=== PATIENT | female | born 1950 | race Caucasian/White ===

== ENCOUNTER → 2017-04-25 | Outpatient (CLI) | payer OTHER ==
--- NOTE | 2017-04-27 08:27 | MM ---
Reason for exam: screening (asymptomatic). Last mammogram was performed 2 years ago. History: Patient is postmenopausal. Family history of breast cancer in 2 grandmothers and breast cancer in aunt at age 55. Physical Findings: A clinical breast exam by your physician is recommended on an annual basis and results should be correlated with mammographic findings. MG 3D Screening Mammo W/Cad Bilateral CC and MLO view(s) were taken. Prior study comparison: April 24, 2015, bilateral MG screening mammo w CAD. The breast tissue is heterogeneously dense. This may lower the sensitivity of mammography. There is chronic nodularity in the right breast. Right sided HOLDER PILE [employer]IVING shunt catheter seen. No significant changes when compared with prior studies. ASSESSMENT: Negative, BI-RAD 1 RECOMMENDATION: Routine screening mammogram of both breasts in 1 year.
== END | disposition home or self-care (01) ==
LOC: RADMAMWWP 13:40
PROVIDERS: ATTEND Family Medicine
DX: Z12.31 Encounter for screening mammogram for malignant neoplasm of breast (principal)
CPT/HCPCS: 77063; G0202

== ENCOUNTER → 2018-06-21 | Outpatient (CLI) | payer OTHER, MEDICARE ==
--- NOTE | 2018-06-22 12:16 | MM ---
Reason for exam: screening (asymptomatic). Last mammogram was performed 1 year and 2 months ago. History: Patient is postmenopausal. Family history of breast cancer in 2 grandmothers and breast cancer in aunt at age 55. Physical Findings: A clinical breast exam by your physician is recommended on an annual basis and results should be correlated with mammographic findings. MG 3D Screening Mammo W/Cad Bilateral CC and MLO view(s) were taken. Prior study comparison: April 25, 2017, bilateral MG 3d screening mammo w/cad. April 24, 2015, bilateral MG screening mammo w CAD. The breast tissue is extremely dense which could obscure a lesion on mammography. Benign calcifications bilaterally. There is chronic nodularity in the right breast. No significant changes when compared with prior studies. ASSESSMENT: Benign, BI-RAD 2 RECOMMENDATION: Routine screening mammogram of both breasts in 1 year.
== END | disposition home or self-care (01) ==
LOC: RADMAMWWP 07:04
PROVIDERS: ATTEND Family Medicine
DX: Z12.31 Encounter for screening mammogram for malignant neoplasm of breast (principal)
CPT/HCPCS: 77063; 77067

== ENCOUNTER 2021-06-06 14:25 | Inpatient (IN) | payer OTHER, MEDICARE ==
[2021-06-06] MEDS ORDERED: NITROGLYCERIN SL TABS 0.4 MG TAB SUBLINGUAL PRN ×2 (14:36→17:39)
--- NOTE | 2021-06-06 14:43 | ED ---
Chest Pain HPI - General Chief Complaint: Chest Pain Stated Complaint: stemi Source: patient, EMS Mode of arrival: EMS - History of Present Illness Initial Comments: She is a 70-year-old female with past history of MT HFR who presents emergency department with acute chest pain. States that she was walking out of the bathroom approximately 45 minutes ago when she had sudden onset of pain that radiates straight through to her back. Denies any numbness, weakness in her extremities. Denies previous history of cardiac disease. Pain is rated as 10 out of 10. EMS did give the patient 4 baby aspirins. They were unable to obtain a line. She admits to mild associated shortness of breath. No lower extremity swelling. No history of DVT or PE. She is not on any blood thinning medications. No recent fevers, chills or cough. No other alleviating, neonatal critical care nurse modifying factors - Related Data Home Medications Medication Instructions Recorded Confirmed No Known Home Medications 06/06/21 06/06/21 Allergies Allergy/AdvReac Type Severity Reaction Status Date / Time No Known Allergies Allergy Verified 06/06/21 14:45 Review of Systems ROS Statement: Those systems with pertinent positive or pertinent negative responses have been documented in the HPI. ROS Other: All systems not noted in ROS Statement are negative. EKG Findings - EKG Comments: EKG Findings:: EKG demonstrates significant baseline artifact. There is a sinus tachycardia with a ventricular rate of 102. QRS 76. QTC of 448. ST elevation V2 through V6 with reciprocal changes in 2, 3 and aVF. EKG demonstrated at 1442 demonstrates sinus tachycardia with a ventricular rate of 101. ND interval 248. QRS 84. QTC of 490. ST elevation V2 through V6 with reciprocal changes in 2, 3 and aVF. 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 SOB with exertion. Hand tremors. History of Any Multi-Drug Resistant Organisms: None Reported Past Surgical History: Section, Hysterectomy, Orthopedic Surgery Additional Past Surgical History / Comment(s): R wrist surgery, Rectocele, Cystocele Past Anesthesia/Blood Transfusion Reactions: No Reported Reaction Smoking Status: Unknown if ever smoked Past Alcohol Use History: None Reported Past Drug Use History: None Reported - Past Family History Brother(s) Family Medical History: Deep Vein Thrombosis (DVT) Course Vital Signs 06/06/21 06/06/21 06/06/21 14:28 14:56 15:30 Temperature 97.3 F L Pulse Rate 101 H 95 97 Respiratory 20 18 18 Rate Blood Pressure 140/80 106/75 129/67 O2 Sat by Pulse 99 97 99 Oximetry - Reevaluation(s) Reevaluation #1: 06/06/21 14:[address] Ferrell already in ER and at bedside Chest Pain MDM - MDM Upon arrival patient is placed into trauma 4. History and physical exam was performed. Patient placed on continuous pulse ox and cardiac monitoring. 12- lead EKG was obtained which demonstrates that she does have ST segment elevation in the anterior lateral leads with reciprocal changes. STEMI was activated. Dr. Ferrell is already in the emergency department for a different patient. He does evaluate the patient and agrees to STEMI activation. IV was established and the patient was given a dose of nitro with improvement in her pain. Laboratory studies were obtained. She is sent over for a CT of her chest due to concern of dissection. CT demonstrates no signs of dissection. Patient is given a heparin bolus. Patient is then transferred to scientific laboratory supervisor in stable condition. She is admitted to Dr. Mathew who does come to the emergency room to evaluate the patient prior to cath Disposition Clinical Impression: Chest pain, ST elevation myocardial infarction (STEMI) Disposition: ADMITTED IP TO THIS HOSP Condition: Serious Is patient prescribed a controlled substance at d/c from ED?: No Decision to Admit Reason: Admit from EC Decision Date: 06/06/21 Decision Time: 15:09
[2021-06-06] MEDS ORDERED: HEPARIN SOD,PORK IN 0.45% NACL 25,000 UNIT in 0.45% NACL 1 250ML.BAG IV SCH (14:45)
[2021-06-06] MEDS ORDERED: HEPARIN SODIUM 1,000 UN/ML (10ML VL) IV PRN (14:45)
[2021-06-06] MEDS ORDERED: HEPARIN SODIUM 1,000 UN/ML (10ML VL) IV ONE (14:45)
[2021-06-06 14:48] LABS: Basophils % (A) 1 %; Eosinophils # (A) 0.3 k/uL (0-0.7); Eosinophils % (A) 4 %; HCT 43.1 % (34.0-46.0); HGB 15.7 gm/dL (11.4-16.0); Lymphocytes # (A) 2.7 k/uL (1.0-4.8); Lymphocytes % (A) 33 %; MCH 30.8 pg (25.0-35.0); MCHC 36.3 g/dL (31.0-37.0); MCV 84.7 fL (80.0-100.0); Mean Platelet Volume 8.2; Monocytes # (A) 0.4 k/uL (0-1.0); Monocytes % (A) 4 %; Neutrophils # (A) 4.6 k/uL (1.3-7.7); Neutrophils % (A) 56 %; Platelet Count 195 k/uL (150-450); RBC 5.09 m/uL (3.80-5.40); RDW 13.3 % (11.5-15.5); WBC 8.1 k/uL (3.8-10.6)
--- NOTE | 2021-06-06 14:59 | XR ---
EXAMINATION TYPE: XR chest 1V portable DATE OF EXAM: 06/06/2021 COMPARISON: NONE HISTORY: Chest pain TECHNIQUE: Single view FINDINGS: Heart and mediastinum are normal. Lungs are clear. Diaphragm is normal. Bony thorax is inta ct. There are chest leads. IMPRESSION: Normal chest.
[2021-06-06 15:01] LABS: ALT 25 U/L (4-34); AST 44 U/L (14-36); African American GFR (CKD) >90 (>60 ml/min/1.73 sqM); Albumin 4.3 g/dL (3.5-5.0); Alkaline Phosphatase 117 U/L (38-126); Anion Gap 13 mmol/L; Blood Urea Nitrogen 12 mg/dL (7-17); Calcium 9.5 mg/dL (8.4-10.2); Carbon Dioxide 18 mmol/L (22-30); Chloride 109 mmol/L (98-107); Glucose 158 mg/dL (74-99); Non-African American GFR(CKD) 85 (>60 ml/min/1.73 sqM); Potassium 3.6 mmol/L (3.5-5.1); Sodium 140 mmol/L (137-145); Total Bilirubin 0.8 mg/dL (0.2-1.3); Total Protein 7.6 g/dL (6.3-8.2)
[2021-06-06 15:07] LABS: Prothrombin Time 10.5 sec (9.0-12.0)
[2021-06-06] MEDS ORDERED: ONDANSETRON 4 MG/2 ML VIAL IVP STA (15:08)
[2021-06-06] MEDS ORDERED: MORPHINE SULFATE 4 MG/ML SYRINGE IVP STA (15:08)
[2021-06-06] MEDS ORDERED: ATORVASTATIN 80 MG TAB PO STA (15:09)
[2021-06-06] MEDS ORDERED: NALOXONE 0.4 MG/ML 1 ML VIAL IV PRN (15:10)
[2021-06-06 15:13] LABS: Partial Thromboplastin Time 21.4 sec (22.0-30.0)
--- NOTE | 2021-06-06 15:17 | CT ---
EXAMINATION TYPE: CT angio chest DATE OF EXAM: 06/06/2021 COMPARISON: None HISTORY: chest pain stemi CT DLP: 842 mGycm Automated exposure control for dose reduction was used. CONTRAST: Performed with IV Contrast, patient injected with 100 mL of Isovue 370. There are 3-D post processed images. There is some interstitial density and subsegmental atelectasis in the posterior lung otto. There i s no pulmonary mass. There is no mediastinal adenopathy. There are no hilar masses. There is normal c ontrast opacification of the pulmonary arteries. There are no filling defects. Pulmonary arteries are intact. Heart is top normal in size. The thoracic vertebra show normal alignment. There is no compression fracture. Sternum is intact. The re is no pleural effusion. IMPRESSION: No evidence of pulmonary embolism. Mild fibrotic changes and subsegmental atelectasis at the lung bas es.
[2021-06-06] MEDS ORDERED: NITROGLYCERIN-D5W PMX 50 MG in DEXTROSE/WATER 1 250ML.BAG IV ONE ×2 (15:26→16:13)
[2021-06-06] MEDS ORDERED: IV FLUID CONTINUATION 600 ML IV ONE (15:35)
[2021-06-06] MEDS ORDERED: LIDOCAINE 1% INJ 10MG/ML (20 ML MDV) SQ ONE (15:45)
[2021-06-06] MEDS ORDERED: HEPARIN SODIUM 1,000 UN/ML (10ML VL) ONE (15:49)
[2021-06-06] MEDS ORDERED: VERAPAMIL SYRINGE (5 MG/10 ML) INTRAARTER ONE (15:49)
[2021-06-06] MEDS ORDERED: MIDAZOLAM 2 MG/2 ML VIAL IV ONE (15:55)
[2021-06-06] MEDS ORDERED: TICAGRELOR 90 MG TAB ONE (15:59)
[2021-06-06] MEDS ORDERED: NITROGLYCERIN 1000MCG/10ML SYRINGE INTRACORON ONE (15:59)
[2021-06-06] MEDS ORDERED: TICAGRELOR 90 MG TAB PO ONE (16:02)
[2021-06-06] MEDS ORDERED: IOPAMIDOL-370 125ML BTL INJ ONE (16:07)
[2021-06-06] MEDS ORDERED: hydrALAZINE HCL 20 MG/ML 1 ML VIAL ONE (16:19)
[2021-06-06] MEDS ORDERED: hydrALAZINE HCL 20 MG/ML 1 ML VIAL IV ONE (16:23)
[2021-06-06] MEDS ORDERED: IOPAMIDOL-370 100ML BTL INJ ONE (16:25)
[2021-06-06] MEDS ORDERED: FUROSEMIDE 10 MG/ML 4 ML VIAL ONE (16:27)
[2021-06-06] MEDS ORDERED: FUROSEMIDE 10 MG/ML 4 ML VIAL IV ONE (16:32)
[2021-06-06] MEDS ORDERED: NALOXONE 0.4 MG/ML 1 ML VIAL ONE (16:36)
[2021-06-06] MEDS ORDERED: NALOXONE 0.4 MG/ML 1 ML VIAL IV ONE ×2 (16:41)
[2021-06-06] MEDS ORDERED: FLUMAZENIL 0.1 MG/ML 5 ML VIAL IVP ONE ×2 (16:43→16:50)
--- NOTE | 2021-06-06 16:53 | P.HPIM ---
<Eligio Pierce - Last Filed: 06/06/21 16:20> History of Present Illness H&P Date: 06/06/21 History of Presenting Illness: Patient is a 70-year-old female with a past medical history of MTHFR Mutation, CVA/TIA, AVM, hyperlipidemia, and concerns of hydrocephalus with recurrent head aches. Patient presented to the emergency department with a chief complaint of chest pain. Patient reports substernal chest pain coming on suddenly to midsternal chest radiating directly into her back beginning approximately 15 minutes prior to arrival to the hospital. Patient states she was walking from the bathroom when this pain came on suddenly. Patient describes this pain as sharp and going right through her. She denies anything making this pain worse and reports nitro did provide mild improvement of pain but did not relieve completely. In addition to her midsternal chest pain, patient also reports feeling Sweaty and slightly lightheaded, she denies having any palpitations, shortness of breath, nausea, episodes of vomiting, Abdominal pain, or experiencing any numbness/tingling/weakness/Swelling in her extremities. Pt is somewhat of a poor historian regarding her past medical history and states that she personally thought she was on way too many medications so she took herself off of all of them years ago. Upon evaluation of pt's chart it appears that pt was on Plavix and Xarelto in 2014. In the emergency department an EKG was completed positive for anteriolateral STEMI, showing sinus tachycardia at [address] elevations in leads V2 through V6 with reciprocal changes in leads II, III, and aVF. Troponins elevated at 0.042. Chest x-ray completed negative for acute cardiopulmonary process. CTA negative for PE or acute process. Patient given aspirin, atorvastatin, nitro, and heparin bolus and was taken to the specialist employee labor relations at 1545. Review of systems: Pertinent positives and negatives as discussed in HPI, a complete review of systems was performed and all other systems are negative. Physical exam: Vital signs reviewed and stable. General: Nontoxic, Patient appears uncomfortable and in moderate distress secondary to pain and inability to get comfortable. Derm: Skin warm And diaphoretic. Head: Atraumatic, normocephalic and symmetric. Eyes: Pupils equal, no lid lag, and anicteric sclera Mouth: no lip lesions, mucus membranes moist Cardiovascular: regular rate and rhythm with normal S1S2, no murmur noted, positive posterior tibial pulses bilaterally, and cap refill < 2 seconds. Lungs: Respirations even, regular, and unlabored on room air. Lungs CTA bilaterally, no rhonchi, no rales, no wheezing, and no accessory muscle usage. Abdominal: Obese abdomen,soft, nontender to palpation, no guarding, no appreciable organomegaly Ext: ROM intact. No gross muscle atrophy, no edema, no contractures Neuro: Speech clear, face symmetrical and CN II-XII grossly intact with no noted focal neuro deficits Psych: Alert and oriented to person, place, time, and situation. Appropriate and pleasant affect. Assessment and Plan of Care: STEMI -EKG was completed positive for anteriolateral STEMI, showing sinus tachycardia at [address] elevations in leads V2 through V6 with reciprocal changes in leads II, III, and aVF. -Troponin elevated at 0.042. -Chest x-ray completed negative for acute cardiopulmonary process. -CTA negative for PE or acute process. -Patient given aspirin, atorvastatin, nitro, and heparin bolus and was taken to the specialist employee labor relations at 1545. -To be admitted to ICU. -Continuous telemetry monitoring. -Cardiology following -Echocardiogram -Dual Antiplatelet therapy with aspirin and Brilinta along with daily atorvastatin and metoprolol. -Lipid profile and hemoglobin A 1C Medical Non-compliance -Patient will require continued education on importance of medication compliance. Morbid obesity with a BMI of 33.7 kg/m -Encourage and educate patient on the importance of maintaining a heart healthy diet. -Follow up outpatient with primary care provider for long-term weight management program. Per record review patient has a medical history of: MTHFR Mutation, CVA, AVM, hyperlipidemia, and concerns of hydrocephalus with recurrent headaches. Patient is a poor historian and states she felt she was on too many medications and took herself off of all medications years ago. The patient is admitted with an anticipated greater than 2 midnight stay for evaluation of STEMI Surrogate decision-maker: CODE STATUS: Full code DVT prophylaxis: Protonix Discussed with: Patient and RN Anticipated discharge date: Clinical course to determine Anticipated discharge place: Home A total of 45 minutes was spent on the care of this complex patient more than 50% of the time was spent in counseling and care coordination. 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 SOB with exertion. Hand tremors. History of Any Multi-Drug Resistant Organisms: None Reported Past Surgical History: Section, Hysterectomy, Orthopedic Surgery Additional Past Surgical History / Comment(s): R wrist surgery, Rectocele, Cys tocele Past Anesthesia/Blood Transfusion Reactions: No Reported Reaction Smoking Status: Unknown if ever smoked Past Alcohol Use History: None Reported Past Drug Use History: None Reported - Past Family History Brother(s) Family Medical History: Deep Vein Thrombosis (DVT) Medications and Allergies Home Medications Medication Instructions Recorded Confirmed Type No Known Home Medications 06/06/21 06/06/21 History Allergies Allergy/AdvReac Type Severity Reaction Status Date / Time No Known Allergies Allergy Verified 06/06/21 14:45 Physical Exam Vitals: Vital Signs Temp Pulse Resp BP Pulse Ox 06/06/21 15:30 97 18 129/67 99 06/06/21 14:56 95 18 106/75 97 06/06/21 14:28 97.3 F L 101 H 20 140/80 99 Intake and Output 06/06/21 06/06/21 06/06/21 06:59 14:59 22:59 Intake Total 0 Balance 0 Intake: IV 0 Other: Weight 86.183 kg Results CBC & Chem 7: 06/06/21 14:40 06/06/21 14:40 Labs: Abnormal Lab Results - Last 24 Hours (Table) 06/06/21 06/06/21 06/06/21 Range/Units 14:40 14:40 14:40 APTT 21.4 L (22.0-30.0) sec Chloride 109 H (98-107) mmol/L Carbon Dioxide 18 L (22-30) mmol/L Glucose 158 H (74-99) mg/dL AST 44 H (14-36) U/L Troponin I 0.042 H* (0.000-0.034) ng/mL <Elsa Mathew - Last Filed: 06/06/21 18:30> History of Present Illness Patient seen and examined independently. Patient was also seen by Eligio Pierce NP and case was discussed. I am in agreement with subjective, physical exam, assessment and plan as written above and amended below. complains of chest pain as retrosternal with radiation straight through to the back, nothing on her arms or up into her jaw, no nausea, diaphoresis, + lightheaded, + dizzy General:Ill appearing, moderate distress, appears older than stated age Derm: cool and clammy Head: atraumatic, normocephalic, symmetric Eyes: EOMI, no lid lag, anicteric sclera Mouth: no lip lesion,mucus membranes moist Cardiovascular: S1S2 reg, no murmur, positive posterior tibial pulse bilateral, Lungs: Decreased bs bilateral, no rhonchi, no rales , no accessory muscle use Abdominal: soft, nontender to palpation, no guarding, no appreciable organomegaly Ext: no gross muscle atrophy, no edema, no contractures Neuro: CN II-XI grossly intact, no focal neuro deficits Psych: Alert, oriented, appropriate affect Physical Exam Osteopathic Statement: *. No significant issues noted on an osteopathic structural exam other than those noted in the History and Physical/Consult. Vitals: Vital Signs Temp Pulse Resp BP Pulse Ox 06/06/21 15:30 97 18 129/67 99 06/06/21 14:56 95 18 106/75 97 06/06/21 14:28 97.3 F L 101 H 20 140/80 99 Intake and Output 06/06/21 06/06/21 06/06/21 06:59 14:59 22:59 Intake Total 266.39 Balance 266.39 Intake: IV 266.39 Other: Weight 86.183 kg Results CBC & Chem 7: 06/06/21 14:40 06/06/21 14:40 Labs: Abnormal Lab Results - Last 24 Hours (Table) 06/06/21 06/06/21 06/06/21 Range/Units 14:40 14:40 14:40 APTT 21.4 L (22.0-30.0) sec Chloride 109 H (98-107) mmol/L Carbon Dioxide 18 L (22-30) mmol/L Glucose 158 H (74-99) mg/dL POC Glucose (mg/dL) (75-99) mg/dL AST 44 H (14-36) U/L Troponin I 0.042 H* (0.000-0.034) ng/mL 06/06/21 Range/Units 17:04 APTT (22.0-30.0) sec Chloride (98-107) mmol/L Carbon Dioxide (22-30) mmol/L Glucose (74-99) mg/dL POC Glucose (mg/dL) 134 H (75-99) mg/dL AST (14-36) U/L Troponin I (0.000-0.034) ng/mL
--- NOTE | 2021-06-06 17:04 | P.CRDCN ---
History of Present Illness History of present illness: HISTORY OF PRESENTING ILLNESS Patient is a pleasant 70-year-old female with history of prior CVA, TIA, MTH FRN mutation, hyperlipidemia, normal pressure hydrocephalus status post JANITOR shunt who presents secondary to acute onset of chest pain radiating to the back. She had associated diaphoresis and somewhat feeling lightheaded. She denies any dyspnea. Apparently she was on Xarelto in the past however unclear why. She was found to have ST elevation anterior septal leads. REVIEW OF SYSTEMS At the time of my exam: CONSTITUTIONAL: Denies fever or chills. CARDIOVASCULAR: +chest pain, no shortness of breath, orthopnea, PND or palpitations. RESPIRATORY: Denies cough. GASTROINTESTINAL: Denies abdominal pain, diarrhea, constipation, nausea or vomiting. MUSCULOSKELETAL: Denies myalgias. NEUROLOGIC: Denies numbness, tingling or weakness. ENDOCRINE: Denies fatigue, weight change, polydipsia or polyurina. GENITOURINARY: Denies burning, hematuria or urgency with micturation. HEMATOLOGIC: Denies history of anemia or bleeding. PHYSICAL EXAMINATION Vital signs reviewed. CONSTITUTIONAL: +distress, obese HEENT: Head is normocephalic. Pupils are equal, round. Sclerae anicteric. Mucous membranes of the mouth are moist. No JVD. No carotid bruit. CHEST EXAMINATION: Lungs are clear to auscultation. No chest wall tenderness is noted on palpation or with deep breathing. HEART EXAMINATION: Regular rate and rhythm. S1, S2 heard. No murmurs, gallops or rub. ABDOMEN: Soft, nontender. Positive bowel sounds. EXTREMITIES: 2+ peripheral pulses, no lower extremity edema and no calf tender ness. NEUROLOGIC EXAMINATION: Patient is awake, alert and oriented x3. ASSESSMENT 1. Acute anterior septal STEMI 2. Hypertension 3. Hyperlipidemia 4. Prior stroke, TIA apparently on Xarelto in the past 5. History of MTHFR PLAN Patient is having chest pain that radiates to the and therefore concern of aortic dissection. Therefore we will get CT aortic dissection protocol and if negative emergent heart catheterization with likely PCI. Check 2-D echo. Further recommendations to follow. 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 SOB with exertion. Hand tremors. History of Any Multi-Drug Resistant Organisms: None Reported Past Surgical History: Section, Hysterectomy, Orthopedic Surgery Additional Past Surgical History / Comment(s): R wrist surgery, Rectocele, Cys tocele Past Anesthesia/Blood Transfusion Reactions: No Reported Reaction Smoking Status: Unknown if ever smoked Past Alcohol Use History: None Reported Past Drug Use History: None Reported - Past Family History Brother(s) Family Medical History: Deep Vein Thrombosis (DVT) Medications and Allergies Home Medications Medication Instructions Recorded Confirmed Type No Known Home Medications 06/06/21 06/06/21 History Allergies Allergy/AdvReac Type Severity Reaction Status Date / Time No Known Allergies Allergy Verified 06/06/21 14:45 Physical Exam Vitals: Vital Signs Temp Pulse Resp BP Pulse Ox 06/06/21 15:30 97 18 129/67 99 06/06/21 14:56 95 18 106/75 97 06/06/21 14:28 97.3 F L 101 H 20 140/80 99 Intake and Output 06/06/21 06/06/21 06/06/21 06:59 14:59 22:59 Intake Total 266.39 Balance 266.39 Intake: IV 266.39 Other: Weight 86.183 kg Results 06/06/21 14:40 06/06/21 14:40 Cardiac Enzymes 06/06/21 06/06/21 Range/Units 14:40 14:40 AST 44 H (14-36) U/L Troponin I 0.042 H* (0.000-0.034) ng/mL Coagulation 06/06/21 Range/Units 14:40 PT 10.5 (9.0-12.0) sec APTT 21.4 L (22.0-30.0) sec CBC 06/06/21 Range/Units 14:40 WBC 8.1 (3.8-10.6) k/uL RBC 5.09 (3.80-5.40) m/uL Hgb 15.7 (11.4-16.0) gm/dL Hct 43.1 (34.0-46.0) % Plt Count 195 (150-450) k/uL Comprehensive Metabolic Panel 06/06/21 Range/Units 14:40 Sodium 140 (137-145) mmol/L Potassium 3.6 (3.5-5.1) mmol/L Chloride 109 H (98-107) mmol/L Carbon Dioxide 18 L (22-30) mmol/L BUN 12 (7-17) mg/dL Creatinine 0.73 (0.52-1.04) mg/dL Glucose 158 H (74-99) mg/dL Calcium 9.5 (8.4-10.2) mg/dL AST 44 H (14-36) U/L ALT 25 (4-34) U/L Alkaline Phosphatase 117 (38-126) U/L Total Protein 7.6 (6.3-8.2) g/dL Albumin 4.3 (3.5-5.0) g/dL Current Medications Generic Name Dose Route Start Last Admin Trade Name Freq PRN Reason Stop Dose Admin Aspirin 81 mg 06/07/21 09:00 Aspirin 81 Mg PO DAILY [facility] Atorvastatin Calcium 80 mg 06/07/21 21:00 Atorvastatin 80 Mg Tab PO HS [facility] Heparin Sodium (Porcine) 0 unit 06/06/21 14:45 Heparin Sodium 1,000 Un/Ml (10ml Vl) IV PER PROTOCOL PRN Low PTT Protocol Heparin Sodium/Sodium Chloride 250 mls @ 10 mls/hr 06/06/21 14:45 25,000 unit/ Sodium Chloride IV .Q24H [facility] Protocol 11.603 UNITS/KG/HR Nitroglycerin/Dextrose 50 mg/ 250 mls @ 1.5 mls/hr 06/06/21 15:26 IV Solution IV 06/07/21 15:25 .Q24H ONE Protocol 5 MCG/MIN Metoprolol Tartrate 12.5 mg 06/06/21 21:00 Metoprolol Tartrate 12.5 Mg Tab PO BID [place] Naloxone HCl 0.2 mg 06/06/21 15:10 Naloxone 0.4 Mg/Ml 1 Ml Vial IV Q2M PRN Opioid Reversal Nitroglycerin 0.4 mg 06/06/21 14:36 06/06/21 14:58 Nitroglycerin Sl Tabs 0.4 Mg Tab SUBLINGUAL 0.4 mg Q5M PRN Administration Chest Pain Pantoprazole Sodium 40 mg 06/07/21 09:00 Pantoprazole 40 Mg/10 Ml Vial IVP DAILY [place] Intake and Output 06/06/21 06/06/21 06/06/21 06:59 14:59 22:59 Intake Total 266.39 Balance 266.39 Intake: IV 266.39 Other: Weight 86.183 kg Patient Weight 06/07/21 06:59 Weight 86.183 kg 06/06/21 14:40 06/06/21 14:40
[2021-06-06 17:05] LABS: Glucose,Whole Blood 134 mg/dL (75-99)
--- NOTE | 2021-06-06 17:14 | P.PRCINT ---
Percutaneous Coronary Int. - Percutaneous Coronary Intervention Percutaneous Coronary Intervention: PROCEDURES PERFORMED: Left heart catheterization, bilateral coronary angiography, PCI proximal LAD with 2.75 x 23 mm Xience ELIANA, postdilated proximally with a 3.0 noncompliant balloon INDICATION: STEMI HISTORY: Patient is pleasant 70-year-old female with history of hydrocephalus status post shunt, prior stroke, poor follow-up, MTHFR who presents secondary acute onset of chest pain radiating to the back. She had a CT in the ER to rule out aortic dissection. She was found to have anterior septal STEMI and therefore heart catheterization was recommended. CONSENT:I have discussed the risks, benefits and alternative therapies for the above-mentioned procedure and for both sedation/analgesia as well as necessary blood product administration, if indicated, as they pertain to this patient. The patient has indicated understanding and acceptance of the risks and procedures discussed. PROCEDURE: After the risks, benefits and alternatives of the above mentioned procedure explained in detail with the patient, informed consent was obtained. Patient was taken to the catheterization lab and prepped and draped in usual fashion. 1% lidocaine was used to anesthetize the right radial artery. A 6- Gib[place]arian sheath was placed in the right radial artery using modified Seldinger technique. Initially a 6-Gibraltarian CLS 3.5 catheter was used to attempt to engage the left main however was somewhat too long and therefore a 6-Gib[place]tarian CLS 3.0 guide was used to engage the left main. Left coronary angiography was performed. Heparin was given for ACT greater than 250. A 0.014 BMW wire was used to advance into the distal LAD. A 2.5 x 12 mm balloon was used to perform predilation. Next a 2.75 x 23 mm Xience ELIANA was placed in the proximal LAD. The proximal portion of the stent was postdilated with a 3.0 noncompliant balloon. Pre intervention there was 100% stenosis and MARLIN 0 flow and post intervention there was 0% stenosis with MARLIN 3 flow. Right coronary angiography was performed with a 5-Gibraltarian JR5 catheter in various views. A 5-Gibraltarian FR5 catheter was inserted into the left ventricle and pressure measurements were obtained. The right radial sheath was removed and a TR band was placed with hemostasis achieved. At the beginning of the procedure patient was mostly moaning in pain and alert and oriented. Patient only received 1 of Versed during the procedure however became more somnolent and at t he end of the case difficult to arouse. Therefore sedation was reversed with flumazenil as well as Narcan without any real improvement. Therefore code stroke was called. Conscious Sedation: Patient was monitored under the direct supervision of vision of myself for conscious sedation using Versed and fentanyl for a total duration of 41 minutes HEMODYNAMICS: Aorta: 133/68 LV: 150/3 LVEDP 33 SELECTIVE CORONARY ARTERIOGRAPHY: LEFT MAIN: The left main is a large caliber vessel which bifurcates into the LAD and circumflex. There is no significant stenosis. LEFT ANTERIOR DESCENDING CORONARY ARTERY: LAD is a large caliber vessel. There is 100% proximal LAD stenosis and otherwise appears normal. The distal LAD appears small in caliber and tapers before reaching the apex. LEFT CIRCUMFLEX CORONARY ARTERY: Left circumflex is a moderate caliber vessel with a mid circumflex 20-30% stenosis. RIGHT CORONARY ARTERY: The right coronary artery is a large caliber vessel which gives off a PDA and PLV branch and is the dominant vessel. There is no significant stenosis. FINAL IMPRESSION: 1. Single-vessel coronary artery disease as described above with 100% proximal LAD stenosis and otherwise only mild 20-30% stenosis of the circumflex 2. S/p PCI proximal LAD with 2.75 x 23 mm Xience ELIANA, postdilated proximally with a 3.0 noncompliant balloon 3. Elevated left sided filling pressures 4. Altered mental status PLAN: 1. Aggressive risk factor modification per most recent ACC/AHA guidelines. 2. Continue dual antiplatelets 3. Further workup for altered mental status, rule out stroke
[2021-06-06] MEDS ORDERED: ATROPINE SULFATE 0.1 MG/ML 10ML SYRINGE IV PRN (17:39)
[2021-06-06] MEDS ORDERED: ZOLPIDEM 5 MG TAB PO PRN (17:39)
[2021-06-06] MEDS ORDERED: RX INFO: IV CONTRAST WAS GIVEN 1 EACH MISC MISCELLANE PRN (17:39)
[2021-06-06] MEDS ORDERED: MAG HYDROX/AL HYDROX/SIMETH 30 ML CUP PO PRN (17:39)
--- NOTE | 2021-06-06 17:39 | CT ---
EXAMINATION TYPE: CT brain wo con for TPA DATE OF EXAM: 06/06/2021 COMPARISON: None HISTORY: Code stroke. CT DLP: 1091.80 mGycm Automated exposure control for dose reduction was used. There is mild enlargement of the ventricles. There is right-sided shunt catheter with the tip in the posterior third ventricle. There is no mass effect nor midline shift. There is no sign of intracrania l hemorrhage. There is contrast in the venous sinuses and the intracranial arteries from the CT angio gram. IMPRESSION: There is hydrocephalus not significantly different than the old MR scan of 06/18/2020. I do not suspec t obstruction. Shunt catheter in good position.
[2021-06-06] MEDS ORDERED: SODIUM CHLORIDE 0.9% 1,000 ML IV ONE (17:40)
[2021-06-06 18:00] LABS: Glucose,Whole Blood 158 mg/dL (75-99)
[2021-06-06] MEDS ORDERED: Potassium Replacement Protocol 1 EACH MISC MISCELLANE PRN (18:45)
--- NOTE | 2021-06-06 18:56 | CT ---
EXAMINATION TYPE: CODE STROKE: CTA head neck DATE OF EXAM: 06/06/2021 COMPARISON: None HISTORY: CVA, right sided weakness CT DLP: 802.4 mGycm Automated exposure control for dose reduction was used. CONTRAST: Performed with IV Contrast, patient injected with 65 mL of Isovue 370. Images obtained from the aortic arch to the vertex of the brain with IV contrast. There are 3-D post processed images. There is normal branching pattern of the great vessels on the aortic arch. There is bilateral arteria l flow in the subclavian arteries. There is arterial flow in the common internal and external carotid arteries bilaterally. There is fairly wide patency of the carotid artery bifurcations. There is emmanuel rial flow in both vertebral arteries. There is arterial flow in the vertebrobasilar artery system. Th ere is no evidence of carotid or vertebral artery aneurysm or dissection. There is a right side ventricular shunt catheter with the tip in the posterior aspect of the third ve ntricle. There is hydrocephalus. There is arterial flow in the anterior middle and posterior cerebral arteries. There is no mass effec t. I see no evidence of intracranial aneurysm or neovascularity. The left posterior cerebral artery a ppears to fill mostly through the left posterior communicating artery. There is normal enhancement of the venous sinuses. There is no evidence of hemodynamic stenosis. IMPRESSION: Negative CT angiogram of the neck. Negative CT angiogram of the brain.
--- NOTE | 2021-06-06 18:56 | P.EN ---
Code stroke: Indication: Right sided facial droop, lethargy Arrived on Scene to find: Patient on hospital bed with the [employer] staff present. At completion of the Patient was noted to be lethargic and not following commands. She was given a dose of Narcan and Romazicon without return to baseline. Code stroke was activated. Blood sugar checked and it was greater than 100 Patient seen and examined at bedside. Patient with eyes closed, opens to sternal rub, is able to track my finger without difficulty. Intermittently following commands. It not verbalizing. Vital signs reviewed Neurologic assessment: Pupils equal round sluggishly reactive to light, extraocular motion intact, unable to participate and accommodation, unable to participate in visual field testing, patient is able to keep left arm elevated, right arm quickly just back towards bed, patient does have withdrawal to painful stimuli in bilateral upper extremities, withdrawal to pain. Bilateral lower extremities, she is unable keep legs elevated off the bed on either side. Painful stimuli is intact in bilateral face, no tongue deviation noted but patient not following commands well. Patient is unable to smile or frown Assessment: Acute encephalopathy with right-sided weakness Plan: Stat CT head, stat CTA head and neck Patient has already received aspirin, Prilosec, and Lipitor Disposition: Return to ICU Notified: Spoke with neuro interventional physician Asst. Lujan: repeat CTA head and neck Family notified by myself Dr. Ferrell was at bedside. A Total of 45 minutes of critical care time was spent on the complex care of this patient.
[2021-06-06] MEDS: SODIUM CHLORIDE 0.9% 1,000 ML IV SCH (20:56)
[2021-06-06] MEDS: POTASSIUM CHLORIDE 10 MEQ in WATER FOR INJECTION 1 100ML.BAG IVPB SCH ×2 (20:57→22:01)
[2021-06-06] MEDS ORDERED: METOPROLOL TARTRATE 25 MG TAB PO SCH (21:00)
[2021-06-06] MEDS ORDERED: METOPROLOL TARTRATE 12.5 MG TAB PO SCH (21:00)
[2021-06-06] MEDS ORDERED: ATORVASTATIN 80 MG TAB PO SCH (21:00)
[2021-06-06 21:41] LABS: Appearance,Urine Clear (Clear); Bilirubin,Urine Negative (Negative); Blood,Urine Negative (Negative); Color,Urine Light Yellow; Glucose,Urine (UA) Negative (Negative); Ketones,Urine Negative (Negative); Leukocyte Esterase,Urine Negative (Negative); Nitrite,Urine Negative (Negative); PH, Urine 5.5 (5.0-8.0); Protein,Urine Negative (Negative); Urobilinogen,Urine <2.0 mg/dL (<2.0)
[2021-06-06 21:42] LABS: Glucose,Whole Blood 167 mg/dL (75-99)
[2021-06-06] MEDS: TICAGRELOR 90 MG TAB PO SCH (22:01)
[2021-06-06 22:06] LABS: Specific Gravity,Urine >1.050 (1.001-1.035)
[2021-06-07] MEDS ORDERED: MORPHINE SULFATE 4 MG/ML SYRINGE IVP PRN (02:18)
[2021-06-07 03:59] LABS: Glucose,Whole Blood 150 mg/dL (75-99)
[2021-06-07 04:48] LABS: Basophils % (A) 0 %; Eosinophils % (A) 0 %; HCT 45.5 % (34.0-46.0); HGB 15.5 gm/dL (11.4-16.0); Lymphocytes # (A) 1.7 k/uL (1.0-4.8); Lymphocytes % (A) 13 %; MCH 29.8 pg (25.0-35.0); MCV 87.6 fL (80.0-100.0); Mean Platelet Volume 8.2; Monocytes # (A) 0.6 k/uL (0-1.0); Monocytes % (A) 5 %; Neutrophils # (A) 10.1 k/uL (1.3-7.7); Neutrophils % (A) 80 %; Platelet Count 189 k/uL (150-450); RBC 5.19 m/uL (3.80-5.40); RDW 13.5 % (11.5-15.5); WBC 12.6 k/uL (3.8-10.6)
[2021-06-07 05:12] LABS: ALT 46 U/L (4-34); AST 361 U/L (14-36); African American GFR (CKD) >90 (>60 ml/min/1.73 sqM); Alkaline Phosphatase 93 U/L (38-126); Anion Gap 12 mmol/L; Blood Urea Nitrogen 9 mg/dL (7-17); Calcium 9.1 mg/dL (8.4-10.2); Carbon Dioxide 18 mmol/L (22-30); Chloride 110 mmol/L (98-107); Glucose 138 mg/dL (74-99); Non-African American GFR(CKD) >90 (>60 ml/min/1.73 sqM); Potassium 3.7 mmol/L (3.5-5.1); Sodium 140 mmol/L (137-145); Total Protein 7.2 g/dL (6.3-8.2)
[2021-06-07] MEDS: SODIUM CHLORIDE 0.9% 1,000 ML IV SCH ×3 (06:23→20:40)
--- NOTE | 2021-06-07 07:05 | XR ---
EXAMINATION TYPE: XR chest 1V DATE OF EXAM: 06/07/2021 HISTORY: Shortness of breath. COMPARISON: 06/05/2021 TECHNIQUE: Single view of the chest is submitted. FINDINGS: Demonstrated are scattered senescent parenchymal change. There is no evidence for focal infiltrate. The heart is stable. Hilar and mediastinal structures are within normal limits. Degenerative changes are seen of the dorsal spine. IMPRESSION: 1. Chronic changes without evidence for acute pulmonary disease.
--- NOTE | 2021-06-07 07:34 | P.PN ---
Subjective Progress Note Date: 06/07/21 Principal diagnosis: Acute coronary syndrome This is a 70-year-old female patient with hypertension and dyslipidemia who was admitted to the hospital with a chest discomfort and she was diagnosed with acute anterior ST patient myocardial infarction. She underwent an emergent he art catheterization and PCI of the proximal LAD. The patient was seen this morning. She is chest pain-free. She is on dual antiplatelet therapy. She is also on high intensity statin. She is not on beta blockers going to start her on Toprol-XL at 25 mg by mouth daily. Hemodynamically she is stable. The echo still pending. Objective - Vital Signs Vital signs: Vital Signs Temp 98.8 F 06/07/21 04:00 Pulse 110 H 06/07/21 07:00 Resp 20 06/07/21 07:00 BP 125/80 06/07/21 07:00 Pulse Ox 95 06/07/21 07:00 Intake & Output 06/06/21 06/07/21 06/07/21 18:59 06:59 18:59 Intake Total 266.39 2100 90 Output Total 665 1275 50 Balance -398.61 825 40 Weight 86.183 kg 86.7 kg Intake: IV 266.39 2100 90 Potassium Chloride 10 meq 200 In Water For Injection 1 100ml.bag @ 100 mls/hr IVPB Q1H CORNELIA Rx#: [id number] Sodium Chloride 0.9% 1, 1900 90 000 ml @ 999 mls/hr IV . Q1H1M ONE Rx#:[id number] Output: Urine 665 1275 50 Other: Voiding Method Indwelling Catheter - Constitutional General appearance: Present: no acute distress - Respiratory Respiratory: bilateral: CTA - Cardiovascular Rhythm: regular Heart sounds: normal: S1, S2 - Labs CBC & Chem 7: 06/07/21 03:53 06/07/21 03:53 Labs: Abnormal Lab Results - Last 24 Hours (Table) 06/06/21 06/06/21 06/06/21 Range/Units 14:40 14:40 14:40 WBC (3.8-10.6) k/uL Neutrophils # (1.3-7.7) k/uL APTT 21.4 L (22.0-30.0) sec Chloride 109 H (98-107) mmol/L Carbon Dioxide 18 L (22-30) mmol/L Glucose 158 H (74-99) mg/dL POC Glucose (mg/dL) (75-99) mg/dL AST 44 H (14-36) U/L ALT (4-34) U/L Troponin I 0.042 H* (0.000-0.034) ng/mL Ur Specific [place] (1.001-1.035) 06/06/21 06/06/21 06/06/21 Range/Units 17:04 17:56 21:00 WBC (3.8-10.6) k/uL Neutrophils # (1.3-7.7) k/uL APTT (22.0-30.0) sec Chloride (98-107) mmol/L Carbon Dioxide (22-30) mmol/L Glucose (74-99) mg/dL POC Glucose (mg/dL) 134 H 158 H (75-99) mg/dL AST (14-36) U/L ALT (4-34) U/L Troponin I (0.000-0.034) ng/mL Ur Specific [place] >1.050 H (1.001-1.035) 06/06/21 06/07/21 06/07/21 Range/Units 21:40 03:53 03:53 WBC 12.6 H (3.8-10.6) k/uL Neutrophils # 10.1 H (1.3-7.7) k/uL APTT (22.0-30.0) sec Chloride 110 H (98-107) mmol/L Carbon Dioxide 18 L (22-30) mmol/L Glucose 138 H (74-99) mg/dL POC Glucose (mg/dL) 167 H (75-99) mg/dL AST 361 H (14-36) U/L ALT 46 H (4-34) U/L Troponin I (0.000-0.034) ng/mL Ur Specific [place] (1.001-1.035) 06/07/21 Range/Units 03:57 WBC (3.8-10.6) k/uL Neutrophils # (1.3-7.7) k/uL APTT (22.0-30.0) sec Chloride (98-107) mmol/L Carbon Dioxide (22-30) mmol/L Glucose (74-99) mg/dL POC Glucose (mg/dL) 150 H (75-99) mg/dL AST (14-36) U/L ALT (4-34) U/L Troponin I (0.000-0.034) ng/mL Ur Specific [place] (1.001-1.035) Assessment and Plan Assessment: Assessment #[address] elevation myocardial infarction #2 hypertension #3 change in mental status Plan #1 continue dual antiplatelet therapy #2 continue high intensity statin #3 add beta lashell with Toprol-XL to the current medical regimen #4 follow-up on the echocardiogram
[2021-06-07] MEDS: TICAGRELOR 90 MG TAB PO SCH ×2 (08:31→20:40)
[2021-06-07] MEDS: PANTOPRAZOLE 40 MG/10 ML VIAL IVP SCH (08:31)
[2021-06-07] MEDS: ASPIRIN 81 MG PO SCH (08:31)
[2021-06-07] MEDS: METOPROLOL SUCCINATE (ER) 25 MG TAB.ER.24H PO SCH (08:31)
[2021-06-07] MEDS ORDERED: ASPIRIN 81 MG PO SCH (09:00)
--- NOTE | 2021-06-07 09:50 | P.CNPUL ---
History of Present Illness Consult date: 06/07/21 Requesting physician: Elsa Mathew Reason for consult: chest pain Chief complaint: Chest pain. History of present illness: Pulmonary consult dated 06/07/2021. 70-year-old female, who presented to the emergency department, on June 06. The patient came in complaining of acute chest pain. The pain was sudden onset. It radiated to her back. She denied any numbness, weakness, or other extremity complaints. She denies a prior history of cardiac disease. She also admitted to mild shortness of breath. She had no lower extremity edema or swelling. The patient was eventually taken to the catheterization laboratory and had a stent placed in her left anterior descending coronary artery. This was done on June 06. Currently, she is on room air, she also is getting saline at 90 mL an hour. The patient apparently developed some acute mental status changes, and was evaluated by neurology. CT angiography and CT of the brain were apparently both negative. Currently, she is a bit confused still. CT angiogram of the chest was negative for pulmonary embolism. The patient was admitted with a diagnosis of acute anterior septal wall ST segment elevation myocardial infarction. She apparently also has a history of hypertension, and hyperlipidemia, and prior stroke. She also apparently has a history of having the MTHFR mutation. White count 12.6, hemoglobin hematocrit and platelet count all normal. Sodium and potassium are normal. Chloride 110, CO2 18, anion gap 12, BUN 9, creatinine 0.63. Troponin was 0.042. Covid testing was negative. Chest x-ray was negative for acute disease. Computed tomography scan of the brain revealed hydrocephalus. There was a shunt in place. Review of Systems REVIEW OF SYSTEMS: CONSTITUTIONAL: [Negative.] NEUROLOGIC: [ Negative.] HEENT: [ Negative.] CARDIAC: Acute chest pain. PULMONARY: Mild shortness of breath. GI: [Negative.] : [Negative.] RHEUMATOLOGIC: [ Negative.] IMMUNOLOGIC: [ Negative.] ENDOCRINE: [Negative. ] DERMATOLOGIC: [Negative.] Past Medical History Past Medical History: Blood Disorder, CVA/TIA, GERD/Reflux Additional Past Medical History / Comment(s): anemia, MTHFR (clotting disorder), Headaches due to Communicating Fluid Hydrocephalus. SOB with exertion. Hand tremors. History of Any Multi-Drug Resistant Organisms: None Reported Past Surgical History: Section, Hysterectomy, Orthopedic Surgery Additional Past Surgical History / Comment(s): R wrist surgery, Rectocele, Cystocele Past Anesthesia/Blood Transfusion Reactions: No Reported Reaction Smoking Status: Never smoker - Past Family History Brother(s) Family Medical History: Deep Vein Thrombosis (DVT) Medications and Allergies Home Medications Medication Instructions Recorded Confirmed Type No Known Home Medications 06/06/21 06/06/21 History Allergies Allergy/AdvReac Type Severity Reaction Status Date / Time No Known Allergies Allergy Verified 06/06/21 14:45 Physical Exam Osteopathic Statement: *. No significant issues noted on an osteopathic structural exam other than those noted in the History and Physical/Consult. Vitals: Vital Signs Temp Pulse Resp BP Pulse Ox 06/07/21 09:00 116 H 11 L 133/75 98 06/07/21 08:25 92 L 06/07/21 08:00 98.0 F 111 H 21 131/86 95 06/07/21 07:00 110 H 20 125/80 95 06/07/21 06:00 109 H 19 121/67 94 L 06/07/21 05:00 106 H 20 128/92 96 06/07/21 04:00 98.8 F 110 H 15 128/75 96 06/07/21 03:00 109 H 20 128/75 96 06/07/21 02:00 110 H 18 106/54 99 06/07/21 01:00 109 H 16 93/80 97 06/07/21 00:00 97.7 F 109 H 25 H 110/62 95 06/06/21 23:39 98 06/06/21 23:02 98 16 112/67 99 06/06/21 23:00 98 28 H 115/66 98 06/06/21 22:50 98 16 99 06/06/21 22:40 99 17 113/67 98 06/06/21 22:30 97 19 116/60 99 06/06/21 22:20 99 16 99 06/06/21 22:10 101 H 15 114/66 99 06/06/21 22:00 100 18 114/66 98 06/06/21 21:50 101 H 17 114/66 99 06/06/21 21:40 101 H 20 115/60 98 06/06/21 21:30 100 17 123/63 99 06/06/21 21:20 102 H 17 123/63 99 06/06/21 21:10 105 H 21 110/64 99 06/06/21 21:00 105 H 27 H 114/63 98 06/06/21 20:50 103 H 17 114/63 99 06/06/21 20:40 105 H 18 114/66 99 06/06/21 20:30 105 H 18 121/68 99 06/06/21 20:20 105 H 30 H 121/68 99 06/06/21 20:10 105 H 18 118/66 99 06/06/21 20:00 105 H 18 113/74 98 06/06/21 19:50 105 H 18 113/74 98 06/06/21 19:40 105 H 17 107/67 98 06/06/21 19:30 105 H 22 108/71 98 06/06/21 19:20 106 H 18 108/71 99 06/06/21 19:10 106 H 18 125/75 99 06/06/21 19:00 97.6 F 111 H 15 130/71 100 06/06/21 18:50 112 H 21 130/71 100 06/06/21 18:40 112 H 33 H 119/91 99 06/06/21 18:35 114 H 23 119/91 06/06/21 18:10 111 H 19 132/71 98 06/06/21 18:00 114 H 20 130/74 100 06/06/21 17:50 97.6 F 113 H 21 130/74 99 06/06/21 17:40 111/100 97 06/06/21 15:30 97 18 129/67 99 06/06/21 14:56 95 18 106/75 97 06/06/21 14:28 97.3 F L 101 H 20 140/80 99 Intake and Output 06/06/21 06/07/21 06/07/21 22:59 06:59 14:59 Intake Total 1646.39 720 390 Output Total 1385 555 110 Balance 261.39 165 280 Intake: IV 1646.39 720 270 Potassium Chloride 10 meq 200 In Water For Injection 1 100ml.bag @ 100 mls/hr IVPB Q1H [facility]NEL[facility] Rx#: [id number] Sodium Chloride 0.9% 1, 1180 720 270 000 ml @ 999 mls/hr IV . Q1H1M ONE Rx#:[id number] Oral 120 Output: Urine 1385 555 110 Other: Voiding Method Indwelling Catheter Indwelling Catheter Indwelling Catheter Weight 86.183 kg 86.7 kg No acute distress, oriented 3. Patient's mental status seems to be a little depressed. She does answer questions appropriately. The patient is not on any supplemental oxygen. HEENT examination is grossly unremarkable. Neck supple. Full range of motion. No adenopathy thyromegaly or neck vein distention. Cardiovascular examination reveals regular rhythm rate. S1-S2 normal. No S3 or S4. No discernible murmur noted. Heart sounds are distant. Heart rate 110 bpm. Lungs reveal clear breath sounds. Breath sounds are equal bilaterally. No adventitious lung sounds including wheezes rhonchi or crackles. Abdomen soft bowel sounds are heard. No masses or tenderness. Extremities are intact. No cyanosis clubbing or edema. Skin is without rash or lesion. Neurologic examination is brief but nonfocal. Affect is a bit flat. Results - Laboratory Findings CBC and BMP: 06/07/21 03:53 06/07/21 03:53 PT/INR, D-dimer PT 10.5 sec (9.0-12.0) 06/06/21 14:40 INR 1.0 (<1.2) 06/06/21 14:40 Abnormal lab findings: Abnormal Labs 06/06/21 06/06/21 06/06/21 14:40 14:40 14:40 WBC Neutrophils # APTT 21.4 L Chloride 109 H Carbon Dioxide 18 L Glucose 158 H POC Glucose (mg/dL) AST 44 H ALT Troponin I 0.042 H* Ur Specific [place] 06/06/21 06/06/21 06/06/21 17:04 17:56 21:00 WBC Neutrophils # APTT Chloride Carbon Dioxide Glucose POC Glucose (mg/dL) 134 H 158 H AST ALT Troponin I Ur Specific [place] >1.050 H 06/06/21 06/07/21 06/07/21 21:40 03:53 03:53 WBC 12.6 H Neutrophils # 10.1 H APTT Chloride 110 H Carbon Dioxide 18 L Glucose 138 H POC Glucose (mg/dL) 167 H AST 361 H ALT 46 H Troponin I Ur Specific [place] 06/07/21 03:57 WBC Neutrophils # APTT Chloride Carbon Dioxide Glucose POC Glucose (mg/dL) 150 H AST ALT Troponin I Ur Specific [place] - Diagnostic Findings Chest x-ray: image reviewed CT scan - chest: image reviewed Assessment and Plan Assessment: Acute ST segment elevation myocardial infarction, status post stent placement, LAD, 06/06/2021. Prior history of TIA. Status post shunt placement for hydrocephalus. History of hypertension. History of hyperlipidemia. History of anemia. History of headaches. History of MTHFR mutation. Plan: Plan dated 06/07/2021. She has yet to be seen by neurology. CT of the brain did show hydrocephalus and a well-placed shunt. The patient's chest x-ray was normal. Labs are reviewed. There is no evidence of pulmonary embolism on CT angiogram. We will continue to follow. Prognosis is guarded. No additional recommendations are made. The patient remains on no supplemental oxygen. She's getting saline at 90 mL an hour. Time with Patient: Greater than 30
[2021-06-07 10:38] VITALS: BMI 33.8
--- NOTE | 2021-06-07 11:27 | P.CNNES ---
History of Present Illness Consult date: 06/07/21 Requesting physician: Elsa Mathew Reason for Consult: right sided weakness History of Present Illness: Patient is a 70-year-old right-handed female came to the hospital by ambulance yesterday at 2:25 PM for chest pain. Patient not able to provide any history. Patient's family members were not available. According to EMS flow sheet, when they arrived, patient was laying in her living room floor. Patient states she was fine and then had a bowel movement and started to have chest pain as soon as she left the restroom. The chest pain feels like someone is standing on her chest with waves that feels like she is being stabbed. The pain radiates to her spine and is making her nauseated. No neurological deficits noted on the examination. She was alert and oriented. EKG shows ST segment elevation noted in leads 34 and 5. Aspirin was given. Oxygen was given. Patient denied any relief from aspirin. Patient's vitals at the scene blood pressure 138/99, pulse rate 100, respiration 26 and saturation 97%. Patient was brought to the hospital. Vital signs on arrival blood pressure 140/80, pulse rate 101, temperature 97.3. CTA of the chest was negative for pulmonary embolism. Mild fibrotic changes and subsegmental atelectasis at the lung bases. Patient was taken to the [facility]. She underwent stenting to the LAD. After cardiac catheterization, patient was noted to be lethargic and not following commands. Patient was given a dose of Narcan and Romazicon without return to baseline. Stroke code was activated. Blood sugar was over 100. Patient was intermittently following commands, opens eyes to sternal rub. Patient was not verbalizing. Patient was able to keep left arm elevated, right arm quickly comes back towards the bed. Patient was noted to have acute encephalopathy with right-sided weakness. Computed tomography scan of head showed hydrocephalus, not significantly different than old MRI scan of 06/18/2020. No obvious obstruction. Shunt catheter is in good position. CTA of head and neck were reported as normal. Patient's blood test shows WBC 20.6 hemoglobin 15.5, mariann telets 189. Electrolytes and renal functions are normal. AST is elevated 361, ALT 46. UA negative. Troponin is borderline 0.042. Pichardo virus PCR negative. She states she lives with her at home. She does not smoke, does not drink alcohol. Patient at present admits to having headache, which is "bad". Denies any problem with the vision. Complains of weakness of the left arm, although actually it is the right which is weak. Patient states she has 7 children. Denies any history of seizures. She could not tell me details about her shunt in her head. Review of Systems Patient not able to provide detailed review of systems. She admits to having chest pain, and bad headaches. Denies any visual problems. Other review of systems cannot be assessed. ROS unobtainable: due to mental status Past Medical History Past Medical History: Blood Disorder, CVA/TIA, GERD/Reflux Additional Past Medical History / Comment(s): anemia, MTHFR (clotting disorder), Headaches due to Communicating Fluid Hydrocephalus. SOB with exertion. Hand tremors. History of Any Multi-Drug Resistant Organisms: None Reported Past Surgical History: Section, Hysterectomy, Orthopedic Surgery Additional Past Surgical History / Comment(s): R wrist surgery, Rectocele, Cystocele Past Anesthesia/Blood Transfusion Reactions: No Reported Reaction Smoking Status: Never smoker - Past Family History Brother(s) Family Medical History: Deep Vein Thrombosis (DVT) Medications and Allergies Home Medications Medication Instructions Recorded Confirmed Type Aspirin 81 mg PO DAILY tab 06/07/21 Rx Atorvastatin [Lipitor] 80 mg PO HS #90 tab 06/07/21 Rx Metoprolol Succinate (ER) [Toprol 25 mg PO DAILY #90 tablet 06/07/21 Rx XL] Nitroglycerin Sl Tabs [Nitrostat] 0.4 mg SUBLINGUAL Q5M PRN #25 tab 06/07/21 Rx Ticagrelor [Brilinta] 90 mg PO BID #60 tab 06/07/21 Rx Allergies Allergy/AdvReac Type Severity Reaction Status Date / Time No Known Allergies Allergy Verified 06/06/21 14:45 Physical Examination - Vital Signs Vital Signs: Vital Signs Temp Pulse Resp BP Pulse Ox 06/07/21 09:00 116 H 11 L 133/75 98 06/07/21 08:25 92 L 06/07/21 08:00 98.0 F 111 H 21 131/86 95 06/07/21 07:00 110 H 20 125/80 95 06/07/21 06:00 109 H 19 121/67 94 L 06/07/21 05:00 106 H 20 128/92 96 06/07/21 04:00 98.8 F 110 H 15 128/75 96 06/07/21 03:00 109 H 20 128/75 96 06/07/21 02:00 110 H 18 106/54 99 06/07/21 01:00 109 H 16 93/80 97 06/07/21 00:00 97.7 F 109 H 25 H 110/62 95 06/06/21 23:39 98 06/06/21 23:02 98 16 112/67 99 06/06/21 23:00 98 28 H 115/66 98 06/06/21 22:50 98 16 99 06/06/21 22:40 99 17 113/67 98 06/06/21 22:30 97 19 116/60 99 06/06/21 22:20 99 16 99 06/06/21 22:10 101 H 15 114/66 99 06/06/21 22:00 100 18 114/66 98 06/06/21 21:50 101 H 17 114/66 99 06/06/21 21:40 101 H 20 115/60 98 06/06/21 21:30 100 17 123/63 99 06/06/21 21:20 102 H 17 123/63 99 06/06/21 21:10 105 H 21 110/64 99 06/06/21 21:00 105 H 27 H 114/63 98 06/06/21 20:50 103 H 17 114/63 99 06/06/21 20:40 105 H 18 114/66 99 06/06/21 20:30 105 H 18 121/68 99 06/06/21 20:20 105 H 30 H 121/68 99 06/06/21 20:10 105 H 18 118/66 99 06/06/21 20:00 105 H 18 113/74 98 06/06/21 19:50 105 H 18 113/74 98 06/06/21 19:40 105 H 17 107/67 98 06/06/21 19:30 105 H 22 108/71 98 06/06/21 19:20 106 H 18 108/71 99 06/06/21 19:10 106 H 18 125/75 99 06/06/21 19:00 97.6 F 111 H 15 130/71 100 06/06/21 18:50 112 H 21 130/71 100 06/06/21 18:40 112 H 33 H 119/91 99 06/06/21 18:35 114 H 23 119/91 06/06/21 18:10 111 H 19 132/71 98 06/06/21 18:00 114 H 20 130/74 100 06/06/21 17:50 97.6 F 113 H 21 130/74 99 06/06/21 17:40 111/100 97 06/06/21 15:30 97 18 129/67 99 06/06/21 14:56 95 18 106/75 97 06/06/21 14:28 97.3 F L 101 H 20 140/80 99 Intake and Output 06/06/21 06/07/21 06/07/21 22:59 06:59 14:59 Intake Total 1646.39 720 390 Output Total 1385 555 110 Balance 261.39 165 280 Intake: IV 1646.39 720 270 Potassium Chloride 10 meq 200 In Water For Injection 1 100ml.bag @ 100 mls/hr IVPB Q1H CORNELIA Rx#: [id number] Sodium Chloride 0.9% 1, 1180 720 270 000 ml @ 999 mls/hr IV . Q1H1M ONE Rx#:[id number] Oral 120 Output: Urine 1385 555 110 Other: Voiding Method Indwelling Catheter Indwelling Catheter Indwelling Catheter Weight 86.183 kg 86.7 kg Patient is an elderly female, who is laying comfortably in the bed. She appears to have significant slow mentation, prolonged latency time to answer questions. She often takes deep breaths. Patient is alert awake, states that it is November and the year is 1971. She knows her name. Patient can name all 3/3 objects presented like darby, eyeglasses and knuckles. She can repeat without problem. Her comprehension is slow, sometimes inconsistent response. Takes multiple attempts to answer questions or to fol low directions. Patient is not much fluent it appears. Some problem with expressive aphasia definitely a concerns. Attention, concentration and fund of knowledge is very limited. On cranial examination, pupils are round and reacting to light, visual otto are full on confrontation although not reliable, extraocular muscles are intact with no nystagmus. Face is symmetric, tongue protrudes to the midline. Palatal elevation and sensation normal, hearing possibly could be slightly decreased a nd shoulder shrug normal, facial sensation normal. Shoulder shrug normal. On muscle strength testing, there is right pronator drift. The strength is (right/left) deltoid 5-/5-, biceps 5/5, triceps 5/5, riding silks custodian 4-/4+. In the lower extremities, patient able to lift legs off the bed about 20-30 for 5 seconds bilaterally equally. Ankle dorsiflexion appears normal. Deep tendon reflexes are symmetric, 2+ at the biceps, 1+ brachioradialis, 2 at the knees 1 ankles and plantars downgoing bilaterally. Sensory to touch is equal with questionable neglect on the right, although was very inconsistent, as patient would just close her eyes. Cerebellar function showed questionable ataxia for [id number] testing on the right. Patient would slowly move her arm, but would stop progressing her finger to the nose or to the examiner's finger, very slow, inconsistent, incomplete response. Gait not checked. On general examination, there is no carotid bruit or murmur, S1-S2 audible. Abdomen is soft nontender. Chest is clear. Peripheral pulses are present. No edema. Results - Laboratory Findings CBC and BMP: 06/08/21 03:12 06/08/21 03:17 Abnormal Lab Findings: Abnormal Labs 06/06/21 06/06/21 06/06/21 14:40 14:40 14:40 WBC Neutrophils # APTT 21.4 L Chloride 109 H Carbon Dioxide 18 L Glucose 158 H POC Glucose (mg/dL) AST 44 H ALT Troponin I 0.042 H* Ur Specific [place] 06/06/21 06/06/21 06/06/21 17:04 17:56 21:00 WBC Neutrophils # APTT Chloride Carbon Dioxide Glucose POC Glucose (mg/dL) 134 H 158 H AST ALT Troponin I Ur Specific [place] >1.050 H 06/06/21 06/07/21 06/07/21 21:40 03:53 03:53 WBC 12.6 H Neutrophils # 10.1 H APTT Chloride 110 H Carbon Dioxide 18 L Glucose 138 H POC Glucose (mg/dL) 167 H AST 361 H ALT 46 H Troponin I Ur Specific [place] 06/07/21 03:57 WBC Neutrophils # APTT Chloride Carbon Dioxide Glucose POC Glucose (mg/dL) 150 H AST ALT Troponin I Ur Specific [place] Assessment and Plan Assessment: * Altered mental status, with some focal findings, suggestive of a possible CVA manifesting with some degree of expressive aphasia, slightly decreased comprehension, mild right arm weakness. * Acute anterior ST elevation [place] * History of normal pressure hydrocephalus, status post ventriculoperitoneal shunting. * Hypertension * Dyslipidemia Plan: * Stat MRI of the brain evaluate for an acute stroke. * CTA of head and neck reported no significant stenosis * Continue aspirin 81 mg and Brilinta 90 mg twice a day. * Fasting lipid panel, hemoglobin A1c. * Continue high-dose Lipitor. * Continue telemetry monitoring rule out other arrhythmia. * Computed tomography scan of the head was reviewed. Patient continues to have some hydrocephalus, but appears stable as compared to last MRI from 2009. * We will obtain collateral history from patient's family. * Neurology will follow Addendum: Spoke to patient's and son in detail. Patient was diagnosed with normal pressure hydrocephalus 5 years ago, after she started having problem with urinary incontinence, unsteady on the feet. When she would bend over, would pass out. After she underwent ventriculoperitoneal shunt placement, her symptoms remarkably improved. She has not followed up with her neurosurgeon for last 2 years, who would check her shunt valve pressure. Patient had undergone neck surgery in November 2019. About a year ago patient's symptoms of off balance and urinary incontinence have reappeared, and patient's son believes that she needs to see the neurosurgeon again to check for the shunt patency. Patient's son also mentioned that he is not sure if patient has been taking her statins, Plavix since her neck surgery in November 2019. Patient's son believes that they were not told to resume her medications after the surgery. Patient's son will check with the her pharmacy, and check if she was receiving the refills regularly. Patient was not taking any aspirin prior to arrival. Time with Patient: Greater than 30
[2021-06-07 11:44] LABS: Glucose,Whole Blood 125 mg/dL (75-99)
[2021-06-07 12:59] LABS: Hemoglobin A1C 5.8 % (4.0-6.0)
--- NOTE | 2021-06-07 13:09 | P.PN ---
Subjective Progress Note Date: 06/07/21 Patient is a 70-year-old female with a history of prior CVA, hydrocephalus status post jugular shunt, NT HFR, and severe cervical arthritis status post cage who presented to the ER with complaints of chest pain. She was subsequently diagnosed with an ST segment elevated myocardial infarction. She underwent a CTA of the chest which demonstrated no PE but fibrotic changes. She was given a dose of nitro, heparin, and aspirin. She was taken to the LAD and subsequently had a stent placed to the LAD. Swelling of she had some altered mentation and a code stroke was called. She underwent a stat head CT which showed her known hydrocephalus age-related atrophy as well as what appeared to be a functioning shunt. Initial CT head and neck was unreadable and she subsequently went down for repeat CTA head and neck which was negative. The neuro interventional team was contacted and they recommended tpa secondary to recent Brillenta load and heparin. She was admitted to the ICU and critical care was consulted. Neurology was consulted. She was continued on aspirin, statin, and brillenta. Patient seen and examined at bedside. She is still markedly confused. She does not answer questions and intermittently follows commands. Per nursing no acute events overnight. General: non toxic, no distress, appears at stated age Derm: warm, dry Head: atraumatic, normocephalic, symmetric Eyes: EOMI, no lid lag, anicteric sclera Mouth: no lip lesion, mucus membranes moist Cardiovascular: S1S2 reg, no murmur, positive posterior tibial pulse bilateral, Lungs: CTA bilateral, no rhonchi, no rales , no accessory muscle use Abdominal: soft, nontender to palpation, no guarding, no appreciable organomegaly Ext: no gross muscle atrophy, no edema, no contractures Neuro: Face appears symmetrical, when she sticks out her tongue appears midline, pupils equal round reactive to light, extraocular motion intact, able to keep both arms lifted off the bed, patient is able to keep left leg in the area for 15-30 seconds, right leg she is unable to lift fully off the bed from hip. Psych: Alert, oriented to self, blunted affect, not verbalizing Acute anterior ST segment elevated myocardial infarction -Status post PCI to the LAD -Cardiology recommendations -Continue with aspirin, brillenta, statin - add BB 24 hours from sympto onset of CVA - await echo Encephalopathy vs CVA - awaiit MRI - ASA, Brillenta, statin - 24 hours premissive HTN - neurology recs - await PT/OT/Speech - await echo - tele Hydrocephalus - should follow-up for shunt study MTHFR - add chemical DVT prophylaxis Transaminitis - likely due to hypoperfusion - repeat in AM Obesity with BMI 33.9 - structure outpatient weight loss Medical non complience - enocurage patient to take mediations - had stopped all medications Chronic: Tremors Old TIA GERD HLD DVT prophylaxis: Lovenox Discussed with: Patient, nursing Anticipated discharge: 3-[address]: [facility] A total of 45 minutes was spent on the care of this complex patient more than 50% of the time was spent in counseling and care coordination. Objective - Vital Signs Vital signs: Vital Signs Temp 98.0 F 06/07/21 08:00 Pulse 107 H 06/07/21 11:00 Resp 18 06/07/21 11:00 BP 137/67 06/07/21 11:00 Pulse Ox 97 06/07/21 11:00 Intake & Output 06/06/21 06/07/21 06/07/21 18:59 06:59 18:59 Intake Total 266.39 2100 570 Output Total 665 1275 195 Balance -398.61 825 375 Weight 86.183 kg 86.7 kg 86.7 kg Intake: IV 266.39 2100 450 Potassium Chloride 10 meq 200 In Water For Injection 1 100ml.bag @ 100 mls/hr IVPB Q1H CORNELIA Rx#: [id number] Sodium Chloride 0.9% 1, 1900 450 000 ml @ 999 mls/hr IV . Q1H1M ONE Rx#:[id number] Oral 120 Output: Urine 665 1275 195 Other: Voiding Method Indwelling Catheter Indwelling Catheter - Labs CBC & Chem 7: 06/07/21 03:53 06/07/21 03:53 Labs: Abnormal Lab Results - Last 24 Hours (Table) 06/06/21 06/06/21 06/06/21 Range/Units 14:40 14:40 14:40 WBC (3.8-10.6) k/uL Neutrophils # (1.3-7.7) k/uL APTT 21.4 L (22.0-30.0) sec Chloride 109 H (98-107) mmol/L Carbon Dioxide 18 L (22-30) mmol/L Glucose 158 H (74-99) mg/dL POC Glucose (mg/dL) (75-99) mg/dL AST 44 H (14-36) U/L ALT (4-34) U/L Troponin I 0.042 H* (0.000-0.034) ng/mL Ur Specific [place] (1.001-1.035) 06/06/21 06/06/21 06/06/21 Range/Units 17:04 17:56 21:00 WBC (3.8-10.6) k/uL Neutrophils # (1.3-7.7) k/uL APTT (22.0-30.0) sec Chloride (98-107) mmol/L Carbon Dioxide (22-30) mmol/L Glucose (74-99) mg/dL POC Glucose (mg/dL) 134 H 158 H (75-99) mg/dL AST (14-36) U/L ALT (4-34) U/L Troponin I (0.000-0.034) ng/mL Ur Specific [place] >1.050 H (1.001-1.035) 06/06/21 06/07/21 06/07/21 Range/Units 21:40 03:53 03:53 WBC 12.6 H (3.8-10.6) k/uL Neutrophils # 10.1 H (1.3-7.7) k/uL APTT (22.0-30.0) sec Chloride 110 H (98-107) mmol/L Carbon Dioxide 18 L (22-30) mmol/L Glucose 138 H (74-99) mg/dL POC Glucose (mg/dL) 167 H (75-99) mg/dL AST 361 H (14-36) U/L ALT 46 H (4-34) U/L Troponin I (0.000-0.034) ng/mL Ur Specific [place] (1.001-1.035) 06/07/21 06/07/21 Range/Units 03:57 11:43 WBC (3.8-10.6) k/uL Neutrophils # (1.3-7.7) k/uL APTT (22.0-30.0) sec Chloride (98-107) mmol/L Carbon Dioxide (22-30) mmol/L Glucose (74-99) mg/dL POC Glucose (mg/dL) 150 H 125 H (75-99) mg/dL AST (14-36) U/L ALT (4-34) U/L Troponin I (0.000-0.034) ng/mL Ur Specific [place] (1.001-1.035)
--- NOTE | 2021-06-07 13:53 | ECHOF ---
Referral Reason: MEASUREMENTS -------- HEIGHT: 160.0 cm WEIGHT: 86.6 kg BP: 125/80 RVIDd: 1.5 cm (< 3.3) IVSd: 1.3 cm (0.6 - 1.1) LVIDd: 3.5 cm (3.9 - 5.3) LVPWd: 1.2 cm (0.6 - 1.1) IVSs: 1.2 cm LVIDs: 2.7 cm LVPWs: 1.2 cm LAESV Index (A-L): 22.22 ml/m Ao Diam: 2.5 cm (2.0 - 3.7) AV Cusp: 1.6 cm (1.5 - 2.6) MV EXCURSION: 16.757 mm (> 18.000) MV EF SLOPE: 137 mm/s (70 - 150) EPSS: 2.1 cm FINDINGS -------- Sinus rhythm. This was a technically difficult study with suboptimal views. The left ventricular size is normal. There is mild concentric left ventricular hypertrophy. Overa ll left ventricular systolic function is severely impaired with, an EF between 20 - 25 %. Mid anter ior LV wall motion is hypokinetic. Mid lateral LV wall motion is hypokinetic. Mid anteroseptal LV wall motion is hypokinetic. Apical anterior LV wall motion is akinetic. Apical lateral LV wa ll motion is akinetic. Apical inferior LV wall motion is akinetic. Apical septum LV wall motion is akinetic. The right ventricle is normal in size. Normal LA size by volume 22+/-6 ml/m2. The right atrium was not well visualized. 5.0mg of Lumason was utilized for enhancement of images Interatrial and interventricular septum intact. The aortic valve was not well visualized. There is no evidence of aortic regurgitation. There is no evidence of aortic stenosis. The mitral valve is normal. There is trace to mild mitral regurgitation. The tricuspid valve appears structurally normal. Mild tricuspid regurgitation present. There is no pulmonic regurgitation present. The aortic root size is normal. IVC Not well visulized. There is a small, generalized pericardial effusion present. CONCLUSIONS -------- 1. There is mild concentric left ventricular hypertrophy. 2. Overall left ventricular systolic function is severely impaired with, an EF between 20 - 25 %. 3. Mid anterior LV wall motion is hypokinetic. 4. Mid lateral LV wall motion is hypokinetic. 5. Mid anteroseptal LV wall motion is hypokinetic. 6. Apical anterior LV wall motion is akinetic. 7. Apical lateral LV wall motion is akinetic. 8. Apical inferior LV wall motion is akinetic. 9. Apical septum LV wall motion is akinetic. 10. Normal LA size by volume 22+/-6 ml/m2. 11. There is trace to mild mitral regurgitation. 12. Mild tricuspid regurgitation present. 13. There is a small, generalized pericardial effusion present. CARTOGRAPHY PROFESSOR: Bonny Cueva RDCS
--- NOTE | 2021-06-07 14:37 | CT ---
NONDIAGNOSTIC EXAM. NO CHARGE EXAM. Please refer to the subsequent exam after repeat injection. There is no arterial enhancement. EXAMINATION TYPE: CODE STROKE: CTA head neck DATE OF EXAM: 06/06/2021 HISTORY: Neuro deficits. Contrast KARO triggered to soon TECHNIQUE: Contiguous axial scanning of the head and neck performed with IV Contrast, patient injecte d with 65 mL of Isovue 370. Coronal/sagittal MIP reconstructions performed. CT DLP: 415.50 mGycm Automated exposure control for dose reduction was used.
[2021-06-07 15:42] LABS: Chol/HDL Ratio 5.88; Cholesterol 188 mg/dL (0-200); LDL Cholesterol,Calculated 88.2 mg/dL (0.0-131.0)
[2021-06-07 16:43] LABS: Glucose,Whole Blood 120 mg/dL (75-99)
[2021-06-07] MEDS: ENOXAPARIN 40 MG/0.4 ML SYRINGE SQ SCH (18:27)
[2021-06-07] MEDS: ATORVASTATIN 80 MG TAB PO SCH (20:40)
[2021-06-08 01:42] LABS: Glucose,Whole Blood 152 mg/dL (75-99)
[2021-06-08 04:10] LABS: African American GFR (CKD) >90 (>60 ml/min/1.73 sqM); Anion Gap 8 mmol/L; Blood Urea Nitrogen 11 mg/dL (7-17); Calcium 8.7 mg/dL (8.4-10.2); Carbon Dioxide 20 mmol/L (22-30); Chloride 110 mmol/L (98-107); Glucose 133 mg/dL (74-99); Non-African American GFR(CKD) >90 (>60 ml/min/1.73 sqM); Potassium 3.8 mmol/L (3.5-5.1); Sodium 138 mmol/L (137-145)
[2021-06-08 04:37] LABS: Basophils # (A) 0.1 k/uL (0-0.2); Basophils % (A) 0 %; Eosinophils # (A) 0.1 k/uL (0-0.7); Eosinophils % (A) 1 %; HGB 14.5 gm/dL (11.4-16.0); Lymphocytes # (A) 2.5 k/uL (1.0-4.8); Lymphocytes % (A) 20 %; MCH 29.3 pg (25.0-35.0); MCHC 32.2 g/dL (31.0-37.0); MCV 91.1 fL (80.0-100.0); Mean Platelet Volume 8.4; Monocytes # (A) 0.8 k/uL (0-1.0); Monocytes % (A) 7 %; Neutrophils # (A) 8.7 k/uL (1.3-7.7); Neutrophils % (A) 70 %; Platelet Count 156 k/uL (150-450); RBC 4.94 m/uL (3.80-5.40); RDW 13.2 % (11.5-15.5); WBC 12.3 k/uL (3.8-10.6)
[2021-06-08] MEDS: POTASSIUM CHLORIDE 10 MEQ in WATER FOR INJECTION 1 100ML.BAG IVPB SCH ×2 (05:18→06:15)
[2021-06-08] MEDS: SODIUM CHLORIDE 0.9% 1,000 ML IV SCH (05:18)
--- NOTE | 2021-06-08 06:14 | P.CONS ---
History of Present Illness - Chief Complaint Gait disturbance, right hemiplegia - History of Present Illness I had the opportunity to see patient for inpatient rehab consultation with regard to gait disturbance. She is admitted to [facility] June 06 with chest pain for which is seen by cardiology and diagnosed with ID. Also found to have neurodeficits with known hydrocephalus, RECORD SEARCHER shunt and MTHFR mutation. Seen by neurology, Dr. Liane schrader. Seen by Dr. Fletcher for ICU care. Chest CT demonstrates atelectasis and mild fibrinous, negative for PE. Head CT with hydrocephalus and working shunt. Chest x-ray with chronic change. Angiogram CT 2 negative including enhancement. His started therapy. PT reports total assistance for bed mobility and unable to sit or stand. OT prescribed. Speech therapy assessed following plan for pured, chopped foods and thin liquids. Marked delay in cognition. Previous functional history unobtainable from patient. Review of Systems Review of systems: ENT: Denies sneezes or discharge. Eyes: Denies discharge or photophobia. Cardiac: Denies chest pain or palpitation. Pulmonary: Denies cough or shortness of breath. Breast: Denies discharge or lumps. Gastrointestinal: Denies nausea, emesis, constipation, diarrhea. Genitourinary: Denies discharge or frequency. Musculoskeletal: Denies muscle or bone aches. Neurologic: Poor cognition in general weakness, more so on right side. Endocrine: Denies shakes or sweats. Oncology: Denies cancers. Dermatologic: Denies rash, itching, pruritus. ALLERGY/immunology: Denies sneezes, rashes. 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 SOB with exertion. Hand tremors. History of Any Multi-Drug Resistant Organisms: None Reported Past Surgical History: Section, Hysterectomy, Orthopedic Surgery Additional Past Surgical History / Comment(s): R wrist surgery, Rectocele, Cystocele Past Anesthesia/Blood Transfusion Reactions: No Reported Reaction Smoking Status: Never smoker - Past Family History Brother(s) Family Medical History: Deep Vein Thrombosis (DVT) Medications and Allergies Home Medications Medication Instructions Recorded Confirmed Type Aspirin 81 mg PO DAILY tab 06/07/21 Rx Atorvastatin [Lipitor] 80 mg PO HS #90 tab 06/07/21 Rx Metoprolol Succinate (ER) [Toprol 25 mg PO DAILY #90 tablet 06/07/21 Rx XL] Nitroglycerin Sl Tabs [Nitrostat] 0.4 mg SUBLINGUAL Q5M PRN #25 tab 06/07/21 Rx Ticagrelor [Brilinta] 90 mg PO BID #60 tab 06/07/21 Rx Allergies Allergy/AdvReac Type Severity Reaction Status Date / Time No Known Allergies Allergy Verified 06/06/21 14:45 Physical Exam Vitals: Vital Signs Temp Pulse Resp BP Pulse Ox 06/08/21 06:00 96 22 104/59 95 06/08/21 05:00 106 H 26 H 116/65 95 06/08/21 04:00 98.4 F 112 H 25 H 101/54 97 06/08/21 03:00 100 21 100/54 94 L 06/08/21 02:00 102 H 24 110/48 97 06/08/21 01:00 100 22 99/45 95 06/08/21 00:02 108 H 26 H 93 L 06/08/21 00:00 98.9 F 109 H 23 113/57 93 L 06/07/21 23:00 116 H 27 H 147/106 95 06/07/21 22:00 125 H 24 132/67 97 06/07/21 21:00 114 H 20 117/69 97 06/07/21 20:43 97 06/07/21 20:00 99.1 F 113 H 21 103/53 96 06/07/21 19:00 112 H 24 103/53 97 06/07/21 18:00 115 H 27 H 117/60 98 06/07/21 17:00 111 H 14 105/60 97 06/07/21 16:00 98.0 F 109 H 23 105/60 97 06/07/21 15:00 112 H 22 110/60 97 06/07/21 14:00 98 27 H 114/71 96 06/07/21 13:00 110 H 27 H 120/69 95 06/07/21 12:00 108 H 27 H 128/69 97 06/07/21 11:00 107 H 18 137/67 97 06/07/21 10:00 109 H 19 144/84 06/07/21 09:00 116 H 11 L 133/75 98 09/20/21 08:25 92 L 06/07/21 08:00 98.0 F 111 H 21 131/86 95 06/07/21 07:00 110 H 20 125/80 95 Intake and Output 06/07/21 06/07/21 06/08/21 14:59 22:59 06:59 Intake Total 840 810 630 Output Total 290 285 300 Balance 550 525 330 Intake: IV 720 360 Sodium Chloride 0.9% 1, 720 360 000 ml @ 999 mls/hr IV . Q1H1M [facility] Rx#:[id number] Intake, IV Titration 360 630 Amount Sodium Chloride 0.9% 1, 360 630 000 ml @ 90 mls/hr IV . Q11H7M [facility] Rx#:[id number] Oral 120 90 Output: Urine 290 285 300 Other: Voiding Method Indwelling Catheter Indwelling Catheter Indwelling Catheter Weight 86.7 kg 90.1 kg Skin: Good color, texture, turgor. General: Medium build and comfortable appearance. Head: Normocephalic, atraumatic. Eyes: Symmetric. Pupils equal round. Ears: Symmetric. Hearing within normal limits. Mouth: Clear. Neck: Supple. Carotid without bruit. Cardiac: Regular rate and rhythm. Lungs: Clear anteriorly and posteriorly. Abdomen: Soft active nontender. Extremities: Normal tone. Neurological: Mental status: Poorly alert. Cranial nerves: Symmetric facial tone. Motor: Poor movement left arm more so than left leg. Flaccid right arm and right leg. Sensation: Intact throughout. DTRs: Absent. Mobility: Requires total assist for bed mobility. Results CBC & Chem 7: 06/08/21 03:12 06/08/21 03:17 Labs: Abnormal Lab Results - Last 24 Hours (Table) 06/07/21 06/07/21 06/07/21 Range/Units 03:53 11:43 16:42 WBC (3.8-10.6) k/uL Neutrophils # (1.3-7.7) k/uL Chloride (98-107) mmol/L Carbon Dioxide (22-30) mmol/L Glucose (74-99) mg/dL POC Glucose (mg/dL) 125 H 120 H (75-99) mg/dL Triglycerides 339.0 H (0.0-149.0) mg/dL VLDL Cholesterol, Calc 67.80 H (5.00-40.00) mg/dL HDL Cholesterol 32.0 L (40.0-60.0) mg/dL 06/08/21 06/08/21 06/08/21 Range/Units 01:40 03:12 03:17 WBC 12.3 H (3.8-10.6) k/uL Neutrophils # 8.7 H (1.3-7.7) k/uL Chloride 110 H (98-107) mmol/L Carbon Dioxide 20 L (22-30) mmol/L Glucose 133 H (74-99) mg/dL POC Glucose (mg/dL) 152 H (75-99) mg/dL Triglycerides (0.0-149.0) mg/dL VLDL Cholesterol, Calc (5.00-40.00) mg/dL HDL Cholesterol (40.0-60.0) mg/dL Assessment and Plan (1) ST elevation myocardial infarction (STEMI) Current Visit: Yes Status: Acute Code(s): I21.3 - ST ELEVATION (STEMI) MYOCARDIAL INFARCTION OF [facility] SITE SNOMED Code(s): 55105108 Plan: Impression: 1. Status post ID. 2. Hydrocephalus with RECORD SEARCHER shunt. 3. MTHFR mutation. 4. Apparent stroke with aphasia and right hemiplegia. Comments and plan: At this time PT and ST ongoing and OT prescribed. Rehab prognosis however guarded in currently would require 24/7 care multiple persons.
--- NOTE | 2021-06-08 07:29 | P.PN ---
Subjective Progress Note Date: 06/08/21 Principal diagnosis: Acute coronary syndrome This is a 70-year-old female patient with hypertension and dyslipidemia who was admitted to the hospital with a chest discomfort and she was diagnosed with acute anterior ST patient myocardial infarction. She underwent an emergent he art catheterization and PCI of the proximal LAD and the procedure was complicated by a stroke. The patient was seen this morning. Unfortunately she is still lethargic. She does have right-sided weakness. Neurology is on the case. Beside that she is hemodynamically stable and she has been maintaining normal sinus mechanism which is on dual antiplatelet therapy along with high intensity statin along with metoprolol. The echo revealed severe cardiomyopathy with an ejection fraction of 20-25%. We'll consider adding MAUREEN inhibitor as well as Aldactone once her pressure improved. Objective - Vital Signs Vital signs: Vital Signs Temp 98.4 F 06/08/21 04:00 Pulse 98 06/08/21 07:00 Resp 21 06/08/21 07:00 BP 140/102 06/08/21 07:00 Pulse Ox 96 06/08/21 07:00 Intake & Output 06/07/21 06/08/21 06/08/21 18:59 06:59 18:59 Intake Total 1290 1170 Output Total 415 525 Balance 875 645 Weight 86.7 kg 90.1 kg Intake: IV 1080 Sodium Chloride 0.9% 1, 1080 000 ml @ 999 mls/hr IV . Q1H1M [facility] Rx#:[id number] Intake, IV Titration 1170 Amount Sodium Chloride 0.9% 1, 1170 000 ml @ 90 mls/hr IV . Q11H7M [facility] Rx#:[id number] Oral 210 Output: Urine 415 525 Other: Voiding Method Indwelling Catheter Indwelling Catheter - Constitutional General appearance: Present: no acute distress - Respiratory Respiratory: bilateral: diminished - Cardiovascular Rhythm: regular - Labs CBC & Chem 7: 06/08/21 03:12 06/08/21 03:17 Labs: Abnormal Lab Results - Last 24 Hours (Table) 06/07/21 06/07/21 06/07/21 Range/Units 03:53 11:43 16:42 WBC (3.8-10.6) k/uL Neutrophils # (1.3-7.7) k/uL Chloride (98-107) mmol/L Carbon Dioxide (22-30) mmol/L Glucose (74-99) mg/dL POC Glucose (mg/dL) 125 H 120 H (75-99) mg/dL Triglycerides 339.0 H (0.0-149.0) mg/dL VLDL Cholesterol, Calc 67.80 H (5.00-40.00) mg/dL HDL Cholesterol 32.0 L (40.0-60.0) mg/dL 06/08/21 06/08/21 06/08/21 Range/Units 01:40 03:12 03:17 WBC 12.3 H (3.8-10.6) k/uL Neutrophils # 8.7 H (1.3-7.7) k/uL Chloride 110 H (98-107) mmol/L Carbon Dioxide 20 L (22-30) mmol/L Glucose 133 H (74-99) mg/dL POC Glucose (mg/dL) 152 H (75-99) mg/dL Triglycerides (0.0-149.0) mg/dL VLDL Cholesterol, Calc (5.00-40.00) mg/dL HDL Cholesterol (40.0-60.0) mg/dL Assessment and Plan Assessment: Assessment #[address] elevation myocardial infarction #2 hypertension #3 change in mental status #4 severe cardiomyopathy #5 stroke Plan #1 continue dual antiplatelet therapy #2 continue high intensity statin #3 continue the current dose of metoprolol #4 consider adding MAUREEN inhibitor as well as Aldactone down the line #5 the echo was reviewed and showed severe cardiomyopathy
[2021-06-08] MEDS: ASPIRIN 81 MG PO SCH (08:00)
[2021-06-08] MEDS: METOPROLOL SUCCINATE (ER) 25 MG TAB.ER.24H PO SCH (08:00)
[2021-06-08] MEDS: PANTOPRAZOLE 40 MG/10 ML VIAL IVP SCH (08:00)
[2021-06-08] MEDS: ENOXAPARIN 40 MG/0.4 ML SYRINGE SQ SCH (08:00)
[2021-06-08] MEDS: TICAGRELOR 90 MG TAB PO SCH ×2 (08:01→20:42)
--- NOTE | 2021-06-08 10:09 | P.PN ---
Subjective Progress Note Date: 06/08/21 Principal diagnosis: Chest pain. Pulmonary consult dated 06/07/2021. 70-year-old female, who presented to the emergency department, on June 06. The patient came in complaining of acute chest pain. The pain was sudden onset. It radiated to her back. She denied any numbness, weakness, or other extremity complaints. She denies a prior history of cardiac disease. She also admitted to mild shortness of breath. She had no lower extremity edema or swelling. The patient was eventually taken to the catheterization laboratory and had a stent placed in her left anterior descending coronary artery. This was done on June 06. Currently, she is on room air, she also is getting saline at 90 mL an hour. The patient apparently developed some acute mental status changes, and was evaluated by neurology. CT angiography and CT of the brain were apparently both negative. Currently, she is a bit confused still. CT angiogram of the chest was negative for pulmonary embolism. The patient was admitted with a diagnosis of acute anterior septal wall ST segment elevation myocardial infarction. She apparently also has a history of hypertension, and hyperlipidemia, and prior stroke. She also apparently has a history of having the MTHFR mutation. White count 12.6, hemoglobin hematocrit and platelet count all normal. Sodium and potassium are normal. Chloride 110, CO2 18, anion gap 12, BUN 9, creatinine 0.63. Troponin was 0.042. Covid testing was negative. Chest x-ray was negative for acute disease. Computed tomography scan of the brain revealed hydrocephalus. There was a shunt in place. Progress note dated 06/08/2021. 70-year-old female, again seen in the ICU, room 252. Currently, the patient's not on any supplemental oxygen. The patient's IV is saline at 90 mL an hour, to be turned down to 50 mL an hour. The patient previously had a stent placed in the LAD. The patient is a candidate to be transferred to 3 S. floor, with telemetry. The patient is a bit more awake and alert today than she was yesterday. She has been seen by neurology and there recommending an MRI. Currently labs show a white count of 12.3, with a normal hemoglobin hematocrit and platelet count. Sodium 138, potassium 3.8, chlorides 110, CO2 20, anion gap 8, BUN 11, creatinine 0.58. Objective - Vital Signs Vital signs: Vital Signs Temp 98.4 F 06/08/21 04:00 Pulse 98 06/08/21 07:00 Resp 21 06/08/21 07:00 BP 140/102 06/08/21 07:00 Pulse Ox 96 06/08/21 07:00 Intake & Output 06/07/21 06/08/21 06/08/21 18:59 06:59 18:59 Intake Total 1290 1170 Output Total 415 525 Balance 875 645 Weight 86.7 kg 90.1 kg Intake: IV 1080 Sodium Chloride 0.9% 1, 1080 000 ml @ 999 mls/hr IV . Q1H1M [facility] Rx#:[id number] Intake, IV Titration 1170 Amount Sodium Chloride 0.9% 1, 1170 000 ml @ 90 mls/hr IV . Q11H7M [facility] Rx#:[id number] Oral 210 Output: Urine 415 525 Other: Voiding Method Indwelling Catheter Indwelling Catheter - Exam No acute distress, oriented 3. Patient's mental status seems to be a bit improved. She's not as lethargic or sleepy and she was yesterday. She is currently on room air. Saturations are excellent. HEENT examination is grossly unremarkable. Neck supple. Full range of motion. No adenopathy thyromegaly or neck vein distention. Cardiovascular examination reveals regular rhythm rate. S1-S2 normal. No S3 or S4. No discernible murmur noted. Heart sounds are distant. Heart rate 98 bpm. Lungs reveal clear breath sounds. Breath sounds are equal bilaterally. No adventitious lung sounds including wheezes rhonchi or crackles. Abdomen soft bowel sounds are heard. No masses or tenderness. Extremities are intact. No cyanosis clubbing or edema. Skin is without rash or lesion. Neurologic examination is brief but nonfocal. Affect is a bit flat. - Labs CBC & Chem 7: 06/08/21 03:12 06/08/21 03:17 Labs: Abnormal Lab Results - Last 24 Hours (Table) 06/07/21 06/07/21 06/07/21 Range/Units 03:53 11:43 16:42 WBC (3.8-10.6) k/uL Neutrophils # (1.3-7.7) k/uL Chloride (98-107) mmol/L Carbon Dioxide (22-30) mmol/L Glucose (74-99) mg/dL POC Glucose (mg/dL) 125 H 120 H (75-99) mg/dL Triglycerides 339.0 H (0.0-149.0) mg/dL VLDL Cholesterol, Calc 67.80 H (5.00-40.00) mg/dL HDL Cholesterol 32.0 L (40.0-60.0) mg/dL 06/08/21 06/08/21 06/08/21 Range/Units 01:40 03:12 03:17 WBC 12.3 H (3.8-10.6) k/uL Neutrophils # 8.7 H (1.3-7.7) k/uL Chloride 110 H (98-107) mmol/L Carbon Dioxide 20 L (22-30) mmol/L Glucose 133 H (74-99) mg/dL POC Glucose (mg/dL) 152 H (75-99) mg/dL Triglycerides (0.0-149.0) mg/dL VLDL Cholesterol, Calc (5.00-40.00) mg/dL HDL Cholesterol (40.0-60.0) mg/dL Assessment and Plan Assessment: Acute ST segment elevation myocardial infarction, status post stent placement, LAD, 06/06/2021. Acute mental status changes, of unclear etiology, being followed by and evaluated by neurology. Prior history of TIA. Status post shunt placement for hydrocephalus. History of hypertension. History of hyperlipidemia. History of anemia. History of headaches. History of MTHFR mutation. Plan: Plan dated 06/07/2021. She has yet to be seen by neurology. CT of the brain did show hydrocephalus and a well-placed shunt. The patient's chest x-ray was normal. Labs are reviewed. There is no evidence of pulmonary embolism on CT angiogram. We will continue to follow. Prognosis is guarded. No additional recommendations are made. The patient remains on no supplemental oxygen. She's getting saline at 90 mL an hour. Plan dated 06/08/2021. The patient is currently not requiring any supplemental oxygen. The patient's IV will be turned down from 90 mL an hour, down to 50 mL an hour. The patient could be transferred to the 3 S. floor with telemetry. Neurology did see the patient is recommending an MRI. Follow make recommendations where appropriate. Prognosis is guarded. Time with Patient: Less than 30
--- NOTE | 2021-06-08 12:15 | P.PN ---
Subjective Progress Note Date: 06/08/21 Patient was seen and evaluated by me this morning. She was on the painful stimuli. She would not answer any questions or follow any commands. Nursing staff informed me that she was a little more alert this morning and was able to eat some pudding. No acute events overnight. Objective - Vital Signs Vital signs: Vital Signs Temp 99.0 F 06/08/21 08:00 Pulse 101 H 06/08/21 11:00 Resp 25 H 06/08/21 11:00 BP 117/64 06/08/21 11:00 Pulse Ox 99 06/08/21 11:00 Intake & Output 06/07/21 06/08/21 06/08/21 18:59 06:59 18:59 Intake Total 1290 1170 240 Output Total 415 525 90 Balance 875 645 150 Weight 86.7 kg 90.1 kg Intake: IV 1080 Sodium Chloride 0.9% 1, 1080 000 ml @ 999 mls/hr IV . Q1H1M [facility] Rx#:[id number] Intake, IV Titration 1170 150 Amount Sodium Chloride 0.9% 1, 1170 150 000 ml @ 90 mls/hr IV . Q11H7M [facility] Rx#:[id number] Oral 210 90 Output: Urine 415 525 90 Other: Voiding Method Indwelling Catheter Indwelling Catheter Indwelling Catheter - Exam General: The patient is obtunded Eye: there is normal conjunctiva bilaterally. Neck: The neck is supple, there is no JVD. Cardiovascular: Normal S1-S2, no S3-S4, no murmurs. Respiratory: Lungs clear to auscultation bilaterally Gastrointestinal: Abdomen is soft, nontender Musculoskeletal: There is no pedal edema. . Skin: Skin is warm and dry - Labs CBC & Chem 7: 06/08/21 03:12 06/08/21 03:17 Labs: Abnormal Lab Results - Last 24 Hours (Table) 06/07/21 06/07/21 06/08/21 Range/Units 03:53 16:42 01:40 WBC (3.8-10.6) k/uL Neutrophils # (1.3-7.7) k/uL Chloride (98-107) mmol/L Carbon Dioxide (22-30) mmol/L Glucose (74-99) mg/dL POC Glucose (mg/dL) 120 H 152 H (75-99) mg/dL Triglycerides 339.0 H (0.0-149.0) mg/dL VLDL Cholesterol, Calc 67.80 H (5.00-40.00) mg/dL HDL Cholesterol 32.0 L (40.0-60.0) mg/dL 06/08/21 06/08/21 Range/Units 03:12 03:17 WBC 12.3 H (3.8-10.6) k/uL Neutrophils # 8.7 H (1.3-7.7) k/uL Chloride 110 H (98-107) mmol/L Carbon Dioxide 20 L (22-30) mmol/L Glucose 133 H (74-99) mg/dL POC Glucose (mg/dL) (75-99) mg/dL Triglycerides (0.0-149.0) mg/dL VLDL Cholesterol, Calc (5.00-40.00) mg/dL HDL Cholesterol (40.0-60.0) mg/dL Assessment and Plan Assessment: Patient is a 70-year-old female with a history of prior CVA, hydrocephalus status post GRADE TAMPER shunt, and severe cervical arthritis status who presented to the ER with complaints of chest pain. She was subsequently diagnosed with an ST segment elevated myocardial infarction. She underwent a CTA of the chest which demonstrated no PE but fibrotic changes. She was taken to the [facility] and subsequently had a stent placed to the LAD. Later during this admission patient appears to have altered mental status and a code stroke was called. She underwent a stat head CT which showed her known hydrocephalus age-related atrophy as well as what appeared to be a functioning shunt. Initial CT head and neck was unreadable and she subsequently went down for repeat CTA head and neck which was negative. The neuro interventional team was contacted and they recommended no tpa secondary to recent Brillenta load and heparin. She was admitted to the ICU and critical care was consulted. Neurology was consulted. She was continued on aspirin, statin, and brillenta. MRI of the brain ordered that so far we were unable to get information regarding her GRADE TAMPER shunt on whether it's compatible with MRI. Below is a list of her medical problems addressed during this hospitalization Acute anterior ST segment elevated myocardial infarction -Status post PCI to the LAD -Cardiology recommendations -Continue with aspirin, brillenta, statin - add BB 24 hours from sympto onset of CVA -Echocardiogram showed diffuse left ventricular wall motion akinesia with estimated EF of 20-25% Encephalopathy vs CVA - GRADE TAMPER shunt information to obtain MRI - ASA, Brillenta, statin - 24 hours premissive HTN done - neurology recs - PT/OT/Speech - CT angiogram of the head and neck with no acute finding History of Hydrocephalus - should follow-up for shunt study as directed MTHFR - add chemical DVT prophylaxis Transaminitis - likely due to hypoperfusion - repeat in AM Obesity with BMI 33.9 - structure outpatient weight loss Medical non complience - enocurage patient to take mediations - had stopped all medications Chronic: Tremors Old TIA GERD HLD DVT prophylaxis: Lovenox Discussed with: Patient, nursing Anticipated discharge: 3-[address]: SNF A total of 45 minutes was spent on the care of this complex patient more than 50% of the time was spent in counseling and care coordination.
--- NOTE | 2021-06-08 13:30 | CT ---
EXAMINATION TYPE: CT brain wo con DATE OF EXAM: 06/08/2021 COMPARISON: 06/06/2021 HISTORY: CVA CT DLP: 1086.4 mGycm Automated exposure control for dose reduction was used. FINDINGS: There is be a PASTRY FINISHER shunt catheter is stable in location. There is mild residual dilation of the ventric ular system is stable from prior exam. Low attenuation is seen surrounding the ventricular white matter which could represent remote white m atter ischemia. Additionally a transependymal edema in the differential diagnosis there is an area of low attenuation adjacent to the left lateral margin of the third ventricle appears more prominent on today's exam in the region of the basal ganglia. Findings suspicious for acute to subacute ischemia. No acute hemorrhage. Mild mass effect in the region of the left third ventricle suspected. Report annette led to the patient's nurse. At 1:23 PM 06/08/2021. Changes of mild maxillary sinusitis. IMPRESSION: 1. SUSPECTED AREA OF ACUTE TO SUBACUTE ISCHEMIA INVOLVING THE LEFT BASAL GANGLIA ADJACENT TO THE LEFT LATERAL MARGIN OF THE THIRD VENTRICLE WITH MILD MASS EFFECT. NO ACUTE INTRACRANIAL HEMORRHAGE. MRI C ORRELATION RECOMMENDED. 2. DEGENERATIVE AND NONSPECIFIC WHITE MATTER CHANGES. DEGREE OF HYDROCEPHALUS IS IN THE DIFFERENTIAL DIAGNOSIS BUT STABLE FROM PRIOR EXAM.
--- NOTE | 2021-06-08 15:55 | P.PN ---
Subjective Progress Note Date: 06/08/21 Patient was seen for a follow-up. Patient appears more lethargic today. She is more aphasic. Offers no complaints. Objective - Vital Signs Vital signs: Vital Signs Temp 99.0 F 06/08/21 08:00 Pulse 101 H 06/08/21 11:00 Resp 25 H 06/08/21 11:00 BP 117/64 06/08/21 11:00 Pulse Ox 99 06/08/21 11:00 Intake & Output 06/07/21 06/08/21 06/08/21 18:59 06:59 18:59 Intake Total 1290 1170 240 Output Total 415 525 90 Balance 875 645 150 Weight 86.7 kg 90.1 kg Intake: IV 1080 Sodium Chloride 0.9% 1, 1080 000 ml @ 999 mls/hr IV . Q1H1M [facility] Rx#:[id number] Intake, IV Titration 1170 150 Amount Sodium Chloride 0.9% 1, 1170 150 000 ml @ 90 mls/hr IV . Q11H7M [facility] Rx#:[id number] Oral 210 90 Output: Urine 415 525 90 Other: Voiding Method Indwelling Catheter Indwelling Catheter Indwelling Catheter - Exam Patient has significant expressive aphasia. Patient cannot name objects. She repeats with some difficulty and noticed to have slurred speech. Her pupils are round and reacting, extraocular muscles are intact. Face appears symmetric. Muscle strength testing patient has right pronator drift. The arm does not hit the bed. Patient's strength (right/left) deltoid 3+/4, biceps 5-/5, triceps 5- /5, adult nurse practitioner 3/4. In the lower limbs hip flexion is about 2 on the right, 3+ left. Ankles are also weaker on the right. Reflexes are 1+ in the upper and lower limbs and plantars are probably upgoing bilaterally. - Labs CBC & Chem 7: 06/08/21 03:12 06/08/21 03:17 Labs: Abnormal Lab Results - Last 24 Hours (Table) 06/07/21 06/07/21 06/07/21 Range/Units 03:53 11:43 16:42 WBC (3.8-10.6) k/uL Neutrophils # (1.3-7.7) k/uL Chloride (98-107) mmol/L Carbon Dioxide (22-30) mmol/L Glucose (74-99) mg/dL POC Glucose (mg/dL) 125 H 120 H (75-99) mg/dL Triglycerides 339.0 H (0.0-149.0) mg/dL VLDL Cholesterol, Calc 67.80 H (5.00-40.00) mg/dL HDL Cholesterol 32.0 L (40.0-60.0) mg/dL 06/08/21 06/08/21 06/08/21 Range/Units 01:40 03:12 03:17 WBC 12.3 H (3.8-10.6) k/uL Neutrophils # 8.7 H (1.3-7.7) k/uL Chloride 110 H (98-107) mmol/L Carbon Dioxide 20 L (22-30) mmol/L Glucose 133 H (74-99) mg/dL POC Glucose (mg/dL) 152 H (75-99) mg/dL Triglycerides (0.0-149.0) mg/dL VLDL Cholesterol, Calc (5.00-40.00) mg/dL HDL Cholesterol (40.0-60.0) mg/dL Assessment and Plan Assessment: * Probable acute ischemic stroke manifesting with expressive aphasia and right hemiparesis. * Acute anterior ST elevation CA, status post cardiac stenting. * History of normal pressure hydrocephalus, status post ventriculoperitoneal shunting 5 years ago. 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 * Stat computed tomography scan of the head was performed, which revealed [place] area of acute to subacute ischemia involving the left basal ganglia adjacent to the left lateral margin of the third ventricle with mild mass effect. No acute intracranial hemorrhage. * CTA of head and neck reported no significant stenosis * 2-D echo revealed mild concentric LVH. Left ventricular systolic function is severely impaired with EF between 20-25%. Mid anterior, mid lateral, mid ant erior septal left-ventricular wall motion is hypokinetic. Apical anterior, apical lateral, apical inferior, apical septum left ventricular wall motion is akinetic. Normal left atrial size. * Continue aspirin 81 mg and Brilinta 90 mg twice a day. * Fasting lipid panel cholesterol 188, LDL 88.2, HDL 32 and triglycerides 339. Continue statins. * Hemoglobin A1c 5.8. * Continue telemetry monitoring rule out other arrhythmia. * Patient has history of normal pressure hydrocephalus. Patient would need to follow-up with her neurosurgeon as an outpatient for patency of VPS. * Continue neuro checks. Patient appears clinically worse today. Addendum: Spoke to patient's and son in detail. Patient was diagnosed with normal pressure hydrocephalus 5 years ago, after she started having problem with urinary incontinence, unsteady on the feet. When she would bend over, would pass out. After she underwent ventriculoperitoneal shunt placement, her symptoms remarkably improved. She has not followed up with her neurosurgeon for last 2 years, who would check her shunt valve pressure. Patient had undergone neck surgery in November 2019. About a year ago patient's symptoms of off balance and urinary incontinence have reappeared, and patient's son believes that she needs to see the neurosurgeon again to check for the shunt patency. Patient's son also mentioned that he is not sure if patient has been taking her statins, Plavix since her neck surgery in November 2019. Patient's son believes that they were not told to resume her medications after the surgery. Patient's son will check with the her pharmacy, and check if she was receiving the refills regularly. Patient was not taking any aspirin prior to arrival.
[2021-06-08] MEDS ORDERED: ACETAMINOPHEN TAB 325 MG TAB PO PRN ×2 (18:17→19:05)
[2021-06-08 19:46] LABS: Glucose,Whole Blood 142 mg/dL (75-99)
[2021-06-08] MEDS: ATORVASTATIN 80 MG TAB PO SCH (20:42)
[2021-06-08] MEDS ORDERED: IPRATROPIUM-ALBUTEROL 3 ML NEB INHALATION PRN (23:04)
[2021-06-08] MEDS: ALPRAZolam 0.25 MG TAB PO PRN (23:10)
[2021-06-08 23:59] LABS: Glucose,Whole Blood 149 mg/dL (75-99)
[2021-06-09 06:06] LABS: Glucose,Whole Blood 126 mg/dL (75-99)
[2021-06-09 07:51] LABS: Basophils % (A) 0 %; Eosinophils # (A) 0.1 k/uL (0-0.7); Eosinophils % (A) 1 %; HCT 39.9 % (34.0-46.0); HGB 13.1 gm/dL (11.4-16.0); Lymphocytes # (A) 1.5 k/uL (1.0-4.8); Lymphocytes % (A) 12 %; MCH 29.3 pg (25.0-35.0); MCHC 32.8 g/dL (31.0-37.0); MCV 89.4 fL (80.0-100.0); Mean Platelet Volume 8.6; Monocytes # (A) 0.5 k/uL (0-1.0); Monocytes % (A) 4 %; Neutrophils # (A) 9.6 k/uL (1.3-7.7); Neutrophils % (A) 81 %; Platelet Count 164 k/uL (150-450); RBC 4.46 m/uL (3.80-5.40); RDW 13.2 % (11.5-15.5); WBC 11.9 k/uL (3.8-10.6)
[2021-06-09 08:03] LABS: African American GFR (CKD) >90 (>60 ml/min/1.73 sqM); Anion Gap 10 mmol/L; Blood Urea Nitrogen 12 mg/dL (7-17); Carbon Dioxide 20 mmol/L (22-30); Chloride 110 mmol/L (98-107); Glucose 138 mg/dL (74-99); Non-African American GFR(CKD) 81 (>60 ml/min/1.73 sqM); Potassium 3.6 mmol/L (3.5-5.1); Sodium 140 mmol/L (137-145)
[2021-06-09] MEDS: ASPIRIN 81 MG PO SCH (08:23)
[2021-06-09] MEDS: ALPRAZolam 0.25 MG TAB PO PRN ×2 (08:23→20:17)
[2021-06-09] MEDS: METOPROLOL SUCCINATE (ER) 25 MG TAB.ER.24H PO SCH (08:23)
[2021-06-09] MEDS: ENOXAPARIN 40 MG/0.4 ML SYRINGE SQ SCH (08:23)
[2021-06-09] MEDS: TICAGRELOR 90 MG TAB PO SCH ×2 (08:24→20:17)
[2021-06-09] MEDS: PANTOPRAZOLE 40 MG/10 ML VIAL IVP SCH (08:25)
[2021-06-09] MEDS: lisinopriL 5 MG TAB PO SCH (09:00)
--- NOTE | 2021-06-09 11:58 | P.PN ---
Subjective This is a pleasant 70-year-old female s/p STEMI with PCI to the LAD and CVA. She is seen and examined sitting up in bed minimally responsive. According to the nurse she is trying to get out of bed frequently and was recently given a xanax. Blood pressure 131/92 heart rate 107 afebrile maintaining oxygen saturation on nasal cannula. Telemetry tracings reviewed, she is in sinus rhythm with frequent PACs. Laboratory data reviewed, WBC 11.9, hemoglobin 13.1, platelets 164, sodium 140, potassium 3.6 and creatinine 0.76. Currently maintained on aspirin 81 mg daily, Dilantin 90 mg twice a day, Toprol 25 mg daily and atorvastatin 80 mg daily. GENERAL: Well-appearing, well-nourished and in no acute distress. NECK: Supple without JVD or thyromegaly. LUNGS: Breath sounds clear to auscultation bilaterally. Respiration equal and unlabored. No wheezes, rales or rhonchi. HEART: Regular rate and rhythm without murmurs, rubs or gallops. S1 and S2 heard. EXTREMITIES: Normal range of motion, no edema. No clubbing or cyanosis. Peripheral pulses intact. ASSESSMENT Acute anterior wall ST elevated myocardial infarction status post PCI to the LAD maintained on dual antiplatelet therapy Ischemic cardiomyopathy Hypertension CVA Dyslipidemia History of ADVERTISING ACCOUNT EXECUTIVE shunt placement for normal pressure hydrocephalus PLAN Continue dual antiplatelet therapy as previously ordered. Add lisinopril to her daily regimen. MRI on hold due to ADVERTISING ACCOUNT EXECUTIVE shunt in place. Nurse Practitioner note has been reviewed, I agree with a documented findings and plan of care. Patient was seen and examined. Objective - Vital Signs Vital signs: Vital Signs Temp 98.4 F 06/09/21 08:00 Pulse 107 H 06/09/21 08:00 Resp 20 06/09/21 08:00 BP 131/92 06/09/21 08:00 Pulse Ox 95 06/09/21 08:00 Intake & Output 06/08/21 06/09/21 06/09/21 18:59 06:59 18:59 Intake Total 440 240 Output Total 220 300 Balance 220 -300 240 Weight 96 kg Intake: Intake, IV Titration 350 Amount Sodium Chloride 0.9% 1, 350 000 ml @ 90 mls/hr IV . Q11H7M [facility] Rx#:[id number] Oral 90 240 Output: Urine 220 300 Other: Voiding Method Indwelling Catheter Indwelling Catheter # Bowel Movements 1 - Labs CBC & Chem 7: 06/09/21 07:35 06/09/21 07:35 Labs: Abnormal Lab Results - Last 24 Hours (Table) 06/08/21 06/08/21 06/09/21 Range/Units 19:45 23:56 06:04 WBC (3.8-10.6) k/uL Neutrophils # (1.3-7.7) k/uL Chloride (98-107) mmol/L Carbon Dioxide (22-30) mmol/L Glucose (74-99) mg/dL POC Glucose (mg/dL) 142 H 149 H 126 H (75-99) mg/dL 06/09/21 06/09/21 Range/Units 07:35 07:35 WBC 11.9 H (3.8-10.6) k/uL Neutrophils # 9.6 H (1.3-7.7) k/uL Chloride 110 H (98-107) mmol/L Carbon Dioxide 20 L (22-30) mmol/L Glucose 138 H (74-99) mg/dL POC Glucose (mg/dL) (75-99) mg/dL
[2021-06-09 12:43] LABS: Glucose,Whole Blood 119 mg/dL (75-99)
--- NOTE | 2021-06-09 13:10 | P.PN ---
Subjective Progress Note Date: 06/09/21 Patient was pretty lethargic when I saw her. Nursing staff informed me that she was agitated earlier requiring Xanax. She was able to talk to her nurse this morning and follow simple commands. Objective - Vital Signs Vital signs: Vital Signs Temp 98.4 F 06/09/21 08:00 Pulse 107 H 06/09/21 08:00 Resp 20 06/09/21 08:00 BP 131/92 06/09/21 08:00 Pulse Ox 95 06/09/21 08:00 Intake & Output 06/08/21 06/09/21 06/09/21 18:59 06:59 18:59 Intake Total 440 240 Output Total 220 300 Balance 220 -300 240 Weight 96 kg Intake: Intake, IV Titration 350 Amount Sodium Chloride 0.9% 1, 350 000 ml @ 90 mls/hr IV . Q11H7M [facility] Rx#:[id number] Oral 90 240 Output: Urine 220 300 Other: Voiding Method Indwelling Catheter Indwelling Catheter # Bowel Movements 1 - Labs CBC & Chem 7: 06/09/21 07:35 06/09/21 07:35 Labs: Abnormal Lab Results - Last 24 Hours (Table) 06/08/21 06/08/21 06/09/21 Range/Units 19:45 23:56 06:04 WBC (3.8-10.6) k/uL Neutrophils # (1.3-7.7) k/uL Chloride (98-107) mmol/L Carbon Dioxide (22-30) mmol/L Glucose (74-99) mg/dL POC Glucose (mg/dL) 142 H 149 H 126 H (75-99) mg/dL 06/09/21 06/09/21 06/09/21 Range/Units 07:35 07:35 12:41 WBC 11.9 H (3.8-10.6) k/uL Neutrophils # 9.6 H (1.3-7.7) k/uL Chloride 110 H (98-107) mmol/L Carbon Dioxide 20 L (22-30) mmol/L Glucose 138 H (74-99) mg/dL POC Glucose (mg/dL) 119 H (75-99) mg/dL Assessment and Plan Assessment: Patient is a 70-year-old female with a history of prior CVA, hydrocephalus status post CLIENT SUPPORT MANAGER shunt, and severe cervical arthritis status who presented to the ER with complaints of chest pain. She was subsequently diagnosed with an ST se gment elevated myocardial infarction. She underwent a CTA of the chest which demonstrated no PE but fibrotic changes. She was taken to the [facility] and subsequently had a stent placed to the LAD. Later during this admission patient appears to have altered mental status and a code stroke was called. She underwent a stat head CT which showed her known hydrocephalus age-related atrophy as well as what appeared to be a functioning shunt. Initial CT head and neck was unreadable and she subsequently went down for repeat CTA head and neck which was negative. The neuro interventional team was contacted and they recommended no tpa secondary to recent Brillenta load and heparin. She was admitted to the ICU and critical care was consulted. Neurology was consulted. She was continued on aspirin, statin, and brillenta. MRI of the brain ordered that so far we were unable to get information regarding her CLIENT SUPPORT MANAGER shunt on whether it's compatible with MRI. Below is a list of her medical problems addressed during this hospitalization Acute anterior ST segment elevated myocardial infarction -Status post PCI to the LAD -Cardiology recommendations -Continue with aspirin, brillenta, statin - add BB 24 hours from sympto onset of CVA -Echocardiogram showed diffuse left ventricular wall motion akinesia with estimated EF of 20-25% Encephalopathy Acute/subacute stroke involving the left basal ganglia - Unable to obtain an MRI secondary to CLIENT SUPPORT MANAGER shunt - ASA, Brillenta, statin - 24 hours premissive HTN done - neurology recs appreciated - PT/OT/Speech - CT angiogram of the head and neck with no acute finding History of Hydrocephalus - should follow-up for shunt study as directed MTHFR - add chemical DVT prophylaxis Transaminitis - likely due to hypoperfusion - repeat in AM Obesity with BMI 33.9 - structure outpatient weight loss Medical non complience - enocurage patient to take mediations - had stopped all medications Chronic: Tremors Old TIA GERD HLD DVT prophylaxis: Lovenox Discussed with: Patient, nursing Anticipated discharge: 3-[address]: [facility] A total of 45 minutes was spent on the care of this complex patient more than 50% of the time was spent in counseling and care coordination.
--- NOTE | 2021-06-09 14:26 | XR ---
EXAMINATION TYPE: XR chest 1V DATE OF EXAM: 06/09/2021 COMPARISON: 06/07/2021 HISTORY: 70 year-old female shortness of breath TECHNIQUE: Single frontal view of the chest is obtained. FINDINGS: Partially visualized posterior cervical fusion hardware. Right-sided CHORUS MASTER shunt catheter. He art mildly enlarged. Hazy retrocardiac and left basilar opacity. Heart upper limits of normal in size , probably due to AP portable technique. IMPRESSION: Hazy left basilar opacity. There may be an underlying small left pleural effusion with adjacent atele ctasis and/or consolidation.
--- NOTE | 2021-06-09 14:55 | CDI ---
Documentation Clarification Form Date: 06/09/2021 02:21:09 PM From: Stephani Ortega RN, CCDS Admit Date: 06/06/2021 03:10:00 PM Patient Name: Sheila Tamayo Visit Number: [id number] Discharge Date: ATTENTION: The Clinical Documentation Specialists (CDI) and [facility] Coding Staff appreciate your assistance in clarifying documentation. Please respond to the clarification below the line at the bottom and electronically sign. The CDI & [facility] Coding staff will review the response and follow-up if needed. Please note: Queries are made part of the Legal Health Record. If you have any questions, please contact the author of this message via ITS. Dr. Constantine Ferrell Acute/subacute CVA is documented in the neurology consult on 06/08 and patient had left heart catheterization, bilateral coronary angiography, PCI proximal LAD with Xience ELIANA ON 06/06/21. Additional clarification is requested regarding the relationship, if any, that exists between the diagnosis and the procedure. Patients Admitting Diagnosis: STEMI Post-Operative Diagnosis: STEMI Procedure performed: Left heart catheterization, bilateral coronary angiography, PCI proximal LAD with Xience ELIANA History/Risk Factors: STEMI, Hypercephalus, MTHFR, prior CVA, Clinical Indicators: 70-year-old female present to ED with complaints of chest pain ruled in for acute STEMI was taken to research laboratory specialist. At the completion of procedure she was noted to have right side weakness, lethargic and not following commands. Code stroke was activated. CTA of head and neck no significant stenosis 2-D echo mild concentric LVH. Left ventricular systolic function is severely impaired with EF between 20-25 % 06/07 Neurology: Altered mental status with some focal findings, suggestive of a possible CVA 06/08 Neurology: Possible acute to subacute ischemic stroke manifesting with expressive aphasia and right hemiparesis. 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 Treatment: Telemetry monitoring Neuro check per protocol ASA 81 MG PO Daily Brilinta 90 MG PO BID Toprol XL 25 MG PO Daily PT/OT/Speech consult What relationship, if any, exists between the diagnosis of acute to subacute stroke/CVA and the procedure? [ ] CVA is a complication of surgical procedure [ ] CVA is an expected outcome of the surgical procedure [ ] CVA is related to patients co-morbid condition(s) of [insert co-morbid dxs] & not a complication of the procedure [ ] Other please specify ____ [ X ] Unable to determine (Template Last Revised: November 2020) MTDD
--- NOTE | 2021-06-09 15:18 | CDI ---
Documentation Clarification Form Date: 06/09/2021 02:56:42 PM From: Stephani Ortega RN, CCDS Admit Date: 06/06/2021 03:10:00 PM Patient Name: Sheila Tamayo Visit Number: [id number] Discharge Date: ATTENTION: The Clinical Documentation Specialists (CDI) and [facility] Coding Staff appreciate your assistance in clarifying documentation. Please respond to the clarification below the line at the bottom and electronically sign. The CDI & [facility] Coding staff will review the response and follow-up if needed. Please note: Queries are made part of the Legal Health Record. If you have any questions, please contact the author of this message via ITS. Dr. Ruben Rodriguez Acute Encephalopathy is documented on 06/06/21 and subsequent progress notes. Additional clarification regarding the type of encephalopathy is requested. 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 At the end of the procedure she had some altered mentation and code stroke was called. 06/07/21 CT brain: suspected area of acute to subacute ischemia involving the left basal ganglia adjacent to the left lateral margin of the third ventricle with mild mass effect. Degree of hydrocephalus, stable from prior exam. 06/06: Labs: WBC 8.1, Troponin I 0.042 Covid not detected CTA Head/Neck: negative Treatment: Telemetry Monitoring Neuro checks per protocol Brilinta 90MG PO BID PT/OT/Speech consult and treat Please clarify the type of encephalopathy, if known: [ x ] Metabolic Encephalopathy due to CVA [ ] Other, please specify [ ] Unable to determine (Template Last Revised: November 2020) MTDD
--- NOTE | 2021-06-09 16:28 | MR ---
EXAMINATION TYPE: MR brain wo con DATE OF EXAM: 06/09/2021 COMPARISON: CT brain from yesterday and older CTs. MRI brain June 18, 2020 HISTORY: stroke/ right sided weakness/ aphasia TECHNIQUE: Multiplanar, multisequence imaging of the brain and brainstem is performed without IV cont rast. FINDINGS: Diffusion weighted images demonstrate 2.0 x 1.1 cm area of increased signal on diffusion weighted rory ges with diminished signal on ADC mapping corresponding to area of CT concern posterior deep left fro ntal lobe anterior aspect of thalamus just posterior to the central left internal capsule and posteri or limb having T1 hypointensity and T2 hyperintensity consistent evolving acute/subacute infarct. There is persistent mild to moderate hydrocephalus slightly more prominent than 2010 MRI. Significant artifact from right-sided SALESPERSON [employer] GLASSWARE shunt catheter on MRI currently. Shunt catheter break is noted seen bet ter on CT. Exam also suboptimal due to patient motion artifact. Midline structures demonstrate normal morphology. The craniocervical junction appears within normal limits. Some scattered areas of T2 hyperintensity throughout the white matter are redemonstrated. Juanjose e areas of involvement in the nadia now seen. Sfju-or-kfjifneg mucosal thickening involving ethmoid si nuses. Globes are grossly intact. Some fluid signal right mastoid air cells remains present. IMPRESSION: Suboptimal study but confirmation of acute evolving 2.0 cm infarct anterior left thalamus adjacent to the third ventricle. Abandoned right-sided shunt catheter with mild to moderate hydrocep halus is redemonstrated and is seen better on CT versus MRI A Yellow level critical message alert has been initiated for Elas Mathew DO via the [employer] Critical Results System on 06/09/2021 4:25 PM. This message alert has been sent to Elsa gonzales DO via the preferences provided by the clinician for the receipt of Radiology Critical Findings. Message ID [id number].
[2021-06-09 17:15] LABS: ABG Base Excess -2.1 mmol/L; ABG HCO3 22 mmol/L (21-25); ABG Oxygen Saturation 97.8 % (94-97); ABG PCO2 29 mmHg (35-45); ABG PH 7.48 (7.35-7.45); ABG PO2 85 mmHg (83-108); ABG TCO2 22 mmol/L (19-24); Allen Test Performed? Yes
[2021-06-09] MEDS: IPRATROPIUM-ALBUTEROL 3 ML NEB INHALATION SCH ×2 (17:20→20:13)
[2021-06-09] MEDS: ATORVASTATIN 80 MG TAB PO SCH (20:17)
[2021-06-09 23:18] LABS: Glucose,Whole Blood 142 mg/dL (75-99)
[2021-06-10 06:02] LABS: Glucose,Whole Blood 130 mg/dL (75-99)
[2021-06-10] MEDS ORDERED: PANTOPRAZOLE 40 MG TABLET PO SCH (07:30)
[2021-06-10] MEDS: IPRATROPIUM-ALBUTEROL 3 ML NEB INHALATION SCH ×4 (08:25→19:49)
[2021-06-10 08:27] VITALS: RESP 16
[2021-06-10] MEDS: lisinopriL 5 MG TAB PO SCH (09:57)
[2021-06-10] MEDS: TICAGRELOR 90 MG TAB PO SCH ×2 (09:57→20:52)
[2021-06-10] MEDS: METOPROLOL SUCCINATE (ER) 25 MG TAB.ER.24H PO SCH (09:57)
[2021-06-10] MEDS: ASPIRIN 81 MG PO SCH (09:57)
[2021-06-10] MEDS: ENOXAPARIN 40 MG/0.4 ML SYRINGE SQ SCH (09:58)
--- NOTE | 2021-06-10 10:24 | P.PN ---
Subjective Progress Note Date: 06/09/21 Patient was seen for a follow-up. Patient appears more lethargic today. She is more aphasic. Offers no complaints. Objective - Vital Signs Vital signs: Vital Signs Temp 98.0 F 06/09/21 20:00 Pulse 106 H 06/09/21 20:31 Resp 22 06/09/21 20:00 BP 132/74 06/09/21 20:00 Pulse Ox 98 06/09/21 20:00 Intake & Output 06/09/21 06/09/21 06/10/21 06:59 18:59 06:59 Intake Total 420 Output Total 300 100 Balance -300 420 -100 Weight 96 kg Intake: Oral 420 Output: Urine 300 100 Other: Voiding Method Indwelling Catheter Indwelling Catheter - Exam Patient has significant expressive aphasia. Patient cannot name objects. She repeats with some difficulty and noticed to have slurred speech. Her pupils are round and reacting, extraocular muscles are intact. Face appears symmetric. Muscle strength testing patient has right pronator drift. The arm does not hit the bed. Patient's strength (right/left) deltoid 3+/4, biceps 5-/5, triceps 5- /5, cmm operator 3/4. In the lower limbs hip flexion is about 2 on the right, 3+ left. Ankles are also weaker on the right. Reflexes are 1+ in the upper and lower limbs and plantars are probably upgoing bilaterally. - Labs CBC & Chem 7: 06/09/21 07:35 06/09/21 07:35 Labs: Abnormal Lab Results - Last 24 Hours (Table) 06/08/21 06/09/21 06/09/21 Range/Units 23:56 06:04 07:35 WBC 11.9 H (3.8-10.6) k/uL Neutrophils # 9.6 H (1.3-7.7) k/uL ABG pH (7.35-7.45) ABG pCO2 (35-45) mmHg ABG O2 Saturation (94-97) % Chloride (98-107) mmol/L Carbon Dioxide (22-30) mmol/L Glucose (74-99) mg/dL POC Glucose (mg/dL) 149 H 126 H (75-99) mg/dL 06/09/21 06/09/21 06/09/21 Range/Units 07:35 12:41 17:11 WBC (3.8-10.6) k/uL Neutrophils # (1.3-7.7) k/uL ABG pH 7.48 H (7.35-7.45) ABG pCO2 29 L (35-45) mmHg ABG O2 Saturation 97.8 H (94-97) % Chloride 110 H (98-107) mmol/L Carbon Dioxide 20 L (22-30) mmol/L Glucose 138 H (74-99) mg/dL POC Glucose (mg/dL) 119 H (75-99) mg/dL Assessment and Plan Assessment: * Acute ischemic stroke involving the anterior left thalamus adjacent to the third ventricle. Her stroke manifesting with expressive aphasia and right hemiparesis. * Acute anterior ST elevation LA, status post cardiac stenting. * History of normal pressure hydrocephalus, status post ventriculoperitoneal shunting 5 years ago. * Hypertension * Dyslipidemia Plan: * MRI of the brain revealed an acute evolving 2.0 cm infarct anterior left thalamus adjacent to the third ventricle. Abandoned right-sided shunt catheter with [id number] hydrocephalus is redemonstrated and is seen better on CT versus MRI. * CTA of head and neck reported no significant stenosis * 2-D echo revealed mild concentric LVH. Left ventricular systolic function is severely impaired with EF between 20-25%. Mid anterior, mid lateral, mid anterior septal left-ventricular wall motion is hypokinetic. Apical anterior, apical lateral, apical inferior, apical septum left ventricular wall motion is akinetic. Normal left atrial size. * Continue aspirin 81 mg and Brilinta 90 mg twice a day. * Fasting lipid panel cholesterol 188, LDL 88.2, HDL 32 and triglycerides 339. Continue statins. * Hemoglobin A1c 5.8. * Continue telemetry monitoring rule out other arrhythmia. * Patient has history of normal pressure hydrocephalus. Patient would need to follow-up with her neurosurgeon as an outpatient for patency of VPS. * Continue neuro checks. Patient appears clinically worse today. Addendum: Spoke to patient's and son in detail. Patient was diagnosed with normal pressure hydrocephalus 5 years ago, after she started having problem with urinary incontinence, unsteady on the feet. When she would bend over, would pas s out. After she underwent ventriculoperitoneal shunt placement, her symptoms remarkably improved. She has not followed up with her neurosurgeon for last 2 years, who would check her shunt valve pressure. Patient had undergone neck surgery in November 2019. About a year ago patient's symptoms of off balance and urinary incontinence have reappeared, and patient's son believes that she needs to see the neurosurgeon again to check for the shunt patency. Patient's son also mentioned that he is not sure if patient has been taking her statins, Plavix since her neck surgery in November 2019. Patient's son believes that they were not told to resume her medications after the surgery. Patient's son will check with the her pharmacy, and check if she was receiving the refills regularly. Patient was not taking any aspirin prior to arrival.
--- NOTE | 2021-06-10 11:10 | P.PN ---
Subjective This is a pleasant 70-year-old female s/p STEMI with PCI to the LAD and CVA. She is seen and examined sitting up in bed minimally responsive. According to the nurse she is trying to get out of bed frequently and was recently given a xanax. Blood pressure 131/92 heart rate 107 afebrile maintaining oxygen saturation on nasal cannula. Telemetry tracings reviewed, she is in sinus rhythm with frequent PACs. Laboratory data reviewed, WBC 11.9, hemoglobin 13.1, platelets 164, sodium 140, potassium 3.6 and creatinine 0.76. Currently maintained on aspirin 81 mg daily, Dilantin 90 mg twice a day, Toprol 25 mg daily and atorvastatin 80 mg daily. 06/10/2021 Patient seen and examined sitting up in bed. She is not responding to verbal s timuli. Blood pressure 122/74 heart rate 98 afebrile maintaining oxygen saturation on nasal cannula. MRI of the brain revealed an acute evolving infarct anterior left thalamus adjacent to the third ventricle. GENERAL: Well-appearing, well-nourished and in no acute distress. NECK: Supple without JVD or thyromegaly. LUNGS: Breath sounds clear to auscultation bilaterally. Respiration equal and unlabored. No wheezes, rales or rhonchi. HEART: Regular rate and rhythm without murmurs, rubs or gallops. S1 and S2 heard. EXTREMITIES: Normal range of motion, no edema. No clubbing or cyanosis. Periph eral pulses intact. ASSESSMENT Acute anterior wall ST elevated myocardial infarction status post PCI to the LAD maintained on dual antiplatelet therapy Ischemic cardiomyopathy Hypertension CVA Dyslipidemia History of SCRATCH POLISHER shunt placement for normal pressure hydrocephalus PLAN Continue dual antiplatelet therapy as previously ordered. Add Aldactone to his daily regimen. Continue to optimize her medical therapy. Nurse Practitioner note has been reviewed, I agree with a documented findings and plan of care. Patient was seen and examined. Objective - Vital Signs Vital signs: Vital Signs Temp 97.8 F 06/10/21 05:00 Pulse 98 06/10/21 08:35 Resp 16 06/10/21 08:35 BP 122/74 06/10/21 04:00 Pulse Ox 98 06/10/21 08:25 Intake & Output 06/09/21 06/10/21 06/10/21 18:59 06:59 18:59 Intake Total 420 Output Total 320 Balance 420 -320 Weight 92 kg Intake: Oral 420 Output: Urine 320 Other: Voiding Method Indwelling Catheter # Voids 1 # Bowel Movements 1 - Labs CBC & Chem 7: 06/09/21 07:35 06/09/21 07:35 Labs: Abnormal Lab Results - Last 24 Hours (Table) 06/09/21 06/09/21 06/09/21 Range/Units 12:41 17:11 23:17 ABG pH 7.48 H (7.35-7.45) ABG pCO2 29 L (35-45) mmHg ABG O2 Saturation 97.8 H (94-97) % POC Glucose (mg/dL) 119 H 142 H (75-99) mg/dL 06/10/21 Range/Units 06:01 ABG pH (7.35-7.45) ABG pCO2 (35-45) mmHg ABG O2 Saturation (94-97) % POC Glucose (mg/dL) 130 H (75-99) mg/dL
[2021-06-10] MEDS ORDERED: SPIRONOLACTONE 25 MG TAB PO SCH (11:15)
[2021-06-10 11:59] LABS: Glucose,Whole Blood 127 mg/dL (75-99)
--- NOTE | 2021-06-10 14:03 | P.PN ---
Subjective Progress Note Date: 06/10/21 Patient was pretty obtunded when I saw her today. According to nursing staff her mentation is waxing and waning. She is more alert and responsive throughout the day Objective - Vital Signs Vital signs: Vital Signs Temp 97.8 F 06/10/21 05:00 Pulse 98 06/10/21 11:39 Resp 16 06/10/21 11:39 BP 122/74 06/10/21 04:00 Pulse Ox 98 06/10/21 08:25 Intake & Output 06/09/21 06/10/21 06/10/21 18:59 06:59 18:59 Intake Total 420 Output Total 320 Balance 420 -320 Weight 92 kg Intake: Oral 420 Output: Urine 320 Other: Voiding Method Indwelling Catheter # Voids 1 # Bowel Movements 1 - Labs CBC & Chem 7: 06/09/21 07:35 06/09/21 07:35 Labs: Abnormal Lab Results - Last 24 Hours (Table) 06/09/21 06/09/21 06/10/21 Range/Units 17:11 23:17 06:01 ABG pH 7.48 H (7.35-7.45) ABG pCO2 29 L (35-45) mmHg ABG O2 Saturation 97.8 H (94-97) % POC Glucose (mg/dL) 142 H 130 H (75-99) mg/dL 06/10/21 Range/Units 11:54 ABG pH (7.35-7.45) ABG pCO2 (35-45) mmHg ABG O2 Saturation (94-97) % POC Glucose (mg/dL) 127 H (75-99) mg/dL Assessment and Plan Assessment: Patient is a 70-year-old female with a history of prior CVA, hydrocephalus status post MOLD MOVER shunt, and severe cervical arthritis status who presented to the ER with complaints of chest pain. She was subsequently diagnosed with an ST segment elevated myocardial infarction. She underwent a CTA of the chest which demonstrated no PE but fibrotic changes. She was taken to the [facility] and subsequently had a stent placed to the LAD. Later during this admission patient appears to have altered mental status and a code stroke was called. She underwent a stat head CT which showed her known hydrocephalus age-related atrophy as well as what appeared to be a functioning shunt. Initial CT head and neck was unreadable and she subsequently went down for repeat CTA head and neck which was negative. The neuro interventional team was contacted and they recommended no tpa secondary to recent Brillenta load and heparin. She was admitted to the ICU and critical care was consulted. Neurology was consulted. She was continued on aspirin, statin, and brillenta. MRI of the brain ordered that so far we were unable to get information regarding her MOLD MOVER shunt on whether it's compatible with MRI. Below is a list of her medical problems addressed during this hospitalization Acute anterior ST segment elevated myocardial infarction -Status post PCI to the LAD -Cardiology recommendations -Continue with aspirin, brillenta, statin -Optimal medical management -Echocardiogram showed diffuse left ventricular wall motion akinesia with estimated EF of 20-25% Encephalopathy Acute/subacute stroke involving the left thalamus measuring 2 cm - Noted on MRI of the brain - ASA, Brillenta, statin - 24 hours premissive HTN done - neurology recs appreciated - PT/OT/Speech: Scheduled for barium swallow study today - CT angiogram of the head and neck with no acute finding History of Hydrocephalus - should follow-up for shunt study as directed MTHFR - add chemical DVT prophylaxis Transaminitis - likely due to hypoperfusion - repeat in AM Obesity with BMI 33.9 - structure outpatient weight loss Medical non complience - enocurage patient to take mediations - had stopped all medications Chronic: Tremors Old TIA GERD HLD DVT prophylaxis: Lovenox Discussed with: Patient, nursing Anticipated discharge: 3-[address]: SNF A total of 45 minutes was spent on the care of this complex patient more than 50% of the time was spent in counseling and care coordination.
[2021-06-10 14:49] LABS: African American GFR (CKD) >90 (>60 ml/min/1.73 sqM); Anion Gap 10 mmol/L; Blood Urea Nitrogen 13 mg/dL (7-17); Calcium 9.2 mg/dL (8.4-10.2); Carbon Dioxide 18 mmol/L (22-30); Chloride 113 mmol/L (98-107); Glucose 143 mg/dL (74-99); Magnesium 1.9 mg/dL (1.6-2.3); Non-African American GFR(CKD) >90 (>60 ml/min/1.73 sqM); Sodium 141 mmol/L (137-145)
[2021-06-10 15:11] LABS: Potassium 3.6 mmol/L (3.5-5.1)
--- NOTE | 2021-06-10 16:01 | FL ---
EXAMINATION TYPE: FL barium swallow w video DATE OF EXAM: 06/10/2021 COMPARISON: NONE HISTORY: Cerebrovascular accident, difficulty swallowing. The patient was evaluated in the lateral projection during real-time fluoroscopy, during ingestion of barium mixed with solids and liquids. No aspiration or laryngeal penetration. Some delay in initia tion of swallowing is noted. See report from speech pathology. 1 minute 32 seconds fluoroscopy time, no images obtained
[2021-06-10 16:53] LABS: Glucose,Whole Blood 103 mg/dL (75-99)
--- NOTE | 2021-06-10 17:34 | P.PN ---
Subjective Progress Note Date: 06/10/21 Patient was seen for a follow-up. Patient appears more lethargic today. She is more aphasic. Patient not able to speak any words. Patient appears encephalopathic. Somewhat groggy. Appears flushed. Patient's and son were present today. They state that patient has been sleeping a lot. Patient's confirmed that patient has not taken any medication since she had undergone neck surgery. She has not taken her Plavix, statins or any medications that she was taking before her surgery. Telemetry monitoring showing sinus rhythm, sinus tachycardia, with heart rate around 110 at times. Some PVCs and PACs. Objective - Vital Signs Vital signs: Vital Signs Temp 97.0 F L 06/10/21 13:00 Pulse 89 06/10/21 14:00 Resp 16 06/10/21 16:36 BP 124/72 06/10/21 13:00 Pulse Ox 98 06/10/21 13:00 Intake & Output 06/09/21 06/10/21 06/10/21 18:59 06:59 18:59 Intake Total 420 Output Total 320 100 Balance 420 -320 -100 Weight 92 kg Intake: Oral 420 Output: Urine 320 100 Other: Voiding Method Indwelling Catheter Indwelling Catheter # Voids 1 # Bowel Movements 1 - Exam Patient has significant expressive aphasia. Patient cannot name objects. Patient did not repeat any sentences. He does not follow commands. Her pupils are round and reacting, extraocular muscles are intact. Face appears symmetric. Other cranial nerves could not be assessed. Muscle strength testing patient has right pronator drift. The arm does hit the bed. Patient did not cooperate with muscle strength testing. Reflexes are 1+ in the upper and lower limbs and plantars are probably upgoing bilaterally. Sensory, cerebellar functions and gait cannot be tested. - Labs CBC & Chem 7: 06/09/21 07:35 06/10/21 14:09 Labs: Abnormal Lab Results - Last 24 Hours (Table) 06/09/21 06/10/21 06/10/21 Range/Units 23:17 06:01 11:54 Chloride (98-107) mmol/L Carbon Dioxide (22-30) mmol/L Glucose (74-99) mg/dL POC Glucose (mg/dL) 142 H 130 H 127 H (75-99) mg/dL 06/10/21 06/10/21 Range/Units 14:09 16:51 Chloride 113 H (98-107) mmol/L Carbon Dioxide 18 L (22-30) mmol/L Glucose 143 H (74-99) mg/dL POC Glucose (mg/dL) 103 H (75-99) mg/dL Assessment and Plan Assessment: * Acute ischemic stroke involving the anterior left thalamus adjacent to the third ventricle. Her stroke manifesting with expressive aphasia and right hemiparesis. * Acute anterior ST elevation ID, status post cardiac stenting. * History of normal pressure hydrocephalus, status post ventriculoperitoneal shunting in 2015. MRI of the brain revealed abandoned shunt in the brain. Rule out shunt fracture/malfunction. * Encephalopathy, possibly due to CVA, cannot rule out shunt malfunction with worsening hydrocephalus. * Hypertension * Dyslipidemia Plan: * Patient continues to be very encephalopathic. She is moderately hemiparetic on the right, with expressive aphasia, but she has significant encephalopathy of unclear etiology. MRI of the brain revealed abandoned right sided shunt catheter with mild to moderate hydrocephalus. I spoke to the radiologist, who felt the missing part of the shunt could be due to use of ?radiolucent shunt in that region, or may be breakage in the shunt as well. Cannot rule out shun t malfunction. Previous MRI/computed tomography scans are not available for comparison. * We will check EEG to evaluate for encephalopathy, rule out epileptiform activity. * Due to persistent encephalopathy, possibility of shunt malfunction, hydrocephalus, would suggest transfer to [facility] with her neurosurgeon Dr. Thacker, who could compare her current MRI and CT scans with the previous one and also check for shunt patency, rule out malfunction. * MRI of the brain revealed an acute evolving 2.0 cm infarct anterior left thalamus adjacent to the third ventricle. Abandoned right-sided shunt catheter with [id number] hydrocephalus is redemonstrated and is seen better on CT versus MRI. * CTA of head and neck reported no significant stenosis * 2-D echo revealed mild concentric LVH. Left ventricular systolic function is severely impaired with EF between 20-25%. Mid anterior, mid lateral, mid anterior septal left-ventricular wall motion is hypokinetic. Apical anterior, apical lateral, apical inferior, apical septum left ventricular wall motion is akinetic. Normal left atrial size. * Continue aspirin 81 mg and Brilinta 90 mg twice a day. * Fasting lipid panel cholesterol 188, LDL 88.2, HDL 32 and triglycerides 339. Continue statins. * Hemoglobin A1c 5.8. * Telemetry monitoring showing sinus rhythm, sinus tachycardia in 110, some PVCs and PACs. * Continue neuro checks. Patient appears clinically worse today. * Discussed with primary physician Dr. Cho to consider transfer to [facility]. Addendum: Spoke to patient's and son in detail. Patient was diagnosed with normal pressure hydrocephalus 5 years ago, after she started having problem with urinary incontinence, unsteady on the feet. When she would bend over, would pass out. After she underwent ventriculoperitoneal shunt placement in 2014, her symptoms remarkably improved. She has not followed up with her neurosurgeon for last 2 years, who would check her shunt valve pressure. Patient had undergone neck surgery in November 2019. About a year ago patient's symptoms of off balance and urinary incontinence have reappeared, and patient's son believes that her NPH probably has reappeared. Due to pandemic, they have not been able to see her neurosurgeon again to check for the shunt patency. Patient's son and have confirmed, the patient has not been taking her statins, Plavix since her neck surgery in November 2019. Patient's son believes that they were not told to resume her medications after the surgery. Patient was not taking any aspirin prior to arrival. Time with Patient: Greater than 30
[2021-06-10 18:21] LABS: Glucose,Whole Blood 131 mg/dL (75-99)
[2021-06-10 18:24] LABS: Basophils % (A) 0 %; Eosinophils # (A) 0.3 k/uL (0-0.7); Eosinophils % (A) 2 %; HCT 40.8 % (34.0-46.0); HGB 13.3 gm/dL (11.4-16.0); Lymphocytes # (A) 1.4 k/uL (1.0-4.8); Lymphocytes % (A) 12 %; MCH 29.4 pg (25.0-35.0); MCHC 32.6 g/dL (31.0-37.0); Monocytes # (A) 0.6 k/uL (0-1.0); Monocytes % (A) 5 %; Neutrophils # (A) 9.9 k/uL (1.3-7.7); Neutrophils % (A) 80 %; Platelet Count 192 k/uL (150-450); RBC 4.53 m/uL (3.80-5.40); RDW 13.3 % (11.5-15.5); WBC 12.4 k/uL (3.8-10.6)
[2021-06-10 20:51] VITALS: BP 128/63; TEMP 97.8
[2021-06-10] MEDS: ATORVASTATIN 80 MG TAB PO SCH (20:51)
[2021-06-10 23:56] VITALS: PULSE 95
[2021-06-11] MEDS ORDERED: IPRATROPIUM-ALBUTEROL 3 ML NEB ONE (07:17)
--- NOTE | 2021-06-11 13:31 | P.DS ---
Providers Date of admission: 06/06/21 15:10 Expected date of discharge: 06/11/21 Attending physician: Elsa Mathew DO Consults: 06/06/21 14:36 Consult Physician Stat Consulting Provider: [facility] Consult Reason/Comments: STEMI ACTIVATION COMPLETE Do you want consulting provider notified?: Yes 06/06/21 17:39 Consult Physician Routine Consulting Provider: [facility] Consult Reason/Comments: Post Interventional patient Do you want consulting provider notified?: Already Contacted 06/06/21 17:59 Consult Physician Routine Consulting Provider: Dimitri Talbot Consult Reason/Comments: right sided weakness Do you want consulting provider notified?: Yes 06/06/21 19:04 Consult Physician Routine Consulting Provider: Michaelle Richmond Consult Reason/Comments: ICU management Do you want consulting provider notified?: Already Contacted 06/07/21 12:57 Consult Physician Routine Consulting Provider: Rbuin Russell Consult Reason/Comments: possible IPR Do you want consulting provider notified?: Yes Primary care physician: [facility] Course: Patient was transferred to [facility] for escalation of care per neurology request. MRI of the brain showed suspected break in her BALANCE STAFF INSPECTOR shunt. She was accepted by neurology at [facility] was back to neurosurgery consultation. Patient is a 70-year-old female with a history of prior CVA, hydrocephalus status post BALANCE STAFF INSPECTOR shunt, and severe cervical arthritis status who presented to the ER with complaints of chest pain. She was subsequently diagnosed with an ST segment elevated myocardial infarction. She underwent a CTA of the chest which demonstrated no PE but fibrotic changes. She was taken to the [facility] and subsequently had a stent placed to the LAD. Later during this admission patient appears to have altered mental status and a code stroke was called. She underwent a stat head CT which showed her known hydrocephalus age-related atrophy as well as what appeared to be a functioning shunt. Initial CT head and neck was unreadable and she subsequently went down for repeat CTA head and neck which was negative. The neuro interventional team was contacted and they recommended no tpa secondary to recent Brillenta load and heparin. She was admitted to the ICU and critical care was consulted. Neurology was consulted. She was continued on aspirin, statin, and brillenta. MRI of the brain ordered that so far we were unable to get information regarding her BALANCE STAFF INSPECTOR shunt on whether it's compatible with MRI. Below is a list of her medical problems addressed during this hospitalization Acute anterior ST segment elevated myocardial infarction -Status post PCI to the LAD -Cardiology recommendations -Continue with aspirin, brillenta, statin -Optimal medical management -Echocardiogram showed diffuse left ventricular wall motion akinesia with estimated EF of 20-25% Encephalopathy Acute/subacute stroke involving the left thalamus measuring 2 cm - Noted on MRI of the brain - ASA, Brillenta, statin - 24 hours premissive HTN done - neurology recs appreciated - PT/OT/Speech: Scheduled for barium swallow study today - CT angiogram of the head and neck with no acute finding History of Hydrocephalus - should follow-up for shunt study as directed MTHFR - add chemical DVT prophylaxis Transaminitis - likely due to hypoperfusion - repeat in AM Obesity with BMI 33.9 - structure outpatient weight loss Medical non complience - enocurage patient to take mediations - had stopped all medications Patient Condition at Discharge: Serious Plan - Discharge Summary Discharge Rx Participant: No New Discharge Prescriptions: New Ticagrelor [Brilinta] 90 mg PO BID #60 tab Aspirin 81 mg PO DAILY tab Atorvastatin [Lipitor] 80 mg PO HS #90 tab Nitroglycerin Sl Tabs [Nitrostat] 0.4 mg SUBLINGUAL Q5M PRN #25 tab PRN Reason: Chest Pain Metoprolol Succinate (ER) [Toprol XL] 25 mg PO DAILY #90 tablet Discharge Medication List Aspirin 81 mg PO DAILY tab 06/07/21 [Rx] Atorvastatin [Lipitor] 80 mg PO HS #90 tab 06/07/21 [Rx] Metoprolol Succinate (ER) [Toprol XL] 25 mg PO DAILY #90 tablet 06/07/21 [Rx] Nitroglycerin Sl Tabs [Nitrostat] 0.4 mg SUBLINGUAL Q5M PRN #25 tab 06/07/21 [Rx] Ticagrelor [Brilinta] 90 mg PO BID #60 tab 06/07/21 [Rx] Follow up Appointment(s)/Referral(s): Constantine Ferrell DO [STAFF PHYSICIAN] - 1 Week Rei Cannon MD [Primary Care Provider] - 1-2 days Discharge Disposition: [facility]
--- NOTE | 2021-06-16 08:06 | CDI ---
Documentation Clarification Form Date: 06/15/2021 06:20:00 PM From: Stephani Ortega RN, CCDS Admit Date: 06/06/2021 03:10:00 PM Patient Name: Sheila Tamayo Visit Number: [id number] Discharge Date: 06/11/2021 04:20:00 AM ATTENTION: The Clinical Documentation Specialists (CDI) and [facility] Coding Staff appreciate your assistance in clarifying documentation. Please respond to the clarification below the line at the bottom and electronically sign. The CDI & [facility] Coding staff will review the response and follow-up if needed. Please note: Queries are made part of the Legal Health Record. If you have any questions, please contact the author of this message via ITS. Dr. Clau Laird Acute/subacute CVA is documented in your progress notes starting on 06/08/21, patient admitted with acute anterior ST elevation NE on 06/06/21. Please clarify if there is a relationship if any and cause of CVA. 06/06/21 Admit with Acute anterior ST elevation NE 06/06/21 Left heart catheterization with PIC proximal LAD with ELIANA 06/06/21 16:54 Pt slow to respond right sided facial droop noted. Pt not following commands. Vs 122/80 06/06/21 17:34 CT Brain: There is hydrocephalus not significant different than old MR scan of 06/18/2020. Shunt catheter in good position. CTA of head and neck report no significant stenosis 06/08 Neurology: Possible acute to subacute ischemic stroke manifesting with expressive aphasia and right hemiparesis. The patient could not have clearance for MRI related to the OFFICE ASSOCIATE shunt. 06/08 CT Brain: Suspected area of acute to subacute ischemia involving the left basal ganglia adjacent to the left lateral margin of the third ventricle with mild mass effect. 06/09 MRI Brain: Suboptimal study but confirmation of acute evolving 2.0cm infarct anterior left thalamus adjacent to the third ventricle Abandoned right- sided shunt catheter with mild to moderate hydrocephalis redemonstrated. 06/10 Neurology note: due to persistent encephalopathy, possibility of shunt malfunction, hydrocephalus, would suggest transfer to [facility] with her neurosurgeon. History/Risk Factors: STEMI, MTHFR, prior CVA, Normal pressure hydrocephalus, status post ventriculoperitoneal shunting. Clinical Indicators: 70-year-old female present to ED with complaints of chest pain ruled in for acute STEMI was taken to [facility] labor relations. At the completion of procedure she was noted to have right side weakness, lethargic and not following commands. Code stroke was activated. 2-D echo mild concentric LVH. Left ventricular systolic function is severely impaired with EF between 20-25 % Treatment: Telemetry monitoring Aggressive risk factor modification per most recent ACC/AHA guidelines Neuro check per protocol ASA 81 MG PO Daily Brilinta 90 MG PO BID Toprol XL 25 MG PO daily PT/OT/Speech consult What relationship, if any, exists between the diagnosis of acute to subacute stroke/CVA and the procedure? [ ] CVA is due to normal pressure hydrocephalus [ ] CVA is due to normal pressure hydrocephalus from malfunctioning shunt [ ] CVA is a complication of heart Cath/intervention [ ] Other please specify ____ [ ] Unable to determine (Template Last Revised: November 2020) MTDD
== END 2021-06-11 04:20 | disposition critical access hospital (66) | DRG 246 ==
LOC: EC 14:25 → 2SICU 15:10 → 3SCARD 06-08 16:54
PROVIDERS: ADMIT Internal Medicine; ATTEND Internal Medicine
PROC: B2111ZZ Fluoroscopy of Multiple Coronary Arteries using Low Osmolar Contrast (ICD-10-PCS; 2021-06-06)
PROC: B2151ZZ Fluoroscopy of Left Heart using Low Osmolar Contrast (ICD-10-PCS; 2021-06-06)
PROC: 027034Z Dilation of Coronary Artery, One Artery with Drug-eluting Intraluminal Device, Percutaneous Approach (ICD-10-PCS; principal; 2021-06-06 15:34)
PROC: 4A023N7 Measurement of Cardiac Sampling and Pressure, Left Heart, Percutaneous Approach (ICD-10-PCS; 2021-06-06 15:34)
DX: I21.09 ST elevation (STEMI) myocardial infarction involving other coronary artery of anterior wall (principal); I63.9 Cerebral infarction, unspecified; G93.41 Metabolic encephalopathy; E72.12 Methylenetetrahydrofolate reductase deficiency; G81.91 Hemiplegia, unspecified affecting right dominant side; J98.11 Atelectasis; R47.01 Aphasia; G91.2 (Idiopathic) normal pressure hydrocephalus; G96.08 Other cranial cerebrospinal fluid leak; E66.9 Obesity, unspecified; E78.5 Hyperlipidemia, unspecified; I10 Essential (primary) hypertension; I25.5 Ischemic cardiomyopathy; I49.3 Ventricular premature depolarization; R29.715 NIHSS score 15; K21.9 Gastro-esophageal reflux disease without esophagitis; R29.810 Facial weakness; Z68.33 Body mass index [BMI] 33.0-33.9, adult; Z20.822 Contact with and (suspected) exposure to COVID-19; Z79.02 Long term (current) use of antithrombotics/antiplatelets; Z79.82 Long term (current) use of aspirin; Z79.899 Other long term (current) drug therapy; Z86.73 Personal history of transient ischemic attack (TIA), and cerebral infarction without residual deficits; Z90.710 Acquired absence of both cervix and uterus; Z98.2 Presence of cerebrospinal fluid drainage device; R32 Unspecified urinary incontinence; R25.1 Tremor, unspecified; Y83.8 Other surgical procedures as the cause of abnormal reaction of the patient, or of later complication, without mention of misadventure at the time of the procedure; R74.01 Elevation of levels of liver transaminase levels
CPT/HCPCS: 36415; 36600; 70450; 70496; 70498; 70551; 71045; 71275; 74230; 80048; 80053; 80061; 81003; 82805; 83036; 83735; 84484; 85025; 85610; 85730; 87635; 93005; 93306; 93458; 94640; 94760; 96374; 96375; 99285

== ENCOUNTER 2021-10-01 23:08 | Emergency (ER) | payer MEDICARE ==
[2021-10-01 23:13] LABS: Glucose,Whole Blood 104 mg/dL (75-99)
[2021-10-01 23:25] VITALS: TEMP 97.8
--- NOTE | 2021-10-01 23:36 | ED ---
Fall HPI - General Chief Complaint: Fall Stated Complaint: Fall Time Seen by Provider: 10/01/21 23:15 Source: patient, EMS Mode of arrival: EMS Limitations: altered mental status (Underlying dementia) - History of Present Illness Initial Comments: This patient is 70-year-old woman sent here from her long-term care facility to have evaluation after suspected fall. The patient reportedly had been in bed and then staff found her on the floor next to her bed. They suspect that she had fallen from the bed. Patient does reportedly take blood thinning m edications so they sent her to have evaluation here. When I interview the patient, she does appear to have some underlying dementia but denies any complaints. She denies pain. No dyspnea. MD Complaint: fall -: unknown Fall From: out of bed When Fall Occurred: unsure Fall Witnessed: no Place Fall Occurred: retirement/SNF Loss of Consciousness: unsure Prolonged Down Time?: unclear Associated Symptoms: denies - Related Data Home Medications Medication Instructions Recorded Confirmed Apixaban [Eliquis] 5 mg PO BID 09/15/21 09/15/21 Clopidogrel [Plavix] 75 mg PO DAILY 09/15/21 09/15/21 Losartan [Cozaar] 25 mg PO DAILY 09/15/21 09/15/21 Spironolactone [Aldactone] 25 mg PO DAILY 09/15/21 09/15/21 lisinopriL [Zestril] 2.5 mg PO DAILY 09/15/21 09/15/21 Previous Rx's Medication Instructions Recorded Atorvastatin [Lipitor] 80 mg PO HS #90 tab 06/07/21 Metoprolol Succinate (ER) [Toprol 25 mg PO DAILY #90 tablet 06/07/21 XL] Nitroglycerin Sl Tabs [Nitrostat] 0.4 mg SUBLINGUAL Q5M PRN #25 tab 06/07/21 Ascorbic Acid [Vitamin C] 1,000 mg PO DAILY tab 09/17/21 Cholecalciferol [Vitamin D3 (125 125 mcg PO DAILY tablet 09/17/21 Mcg = 5000 Iu)] Pantoprazole [Protonix] 40 mg PO AC-BRKFST tab 09/17/21 Zinc Sulfate [Orazinc] 220 mg PO DAILY cap 09/17/21 Allergies Allergy/AdvReac Type Severity Reaction Status Date / Time No Known Allergies Allergy Verified 10/01/21 23:15 Review of Systems ROS Statement: Those systems with pertinent positive or pertinent negative responses have been documented in the HPI. ROS Other: All systems not noted in ROS Statement are negative. 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 SOB with exertion. Hand tremors. History of Any Multi-Drug Resistant Organisms: None Reported Past Surgical History: Section, Hysterectomy, Orthopedic Surgery Additional Past Surgical History / Comment(s): R wrist surgery, Rectocele, Cystocele Past Anesthesia/Blood Transfusion Reactions: No Reported Reaction Past Psychological History: Unable to Obtain Smoking Status: Unknown if ever smoked Past Alcohol Use History: None Reported Past Drug Use History: None Reported - Past Family History Brother(s) Family Medical History: Deep Vein Thrombosis (DVT) General Exam General appearance: alert, in no apparent distress Head exam: Present: atraumatic, normocephalic, other (There are palpable postsurgical changes to the right parietal area. No tenderness or swelling.) Eye exam: Present: normal appearance. Absent: scleral icterus, conjunctival injection Neck exam: Present: normal inspection, full ROM. Absent: tenderness Respiratory exam: Present: normal lung sounds bilaterally. Absent: respiratory distress, wheezes, rales, rhonchi, stridor, chest wall tenderness Cardiovascular Exam: Present: regular rate, normal rhythm, normal heart sounds. Absent: systolic murmur, diastolic murmur, rubs, gallop GI/Abdominal exam: Present: soft. Absent: distended, tenderness, guarding, rebound, rigid Extremities exam: Present: normal inspection. Absent: tenderness Back exam: Present: normal inspection. Absent: vertebral tenderness Neurological exam: Present: alert. Absent: oriented X3 Skin exam: Present: warm, dry, intact, normal color. Absent: rash Course Vital Signs 10/01/21 10/02/21 23:15 00:18 Temperature 97.8 F Pulse Rate 73 79 Respiratory 20 19 Rate Blood Pressure 128/57 116/58 O2 Sat by Pulse 100 98 Oximetry Medical Decision Making - Lab Data Lab Results 10/01/21 Range/Units 23:12 POC Glucose (mg/dL) 104 H (75-99) mg/dL POC Glu Tourist Guide ID Maurice Figueroa - EKG Data -: EKG Interpreted by Me EKG shows normal: sinus rhythm, axis (After axis deviation), QRS complexes (Suspect old septal infarct. Low voltage QRS complex) Rate: normal (Rate 81 bpm) Disposition Clinical Impression: Falls Disposition: HOME SELF-CARE Condition: Good Instructions (If sedation given, give patient instructions): Fall Prevention for Older Adults (ED) Is patient prescribed a controlled substance at d/c from ED?: No Referrals: Rei Cannon MD [Primary Care Provider] - 1-2 days
--- NOTE | 2021-10-02 00:01 | CT ---
EXAMINATION TYPE: CT brain cspine wo con DATE OF EXAM: 10/01/2021 COMPARISON: CT brain 06/08/2021 HISTORY: Fall CT DLP: 1324.50 mGycm Automated exposure control for dose reduction was used. There is right-sided ventricular shunt catheter with the tip in the third ventricle. There is mild hy drocephalus. There is no mass effect or midline shift. There is no sign of intracranial hemorrhage. C alvarium is intact. There is incomplete aeration of the right mastoid sinuses. Skull base is intact Cervical vertebra show normal alignment. There is multilevel posterior fusion surgery with metal monalisa fact. There is disc space mild narrowing and anterior spurring from C4 to T1. There is no compression fracture. IMPRESSION: Cervical spine surgery. No fracture seen. There is hydrocephalus not changed compared to old exam. No acute intracranial abnormality. Brain not changed compared to old exam.
[2021-10-02 00:19] VITALS: BP 116/58; PULSE 79; RESP 19
== END 2021-10-02 01:33 | disposition home or self-care (01) ==
LOC: EC 23:08
DX: F03.90 Unspecified dementia, unspecified severity, without behavioral disturbance, psychotic disturbance, mood disturbance, and anxiety (principal); W19.XXXA Unspecified fall, initial encounter
CPT/HCPCS: 36415; 70450; 72125; 93005; 99285

== ENCOUNTER 2021-10-23 23:00 | Inpatient (IN) | payer MEDICARE ==
[2021-10-23] MEDS ORDERED: SODIUM CHLORIDE 0.9% 1,000 ML IV ONE (23:21)
[2021-10-23] MEDS ORDERED: SODIUM CHLORIDE 0.9% 1,000 ML IV STA (23:21)
--- NOTE | 2021-10-23 23:23 | ED ---
Altered Mental Status HPI - General Chief Complaint: Altered Mental Status Stated Complaint: Altered Mental Status Time Seen by Provider: 10/23/21 23:08 Source: EMS Mode of arrival: EMS Limitations: altered mental status (Patient is nonverbal) - History of Present Illness Initial Comments: This patient is a 70-year-old woman sent from care home. The patient over the past 2 days has reportedly not been speaking. She is not eating or drinking well. The patient at baseline usually sits up in the chair for eating and drinking and she does respond when spoken to. It is reported that at baseline she is oriented only to person. The patient has history of previous thalamic stroke. She has history of hydrocephalus and did have intraventricular shunt however this was discontinued at [facility] on October 11. Was reported that the shunt had been disconnected somehow and then when she went down there for revision they apparently decided to remove it and not replace it. MD Complaint: altered mental status Onset/Timin -: days(s) Severity: severe Consistency of Symptoms: getting worse Context: history of similar presentation, other Associated Symptoms: weakness - Related Data Home Medications Medication Instructions Recorded Confirmed Clopidogrel [Plavix] 75 mg PO DAILY 09/15/21 10/23/21 Acetaminophen [Tylenol] 650 mg PO Q4H PRN 10/23/21 10/23/21 Ascorbic Acid [Vitamin C] 500 mg PO DAILY 10/23/21 10/23/21 Lactose-Reduced Food [Ensure Plus] 237 ml PO BID@0900,1700 10/23/21 10/23/21 Metoprolol Succinate (ER) [Toprol 25 mg PO DAILY@0600 10/23/21 10/23/21 XL] Multivitamins, Thera [Multivitamin 1 tab PO DAILY 10/23/21 10/23/21 (formulary)] Nitroglycerin Sl Tabs [Nitrostat] 0.4 mg SL Q5M PRN 10/23/21 10/23/21 Sertraline [Zoloft] 25 mg PO DAILY 10/23/21 10/23/21 Zinc 50 mg PO DAILY 10/23/21 10/23/21 Previous Rx's Medication Instructions Recorded Atorvastatin [Lipitor] 80 mg PO HS #90 tab 06/07/21 Cholecalciferol [Vitamin D3 (125 125 mcg PO DAILY tablet 09/17/21 Mcg = 5000 Iu)] Cefdinir [Omnicef] 300 mg PO Q12HR 3 Days #6 capsule 10/28/21 Famotidine [Pepcid] 20 mg PO HS tab 10/28/21 Folic Acid 1 mg PO DAILY tab 10/28/21 Lacosamide [Vimpat] 50 mg PO BID #6 tablet 10/28/21 Allergies Allergy/AdvReac Type Severity Reaction Status Date / Time No Known Allergies Allergy Verified 10/23/21 23:18 Review of Systems ROS Statement: Those systems with pertinent positive or pertinent negative responses have been documented in the HPI. ROS Other: All systems not noted in ROS Statement are negative. 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 SOB with exertion. Hand tremors. History of Any Multi-Drug Resistant Organisms: None Reported Past Surgical History: Section, Hysterectomy, Orthopedic Surgery Additional Past Surgical History / Comment(s): R wrist surgery, Rectocele, Cystocele Past Anesthesia/Blood Transfusion Reactions: No Reported Reaction Past Psychological History: Unable to Obtain Smoking Status: Unknown if ever smoked Past Alcohol Use History: None Reported Past Drug Use History: None Reported - Past Family History Brother(s) Family Medical History: Deep Vein Thrombosis (DVT) General Exam Limitations: altered mental status General appearance: alert, other (Patient is alert but nonverbal. She does appear to be very dry.) Head exam: Present: normocephalic, other (There is palpable shunt reservoir. They're sutures were the patient apparently had shunt revision. No evidence of infection there.) Eye exam: Present: normal appearance, PERRL, EOMI. Absent: scleral icterus, conjunctival injection ENT exam: Present: mucous membranes dry Neck exam: Present: normal inspection. Absent: tenderness, meningismus Respiratory exam: Present: rhonchi. Absent: respiratory distress, wheezes, rales, stridor, chest wall tenderness Cardiovascular Exam: Present: regular rate, normal rhythm, normal heart sounds. Absent: systolic murmur, diastolic murmur, rubs, gallop GI/Abdominal exam: Present: soft. Absent: distended, tenderness, guarding, rebound, rigid, mass Extremities exam: Present: normal inspection, normal capillary refill. Absent: pedal edema, calf tenderness Back exam: Present: normal inspection Neurological exam: Present: alert, other (Patient not able to cooperate with neurologic exam. She does follow very simple single step commands. She is able to squeeze hand to command.) Skin exam: Present: warm, dry, intact, normal color. Absent: rash Course Vital Signs 10/23/21 10/23/21 10/24/21 23:11 23:18 00:02 Temperature 98.0 F Pulse Rate 79 81 Respiratory 16 17 Rate Blood Pressure 132/115 116/43 132/69 O2 Sat by Pulse 95 98 Oximetry 10/24/21 02:26 Temperature Pulse Rate 84 Respiratory 18 Rate Blood Pressure 107/50 O2 Sat by Pulse 97 Oximetry Procedures - Sepsis Sepsis Focused Exam #1 Sepsis Focused Exam Date: 10/24/21 Sepsis Focused Exam Time: 04:45 Sepsis Focused Exam Complete: Yes Vital Signs & RN Notes Reviewed: Yes Capillary Refill: < 2 Seconds: Fingers Peripheral Pulses: Normal: Radial (R) Skin Color: Mottled Respiratory Exam: rhonchi Cardiovascular Exam: regular rate, normal rhythm, normal heart sounds Medical Decision Making - Medical Decision Making Patient is 70-year-old woman sent from care home for altered mental status progressively worse over past couple days. On exam, patient is responsive to simple commands but very altered. She does appear to be very dehydrated on the exam. Workup does reveal acute renal failure. Computed tomography scan does not reveal evidence of increased hydrocephalus over the baseline. There is a trace of blood at the base of both ventricles which I suspect is sequela of the pat ient's shunt removal. There does not appear to be any active bleeding. Case is discussed with neurology on-call who will see the patient for altered mental status. At this point no definite indication for neurosurgery. Patient be admitted for further fluids. Antibiotic coverage as precaution. Patient will also be seen by nephrology related to the acute renal failure. - Lab Data Result diagrams: 10/27/21 05:22 10/27/21 05:22 Lab Results 10/23/21 10/24/21 10/24/21 Range/Units 23:18 00:00 00:00 WBC 17.1 H (3.8-10.6) k/uL RBC 4.38 (3.80-5.40) m/uL Hgb 11.4 (11.4-16.0) gm/dL Hct 37.3 (34.0-46.0) % MCV 85.2 (80.0-100.0) fL MCH 26.0 (25.0-35.0) pg MCHC 30.6 L (31.0-37.0) g/dL RDW 14.6 (11.5-15.5) % Plt Count 259 (150-450) k/uL MPV 9.0 Neutrophils % 87 % Lymphocytes % 8 % Monocytes % 4 % Eosinophils % 0 % Basophils % 0 % Neutrophils # 14.9 H (1.3-7.7) k/uL Lymphocytes # 1.3 (1.0-4.8) k/uL Monocytes # 0.6 (0-1.0) k/uL Eosinophils # 0.0 (0-0.7) k/uL Basophils # 0.0 (0-0.2) k/uL Hypochromasia Marked PT 13.1 H (9.0-12.0) sec INR 1.2 H (<1.2) APTT 25.3 (22.0-30.0) sec Sodium (137-145) mmol/L Potassium (3.5-5.1) mmol/L Chloride (98-107) mmol/L Carbon Dioxide (22-30) mmol/L Anion Gap mmol/L BUN (7-17) mg/dL Creatinine (0.52-1.04) mg/dL Est GFR (CKD-EPI)AfAm (>60 ml/min/1.73 sqM) Est GFR (CKD-EPI)NonAf (>60 ml/min/1.73 sqM) Glucose (74-99) mg/dL POC Glucose (mg/dL) 123 H (75-99) mg/dL POC Glu Instructor Physical Education ID Anitra, Wilbraham Calcium (8.4-10.2) mg/dL Total Bilirubin (0.2-1.3) mg/dL AST (14-36) U/L ALT (4-34) U/L Alkaline Phosphatase (38-126) U/L Troponin I (0.000-0.034) ng/mL Total Protein (6.3-8.2) g/dL Albumin (3.5-5.0) g/dL Urine Color Urine Appearance (Clear) Urine pH (5.0-8.0) Ur Specific Junior (1.001-1.035) Urine Protein (Negative) Urine Glucose (UA) (Negative) Urine Ketones (Negative) Urine Blood (Negative) Urine Nitrite (Negative) Urine Bilirubin (Negative) Urine Urobilinogen (<2.0) mg/dL Ur Leukocyte Esterase (Negative) Urine WBC (0-5) /hpf Urine WBC Clumps (None) /hpf Ur Squamous Epith Cells (0-4) /hpf Amorphous Sediment (None) /hpf Urine Bacteria (None) /hpf Hyaline Casts (0-2) /lpf Urine Mucus (None) /hpf Coronavirus (PCR) (Not Detectd) 10/24/21 10/24/21 10/24/21 Range/Units 00:00 00:00 00:17 WBC (3.8-10.6) k/uL RBC (3.80-5.40) m/uL Hgb (11.4-16.0) gm/dL Hct (34.0-46.0) % MCV (80.0-100.0) fL MCH (25.0-35.0) pg MCHC (31.0-37.0) g/dL RDW (11.5-15.5) % Plt Count (150-450) k/uL MPV Neutrophils % % Lymphocytes % % Monocytes % % Eosinophils % % Basophils % % Neutrophils # (1.3-7.7) k/uL Lymphocytes # (1.0-4.8) k/uL Monocytes # (0-1.0) k/uL Eosinophils # (0-0.7) k/uL Basophils # (0-0.2) k/uL Hypochromasia PT (9.0-12.0) sec INR (<1.2) APTT (22.0-30.0) sec Sodium 146 H (137-145) mmol/L Potassium 4.7 (3.5-5.1) mmol/L Chloride 114 H (98-107) mmol/L Carbon Dioxide 19 L (22-30) mmol/L Anion Gap 13 mmol/L BUN 89 H (7-17) mg/dL Creatinine 3.41 H (0.52-1.04) mg/dL Est GFR (CKD-EPI)AfAm 15 (>60 ml/min/1.73 sqM) Est GFR (CKD-EPI)NonAf 13 (>60 ml/min/1.73 sqM) Glucose 137 H (74-99) mg/dL POC Glucose (mg/dL) (75-99) mg/dL POC Glu Instructor Physical Education ID Calcium 10.5 H (8.4-10.2) mg/dL Total Bilirubin 0.7 (0.2-1.3) mg/dL AST 46 H (14-36) U/L ALT 23 (4-34) U/L Alkaline Phosphatase 96 (38-126) U/L Troponin I 0.012 (0.000-0.034) ng/mL Total Protein 6.9 (6.3-8.2) g/dL Albumin 3.7 (3.5-5.0) g/dL Urine Color Urine Appearance (Clear) Urine pH (5.0-8.0) Ur Specific Junior (1.001-1.035) Urine Protein (Negative) Urine Glucose (UA) (Negative) Urine Ketones (Negative) Urine Blood (Negative) Urine Nitrite (Negative) Urine Bilirubin (Negative) Urine Urobilinogen (<2.0) mg/dL Ur Leukocyte Esterase (Negative) Urine WBC (0-5) /hpf Urine WBC Clumps (None) /hpf Ur Squamous Epith Cells (0-4) /hpf Amorphous Sediment (None) /hpf Urine Bacteria (None) /hpf Hyaline Casts (0-2) /lpf Urine Mucus (None) /hpf Coronavirus (PCR) Not Detected (Not Detectd) 10/24/21 Range/Units 02:40 WBC (3.8-10.6) k/uL RBC (3.80-5.40) m/uL Hgb (11.4-16.0) gm/dL Hct (34.0-46.0) % MCV (80.0-100.0) fL MCH (25.0-35.0) pg MCHC (31.0-37.0) g/dL RDW (11.5-15.5) % Plt Count (150-450) k/uL MPV Neutrophils % % Lymphocytes % % Monocytes % % Eosinophils % % Basophils % % Neutrophils # (1.3-7.7) k/uL Lymphocytes # (1.0-4.8) k/uL Monocytes # (0-1.0) k/uL Eosinophils # (0-0.7) k/uL Basophils # (0-0.2) k/uL Hypochromasia PT (9.0-12.0) sec INR (<1.2) APTT (22.0-30.0) sec Sodium (137-145) mmol/L Potassium (3.5-5.1) mmol/L Chloride (98-107) mmol/L Carbon Dioxide (22-30) mmol/L Anion Gap mmol/L BUN (7-17) mg/dL Creatinine (0.52-1.04) mg/dL Est GFR (CKD-EPI)AfAm (>60 ml/min/1.73 sqM) Est GFR (CKD-EPI)NonAf (>60 ml/min/1.73 sqM) Glucose (74-99) mg/dL POC Glucose (mg/dL) (75-99) mg/dL POC Glu Instructor Physical Education ID Calcium (8.4-10.2) mg/dL Total Bilirubin (0.2-1.3) mg/dL AST (14-36) U/L ALT (4-34) U/L Alkaline Phosphatase (38-126) U/L Troponin I (0.000-0.034) ng/mL Total Protein (6.3-8.2) g/dL Albumin (3.5-5.0) g/dL Urine Color Light Red Urine Appearance Turbid H (Clear) Urine pH 7.0 (5.0-8.0) Ur Specific Junior 1.021 (1.001-1.035) Urine Protein 1+ H (Negative) Urine Glucose (UA) Negative (Negative) Urine Ketones Negative (Negative) Urine Blood Negative (Negative) Urine Nitrite Negative (Negative) Urine Bilirubin Negative (Negative) Urine Urobilinogen 4.0 (<2.0) mg/dL Ur Leukocyte Esterase Large H (Negative) Urine WBC 116 H (0-5) /hpf Urine WBC Clumps Moderate H (None) /hpf Ur Squamous Epith Cells 12 H (0-4) /hpf Amorphous Sediment Moderate H (None) /hpf Urine Bacteria Many H (None) /hpf Hyaline Casts 148 H (0-2) /lpf Urine Mucus Few H (None) /hpf Coronavirus (PCR) (Not Detectd) - EKG Data -: EKG Interpreted by Me EKG shows normal: sinus rhythm, axis (Left axis deviation), intervals (Normal), QRS complexes (Low-voltage) Rate: normal (Rate 77 bpm) Interpretation: other (Possible old anteroseptal infarct) Disposition Clinical Impression: Altered mental status, Dehydration, Acute renal failure, Leukocytosis, S ubarachnoid hemorrhage Disposition: ADMITTED IP TO THIS HOSP Condition: Fair Is patient prescribed a controlled substance at d/c from ED?: No
[2021-10-23 23:31] LABS: Glucose,Whole Blood 123 mg/dL (75-99)
--- NOTE | 2021-10-23 23:50 | CT ---
EXAMINATION TYPE: CT brain wo con DATE OF EXAM: 10/23/2021 COMPARISON: 10/01/2021 HISTORY: ams CT DLP: 1139.4 mGycm Automated exposure control for dose reduction was used. Images of the brain obtained without contrast. There is some enlargement of the ventricles. There is small subarachnoid hemorrhage in the occipital horns of the lateral ventricles. There is no midline shift. There is no mass effect. There is old rig ht posterior frontal craniotomy defect with some encephalomalacia in the right posterior frontal lobe . There is 1.5 cm area of hypodensity in the anterior left thalamus consistent with old lacunar infar ct. Unchanged. IMPRESSION: Small acute 3 mm subarachnoid hemorrhage in the occipital horns of the lateral ventricles. This appea rs new compared to old exam. There is hydrocephalus. There is removal of the ventricular catheter com pared to recent exam. Tiny hemorrhage could relate to the recent surgery. Hydrocephalus not significa ntly different than old exam.
--- NOTE | 2021-10-23 23:51 | XR ---
EXAMINATION TYPE: XR chest 1V portable DATE OF EXAM: 10/23/2021 COMPARISON: 09/15/2021 HISTORY: Altered mental status TECHNIQUE: FINDINGS: There is no heart failure nor confluent pneumonic infiltrate. Costophrenic angles are clear . There are chest leads. There is posterior fusion surgery in the lower cervical spine. IMPRESSION: No active cardiopulmonary disease. No change.
[2021-10-24 00:42] LABS: Basophils % (A) 0 %; Eosinophils % (A) 0 %; HCT 37.3 % (34.0-46.0); HGB 11.4 gm/dL (11.4-16.0); Hypochromasia Marked; Lymphocytes # (A) 1.3 k/uL (1.0-4.8); Lymphocytes % (A) 8 %; MCHC 30.6 g/dL (31.0-37.0); MCV 85.2 fL (80.0-100.0); Monocytes # (A) 0.6 k/uL (0-1.0); Monocytes % (A) 4 %; Neutrophils # (A) 14.9 k/uL (1.3-7.7); Neutrophils % (A) 87 %; Platelet Count 259 k/uL (150-450); RBC 4.38 m/uL (3.80-5.40); RDW 14.6 % (11.5-15.5); WBC 17.1 k/uL (3.8-10.6)
[2021-10-24 00:55] LABS: Albumin 3.7 g/dL (3.5-5.0); Calcium 10.5 mg/dL (8.4-10.2); Potassium 4.7 mmol/L (3.5-5.1); Total Bilirubin 0.7 mg/dL (0.2-1.3); Total Protein 6.9 g/dL (6.3-8.2)
[2021-10-24 01:33] LABS: INR 1.2 (<1.2); Partial Thromboplastin Time 25.3 sec (22.0-30.0); Prothrombin Time 13.1 sec (9.0-12.0)
[2021-10-24] MEDS ORDERED: NALOXONE 0.4 MG/ML 1 ML VIAL IV PRN (03:47)
[2021-10-24] MEDS ORDERED: ACETAMINOPHEN TAB 325 MG TAB PO PRN (03:47)
[2021-10-24 03:49] LABS: Amorphous Sediment,Urine Moderate /hpf; Appearance,Urine Turbid (Clear); Bacteria,Urine Many /hpf; Bilirubin,Urine Negative (Negative); Blood,Urine Negative (Negative); Color,Urine Light Red; Glucose,Urine (UA) Negative (Negative); Hyaline Casts,Urine 148 /lpf (0-2); Ketones,Urine Negative (Negative); Leukocyte Esterase,Urine Large (Negative); Mucus,Urine Few /hpf; Nitrite,Urine Negative (Negative); Protein,Urine 1+ (Negative); Specific Gravity,Urine 1.021 (1.001-1.035); Squamous Epithelial Cell,Urine 12 /hpf (0-4); WBC,Urine 116 /hpf (0-5)
[2021-10-24] MEDS ORDERED: SODIUM CHLORIDE 0.9% 1,000 ML IV SCH (04:00)
[2021-10-24] MEDS ORDERED: NON FORMULARY DRUG (Lactose-Reduced Food [Ensure Plus] 237 ML Ml) PO SCH (09:00)
[2021-10-24] MEDS ORDERED: FAMOTIDINE 20 MG TAB PO SCH (09:00)
[2021-10-24 09:04] LABS: African American GFR (CKD) 25 (>60 ml/min/1.73 sqM); Anion Gap 10 mmol/L; Blood Urea Nitrogen 79 mg/dL (7-17); Calcium 9.1 mg/dL (8.4-10.2); Carbon Dioxide 15 mmol/L (22-30); Chloride 122 mmol/L (98-107); Glucose 131 mg/dL (74-99); Magnesium 2.5 mg/dL (1.6-2.3); Non-African American GFR(CKD) 22 (>60 ml/min/1.73 sqM); Potassium 4.7 mmol/L (3.5-5.1); Sodium 147 mmol/L (137-145)
[2021-10-24] MEDS ORDERED: SODIUM BICARB 8.4% 50 ML SYR (1 MEQ/ML) IV STA (09:21)
--- NOTE | 2021-10-24 09:24 | P.NPCON ---
History of Present Illness - Reason for Consult acute renal failure - History of Present Illness Reason for consultation: Acute kidney injury History of present illness: Patient is a 70-year-old female seen in renal consultation for acute kidney injury. Creatinine was 3.41 on admission and is 2.25 today. Sodium level is 147. Patient presents from extended care facility due to altered mental status. Patient is not a reliable historian. At baseline she is oriented only to person. She has history of thalamic stroke. Per charting her oral intake has been poor the last few days. Blood pressures fairly stable. Chest x-ray was clear. She is receiving IV fluids. She was taking losartan as well as spironolactone at home which are both currently held. UA suggestive of UTI and she is on antibiotics. She is noted to be acidotic with a bicarb level of 15. Vital signs are stable. General: Resting in bed. Nonverbal. HEENT: Head exam is unremarkable. LUNGS: Breath sounds decreased. HEART: Rate and Rhythm are regular. ABDOMEN: Soft, no distention. EXTREMITITES: No edema. 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 SOB with exertion. Hand tremors. COVID August 2021 Last Myocardial Infarction Date:: unknown History of Any Multi-Drug Resistant Organisms: None Reported Past Surgical History: Section, Hysterectomy, Orthopedic Surgery Additional Past Surgical History / Comment(s): R wrist surgery, Rectocele, Cystocele, Shunt Removed from [facility] September 2021 Past Anesthesia/Blood Transfusion Reactions: No Reported Reaction Past Psychological History: Anxiety, Depression Smoking Status: Former smoker Past Alcohol Use History: None Reported Additional Past Alcohol Use History / Comment(s): Quit smoking in 1992, intermittent smoking for 15 years. Past Drug Use History: None Reported - Past Family History Brother(s) Family Medical History: Deep Vein Thrombosis (DVT) Medications and Allergies Home Medications Medication Instructions Recorded Confirmed Type Atorvastatin [Lipitor] 80 mg PO HS #90 tab 06/07/21 10/23/21 Rx Apixaban [Eliquis] 5 mg PO BID 09/15/21 10/23/21 History Clopidogrel [Plavix] 75 mg PO DAILY 09/15/21 10/23/21 History Losartan [Cozaar] 25 mg PO DAILY 09/15/21 10/23/21 History Spironolactone [Aldactone] 25 mg PO DAILY 09/15/21 10/23/21 History Cholecalciferol [Vitamin D3 (125 125 mcg PO DAILY tablet 09/17/21 10/23/21 Rx Mcg = 5000 Iu)] Acetaminophen [Tylenol] 650 mg PO Q4H PRN 10/23/21 10/23/21 History Ascorbic Acid [Vitamin C] 500 mg PO DAILY 10/23/21 10/23/21 History Lactose-Reduced Food [Ensure Plus] 237 ml PO BID@0900,1700 10/23/21 10/23/21 History Metoprolol Succinate (ER) [Toprol 25 mg PO DAILY@0600 10/23/21 10/23/21 History XL] Multivitamins, Thera [Multivitamin 1 tab PO DAILY 10/23/21 10/23/21 History (formulary)] Nitroglycerin Sl Tabs [Nitrostat] 0.4 mg SL Q5M PRN 10/23/21 10/23/21 History Pantoprazole [Protonix] 40 mg PO DAILY@0600 10/23/21 10/23/21 History Sertraline [Zoloft] 25 mg PO DAILY 10/23/21 10/23/21 History Zinc 50 mg PO DAILY 10/23/21 10/23/21 History clonazePAM [KlonoPIN] 0.5 mg PO BID PRN 10/23/21 10/23/21 History traMADol HCl [Ultram] 50 mg PO Q6H PRN 10/23/21 10/23/21 History Allergies Allergy/AdvReac Type Severity Reaction Status Date / Time No Known Allergies Allergy Verified 10/23/21 23:18 Physical Exam Vitals: Vital Signs Temp Pulse Pulse Resp BP BP Pulse Ox 10/24/21 07:41 97.5 F L 73 17 102/67 96 10/24/21 05:11 97.7 F 81 18 102/64 99 10/24/21 02:26 84 18 107/50 97 10/24/21 00:02 81 17 132/69 98 10/23/21 23:18 116/43 10/23/21 23:11 98.0 F 79 16 132/115 95 Intake and Output 10/23/21 10/24/21 10/24/21 22:59 06:59 14:59 Intake Total 130 Balance 130 Intake: IV 130 Sodium Chloride 0.9% 1, 130 000 ml @ 130 mls/hr IV . Q7H42M [facility] Rx#:[id number] Other: Weight 90.718 kg Results - Lab Results Most recent lab results Calcium 9.1 mg/dL (8.4-10.2) 10/24/21 08:28 Magnesium 2.5 mg/dL (1.6-2.3) H 10/24/21 08:28 10/24/21 00:00 10/24/21 08:28 Assessment and Plan Plan: Assessment: 1. Acute kidney injury mostly prerenal from poor intake. Improving with IV hydration. Creatinine was 3.41 on admission and is 2.25 today. Baseline creatinine near 1 from September 2021. 2. Hypernatremia from oral water intake. 3. Metabolic acidosis secondary to acute kidney injury. 4. History of CVA. 5. Benign hypertension. Stable. 6. UTI on antibiotics. Plan: Stop normal saline. Start D5 with 75 mEq of bicarb to be run at 100 mL an hour. 2 A sodium bicarbonate IV push today. Continue to monitor renal function and urine output. Follow-up cultures. Thank you for the consultation. I will continue to follow the patient with you during her hospital stay.
[2021-10-24] MEDS ORDERED: NITROGLYCERIN SL TABS 0.4 MG TAB SUBLINGUAL PRN (09:46)
[2021-10-24] MEDS: ASCORBIC ACID 500 MG TAB PO SCH (09:59)
[2021-10-24] MEDS: CHOLECALCIFEROL 125 MCG (5000 IU) TABLET PO SCH (09:59)
[2021-10-24] MEDS: MULTIVITAMINS, THERA 1 EACH TAB PO SCH (10:00)
[2021-10-24] MEDS: SERTRALINE 25 MG TAB PO SCH (10:00)
--- NOTE | 2021-10-24 10:19 | P.HPIM ---
History of Present Illness Patient is a 70-year-old female was [facility] in from [facility] due to progressive confusion going on for 3 days. Her baseline mental status and the functional it is not clear at this time I did review her previous chart which was not much informative. He is found to have elevated creatinine of 3.5 baseline is within normal limits. Patient the was treated for COVID-19 pneumonia about a month ago subsequently discharged to [facility] patient was on Aldactone and MAUREEN inhibitor because of her poor ejection fraction ischemic cardiomyopathy her previous ejection fraction appeared to be around 20-25% patient was evaluated by cardiology during her last hospitalization. Patient's skin appears pretty cleared which is suggestive that patient probably is not bedbound. Urine analysis is also done which is in a left normal but it's a contaminated urine sample. Patient patient's urine cultures were positive for enterococcus during her hospitalization about a month ago. Patient is presently on Rocephin which will be switched to Unasyn because of her enterococcus in the previous culture. Chest x-ray did not show any CHF or pneumonia at this time. Patient is nonverbal although follows commands. She had a CT of the head which showed small subdural hematoma which is believed to be secondary to the recent removal of [employer] shunt. Considering this finding and confusion neurology was consulted. REVIEW OF SYSTEMS: Able to obtain due to her clinical condition PHYSICAL EXAMINATION: GENERAL: Nonverbal not in any acute distress. Well developed, well nourished. HEENT: Pupils are round and equally reacting to light. EOMI. No scleral icterus. No conjunctival pallor. Normocephalic, atraumatic. No pharyngeal erythema. No thyromegaly. CARDIOVASCULAR: S1 and S2 present. No murmurs, rubs, or gallops. PULMONARY: Chest is clear to auscultation, no wheezing or crackles. ABDOMEN: Soft, nontender, nondistended, normoactive bowel sounds. No palpable organomegaly. MUSCULOSKELETAL: No joint swelling or deformity. EXTREMITIES: No cyanosis, clubbing, or pedal edema. NEUROLOGICAL: Patient appears to have fairly good strength in all 4 extremities does have some generalized weakness SKIN: No rashes. Assessment and plan -Metabolic encephalopathy and altered mental status: Mostly secondary to acute renal failure rather and urinary tract infection my suspicion is low for UTI. Patient has been involved acidosis because of which patient is receiving IV fluids in the form of sodium bicarbonate which will be continued nephrology evaluated the patient. -Acute renal failure most probably prerenal azotemia along with lisinopril and Aldactone contributing to that. These were discontinued and patient is on IV fluids as mentioned above -Hypovolemic hyponatraemia -Metabolic acidosis both anion gap and non-and gaps secondary to acute renal failure and hypochloremia -Finding of a small subdural hematoma as a result of recent removal of [employer] shunt -Abnormal urine: Most probably some chronic bacterial my suspicion for UTI is low although I cannot completely rule it out because of which I'm continuing the antibiotics and was switched to Unasyn. -Hypertension -Congestive heart failure ischemic cardiomyopathy EF of around 20-25% patient is hypovolemic patient is not in CHF exacerbation patient the heart failure may hav e improved on repeat echocardiogram. -History of clotting disorder for which she believe patient is on Eliquis: Because of her small subdural hematoma I'm not restarting her back on Eliquis and patient also has renal dysfunction. 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 SOB with exertion. Hand tremors. COVID August 2021 Last Myocardial Infarction Date:: unknown History of Any Multi-Drug Resistant Organisms: None Reported Past Surgical History: Section, Hysterectomy, Orthopedic Surgery Additional Past Surgical History / Comment(s): R wrist surgery, Rectocele, Cystocele, Shunt Removed from [facility] September 2021 Past Anesthesia/Blood Transfusion Reactions: No Reported Reaction Past Psychological History: Anxiety, Depression Smoking Status: Former smoker Past Alcohol Use History: None Reported Additional Past Alcohol Use History / Comment(s): Quit smoking in 1992, intermittent smoking for 15 years. Past Drug Use History: None Reported - Past Family History Brother(s) Family Medical History: Deep Vein Thrombosis (DVT) Medications and Allergies Home Medications Medication Instructions Recorded Confirmed Type Atorvastatin [Lipitor] 80 mg PO HS #90 tab 06/07/21 10/23/21 Rx Apixaban [Eliquis] 5 mg PO BID 09/15/21 10/23/21 History Clopidogrel [Plavix] 75 mg PO DAILY 09/15/21 10/23/21 History Losartan [Cozaar] 25 mg PO DAILY 09/15/21 10/23/21 History Spironolactone [Aldactone] 25 mg PO DAILY 09/15/21 10/23/21 History Cholecalciferol [Vitamin D3 (125 125 mcg PO DAILY tablet 09/17/21 10/23/21 Rx Mcg = 5000 Iu)] Acetaminophen [Tylenol] 650 mg PO Q4H PRN 10/23/21 10/23/21 History Ascorbic Acid [Vitamin C] 500 mg PO DAILY 10/23/21 10/23/21 History Lactose-Reduced Food [Ensure Plus] 237 ml PO BID@0900,1700 10/23/21 10/23/21 History Metoprolol Succinate (ER) [Toprol 25 mg PO DAILY@0600 10/23/21 10/23/21 History XL] Multivitamins, Thera [Multivitamin 1 tab PO DAILY 10/23/21 10/23/21 History (formulary)] Nitroglycerin Sl Tabs [Nitrostat] 0.4 mg SL Q5M PRN 10/23/21 10/23/21 History Pantoprazole [Protonix] 40 mg PO DAILY@0600 10/23/21 10/23/21 History Sertraline [Zoloft] 25 mg PO DAILY 10/23/21 10/23/21 History Zinc 50 mg PO DAILY 10/23/21 10/23/21 History clonazePAM [KlonoPIN] 0.5 mg PO BID PRN 10/23/21 10/23/21 History traMADol HCl [Ultram] 50 mg PO Q6H PRN 10/23/21 10/23/21 History Allergies Allergy/AdvReac Type Severity Reaction Status Date / Time No Known Allergies Allergy Verified 10/23/21 23:18 Physical Exam Vitals: Vital Signs Temp Pulse Pulse Resp BP BP Pulse Ox 10/24/21 07:41 97.5 F L 73 17 102/67 96 10/24/21 05:11 97.7 F 81 18 102/64 99 10/24/21 02:26 84 18 107/50 97 10/24/21 00:02 81 17 132/69 98 10/23/21 23:18 116/43 10/23/21 23:11 98.0 F 79 16 132/115 95 Intake and Output 10/23/21 10/24/21 10/24/21 22:59 06:59 14:59 Intake Total 130 Balance 130 Intake: IV 130 Sodium Chloride 0.9% 1, 130 000 ml @ 130 mls/hr IV . Q7H42M [facility] Rx#:[id number] Other: Weight 90.718 kg Results CBC & Chem 7: 10/24/21 00:00 10/24/21 08:28 Labs: Abnormal Lab Results - Last 24 Hours (Table) 10/23/21 10/24/21 10/24/21 Range/Units 23:18 00:00 00:00 WBC 17.1 H (3.8-10.6) k/uL MCHC 30.6 L (31.0-37.0) g/dL Neutrophils # 14.9 H (1.3-7.7) k/uL PT 13.1 H (9.0-12.0) sec INR 1.2 H (<1.2) Sodium (137-145) mmol/L Chloride (98-107) mmol/L Carbon Dioxide (22-30) mmol/L BUN (7-17) mg/dL Creatinine (0.52-1.04) mg/dL Glucose (74-99) mg/dL POC Glucose (mg/dL) 123 H (75-99) mg/dL Calcium (8.4-10.2) mg/dL Magnesium (1.6-2.3) mg/dL AST (14-36) U/L Urine Appearance (Clear) Urine Protein (Negative) Ur Leukocyte Esterase (Negative) Urine WBC (0-5) /hpf Urine WBC Clumps (None) /hpf Ur Squamous Epith Cells (0-4) /hpf Amorphous Sediment (None) /hpf Urine Bacteria (None) /hpf Hyaline Casts (0-2) /lpf Urine Mucus (None) /hpf 10/24/21 10/24/21 10/24/21 Range/Units 00:00 02:40 08:28 WBC (3.8-10.6) k/uL MCHC (31.0-37.0) g/dL Neutrophils # (1.3-7.7) k/uL PT (9.0-12.0) sec INR (<1.2) Sodium 146 H 147 H (137-145) mmol/L Chloride 114 H 122 H (98-107) mmol/L Carbon Dioxide 19 L 15 L (22-30) mmol/L BUN 89 H 79 H (7-17) mg/dL Creatinine 3.41 H 2.25 H (0.52-1.04) mg/dL Glucose 137 H 131 H (74-99) mg/dL POC Glucose (mg/dL) (75-99) mg/dL Calcium 10.5 H (8.4-10.2) mg/dL Magnesium 2.5 H (1.6-2.3) mg/dL AST 46 H (14-36) U/L Urine Appearance Turbid H (Clear) Urine Protein 1+ H (Negative) Ur Leukocyte Esterase Large H (Negative) Urine WBC 116 H (0-5) /hpf Urine WBC Clumps Moderate H (None) /hpf Ur Squamous Epith Cells 12 H (0-4) /hpf Amorphous Sediment Moderate H (None) /hpf Urine Bacteria Many H (None) /hpf Hyaline Casts 148 H (0-2) /lpf Urine Mucus Few H (None) /hpf Thrombosis Risk Factor Assmnt - Choose All That Apply Any of the Below Risk Factors Present?: Yes Each Factor Represents 1 point: Medical pt on bed rest, Obesity (BMI >25) Other Risk Factors: Yes Each Risk Factor Represents 2 Points: Age 61-74 years Thrombosis Risk Factor Assessment Total Risk Factor Score: 4 Thrombosis Risk Factor Assessment Level: Moderate Risk
[2021-10-24] MEDS: AMPICILLIN-SULBACTAM 1.5 GM in SODIUM CHLORIDE 0.9% 50 ML IVPB SCH ×2 (11:29→20:22)
[2021-10-24] MEDS: DEXTROSE 5% IN WATER 1,000 ML with SODIUM BICARB (1 MEQ/ML) 75 ML IV SCH ×2 (12:21→23:05)
--- NOTE | 2021-10-24 14:18 | P.CNNES ---
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 History was obtained from medical record and patient's nurse.. Per the ED note she was sent from senior care and the patient has not been speaking for 2 days prior to this in the hospital, not eating or drinking. At baseline the patient is able to sit in the chair and to eat drink and respond when spoken to and that is oriented to person at baseline. But per the patient's nurse, she spoke with the son and it seem she is more vocal at baseline and was using the bicycle exercise two days ago at senior care. Per the nurse, the patient is have increase tone over the left side and not responding. The patient had brain shunt removed at [facility] team removed on 10/11/2021. Patient is known to Dr. Laird (neuro-hospitalist) in which he seen patient last on 06/10/2021 in our facility. It seems that the patient during the hospital stay at was found to have acute ischemic stroke over the anterior left thalamus adjacent to the third ventricle with manifesting of expressive aphasia and right hemiparesis. The patient had acute ST elevation SD status post stenting. The MRI of the brain revealed the abandoned shunt in the brain and per Dr. Laird's note the to rule out shunt fracture/ malfunction. The patient had encephalopathy and the was possibly due to stroke versus shunt malfunction as a result the patient was transferred to [facility]. Please refer to his notes for further details. Patient is on home medication off Eliquis 5 mg 1 tablet twice a day, Plavix 75 mg daily, Lipitor 80 mg daily at bedtime, Zoloft 25 mg daily, spironolactone, nitroglycerin, metoprolol, losartan, Klonopin 0.5 mg tablet that twice a day as needed, tramadol 50 mg 1 tablet every 6 hours as needed. Some of the workup in the hospital consisted of: Initial vital signs is blood pressure 132/115, heart rate is 79, respiratory of 16, temperature of 98.0 Fahrenheit axillary and pulse ox of 95% room air. Patient has been afebrile so far. Initial white blood cell is 17.1 and it's slightly neutrophilic. Otherwise rest of CBC with differential is unremarkable. Chemistry panel is sodium was 146, creatinine is 3.41 and a repeat is 2.25, BUN is 89, initial serum glucose is 137, calcium 10.5 and repeat it is 9.1. AST is 46, ALT of 23. Magnesium is 2.5 the. Urinalysis is the it appears turbid, nitrates negative, leukocyte esterase large, urine white blood cells 116, urine white blood cell clumps as moderate, urine bacteria is many. Possibly suggestive of UTI. Pichardo virus PCR was not detected CT of the head is reported as small acute 3 mm subarachnoid hemorrhage in the occipital horn of the lateral ventricle. This appears new compared to old exam. There is hydrocephalus. There is removal of ventricular catheter compared to recent exam. Tiny hemorrhage could relate to recent surgery. Hydrocephalus is not significantly different than old exam. I personally reviewed the CT of the head and I do not appreciate any the subarachnoid hemorrhage at that is reported that. There is a minimal hemorrhage within the posterior horn of the lateral ventricle but very minimal as stated earlier. There is at has surgical changes over the right hemisphere predominantly the frontal and is seems the shunt was removed. Review of Systems Review of system is limited because of patient condition but the per positive and negative as per HPI. Past Medical History Past Medical History: Blood Disorder, CVA/TIA, GERD/Reflux, Myocardial Infarction (SD) Additional Past Medical History / Comment(s): anemia, MTHFR (clotting disorder), Headaches due to Communicating Fluid Hydrocephalus. SOB with exertion. Hand tremors. COVID August 2021 Last Myocardial Infarction Date:: unknown History of Any Multi-Drug Resistant Organisms: None Reported Past Surgical History: Section, Hysterectomy, Orthopedic Surgery Additional Past Surgical History / Comment(s): R wrist surgery, Rectocele, Cystocele, Shunt Removed from [facility] September 2021 Past Anesthesia/Blood Transfusion Reactions: No Reported Reaction Past Psychological History: Anxiety, Depression Smoking Status: Former smoker Past Alcohol Use History: None Reported Additional Past Alcohol Use History / Comment(s): Quit smoking in 1992, intermittent smoking for 15 years. Past Drug Use History: None Reported - Past Family History Brother(s) Family Medical History: Deep Vein Thrombosis (DVT) Medications and Allergies Home Medications Medication Instructions Recorded Confirmed Type Atorvastatin [Lipitor] 80 mg PO HS #90 tab 06/07/21 10/23/21 Rx Apixaban [Eliquis] 5 mg PO BID 09/15/21 10/23/21 History Clopidogrel [Plavix] 75 mg PO DAILY 09/15/21 10/23/21 History Losartan [Cozaar] 25 mg PO DAILY 09/15/21 10/23/21 History Spironolactone [Aldactone] 25 mg PO DAILY 09/15/21 10/23/21 History Cholecalciferol [Vitamin D3 (125 125 mcg PO DAILY tablet 09/17/21 10/23/21 Rx Mcg = 5000 Iu)] Acetaminophen [Tylenol] 650 mg PO Q4H PRN 10/23/21 10/23/21 History Ascorbic Acid [Vitamin C] 500 mg PO DAILY 10/23/21 10/23/21 History Lactose-Reduced Food [Ensure Plus] 237 ml PO BID@0900,1700 10/23/21 10/23/21 History Metoprolol Succinate (ER) [Toprol 25 mg PO DAILY@0600 10/23/21 10/23/21 History XL] Multivitamins, Thera [Multivitamin 1 tab PO DAILY 10/23/21 10/23/21 History (formulary)] Nitroglycerin Sl Tabs [Nitrostat] 0.4 mg SL Q5M PRN 10/23/21 10/23/21 History Pantoprazole [Protonix] 40 mg PO DAILY@0600 10/23/21 10/23/21 History Sertraline [Zoloft] 25 mg PO DAILY 10/23/21 10/23/21 History Zinc 50 mg PO DAILY 10/23/21 10/23/21 History clonazePAM [KlonoPIN] 0.5 mg PO BID PRN 10/23/21 10/23/21 History traMADol HCl [Ultram] 50 mg PO Q6H PRN 10/23/21 10/23/21 History Allergies Allergy/AdvReac Type Severity Reaction Status Date / Time No Known Allergies Allergy Verified 10/23/21 23:18 Physical Examination - Vital Signs Vital Signs: Vital Signs Temp Pulse Pulse Resp BP BP Pulse Ox 10/24/21 07:41 97.5 F L 73 17 102/67 96 10/24/21 05:11 97.7 F 81 18 102/64 99 10/24/21 02:26 84 18 107/50 97 10/24/21 00:02 81 17 132/69 98 10/23/21 23:18 116/43 10/23/21 23:11 98.0 F 79 16 132/115 95 Intake and Output 10/23/21 10/24/21 10/24/21 22:59 06:59 14:59 Intake Total 130 Balance 130 Intake: IV 130 Sodium Chloride 0.9% 1, 130 000 ml @ 130 mls/hr IV . Q7H42M [facility] Rx#:[id number] Other: Voiding Method Diaper External Catheter # Voids 1 Weight 90.718 kg GENERAL: The patient is lying in bed and does not seem in acute distress. HENT: Has stitches over the right anterior hemisphere (frontal). CHEST: The heart rate is regular rate rhythm. No murmurs to auscultation. No carotid bruit bilaterally. LUNG: Clear to auscultation bilaterally no wheezing noted throughout. Not labored breathing. ABDOMEN/GI: Bowel sounds present in all 4 quadrants. No tenderness to palpation throughout. NEUROLOGICAL: Higher mental function: The patient is drowsy but is awakeable to voice. Oriented to self. Would not respond to time or place. There is delay in responding. She is not naming objects but upon asking her the name she kept on saying "what". She is following few simple commands (thumbs up, sticking her tongue out). , alert, oriented to self, place and time. Hard ot assess language at this time. Cranial nerves: The pupils are round, equal and reactive to light. EOM is tracking throughout the room. No facial weakness. No dysarthria. Motor: Gait is deferred because of her condition. The strength is lifting bilateral upper extremities above gravity and bending her knees. She has increase tone over the left side compared to right side. Normal bulk. No spontaneous movement noted. Cerebellum: Could not assess. Sensation: Could not assess light touch but to painful stimuli on lower would withdrawl. Reflexes (right/left): 3+ throughout upper while lowers are 2+. Plantars are mute bilaterally. Results - Laboratory Findings CBC and BMP: 10/24/21 00:00 10/24/21 08:28 Abnormal Lab Findings: Abnormal Labs 10/23/21 10/24/21 10/24/21 23:18 00:00 00:00 WBC 17.1 H MCHC 30.6 L Neutrophils # 14.9 H PT 13.1 H INR 1.2 H Sodium Chloride Carbon Dioxide BUN Creatinine Glucose POC Glucose (mg/dL) 123 H Calcium Magnesium AST Urine Appearance Urine Protein Ur Leukocyte Esterase Urine WBC Urine WBC Clumps Ur Squamous Epith Cells Amorphous Sediment Urine Bacteria Hyaline Casts Urine Mucus 10/24/21 10/24/21 10/24/21 00:00 02:40 08:28 WBC MCHC Neutrophils # PT INR Sodium 146 H 147 H Chloride 114 H 122 H Carbon Dioxide 19 L 15 L BUN 89 H 79 H Creatinine 3.41 H 2.25 H Glucose 137 H 131 H POC Glucose (mg/dL) Calcium 10.5 H Magnesium 2.5 H AST 46 H Urine Appearance Turbid H Urine Protein 1+ H Ur Leukocyte Esterase Large H Urine WBC 116 H Urine WBC Clumps Moderate H Ur Squamous Epith Cells 12 H Amorphous Sediment Moderate H Urine Bacteria Many H Hyaline Casts 148 H Urine Mucus Few H Assessment and Plan Assessment: Encephalopathy due to metabolic encephalopathy as well as possible underlying acute urinary tract infection Acute kidney insufficiency--trending down. Possible acute urinary tract infection History of normal pressure hydrocephalus and had shunt removed on 10/11/2021 History of stroke on May 2021 with the expressive aphasia and right hemipa resis (patient had stroke on left thalamus adjacent to third ventricle) History of methylenetetrahydrofolate reductase deficiency on Eliquis History of coronary artery disease status post stenting History of recent myocardial infarction (05/2021) History of COVID 19 infect (end of August 2021) History of hypertension and on presentation the blood pressure is controlled Dyslipidemia Plan: * Questionable reported right occipital subarachnoid hemorrhage and it's reporte d from removal of the shunt but I don't feel there is subarachnoid hemorrhage upon reviewing the images. Instead I feel there is minimal hemorrhage over the occipital posterior horns of lateral ventricles. I'll repeat CT of the head to assess if there is any worsening of the bleeding. * I also ordered repeat MRI Brain to see if she had new stroke. * Ordered urgent EEG (has altered mental status, hx of stroke which increase risk of seizures). I'll not start the patient on antiepileptic drugs unless there is epileptiform discharges or seizure on the EEG. * Ordered TSH, vitamin B-12, folate level * Every 4 hours neuro checks * Currently the patient is rescheduled on her home Plavix 75 mg daily starting tomorrow by primary team. Patient is also on Eliquis at home for history of methyl tetrahydrofolate reductase deficiency and for now placed on hold. Will defer the use of Plavix to Cardiology team. From neurological perspective Eliquis and Plavix increases risk of bleed. * Nephrology team is on board * We'll defer the rest of the medical measure the primary team * Upon discharged recommend the patient follow up with a neurologist and her neurosurgeon as an outpatient. UPDATE I spoke with patient's son and the patient's via phone: The patient had her shunt removed her shunt on 10/11/[address] Thacker (Neurosurgeon) since her neurosurgeon felt there disconnect and no improvement with shunt in hydrocephalus according to the son. So she had maddison hole over the right side and felt that should possibly help with her NPH. Since she had shunt removed, the son felt her she continued to have expressive aphasia but her language was improving somewhat and continued to have some right hemiparesis. When the son saw her this Past Monday she saw her confused and yesterday and she continued to be confused yesterday and not responding so he asked her nursing facility to transfer her to the hospital. Her neurologist is thru [facility]. The plan is discussed with the patient's son, and her nurse. Thank you for the consultation. Dr. Laird will start neurological service tomorrow AM. Dimitri Talbot M.D. Neuro-Hospitalist Time with Patient: Greater than 30
--- NOTE | 2021-10-24 14:30 | CT ---
EXAMINATION TYPE: CT brain wo con DATE OF EXAM: 10/24/2021 COMPARISON: CT head 10/23/2021 HISTORY: Altered mental status CT DLP: 1051.4 mGycm Automated exposure control for dose reduction was used. FINDINGS: There is redemonstration of a tiny amount (3mm) of intraventricular hemorrhage in the occipital horns there is no new intracranial hemorrhage. There is redemonstration of right frontal craniotomy with underlying encephalomalacia extends to the anterior horn of the right lateral ventricle. There is dilatation of the ventricular system similar to the prior examination. Hypodensity of the pe riventricular and subcortical white matter is nonspecific but likely on the basis of chronic ischemic microangiopathy. There is redemonstration of a left frontal right frontal craniotomy scalp and reservoir scalp/neck. Cells are well-developed and pneumatized. The globes are aphakic. The soft tissues of the orbits are within normal limits. IMPRESSION: 1. No significant change in the tiny amount of intraventricular hemorrhage in the occipital horns. T here is no new intracranial hemorrhage. 2. There is dilatation of the ventricular system similar to the prior examination.
[2021-10-24] MEDS: ACETAMINOPHEN TAB 325 MG TAB PO PRN (16:45)
[2021-10-24] MEDS: ATORVASTATIN 80 MG TAB PO SCH (20:22)
[2021-10-24] MEDS ORDERED: FAMOTIDINE 20 MG/2 ML VIAL IV SCH (21:00)
[2021-10-25] MEDS: PANTOPRAZOLE 40 MG TABLET PO SCH (05:29)
[2021-10-25] MEDS: METOPROLOL SUCCINATE (ER) 25 MG TAB.ER.24H PO SCH (05:29)
[2021-10-25] MEDS: CHOLECALCIFEROL 125 MCG (5000 IU) TABLET PO SCH (07:50)
[2021-10-25] MEDS: AMPICILLIN-SULBACTAM 1.5 GM in SODIUM CHLORIDE 0.9% 50 ML IVPB SCH (07:50)
[2021-10-25] MEDS: ASCORBIC ACID 500 MG TAB PO SCH (07:50)
[2021-10-25] MEDS: CLOPIDOGREL 75 MG TAB PO SCH (07:50)
[2021-10-25] MEDS: MULTIVITAMINS, THERA 1 EACH TAB PO SCH (07:50)
[2021-10-25] MEDS: SERTRALINE 25 MG TAB PO SCH (07:50)
[2021-10-25] MEDS: ACETAMINOPHEN TAB 325 MG TAB PO PRN (07:50)
[2021-10-25 09:06] LABS: Anion Gap 13.3 mmol/L (10.00-18.00); BUN/Creat Ratio 41.2 Ratio (12.00-20.00); Blood Urea Nitrogen 41.2 mg/dL (9.0-27.0); Calcium 8.8 mg/dL (8.7-10.3); Carbon Dioxide 24.7 mmol/L (20.0-27.5); Magnesium 2.1 mg/dL (1.5-2.4); Non-African American GFR(CKD) 57.8 (60.0-200.0); Potassium 4.1 mmol/L (3.5-5.5)
[2021-10-25] MEDS ORDERED: SODIUM CHLORIDE 0.45% 1,000 ML IV SCH (10:30)
[2021-10-25] MEDS: DEXTROSE 5% IN WATER 1,000 ML with SODIUM BICARB (1 MEQ/ML) 75 ML IV SCH (11:24)
[2021-10-25 12:11] LABS: HCT 34.1 % (37.2-46.3); HGB 9.7 g/dL (12.0-15.0); MCH 25.3 pg (27.0-32.0); MCHC 28.4 g/dL (32.0-37.0); MCV 88.8 fL (80.0-97.0); Mean Platelet Volume 12.2 fL (9.5-12.2); NRBC Per 100 WBC 0 /100 WBCS (0.0-0.0); Platelet Count 197 X 10*3/uL (140-440); RBC 3.84 X 10*6/uL (4.10-5.20); RDW 14.6 % (11.5-14.5); WBC 7.23 X 10*3/uL (4.50-10.00)
--- NOTE | 2021-10-25 13:00 | MR ---
EXAMINATION TYPE: MR brain wo con DATE OF EXAM: 10/25/2021 COMPARISON: 06/09/2021, CT scan 10/24/2021 HISTORY: Prior on synapse, per history shunt placed and removed but artifcat still present, per son n caleb new implanted 10/09. pt poor historian, AMS r/o new stroke TECHNIQUE: T1-weighted sagittal, T2, FLAIR, and diffusion axial, and T2 coronal coronal views of the brain are submitted. FINDINGS: There is a persistent fluid fluid level in the dependent portion of the occipital horn lateral ventri chrissy as reported by recent CT suggestive of probable hemorrhage. Significant artifact from postsurgical change involving the right cerebral hemisphere results in sign ificant distortion of the right cerebral hemisphere and nondiagnostic assessment. There also is addit ional severe motion artifact markedly limiting the exam. There appears to be abnormal signal involvin g the nadia and within the white matter bilaterally. Findings most typical remote ischemia. There is generalized degenerative change of the greater central component. Component of normal press ure hydrocephalus in the differential diagnosis. Report called to the patient's nurse 10/25/2021 at 12: 45 PM Grossly the craniocervical junction maintained. Sella turcica has a normal appearance. On diffusion imaging is a small focal area of increased signal within the left basal ganglia. IMPRESSION: 1. Degenerative and nonspecific white matter changes typical remote ischemia. However, on diffusion i maging and there is a linear 8 mm area of increased signal on image 128 sequence 403. Although this c ould represent artifact this may also represent small area of acute ischemia correlate clinically. 2. There is persistent fluid fluid level in the posterior dependent margins of the lateral ventricle and occipital horns compatible with a small amount of acute hemorrhage. 3. Extensive postsurgical change as well as motion results in severe artifact results in a markedly l imited exam.
--- NOTE | 2021-10-25 15:49 | P.PN ---
Subjective Progress Note Date: 10/25/21 Patient is a 70-year-old female was sent in from long-term due to progressive confusion going on for 3 days. Her baseline mental status and the functional it is not clear at this time I did review her previous chart which was not much informative. He is found to have elevated creatinine of 3.5 baseline is within normal limits. Patient the was treated for COVID-19 pneumonia about a month ago subsequently discharged to long-term patient was on Aldactone and MAUREEN inhibitor because of her poor ejection fraction ischemic cardiomyopathy her previous ejection fraction appeared to be around 20-25% patient was evaluated by cardiology during her last hospitalization. Patient's skin appears pretty cl eared which is suggestive that patient probably is not bedbound. Urine analysis is also done which is in a left normal but it's a contaminated urine sample. Patient patient's urine cultures were positive for enterococcus during her hospitalization about a month ago. Patient is presently on Rocephin which will be switched to Unasyn because of her enterococcus in the previous culture. Chest x-ray did not show any CHF or pneumonia at this time. Patient is nonverbal although follows commands. 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 Considering this finding and confusion neurology was consulted. 10/25/2021 Patient resting in bed evaluated status post MRI and EEG. She continues to be alert 1, confused. Sutures are clean and dry. MRI completed today shows tenderness and nonspecific white matter changes typical of remote ischemia. Artifact vs. small area of acute ischemia. There is persistent fluid level in the posterior dependent margins of the lateral ventricle and occipital horns compatible with a small amount of acute hemorrhage. Labs today show white count 7.23, hemoglobin 9.7, sodium 151, potassium 4.1, chloride 113, CO2 24.7, BUN 41.2, creatinine 1.0, glucose 131, magnesium 2.1. Vitamin B-12 for 31, folate 4.9, TSH 3.940. Urine culture shows gram-negative bacilli, blood culture pulmonary shows Streptococcus epidermidis this may be contaminant as the cultures taken at the same time are negative. Continues on IV rocephin pending finalized cultures. EEG is also pending, neurology consult on board. On plavix, Eliquis is on hold currently. Afebrile, heart rate 84, blood pressure 138/78/ 98% on room air. REVIEW OF SYSTEMS: Able to obtain due to her clinical condition PHYSICAL EXAMINATION: GENERAL: Nonverbal not in any acute distress. Well developed, well nourished. HEENT: Pupils are round and equally reacting to light. EOMI. No scleral icterus. No conjunctival pallor. Normocephalic, atraumatic. No pharyngeal erythema. No thyromegaly. CARDIOVASCULAR: S1 and S2 present. No murmurs, rubs, or gallops. PULMONARY: Chest is clear to auscultation, no wheezing or crackles. ABDOMEN: Soft, nontender, nondistended, normoactive bowel sounds. No palpable organomegaly. MUSCULOSKELETAL: No joint swelling or deformity. EXTREMITIES: No cyanosis, clubbing, or pedal edema. NEUROLOGICAL: Patient appears to have fairly good strength in all 4 extremities does have some generalized weakness SKIN: No rashes. Assessment and plan -Metabolic encephalopathy and altered mental status: Mostly secondary to acute renal failure rather and urinary tract infection, urine culture showing gram negative bacilli, neurology following along, EEG pending. -Acute renal failure most probably prerenal azotemia along with lisinopril and Aldactone contributing to that. Lisinopril, aldactone on hold, creatinine normalized now 1.0. -Hypovolemic hypernatremia, sodium increased with IV fluids, now 151. -Metabolic acidosis both anion gap and non-anion gap secondary to acute renal failure and hypochloremia, improving -Finding of a small subdural hematoma as a result of recent removal of [employer]INICAL PROGRAM DIRECTOR shunt -Abnormal urine: Most probably some chronic bacterial my suspicion for UTI is low, urine culture pending finalized, antibiotics changed to IV rocephin. -Hypertension -Congestive heart failure ischemic cardiomyopathy EF of around 20-25% patient is hypovolemic patient is not in CHF exacerbation patient the heart failure may have improved on repeat echocardiogram. -History of clotting disorder for which she believe patient is on Eliquis: Because of her small subdural hematoma, eliquis is currently on hold -Coronary artery disease DVT prophylaxis: Subcutaneous heparin for now FULL CODE Plan Continue neuro checks EEG pending Neurology Consult Nephrology Consult Repeat labs in the AM Prognosis guarded Objective - Vital Signs Vital signs: Vital Signs Temp 97.4 F L 10/25/21 08:00 Pulse 84 10/25/21 08:00 Resp 20 10/25/21 08:00 BP 138/78 10/25/21 08:00 Pulse Ox 98 10/25/21 08:00 Intake & Output 10/24/21 10/25/21 10/25/21 18:59 06:59 18:59 Intake Total 1200 Output Total 600 500 Balance -600 700 Intake: Intake, IV Titration 1200 Amount Dextrose 5% in Water 1, 1200 000 ml @ 100 mls/hr IV . [id number] CORNELIA with Sodium Bicarb (1 Meq/ml) 75 ml Rx#:[id number] Output: Urine 600 500 Other: Voiding Method Diaper Diaper Diaper External Catheter External Catheter External Catheter # Voids 1 - Labs CBC & Chem 7: 10/25/21 05:29 10/25/21 05:29 Labs: Abnormal Lab Results - Last 24 Hours (Table) 10/25/21 10/25/21 Range/Units 05:29 05:29 RBC 3.84 L (4.10-5.20) X 10*6/uL Hgb 9.7 L (12.0-15.0) g/dL Hct 34.1 L (37.2-46.3) % MCH 25.3 L (27.0-32.0) pg MCHC 28.4 L (32.0-37.0) g/dL RDW 14.6 H (11.5-14.5) % Sodium 151 H (135-145) mmol/L Chloride 113 H (96-109) mmol/L BUN 41.2 H (9.0-27.0) mg/dL Est GFR (CKD-EPI)NonAf 57.8 L (60.0-200.0) BUN/Creatinine Ratio 41.20 H (12.00-20.00) Ratio Glucose 131 H (70-110) mg/dL Microbiology - Last 24 Hours (Table) 10/24/21 02:40 Urine Culture - Preliminary Urine,Catheterized Gram Neg Bacilli 10/24/21 00:01 Blood Culture Gram Stain - Preliminary Blood Blood Culture - Preliminary Staphylococcus epidermidis 10/24/21 00:01 Blood Culture - Final Blood 10/24/21 00:17 Blood Culture - Preliminary Blood No Growth after 24 hours
--- NOTE | 2021-10-25 18:03 | EEG ---
ELECTROENCEPHALOGRAM REPORT DATE OF SERVICE: 10/25/2021 PREAMBLE: This is a 70-year-old female with history of normal-pressure hydrocephalus, status post removal of the shunt. She presented with altered mental status. This study is performed to evaluate for any epileptiform activity. EEG FINDINGS: This is a 21-channel digital EEG recorded with video competent, utilizing 10/20 international system with referential and bipolar montages. Background consists of moderately well developed, somewhat disorganized mixed frequencies of 6 hertz, moderate amplitude theta, with some alpha and some fast frequency activity seen in bihemispheric region. Significant eye blink artifact and myogenic artifact were seen in the frontal region. Frequent left mid temporal sharp waves were seen during the study. Hyperventilation and photic stimulation were not performed. Different stages of sleep were not seen. IMPRESSION: This is an abnormal EEG due to: 1. Background disorganization, suggestive of generalized cerebral dysfunction as can be seen with the encephalopathy of various causes. 2. Presence of intermittent left temporal sharp waves, which suggest underlying cortical irritability and tendency for seizures. No electrographic seizure was recorded. MMODL / IJN: [id number] /
[2021-10-25] MEDS: FAMOTIDINE 20 MG TAB PO SCH (20:26)
[2021-10-25] MEDS: ATORVASTATIN 80 MG TAB PO SCH (20:26)
--- NOTE | 2021-10-26 00:29 | P.PN ---
Subjective Progress Note Date: 10/25/21 Patient was seen for a follow-up. Patient initially seen by Dr. Butch Talbot. Please refer to his note for details. Patient has presented with altered mental status. Patient's son was also present, who states that on 10/22/2021, she was "out of it". He thought that it was the effect of the medications. On Monday her symptoms got worse. Her right hand bowled up and couldn't move it. He got concerned if patient would have a CVA, therefore brought to the hospital on 10/23/2021 by ambulance. Patient has history of normal pressure hydrocephalus, for which she underwent placement of ventriculoperitoneal shunt in 2014. Patient was seen by myself on 06/07/2021, for right-sided weakness and was diagnosed with left thalamic stroke. Patient also was found to have abandoned shunt in the brain on MRI of the brain in May 2021. Patient was transferred to [facility] under care of Dr. Thacker, patient's neurosurgeon. The shunt was removed 3 weeks ago and patient underwent a third ventriculostomy for NPH in September 2021. Objective - Vital Signs Vital signs: Vital Signs Temp 99.2 F 10/25/21 19:25 Pulse 80 10/25/21 19:25 Resp 16 10/25/21 19:25 BP 110/71 10/25/21 19:25 Pulse Ox 100 10/25/21 19:25 Intake & Output 10/25/21 10/25/21 10/26/21 06:59 18:59 06:59 Intake Total 1200 Output Total 500 Balance 700 Intake: Intake, IV Titration 1200 Amount Dextrose 5% in Water 1, 1200 000 ml @ 100 mls/hr IV . [id number] CORNELIA with Sodium Bicarb (1 Meq/ml) 75 ml Rx#:[id number] Output: Urine 500 Other: Voiding Method Diaper Diaper Incontinent External Catheter External Catheter - Exam Patient is an elderly female, appears older than her stated age. She is laying in the bed. Appears encephalopathic. She is oriented 1, knows her name Sheila. When I asked where she was, states "at your home". She states the year is 19. Could not tell name of the current president. Patient mumbles. Patient has very slow mentation, prolonged latency time to answer questions. Her hearing is decreased. Speech and language functions cannot be tested otherwise. On cranial examination pupils are round and reacting. Visual otto could not be tested. Patient has mild left facial asymmetry. On muscle strength testing patient has right pronator drift. The strength is symmetric, deltoid 4, biceps 4-, triceps 4, digital engineer 4+5-bilaterally. In the lower limbs hip flexion is 4-bilaterally. She wiggles toes better on the right side. Reflexes are 2+ in the upper limbs, 3 at the knees and plantars are upgoing bilaterally. Sensations appears equal although not reliable. Cerebellar functions cannot be tested. Gait cannot be tested. Patient has stitches over the right frontal region. Her heart rate is regular. No murmur to auscultation. No carotid bruit. Chest is clear to auscultation. No wheezing. No labored breathing. - Labs CBC & Chem 7: 10/25/21 05:29 10/25/21 05:29 Labs: Abnormal Lab Results - Last 24 Hours (Table) 10/25/21 10/25/21 Range/Units 05:29 05:29 RBC 3.84 L (4.10-5.20) X 10*6/uL Hgb 9.7 L (12.0-15.0) g/dL Hct 34.1 L (37.2-46.3) % MCH 25.3 L (27.0-32.0) pg MCHC 28.4 L (32.0-37.0) g/dL RDW 14.6 H (11.5-14.5) % Sodium 151 H (135-145) mmol/L Chloride 113 H (96-109) mmol/L BUN 41.2 H (9.0-27.0) mg/dL Est GFR (CKD-EPI)NonAf 57.8 L (60.0-200.0) BUN/Creatinine Ratio 41.20 H (12.00-20.00) Ratio Glucose 131 H (70-110) mg/dL Microbiology - Last 24 Hours (Table) 10/24/21 02:40 Urine Culture - Preliminary Urine,Catheterized Gram Neg Bacilli 10/24/21 00:01 Blood Culture Gram Stain - Preliminary Blood Blood Culture - Preliminary Staphylococcus epidermidis 10/24/21 00:01 Blood Culture - Final Blood 10/24/21 00:17 Blood Culture - Preliminary Blood No Growth after 24 hours Assessment and Plan Assessment: Encephalopathy due to metabolic encephalopathy as well as possible underlying acute urinary tract infection Acute kidney insufficiency--trending down. Most recent BUN is 41.2 and creatinine 1.0, much improved. Acute urinary tract infection with gram-negative bacilli. 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 However on diffusion imaging, there is a linear 8 mm area of restricted signal within the left basal ganglia (in the left thalamus), concerning for small area of acute ischemia. There is persistent fluid fluid level in the posterior-dependent margins of the lateral ventricle and occipital horns compatible with small amount of acute hemorrhage. Extensive postsurgical change as well as motion results in severe artifact resulting in markedly limited exam. I personally reviewed MRI on the computer and agree with the findings. * Agree with holding off on Eliquis. Patient needs to be on Plavix for acute stroke and cardiac reasons. Continue Lipitor 80 mg. * Patient on Rocephin for UTI. * EEG was performed, which revealed background disorganization, suggestive of generalized cerebral dysfunction as can be seen with encephalopathy of various causes. Presence of intermittent left temporal sharp waves which suggest underlying cortical irritability and tendency for seizures. No electrographic seizure was recorded. Patient restarted empirically on Vimpat 50 mg twice a day. * Patient on SCDs for DVT prophylaxis. * TSH normal 3.94, vitamin B-12 431, folate level 4.9 which is low. We will start folate replacement. * Every 4 hours neuro checks * Nephrology team is on board * We'll defer the rest of the medical measure the primary team * Upon discharged recommend the patient follow up with a neurologist and her neurosurgeon as an outpatient within 1 week. .
[2021-10-26] MEDS: SERTRALINE 25 MG TAB PO SCH (08:29)
[2021-10-26] MEDS: PANTOPRAZOLE 40 MG TABLET PO SCH (08:29)
[2021-10-26] MEDS: ASCORBIC ACID 500 MG TAB PO SCH (08:29)
[2021-10-26] MEDS: CHOLECALCIFEROL 125 MCG (5000 IU) TABLET PO SCH (08:30)
[2021-10-26] MEDS: MULTIVITAMINS, THERA 1 EACH TAB PO SCH (08:30)
[2021-10-26] MEDS: CLOPIDOGREL 75 MG TAB PO SCH (08:30)
[2021-10-26] MEDS: METOPROLOL SUCCINATE (ER) 25 MG TAB.ER.24H PO SCH (08:30)
[2021-10-26] MEDS: FOLIC ACID 1 MG TAB PO SCH (08:30)
[2021-10-26] MEDS: LACOSAMIDE 50 MG TABLET PO SCH ×2 (08:30→21:57)
[2021-10-26] MEDS: DEXTROSE 5% IN WATER 1,000 ML IV SCH (10:24)
[2021-10-26 10:50] LABS: African American GFR (CKD) 76 (>60 ml/min/1.73 sqM); Anion Gap 3 mmol/L; Blood Urea Nitrogen 22 mg/dL (7-17); Calcium 8.8 mg/dL (8.4-10.2); Carbon Dioxide 29 mmol/L (22-30); Chloride 107 mmol/L (98-107); Glucose 140 mg/dL (74-99); Non-African American GFR(CKD) 66 (>60 ml/min/1.73 sqM); Sodium 139 mmol/L (137-145)
--- NOTE | 2021-10-26 15:21 | P.PN ---
Subjective Principal diagnosis: Patient is seen for follow-up for acute kidney injury. Patient is status post IV fluids with improvement in creatinine from 3.4 to 0.9 today. [place] patient does not communicate much. Her mentation is actually better than on initial admission. Status post MRI yesterday. Changes are noted in the MRI, unclear if new. Objective - Vital Signs Vital signs: Vital Signs Temp 97.3 F L 10/26/21 14:00 Pulse 82 10/26/21 14:00 Resp 14 10/26/21 01:32 BP 137/64 10/26/21 14:00 Pulse Ox 96 10/26/21 14:00 Intake & Output 10/25/21 10/26/21 10/26/21 18:59 06:59 18:59 Intake Total 180 Balance 180 Intake: Oral 180 Other: Voiding Method Diaper Incontinent Incontinent External Catheter # Voids 1 - Exam Patient is laying in bed. She is comfortable. She is not in any acute distress. She does not communicate much. She does open her eyes but does not talk. Examination of the heart S1 and S2 Examination of the lungs bilateral breath sounds are heard Abdomen is soft nontender Examination lower extremity shows no significant edema - Labs CBC & Chem 7: 10/25/21 05:29 10/26/21 10:09 Labs: Abnormal Lab Results - Last 24 Hours (Table) 10/26/21 Range/Units 10:09 BUN 22 H (7-17) mg/dL Glucose 140 H (74-99) mg/dL Microbiology - Last 24 Hours (Table) 10/24/21 02:40 Urine Culture - Final Urine,Catheterized Escherichia coli 10/24/21 00:17 Blood Culture - Preliminary Blood No Growth after 48 hours 10/24/21 00:01 Blood Culture Gram Stain - Preliminary Blood Blood Culture - Preliminary Staphylococcus epidermidis Assessment and Plan Assessment: 1. Acute kidney injury mostly prerenal from poor oral intake currently improved with IV hydration. 2. Hypernatremia from free water deficit currently improved [place] 3. Metabolic acidosis secondary to acute kidney injury 4. History of CVA 5. Encephalopathy multifactorial including volume depletion, underlying infect ion and electrolyte abnormalities. Abnormal findings noted on MRI. Patient is being followed by neurology. 6. UTI with urine culture growing E. coli Plan: Switch IV fluids to D5W for 24 hours. Repeat labs in a.m. Continue to encourage increase oral intake
[2021-10-26] MEDS: ATORVASTATIN 80 MG TAB PO SCH (21:57)
[2021-10-26] MEDS: FAMOTIDINE 20 MG TAB PO SCH (21:57)
--- NOTE | 2021-10-26 22:57 | P.PN ---
Subjective Progress Note Date: 10/26/21 Patient is a 70-year-old female was sent in from skilled nursing due to progressive confusion going on for 3 days. Her baseline mental status and the functional it is not clear at this time I did review her previous chart which was not much informative. He is found to have elevated creatinine of 3.5 baseline is within normal limits. Patient the was treated for COVID-19 pneumonia about a month ago subsequently discharged to skilled nursing patient was on Aldactone and MAUREEN inhibitor because of her poor ejection fraction ischemic cardiomyopathy her previous ejection fraction appeared to be around 20-25% patient was evaluated by cardiology during her last hospitalization. Patient's skin appears pretty cl eared which is suggestive that patient probably is not bedbound. Urine analysis is also done which is in a left normal but it's a contaminated urine sample. Patient patient's urine cultures were positive for enterococcus during her hospitalization about a month ago. Patient is presently on Rocephin which will be switched to Unasyn because of her enterococcus in the previous culture. Chest x-ray did not show any CHF or pneumonia at this time. Patient is nonverbal although follows commands. She had a CT of the head which showed small subdural hematoma which is believed to be secondary to the recent removal of DIRECTOR OF SLEEP shunt. Considering this finding and confusion neurology was consulted. 10/25/2021 Patient resting in bed evaluated status post MRI and EEG. She continues to be alert 1, confused. Sutures are clean and dry. MRI completed today shows tenderness and nonspecific white matter changes typical of remote ischemia. Artifact vs. small area of acute ischemia. There is persistent fluid level in the posterior dependent margins of the lateral ventricle and occipital horns compatible with a small amount of acute hemorrhage. Labs today show white count 7.23, hemoglobin 9.7, sodium 151, potassium 4.1, chloride 113, CO2 24.7, BUN 41.2, creatinine 1.0, glucose 131, magnesium 2.1. Vitamin B-12 for 31, folate 4.9, TSH 3.940. Urine culture shows gram-negative bacilli, blood culture pulmonary shows Staphylococcus epidermidis this may be contaminant as the cultures taken at the same time are negative. Continues on IV rocephin pending finalized cultures. EEG is also pending, neurology consult on board. On plavix, Eliquis is on hold currently. Afebrile, heart rate 84, blood pressure 138/78/ 98% on room air. 10/26/2021 Patient evaluated today resting in bed. She is alert 1 confused she is unable to answer questions appropriately. EEG shows background disorganization, sug gestive of generalized cerebral dysfunction as can be seen with the encephalopathy of various causes. Presence of intermittent left temporal sharp waves which suggest underlying cortical irritability and tendency for seizures. There is no electrocardiographic seizure was reported. Awaiting neurology input. Patient incontinent of stool today. Sodium 139, potassium 4.0, chloride 107, CO2 29, anion gap 3, BUN 22, creatinine 0.90, glucose 140's, calcium 8.8. Afebrile, heart rate 77, blood pressure 125/66, 99% on room air. No facial asymmetry noted. Urine culture positive for gram-negative bacilli with no resistance continue IV Rocephin this hospital stay. Continues on D5 gtt. Repeat blood cultures pending. REVIEW OF SYSTEMS: unable to obtain due to her clinical condition PHYSICAL EXAMINATION: GENERAL: Alert x1, no in acute distress. Well developed, well nourished. HEENT: Pupils are round and equally reacting to light. EOMI. No scleral icterus. No conjunctival pallor. Normocephalic, atraumatic. No pharyngeal erythema. No thyromegaly. CARDIOVASCULAR: S1 and S2 present. No murmurs, rubs, or gallops. PULMONARY: Chest is clear to auscultation, no wheezing or crackles. ABDOMEN: Soft, nontender, nondistended, normoactive bowel sounds. No palpable organomegaly. MUSCULOSKELETAL: No joint swelling or deformity. EXTREMITIES: No cyanosis, clubbing, or pedal edema. NEUROLOGICAL: Patient appears to have fairly good strength in all 4 extremities does have some generalized weakness SKIN: No rashes. Assessment and plan -Metabolic encephalopathy and altered mental status: Mostly secondary to acute renal failure rather and urinary tract infection, urine culture showing e.coli on IV abx, EEG completed, possible seizure activity noted, pending neurology input. -Acute renal failure most probably prerenal azotemia along with lisinopril and Aldactone contributing to that. Lisinopril, aldactone on hold, creatinine normalized now 1.0. -Hypovolemic hypernatremia, sodium normalized at 139, continues on D5 gtt. -Metabolic acidosis both anion gap and non-anion gap secondary to acute renal failure and hypochloremia, resolved. -Finding of a small subdural hematoma as a result of recent removal of DIRECTOR OF SLEEP shunt -Abnormal urine: Most probably some chronic bacteria, urine culture showing e.coli, on IV rocephin. -Hypertension, blood pressure currently stable. -Congestive heart failure ischemic cardiomyopathy EF of around 20-25% patient is hypovolemic patient is not in CHF exacerbation patient the heart failure may have improved on repeat echocardiogram. -History of clotting disorder for which she believe patient is on Eliquis: Because of her small subdural hematoma, eliquis is currently on hold -Coronary artery disease DVT prophylaxis: Subcutaneous heparin for now, eliquis o/h - neurology agreeing with recommendations FULL CODE Plan Continue neuro checks Neurology Consult Nephrology Consult Repeat labs in the AM Prognosis guarded Objective - Vital Signs Vital signs: Vital Signs Temp 98.5 F 10/26/21 08:00 Pulse 77 10/26/21 08:00 Resp 14 10/26/21 01:32 BP 125/66 10/26/21 08:00 Pulse Ox 99 10/26/21 08:00 Intake & Output 10/25/21 10/26/21 10/26/21 18:59 06:59 18:59 Intake Total 180 Balance 180 Intake: Oral 180 Other: Voiding Method Diaper Incontinent Incontinent External Catheter # Voids 1 - Labs CBC & Chem 7: 10/25/21 05:29 10/26/21 10:09 Labs: Abnormal Lab Results - Last 24 Hours (Table) 10/26/21 Range/Units 10:09 BUN 22 H (7-17) mg/dL Glucose 140 H (74-99) mg/dL Microbiology - Last 24 Hours (Table) 10/24/21 02:40 Urine Culture - Final Urine,Catheterized Escherichia coli 10/24/21 00:17 Blood Culture - Preliminary Blood No Growth after 48 hours 10/24/21 00:01 Blood Culture Gram Stain - Preliminary Blood Blood Culture - Preliminary Staphylococcus epidermidis
--- NOTE | 2021-10-27 00:19 | P.PN ---
Subjective Progress Note Date: 10/26/21 10/26/2021: patient laying comfortably in the bed. Appears somewhat somnolent. Patient continues to be encephalopathic. Does not cooperate with examination. 10/25/2021: Patient was seen for a follow-up. Patient initially seen by Dr. Butch Talbot. Please refer to his note for details. Patient has presented with altered mental status. Patient's son was also present, who states that on 10/22/2021, she was "out of it". He thought that it was the effect of the medications. On Monday her symptoms got worse. Her right hand bowled up and couldn't move it. He got concerned if patient wou ld have a CVA, therefore brought to the hospital on 10/23/2021 by ambulance. Patient has history of normal pressure hydrocephalus, for which she underwent placement of ventriculoperitoneal shunt in 2014. Patient was seen by myself on 06/07/2021, for right-sided weakness and was diagnosed with left thalamic stroke. Patient also was found to have abandoned shunt in the brain on MRI of the brain in May 2021. Patient was transferred to [facility] under care of Dr. Thacker, patient's neurosurgeon. The shunt was removed 3 weeks ago and patient underwent a third ventriculostomy for NPH in September 2021. Objective - Vital Signs Vital signs: Vital Signs Temp 98.5 F 10/26/21 08:00 Pulse 77 10/26/21 08:00 Resp 14 10/26/21 01:32 BP 125/66 10/26/21 08:00 Pulse Ox 99 10/26/21 08:00 Intake & Output 10/25/21 10/26/21 10/26/21 18:59 06:59 18:59 Intake Total 180 Balance 180 Intake: Oral 180 Other: Voiding Method Diaper Incontinent Incontinent External Catheter # Voids 1 - Exam Patient is an elderly female, appears older than her stated age. She is laying in the bed. Appears encephalopathic. She is oriented 1, knows her name Sheila. patient did not cooperate for the rest of the examination. Patient states "I don't know" for everything. - Labs CBC & Chem 7: 10/25/21 05:29 10/26/21 10:09 Labs: Abnormal Lab Results - Last 24 Hours (Table) 10/26/21 Range/Units 10:09 BUN 22 H (7-17) mg/dL Glucose 140 H (74-99) mg/dL Microbiology - Last 24 Hours (Table) 10/24/21 02:40 Urine Culture - Final Urine,Catheterized Escherichia coli 10/24/21 00:17 Blood Culture - Preliminary Blood No Growth after 48 hours 10/24/21 00:01 Blood Culture Gram Stain - Preliminary Blood Blood Culture - Preliminary Staphylococcus epidermidis Assessment and Plan Assessment: Encephalopathy due to metabolic encephalopathy from possible underlying acute urinary tract infection and other reasons mentioned below. Probable subacute stroke left thalamic region. History of normal pressure hydrocephalus and had shunt removed on 10/11/2021 Small intraventricular hemorrhage, perhaps postoperative. Acute kidney insufficiency--trending down. Most recent BUN is 41.2 and creatinine 1.0, much improved. Acute urinary tract infection with gram-negative bacilli. 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 Plan: * Patient underwent MRI of the brain today, which revealed degenerative and n onspecific white matter changes typical remote ischemia. However on diffusion imaging, there is a linear 8 mm area of restricted signal within the left basal ganglia (in the left thalamus), concerning for small area of acute ischemia. There is persistent fluid fluid level in the posterior-dependent margins of the lateral ventricle and occipital horns compatible with small amount of acute hemorrhage. Extensive postsurgical change as well as motion results in severe artifact resulting in markedly limited exam. I personally reviewed MRI on the computer and agree with the findings. * Agree with holding off on Eliquis. Patient needs to be on Plavix for acute stroke and cardiac reasons. Continue Lipitor 80 mg. * Patient on Rocephin for UTI. * EEG was performed, which revealed background disorganization, suggestive of generalized cerebral dysfunction as can be seen with encephalopathy of various causes. Presence of intermittent left temporal sharp waves which suggest underlying cortical irritability and tendency for seizures. No electrographic seizure was recorded. Patient started empirically on Vimpat 50 mg twice a day. * Patient on SCDs for DVT prophylaxis. * TSH normal 3.94, vitamin B-12 431, folate level 4.9 which is low. We will start folate replacement. * Every 4 hours neuro checks * Nephrology team is on board * We'll defer the rest of the medical measure the primary team * Upon discharged recommend the patient follow up with a neurologist and her neurosurgeon as an outpatient within 1 week. .
[2021-10-27] MEDS: DEXTROSE 5% IN WATER 1,000 ML IV SCH ×2 (02:13→11:42)
[2021-10-27] MEDS: PANTOPRAZOLE 40 MG TABLET PO SCH (07:30)
[2021-10-27] MEDS: METOPROLOL SUCCINATE (ER) 25 MG TAB.ER.24H PO SCH (07:31)
[2021-10-27] MEDS: LACOSAMIDE 50 MG TABLET PO SCH ×2 (08:53→21:35)
[2021-10-27] MEDS: FOLIC ACID 1 MG TAB PO SCH (08:53)
[2021-10-27] MEDS: ASCORBIC ACID 500 MG TAB PO SCH (08:56)
[2021-10-27] MEDS: CLOPIDOGREL 75 MG TAB PO SCH (08:56)
[2021-10-27] MEDS: CHOLECALCIFEROL 125 MCG (5000 IU) TABLET PO SCH (08:56)
[2021-10-27] MEDS: SERTRALINE 25 MG TAB PO SCH (08:56)
[2021-10-27] MEDS: MULTIVITAMINS, THERA 1 EACH TAB PO SCH (09:20)
[2021-10-27 10:22] LABS: African American GFR (CKD) 87.8 (60.0-200.0); Anion Gap 12.5 mmol/L (10.00-18.00); BUN/Creat Ratio 15.88 Ratio (12.00-20.00); Blood Urea Nitrogen 12.7 mg/dL (9.0-27.0); Calcium 9.3 mg/dL (8.7-10.3); Carbon Dioxide 24.5 mmol/L (20.0-27.5); Non-African American GFR(CKD) 75.8 (60.0-200.0); Potassium 4.1 mmol/L (3.5-5.5)
[2021-10-27 10:43] LABS: Basophils # (A) 0.02 X 10*3/uL (0.00-0.10); Basophils % (A) 0.3 %; Eosinophils # (A) 0.15 X 10*3/uL (0.04-0.35); Eosinophils % (A) 2.1 %; HGB 10.5 g/dL (12.0-15.0); Immature Grans, Automated 0.6 %; Lymphocytes # (A) 1.99 X 10*3/uL (0.90-5.00); MCH 25.1 pg (27.0-32.0); MCV 83.5 fL (80.0-97.0); Mean Platelet Volume 11.4 fL (9.5-12.2); Monocytes % (A) 5.6 %; NRBC Per 100 WBC 0 /100 WBCS (0.0-0.0); Neutrophils # (A) 4.51 X 10*3/uL (1.80-7.70); Neutrophils % (A) 63.4 %; Platelet Count 206 X 10*3/uL (140-440); RBC 4.19 X 10*6/uL (4.10-5.20); WBC 7.11 X 10*3/uL (4.50-10.00)
--- NOTE | 2021-10-27 12:10 | P.PN ---
Subjective Principal diagnosis: Patient is seen for follow-up for acute kidney injury. Patient is status post IV fluids with improvement in creatinine from 3.4 to 0.9 today. [place] patient does not communicate much. But she didn't respond to verbal stimuli and has been smiling. Her mentation is actually better than on initial admission. Status post MRI , being followed by neurology. Objective - Vital Signs Vital signs: Vital Signs Temp 97.5 F L 10/27/21 12:05 Pulse 98 10/27/21 12:05 Resp 16 10/27/21 12:05 BP 134/84 10/27/21 12:05 Pulse Ox 98 10/27/21 12:05 Intake & Output 10/26/21 10/27/21 10/27/21 18:59 06:59 18:59 Intake Total 180 Output Total 400 250 Balance -220 -250 Intake: Oral 180 Output: Urine 400 250 Other: Voiding Method Incontinent Diaper Diaper # Voids 5 # Bowel Movements 0 3 - Exam Patient is laying in bed. She is comfortable. She is not in any acute distress. She does not communicate much. She does open her eyes but does not talk. Patient was smiling today Examination of the heart S1 and S2 Examination of the lungs bilateral breath sounds are heard Abdomen is soft nontender Examination lower extremity shows no significant edema - Labs CBC & Chem 7: 10/27/21 05:22 10/27/21 05:22 Labs: Abnormal Lab Results - Last 24 Hours (Table) 10/27/21 10/27/21 Range/Units 05:22 05:22 Hgb 10.5 L (12.0-15.0) g/dL Hct 35.0 L (37.2-46.3) % MCH 25.1 L (27.0-32.0) pg MCHC 30.0 L (32.0-37.0) g/dL Glucose 112 H (70-110) mg/dL Microbiology - Last 24 Hours (Table) 10/24/21 00:01 Blood Culture Gram Stain - Final Blood Blood Culture - Final Staphylococcus epidermidis 10/24/21 00:17 Blood Culture - Preliminary Blood No Growth after 72 hours 10/24/21 02:40 Urine Culture - Final Urine,Catheterized Escherichia coli Assessment and Plan Assessment: 1. Acute kidney injury mostly prerenal from poor oral intake currently improved with IV hydration. 2. Hypernatremia from free water deficit currently improved 3. Metabolic acidosis secondary to acute kidney injury 4. History of CVA 5. Encephalopathy multifactorial including volume depletion, underlying infection and electrolyte abnormalities. Abnormal findings noted on MRI. Saw velez is being followed by neurology. 6. UTI with urine culture growing E. coli Plan: DC D5W. Can monitor off of IV fluids. Patient has had good oral intake [place] at Repeat labs in a.m. Continue to encourage increase oral intake
--- NOTE | 2021-10-27 14:51 | P.PN ---
Subjective Progress Note Date: 10/27/21 Patient is a 70-year-old female was [facility] in [facility] due to progressive confusion going on for 3 days. Her baseline mental status and the functional it is not clear at this time I did review her previous chart which was not much informative. He is found to have elevated creatinine of 3.5 baseline is within normal limits. Patient the was treated for COVID-19 pneumonia about a month ago subsequently discharged to [facility] patient was on Aldactone and MAUREEN inhibitor because of her poor ejection fraction ischemic cardiomyopathy her previous ejection fraction appeared to be around 20-25% patient was evaluated by cardiology during her last hospitalization. Patient's skin appears pretty cl eared which is suggestive that patient probably is not bedbound. Urine analysis is also done which is in a left normal but it's a contaminated urine sample. Patient patient's urine cultures were positive for enterococcus during her hospitalization about a month ago. Patient is presently on Rocephin which will be switched to Unasyn because of her enterococcus in the previous culture. Chest x-ray did not show any CHF or pneumonia at this time. Patient is nonverbal although follows commands. She had a CT of the head which showed small subdural hematoma which is believed to be secondary to the recent removal of MATERIAL INSPECTOR shunt. Considering this finding and confusion neurology was consulted. 10/25/2021 Patient resting in bed evaluated status post MRI and EEG. She continues to be alert 1, confused. Sutures are clean and dry. MRI completed today shows tenderness and nonspecific white matter changes typical of remote ischemia. Artifact vs. small area of acute ischemia. There is persistent fluid level in the posterior dependent margins of the lateral ventricle and occipital horns compatible with a small amount of acute hemorrhage. Labs today show white count 7.23, hemoglobin 9.7, sodium 151, potassium 4.1, chloride 113, CO2 24.7, BUN 41.2, creatinine 1.0, glucose 131, magnesium 2.1. Vitamin B-12 for 31, folate 4.9, TSH 3.940. Urine culture shows gram-negative bacilli, blood culture pulmonary shows Staphylococcus epidermidis this may be contaminant as the cultures taken at the same time are negative. Continues on IV rocephin pending finalized cultures. EEG is also pending, neurology consult on board. On plavix, Eliquis is on hold currently. Afebrile, heart rate 84, blood pressure 138/78/ 98% on room air. 10/26/2021 Patient evaluated today resting in bed. She is alert 1 confused she is unable to answer questions appropriately. EEG shows background disorganization, sug gestive of generalized cerebral dysfunction as can be seen with the encephalopathy of various causes. Presence of intermittent left temporal sharp waves which suggest underlying cortical irritability and tendency for seizures. There is no electrocardiographic seizure was reported. Awaiting neurology input. Patient incontinent of stool today. Sodium 139, potassium 4.0, chloride 107, CO2 29, anion gap 3, BUN 22, creatinine 0.90, glucose 140's, calcium 8.8. Afebrile, heart rate 77, blood pressure 125/66, 99% on room air. No facial asymmetry noted. Urine culture positive for gram-negative bacilli with no resistance continue IV Rocephin this hospital stay. Continues on D5 gtt. Repeat blood cultures pending. 10/27/2021 Mentation continues to improve, patient alert x 1 which is baseline. She did have a subacute infarct left thalamus, in addition to question of seizure on EEG. Discussed with neurology didn't start patient on Vimpat 50 mg twice a day. Requesting reports from [facility] under Dr. Thacker neurosurgery regarding most recent imaging and records. Question whether this small amount of acute hemorrhage is new this admission or stable from the previous admission to [facility]. Pending reports. Patient will discharge back to rehab tomorrow. If hemorrhage is new will repeat brain CT tomorrow. Labs today, white count 7.11, hemoglobin 10.5. sodium 141, potassium 4.1, chloride 104, CO2 24.5, BUN 12.7, creatinine 0.8, blood glucose 112. Eliquis continues on hold on Plavix for now. REVIEW OF SYSTEMS: unable to obtain due to her clinical condition. Patient did state that she is not having any pain. PHYSICAL EXAMINATION: GENERAL: Alert x1, no in acute distress. Well developed, well nourished. HEENT: Pupils are round and equally reacting to light. EOMI. No scleral icterus. No conjunctival pallor. Normocephalic, atraumatic. No pharyngeal erythema. No thyromegaly. CARDIOVASCULAR: S1 and S2 present. No murmurs, rubs, or gallops. PULMONARY: Chest is clear to auscultation, no wheezing or crackles. ABDOMEN: Soft, nontender, nondistended, normoactive bowel sounds. No palpable organomegaly. MUSCULOSKELETAL: No joint swelling or deformity. EXTREMITIES: No cyanosis, clubbing, or pedal edema. NEUROLOGICAL: Patient appears to have fairly good strength in all 4 extremities does have some generalized weakness SKIN: No rashes. Assessment and plan -Metabolic encephalopathy and altered mental status: Mostly secondary to acute renal failure rather and urinary tract infection, urine culture showing e.coli on IV abx, EEG completed, possible seizure activity noted, started on oral vimpat. -Acute renal failure most probably prerenal azotemia along with lisinopril and Aldactone contributing to that. Lisinopril, aldactone on hold, creatinine adela lized now 0.8. -Hypovolemic hypernatremia, sodium normalized at 141, continues on D5 gtt. -Metabolic acidosis both anion gap and non-anion gap secondary to acute renal failure and hypochloremia, resolved. -Finding of a small subdural hematoma as a result of recent removal of MATERIAL INSPECTOR shunt, pending results from [facility], possible repeat brain CT tomorrow. -Abnormal urine: Most probably some chronic bacteria, urine culture showing e.coli, on IV rocephin. -Hypertension, blood pressure currently stable. -Congestive heart failure ischemic cardiomyopathy EF of around 20-25% patient is hypovolemic patient is not in CHF exacerbation patient the heart failure may have improved on repeat echocardiogram. -History of clotting disorder for which she believe patient is on Eliquis: Because of her small subdural hematoma, eliquis is currently on hold -Coronary artery disease DVT prophylaxis: eliquis on hold for now GI prophylaxis: Protonix FULL CODE Plan Continue neuro checks Neurology Consult Nephrology Consult Repeat labs in the AM DC IV fluids DC tomorrow to rehab, pending reports from [facility] Prognosis guarded Objective - Vital Signs Vital signs: Vital Signs Temp 97.5 F L 10/27/21 12:05 Pulse 98 10/27/21 12:05 Resp 16 10/27/21 12:05 BP 134/84 10/27/21 12:05 Pulse Ox 98 10/27/21 12:05 Intake & Output 10/26/21 10/27/21 10/27/21 18:59 06:59 18:59 Intake Total 180 Output Total 400 250 Balance -220 -250 Intake: Oral 180 Output: Urine 400 250 Other: Voiding Method Incontinent Diaper Diaper # Voids 5 # Bowel Movements 0 3 - Labs CBC & Chem 7: 10/27/21 05:22 10/27/21 05:22 Labs: Abnormal Lab Results - Last 24 Hours (Table) 10/27/21 10/27/21 Range/Units 05:22 05:22 Hgb 10.5 L (12.0-15.0) g/dL Hct 35.0 L (37.2-46.3) % MCH 25.1 L (27.0-32.0) pg MCHC 30.0 L (32.0-37.0) g/dL Glucose 112 H (70-110) mg/dL Microbiology - Last 24 Hours (Table) 10/24/21 00:01 Blood Culture Gram Stain - Final Blood Blood Culture - Final Staphylococcus epidermidis 10/24/21 00:17 Blood Culture - Preliminary Blood No Growth after 72 hours 10/24/21 02:40 Urine Culture - Final Urine,Catheterized Escherichia coli
--- NOTE | 2021-10-27 16:42 | CT ---
EXAMINATION TYPE: CT brain wo con DATE OF EXAM: 10/27/2021 COMPARISON: 10/24/2021 HISTORY: 70 year-old female follow-up cranial bleed, confusion, Altered mental status TECHNIQUE: Examination was done in axial plane without intravenous contrast. Coronal and sagittal r econstructions performed. CT DLP: 1096.4 mGycm Automated exposure control for dose reduction was used. FINDINGS: Redemonstrated right frontal maddison hole. Encephalomalacia related to prior shunt catheter tract extend ing to the anterior body of the right lateral ventricle. Old infarct left basal ganglia redemonstrated. Trace layering acute intraventricular hemorrhage at the occipital horns of the lateral ventricles unc hanged. No new interval cranial hemorrhage is identified. Moderate hydrocephalus with Aguila's ratio of 0.35 is unchanged. No mass effect, midline shift, or extra axial fluid collection. Saha-white matter differentiation is maintained. Trace mucosal thickening left maxillary sinus. Fluid within the inferior right mastoid air cells. Orb its and globes are intact. IMPRESSION: 1. Trace acute, intraventricular blood layering within the occipital horns of the lateral ventricles is unchanged. No new intracranial bleed or new acute process seen. 2. Right frontal maddison hole and tract relating to previous CONVEYOR SYSTEM DISPATCHER shunt catheter is redemonstrated. 3. Mild to moderate hydrocephalus is unchanged for recent prior. Correlate for possible NPH. 4. Some fluid trapped in the inferior right mastoid air cells. Correlate for any mastoid pain to excl ude mastoiditis.
[2021-10-27] MEDS: FAMOTIDINE 20 MG TAB PO SCH (21:35)
[2021-10-27] MEDS: ATORVASTATIN 80 MG TAB PO SCH (21:35)
[2021-10-28] MEDS: METOPROLOL SUCCINATE (ER) 25 MG TAB.ER.24H PO SCH (07:15)
[2021-10-28] MEDS: PANTOPRAZOLE 40 MG TABLET PO SCH (07:15)
[2021-10-28] MEDS: CLOPIDOGREL 75 MG TAB PO SCH (09:17)
[2021-10-28] MEDS: ASCORBIC ACID 500 MG TAB PO SCH (09:17)
[2021-10-28] MEDS: SERTRALINE 25 MG TAB PO SCH (09:17)
[2021-10-28] MEDS: FOLIC ACID 1 MG TAB PO SCH (09:17)
[2021-10-28] MEDS: LACOSAMIDE 50 MG TABLET PO SCH ×2 (09:17→19:52)
[2021-10-28] MEDS: CHOLECALCIFEROL 125 MCG (5000 IU) TABLET PO SCH (09:17)
[2021-10-28] MEDS: MULTIVITAMINS, THERA 1 EACH TAB PO SCH (09:17)
--- NOTE | 2021-10-28 11:55 | P.PN ---
Subjective Principal diagnosis: Patient is seen for follow-up for acute kidney injury. Patient is status post IV fluids with improvement in creatinine from 3.4 to 0.8 today. . Patient is awake comfortable. She also is questions appropriately today. Serum creatinine down to 0.8 mg/dL. Patient is currently off of IV fluids. She has had good oral intake. Objective - Vital Signs Vital signs: Vital Signs Temp 98.8 F 10/28/21 08:00 Pulse 70 10/28/21 08:00 Resp 14 10/28/21 08:00 BP 117/54 10/28/21 08:00 Pulse Ox 100 10/28/21 09:36 Intake & Output 10/27/21 10/28/21 10/28/21 18:59 06:59 18:59 Intake Total 240 200 Balance 240 200 Intake: Oral 240 200 Other: Voiding Method Diaper Diaper Diaper # Voids 2 4 # Bowel Movements 2 0 - Exam Patient is laying in bed. She is comfortable. She is not in any acute distress. She answers questions appropriately today. Examination of the heart S1 and S2 Examination of the lungs bilateral breath sounds are heard Abdomen is soft nontender Examination lower extremity shows no significant edema - Labs CBC & Chem 7: 10/27/21 05:22 10/27/21 05:22 Labs: Microbiology - Last 24 Hours (Table) 10/24/21 00:01 Blood Culture Gram Stain - Final Blood Blood Culture - Final Staphylococcus epidermidis 10/24/21 00:17 Blood Culture - Preliminary Blood No Growth after 96 hours Assessment and Plan Assessment: 1. Acute kidney injury mostly prerenal from poor oral intake currently improved with IV hydration. 2. Hypernatremia from free water deficit currently improved 3. Metabolic acidosis secondary to acute kidney injury 4. History of CVA 5. Encephalopathy multifactorial including volume depletion, underlying infection and electrolyte abnormalities. Abnormal findings noted on MRI. Patient is being followed by neurology. 6. UTI with urine culture growing E. coli Plan: Can monitor off of IV fluids. Patient has had good oral intake Continue to encourage increase oral intake
--- NOTE | 2021-10-28 14:21 | P.DS ---
Providers Date of admission: 10/24/21 03:48 Attending physician: Fanny Graff Consults: 10/24/21 03:48 Consult Physician Urgent Consulting Provider: Dimitri Talbot Consult Reason/Comments: Altered mental status. Do you want consulting provider notified?: Already Contacted 10/24/21 03:49 Consult Physician Routine Consulting Provider: Amando Redding Consult Reason/Comments: Acute renal failure Do you want consulting provider notified?: Yes Primary care physician: Eleazar Elaine Hospital Course: Final Diagnosis -Metabolic encephalopathy and altered mental status: Mostly secondary to acute renal failure rather and urinary tract infection, urine culture showing e.coli on IV abx, EEG completed, possible seizure activity noted, started on oral vimpat. -Acute renal failure most probably prerenal azotemia along with lisinopril and Aldactone contributing to that. losartan, aldactone on hold, creatinine normalized now 0.8. -Hypovolemic hypernatremia, sodium normalized at 141 -Metabolic acidosis both anion gap and non-anion gap secondary to acute renal failure and hypochloremia, resolved. -Finding of a small subdural hematoma as a result of recent removal of LIPCOAT SPRAYER shunt, reviewed reports from [facility] -Abnormal urine: Most probably some chronic bacteria, urine culture showing e.coli, on IV rocephin. -Hypertension, blood pressure currently stable. -Congestive heart failure ischemic cardiomyopathy EF of around 20-25% patient is hypovolemic patient is not in CHF exacerbation patient the heart failure may have improved on repeat echocardiogram. -History of clotting disorder for which patient is on Eliquis: Because of her small subdural hematoma, eliquis is currently on hold, can continue on plavix -Coronary artery disease -History of Stroke -History of hydrocephalus with LIPCOAT SPRAYER shunt, removal in Sep Discharge Disposition Patient stable for discharge back to rehab. Follow up appointment has been made with Dr Thacker who is her neurosurgeon out of [facility]. Patients mentation has improved significantly today. 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 Patient also has history of anxiety depression, former smoker quit in 1992. Patient presented to the from jail with complaints over patient not speaking or eating or drinking PAST 2 days. Baseline she sits up in the chair for eating and drinking and she does respond when spoken to. Baseline is that she is only oriented times person. In September of this year patient was evaluated at [facility] and on October 11 she underwent LIPCOAT SPRAYER shunt removal as it was somehow disconnected and they removed and did not replace it. Brain CT this admission shows small acute 3 mm subarachnoid hemorrhage in the occipital horns of the lateral ventricles. This appears new compared to old exam. There is hydrocephalus. There is removal of the ventricular catheter compared to recent exam. Tiny hemorrhage, related to the recent surgery. Hydrocephalus is not significantly different than normal exam. There is also 1.5 cm area of hypodensity in the anterior left thalamus consistent with old lacunar infarct which is unchanged. There is also encephalomalacia in the right posterior frontal lobe. Chest x-ray shows no acute cardiopulmonary disease. Patient underwent repeat brain CT which shows no significant change in the interventricular hemorrhage in the occipital horns, there is no new intracranial hemorrhage. There is dilation of the ventricular system similar to the prior exam Brain MRI: Degenerative and nonspecific white matter changes typical of remote ischemia. There is increased signal on image 128 sequence 403 artifact versus small area of acute ischemia. There is persistent fluid level in the posterior dependent margins of the lateral ventricle and occipital horns compatible with a small amount of acute hemorrhage. Extensive postsurgical changes as well as motion resultant severe artifact and a markedly limited exam. EEG shows background disorganization, suggestive of generalized cerebral dysfunction as can be seen with encephalopathy of various causes. Presence of intermittent left temporal sharp waves which suggests underlying cortical irritability and tendency for seizures. No electrographic seizure was recorded. Patient underwent evaluation by neurology this admission. Eliquis is on hold a nd has been on hold since her discharge from [facility] in September 2021. EEG reviewed and felt possible seizure activity, patient was started on Vimpat 50 mg by mouth twice a day for prophylaxis. Repeat brain CT was completed yesterday on October 27 which shows trace acute interventricular blood layering within the occipital horns of the lateral ventricles with no new intracranial bleed or new acute process seen. Because of this patient can be continued on Plavix for stroke prophylaxis as it was felt that she does have a subacute left thalamic infarct on top of an acute left thalamic infarct previous admission. Neurology did discuss patient's case with Dr. Thacker who is known to the patient. Blood culture on admission shows Staphylococcus epidermidis which is most likely contaminant as blood cultures taken the same time are also negative. Patient with E. coli on urine culture, she did complete 4 days of IV Rocephin and will continue 3 more days of oral cefdinir on discharge. Patient incontinent of urine and stool. Mentation is improved drastically she is alert 1 which is her baseline as well as able to state that she is in the hospital unable to say which one and does not know the year. She is able to communicate her needs and is responding when spoken to appropriately. Labs on admission show white count 17.1, sodium 147, potassium 4.7, BUN 79, creatinine 2.25, chloride 122, CO2 15, glucose 120, magnesium 2.5 and troponin negative, Covid PCR not detected. 10/28/2021 Patient evaluated today resting in bed. She is alert 1-2 appropriate. Evaluated by neurology who cleared patient for discharge on Plavix continue to hold eliquis. She'll continue 3 more days of oral antibiotics for UTI. Labs today show white count 7.11, hemoglobin 10.5, stable, sodium 141, potassium 4.1, chloride 104, CO2 24.5, BUN 7, creatinine 0.8, blood glucose 112. Vital signs are stable. Lungs are clear, S1-S2 auscultated. Abdomen is soft and nontender. Patient at baseline. Follow up appointment with Dr Thacker made. Please see medication reconciliation for a list of current medications. Thank you for allowing us to participate in the care of this patient. Patient Condition at Discharge: Fair Plan - Discharge Summary New Discharge Prescriptions: New Famotidine [Pepcid] 20 mg PO HS tab Folic Acid 1 mg PO DAILY tab Lacosamide [Vimpat] 50 mg PO BID #6 tablet Continue Clopidogrel [Plavix] 75 mg PO DAILY Cholecalciferol [Vitamin D3 (125 Mcg = 5000 Iu)] 125 mcg PO DAILY tablet Nitroglycerin Sl Tabs [Nitrostat] 0.4 mg SL Q5M PRN PRN Reason: Chest Pain Lactose-Reduced Food [Ensure Plus] 237 ml PO BID@0900,1700 Metoprolol Succinate (ER) [Toprol XL] 25 mg PO DAILY@0600 Multivitamins, Thera [Multivitamin (formulary)] 1 tab PO DAILY Ascorbic Acid [Vitamin C] 500 mg PO DAILY Atorvastatin [Lipitor] 80 mg PO HS #90 tab Acetaminophen [Tylenol] 650 mg PO Q4H PRN PRN Reason: general discomfort Zinc 50 mg PO DAILY Sertraline [Zoloft] 25 mg PO DAILY Discontinued Spironolactone [Aldactone] 25 mg PO DAILY Losartan [Cozaar] 25 mg PO DAILY traMADol HCl [Ultram] 50 mg PO Q6H PRN PRN Reason: Pain clonazePAM [KlonoPIN] 0.5 mg PO BID PRN PRN Reason: Anxiety Pantoprazole [Protonix] 40 mg PO DAILY@0600 Apixaban [Eliquis] 5 mg PO BID Discharge Medication List Atorvastatin [Lipitor] 80 mg PO HS #90 tab 06/07/21 [Rx] Clopidogrel [Plavix] 75 mg PO DAILY 09/15/21 [History] Cholecalciferol [Vitamin D3 (125 Mcg = 5000 Iu)] 125 mcg PO DAILY tablet 09/17/21 [Rx] Acetaminophen [Tylenol] 650 mg PO Q4H PRN 10/23/21 [History] Ascorbic Acid [Vitamin C] 500 mg PO DAILY 10/23/21 [History] Lactose-Reduced Food [Ensure Plus] 237 ml PO BID@0900,1700 10/23/21 [History] Metoprolol Succinate (ER) [Toprol XL] 25 mg PO DAILY@0600 10/23/21 [History] Multivitamins, Thera [Multivitamin (formulary)] 1 tab PO DAILY 10/23/21 [History] Nitroglycerin Sl Tabs [Nitrostat] 0.4 mg SL Q5M PRN 10/23/21 [History] Sertraline [Zoloft] 25 mg PO DAILY 10/23/21 [History] Zinc 50 mg PO DAILY 10/23/21 [History] Famotidine [Pepcid] 20 mg PO HS tab 10/28/21 [Rx] Folic Acid 1 mg PO DAILY tab 10/28/21 [Rx] Lacosamide [Vimpat] 50 mg PO BID #6 tablet 10/28/21 [Rx] Follow up Appointment(s)/Referral(s): Eleazar Elaine MD [Primary Care Provider] - 1-2 days Darnell Thacker MD [REFERRING] - 11/18/21 2:40 pm Ambulatory/Diagnostic Orders: Basic Metabolic Panel [LAB.AMB] Time Frame: 2 Days, Location: None Selected Patient Instructions/Handouts: Altered Mental Status (ED) Activity/Diet/Wound Care/Special Instructions: Needs to see neurology and neurosurgeon on discharge Discharge Disposition: TRANSFER TO SNF/ECF
[2021-10-28] MEDS: FAMOTIDINE 20 MG TAB PO SCH (19:52)
[2021-10-28] MEDS: ATORVASTATIN 80 MG TAB PO SCH (19:52)
[2021-10-29] MEDS: METOPROLOL SUCCINATE (ER) 25 MG TAB.ER.24H PO SCH (05:55)
[2021-10-29] MEDS: PANTOPRAZOLE 40 MG TABLET PO SCH (05:55)
[2021-10-29 08:46] VITALS: BP 111/65; PULSE 71; RESP 16; TEMP 98
[2021-10-29] MEDS: LACOSAMIDE 50 MG TABLET PO SCH (09:49)
[2021-10-29] MEDS: MULTIVITAMINS, THERA 1 EACH TAB PO SCH (09:49)
[2021-10-29] MEDS: CHOLECALCIFEROL 125 MCG (5000 IU) TABLET PO SCH (09:49)
[2021-10-29] MEDS: FOLIC ACID 1 MG TAB PO SCH (09:49)
[2021-10-29] MEDS: CLOPIDOGREL 75 MG TAB PO SCH (09:49)
[2021-10-29] MEDS: SERTRALINE 25 MG TAB PO SCH (09:49)
[2021-10-29] MEDS: ASCORBIC ACID 500 MG TAB PO SCH (09:49)
--- NOTE | 2021-10-29 10:39 | P.PN ---
Subjective Progress Note Date: 10/28/21 10/28/2021: Patient was seen for a follow-up. Patient has remarkably improved. She is more interactive. Please refer to examination. Denies headache. Received outside records from [facility]. Patient was admitted to Dr. LISBETH sherwood neurosurgery for operative intervention for NPH, possible REVIVAL CLERK shunt revision, ETV. Patient underwent an endoscopic third ventriculostomy on the right on 10/08/2021. Patient has history of NPH with known VPS disconnection. It was recommended to hold Plavix and Eliquis for 14 days post surgery and then resume as directed. Postop computed tomography scan reported showed hemorrhage along the tract of the previous catheter, small amount of pneumocephalus along the right frontal convexity, and layering intraventricular hemorrhage and air within the lateral ventricles. Patient has history of NPH, status post REVIVAL CLERK shunt placement in 2014, cervical stenosis, status post C6 fusion, STEMI, status post stenting in May 2021, complicated by left thalamocapsular stroke with residual dysarthria and right-sided weakness was on Plavix and Eliquis for MTHFR mutation, systolic heart failure with EF 45%, recent Covid-19 infection on , hypertension, hyperlipidemia, GERD. CT head from [facility] from 10/09/2021 showed interval postsurgical changes related to removal of the right frontal approach ventriculostomy catheter and endoscopic third ventriculostomy with focus of hemorrhage along the tract of the previous catheter, small amount of pneumocephalus along the right frontal convexity and layering intraventricular hemorrhage and air within the lateral ventricles. The ventricles are similar in size compared to prior exam. 10/26/2021: patient laying comfortably in the bed. Appears somewhat somnolent. Patient continues to be encephalopathic. Does not cooperate with examination. CT head 10/09/2021 showed interval postsurgical changes related to removal of the right frontal approach ventriculostomy catheter and endoscopic third ventriculostomy with focus of hemorrhage along the tract of the previous catheter, small amount of pneumocephalus along the right frontal convexity and layering intraventricular hemorrhage and air within the lateral ventricles. The ventricles are similar in size compared to prior exam. 10/25/2021: Patient was seen for a follow-up. Patient initially seen by Dr. Butch Talbot. Please refer to his note for details. Patient has presented with altered mental status. Patient's son was also present, who states that on 10/22/2021, she was "out of it". He thought that it was the effect of the medications. On Monday her symptoms got worse. Her right hand bowled up and couldn't move it. He got concerned if patient would have a CVA, therefore brought to the hospital on 10/23/2021 by ambulance. Patient has history of normal pressure hydrocephalus, for which she underwent placement of ventriculoperitoneal shunt in 2014. Patient was seen by myself on 06/07/2021, for right-sided weakness and was diagnosed with left thalamic stroke. Patient also was found to have abandoned shunt in the brain on MRI of the brain in May 2021. Patient was transferred to [facility] under care of Dr. Thacker, patient's neurosurgeon. The shunt was removed 3 weeks ago and patient underwent a third ventriculostomy for NPH in September 2021. * MRI of the brain from 10/25/2021 revealed degenerative and nonspecific white matter changes typical remote ischemia. However on diffusion imaging, there is a linear 8 mm area of restricted signal within the left basal ganglia (in the left thalamus), concerning for small area of acute ischemia. There is persistent fluid fluid level in the posterior-dependent margins of the lateral ventricle and occipital horns compatible with small amount of acute hemorrhage. Extensive postsurgical change as well as motion results in severe artifact resulting in markedly limited exam. I personally reviewed MRI on the computer and agree with the findings. * EEG was performed, which revealed background disorganization, suggestive of generalized cerebral dysfunction as can be seen with encephalopathy of various causes. Presence of intermittent left temporal sharp waves which suggest underlying cortical irritability and tendency for seizures. No electrographic seizure was recorded. Patient started empirically on Vimpat 50 mg twice a day. * Patient on SCDs for DVT prophylaxis. * TSH normal 3.94, vitamin B-12 431, folate level 4.9 which is low. We will start folate replacement. . Objective - Vital Signs Vital signs: Vital Signs Temp 98.8 F 10/28/21 08:00 Pulse 70 10/28/21 08:00 Resp 14 10/28/21 08:00 BP 117/54 10/28/21 08:00 Pulse Ox 100 10/28/21 09:36 Intake & Output 02/06/0910/28/21 10/28/21 18:59 06:59 18:59 Intake Total 240 200 Balance 240 200 Intake: Oral 240 200 Other: Voiding Method Diaper Diaper Diaper # Voids 2 4 # Bowel Movements 2 0 - Exam Patient is an elderly female, much more alert and awake. Patient knows her name. She states she was born in 1951 although it was 1950. She knows she is in [facility]. Patient could not tell what month or year is it. Patient able to name objects like a pen, eyeglasses. Patient can repeat sentences well. No obvious aphasia. On cranial nerve examination pupils are round and reacting, visual otto are full. Extraocular muscles are intact. Face is symmetric. Tongue protrudes the midline. Hearing is slightly decreased. 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 Patient did not cooperate for testing of the lower extremities. - Labs CBC & Chem 7: 10/27/21 05:22 10/27/21 05:22 Labs: Microbiology - Last 24 Hours (Table) 10/24/21 00:01 Blood Culture Gram Stain - Final Blood Blood Culture - Final Staphylococcus epidermidis 10/24/21 00:17 Blood Culture - Preliminary Blood No Growth after 96 hours Assessment and Plan Assessment: * Encephalopathy due to metabolic encephalopathy from possible underlying acute urinary tract infection and other reasons mentioned below. * Abnormal EEG with evidence of epileptiform activity on the left side. Rule out partial seizure. Patient improved since being on Vimpat. * Intraventricular hemorrhage (small, bilateral), due to post operative from endoscopic third ventriculostomy performed at [facility]. * Probable subacute stroke left thalamic region. * History of normal pressure hydrocephalus and had shunt removed on 10/11/2021, followed by endoscopic third ventriculostomy. * Acute kidney insufficiency--trending down. Most recent BUN is 41.2 and creatinine 1.0, much improved. * Acute urinary tract infection with gram-negative bacilli. 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 Plan: * Patient underwent repeat computed tomography scan of head yesterday on 10/27/2021. It revealed trace acute, intraventricular blood layering within the occipital horns of the lateral ventricles is unchanged. No new intracranial bleed or new acute process. Right frontal maddison hole and tract relating to previous REVIVAL CLERK shunt catheter is redemonstrated. Mild to moderate hydrocephalus is unchanged from recent prior. Correlate for possible NPH. Some fluid trapped in the anterior right mastoid air cells. Correlate for any mastoid pain to exclude mastoiditis. * We received records from [facility], and it appears that intraventricular hemorrhage was noted postoperatively after endoscopic third ventriculostomy, therefore is not a new finding. * I spoke to patient's son yesterday, who was able to get hold of patient's neurosurgeon Dr. Darnell Thacker. I was able to talk to Dr. Thacker, who mentioned that the intraventricular hemorrhages not new. He recommended to hold off on Eliquis, but cleared patient to be maintained on Plavix 75 mg daily. I informed him that patient has improved, and is stable for discharge. Dr. Thacker states that he will contact patient's son to set an appointment in his office soon. * Neurologically clear for discharge. Continue Vimpat 50 mg twice a day. The dose of Vimpat may be increased as an outpatient. * Also recommend patient to follow up with a neurologist in 2-4 weeks. * I spoke to patient's son on the phone, and explained all above recommendations and discussions. Also discussed with patient's primary care team. Time with Patient: Greater than 30
--- NOTE | 2021-10-29 18:37 | P.PN ---
Subjective Diagnoses: -Metabolic encephalopathy and altered mental status: Mostly secondary to acute renal failure rather and urinary tract infection, urine culture showing e.coli on IV abx, EEG completed, possible seizure activity noted, started on oral vimp at. -Acute renal failure most probably prerenal azotemia along with lisinopril and Aldactone contributing to that. losartan, aldactone on hold, creatinine normalized now 0.8. -Hypovolemic hypernatremia, sodium normalized at 141 -Metabolic acidosis both anion gap and non-anion gap secondary to acute renal failure and hypochloremia, resolved. -Finding of a small subdural hematoma as a result of recent removal of ENDOCRINOLOGIST shunt, reviewed reports from [facility] -Abnormal urine: Most probably some chronic bacteria, urine culture showing e.coli, on IV rocephin. -Hypertension, blood pressure currently stable. -Congestive heart failure ischemic cardiomyopathy EF of around 20-25% patient is hypovolemic patient is not in CHF exacerbation patient the heart failure may have improved on repeat echocardiogram. -History of clotting disorder for which patient is on Eliquis: Because of her small subdural hematoma, eliquis is currently on hold, can continue on plavix -Coronary artery disease -History of Stroke -History of hydrocephalus with ENDOCRINOLOGIST shunt, removal in Sep Hospital course: This is a pleasant 70 years old female presents with metabolic encephalopathy secondary to infection with UTI secondary to sensitive E. coli, also she has an evidence of positive blood culture with staph epidermidis, repeat blood culture was negative. Most likely contamination. And patient was discharged on 3 days of antibiotic. Patient was already discharged yesterday to [facility] however she did not go because n addy prior authorization, which was obtained today, no discharge or is placed because the one from yesterday has . 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 She was already cleared for discharge by consultants Problems and management plan were discussed with the patient and he verbalized understanding and acceptance Patient was found stable and can be discharged home however he needs follow-up as an outpatient. Patient was instructed to follow up with PCP within one week a nd patient agrees. Patient also was instructed to follow up with the neurosurgeon Dr. Thacker on 11/18 and she agrees (Please refer to discharge summary from Dr. Babin /Nathaly from yesterday for more details) Physical exam -Gen: patient is a AAOx2-3, confused, no distress CVS: S1-S2, RRR, no murmur Lungs: B/L CTA, no wheezing Abdomen: soft, no distention, no tenderness, positive bowel sounds Extremity: no leg edema or induration Time spent more than 35 minutes Objective - Vital Signs Vital signs: Vital Signs Temp 98.0 F 10/29/21 08:00 Pulse 71 10/29/21 08:00 Resp 16 10/29/21 08:00 BP 111/65 10/29/21 08:00 Pulse Ox 100 10/29/21 08:00 Intake & Output 10/28/21 10/29/21 10/29/21 18:59 06:59 18:59 Intake Total 780 250 Balance 780 250 Intake: Oral 780 250 Other: Voiding Method Diaper Incontinent Incontinent # Voids 2 3 # Bowel Movements 1 - Labs CBC & Chem 7: 10/27/21 05:22 10/27/21 05:22 Labs: Microbiology - Last 24 Hours (Table) 10/24/21 00:17 Blood Culture - Preliminary Blood No Growth after 120 hours 10/24/21 00:01 Blood Culture Gram Stain - Final Blood Blood Culture - Final Staphylococcus epidermidis
== END 2021-10-29 10:34 | DRG 682 ==
LOC: EC 23:00 → 4SSUR 10-24 03:48
PROVIDERS: ADMIT Hospitalist; ATTEND Hospitalist
DX: N17.9 Acute kidney failure, unspecified (principal); G93.41 Metabolic encephalopathy; E87.0 Hyperosmolality and hypernatremia; E87.1 Hypo-osmolality and hyponatremia; E87.2 Acidosis; I50.22 Chronic systolic (congestive) heart failure; N39.0 Urinary tract infection, site not specified; E72.12 Methylenetetrahydrofolate reductase deficiency; G91.2 (Idiopathic) normal pressure hydrocephalus; B96.20 Unspecified Escherichia coli [E. coli] as the cause of diseases classified elsewhere; E78.5 Hyperlipidemia, unspecified; E86.0 Dehydration; E86.1 Hypovolemia; E87.8 Other disorders of electrolyte and fluid balance, not elsewhere classified; F03.90 Unspecified dementia, unspecified severity, without behavioral disturbance, psychotic disturbance, mood disturbance, and anxiety; F32.A Depression, unspecified; F41.9 Anxiety disorder, unspecified; G93.89 Other specified disorders of brain; I11.0 Hypertensive heart disease with heart failure; I25.10 Atherosclerotic heart disease of native coronary artery without angina pectoris; I25.2 Old myocardial infarction; I25.5 Ischemic cardiomyopathy; Z87.440 Personal history of urinary (tract) infections; Z87.01 Personal history of pneumonia (recurrent); Z86.16 Personal history of COVID-19; Z79.899 Other long term (current) drug therapy; Z79.02 Long term (current) use of antithrombotics/antiplatelets; Z79.01 Long term (current) use of anticoagulants; Z20.822 Contact with and (suspected) exposure to COVID-19; Z98.2 Presence of cerebrospinal fluid drainage device; Z95.5 Presence of coronary angioplasty implant and graft; Z90.710 Acquired absence of both cervix and uterus; Z87.891 Personal history of nicotine dependence; F41.8 Other specified anxiety disorders; K21.9 Gastro-esophageal reflux disease without esophagitis; M48.02 Spinal stenosis, cervical region
CPT/HCPCS: 36415; 70450; 70551; 71045; 80048; 80053; 81001; 82607; 82746; 83605; 83735; 84443; 84484; 85025; 85027; 85610; 85730; 87040; 87077; 87086; 87186; 87635; 93005; 94760; 95816; 96361; 96365; 99285

== ENCOUNTER 2021-11-26 16:00 | Emergency (ER) | payer MEDICARE ==
[2021-11-26 16:21] VITALS: RESP 18; TEMP 97.1
[2021-11-26] MEDS ORDERED: SODIUM CHLORIDE 0.9% 500 ML 500 ML IV ONE (17:10)
[2021-11-26 17:25] LABS: Basophils % (A) 0 %; Eosinophils # (A) 0.2 k/uL (0-0.7); Eosinophils % (A) 2 %; HCT 32.8 % (34.0-46.0); HGB 10.3 gm/dL (11.4-16.0); Hypochromasia Marked; Lymphocytes # (A) 1.9 k/uL (1.0-4.8); Lymphocytes % (A) 29 %; MCH 25.9 pg (25.0-35.0); MCHC 31.3 g/dL (31.0-37.0); MCV 82.7 fL (80.0-100.0); Mean Platelet Volume 8.4; Monocytes # (A) 0.4 k/uL (0-1.0); Monocytes % (A) 6 %; Neutrophils # (A) 3.9 k/uL (1.3-7.7); Neutrophils % (A) 60 %; Platelet Count 224 k/uL (150-450); Poikilocytosis Slight; RBC 3.96 m/uL (3.80-5.40); RDW 15.3 % (11.5-15.5); WBC 6.4 k/uL (3.8-10.6)
--- NOTE | 2021-11-26 17:43 | XR ---
EXAMINATION TYPE: XR chest 1V portable DATE OF EXAM: 11/26/2021 5:35 PM COMPARISON:Chest radiographs from 10/23/2021 TECHNIQUE: XR chest 1V portable Frontal view of the chest. CLINICAL INDICATION:Female, 70 years old with history of altered mental status; FINDINGS: Lungs/Pleura: There is no evidence of pleural effusion, focal consolidation, or pneumothorax. Pulmonary vascularity: Unremarkable. Heart/mediastinum: Cardiomediastinal silhouette is unremarkable. Musculoskeletal: No acute osseous pathology. Other findings: None Lines/Tubes:Ventriculoperitoneal shunt tubing noted along the right aspect of the radiograph. IMPRESSION: 1. No acute cardiopulmonary disease/process. 2. Ventriculoperitoneal shunt tubing appears intact. 3.
[2021-11-26 17:45] LABS: ALT 22 U/L (4-34); AST 33 U/L (14-36); African American GFR (CKD) >90 (>60 ml/min/1.73 sqM); Albumin 3.8 g/dL (3.5-5.0); Alkaline Phosphatase 103 U/L (38-126); Blood Urea Nitrogen 22 mg/dL (7-17); Calcium 9.1 mg/dL (8.4-10.2); Carbon Dioxide 26 mmol/L (22-30); Glucose 99 mg/dL (74-99); Non-African American GFR(CKD) 81 (>60 ml/min/1.73 sqM); Partial Thromboplastin Time 22.4 sec (22.0-30.0); Potassium 3.9 mmol/L (3.5-5.1); Prothrombin Time 11.2 sec (9.0-12.0); Sodium 141 mmol/L (137-145); Total Bilirubin 0.6 mg/dL (0.2-1.3); Total Protein 6.9 g/dL (6.3-8.2)
--- NOTE | 2021-11-26 18:12 | CT ---
EXAMINATION TYPE: CT brain wo con CT DLP: 1099 mGycm, Automated exposure control for dose reduction was used. DATE OF EXAM: 11/26/2021 5:52 PM COMPARISON:Prior CT Brain from 10/27/2021. CLINICAL INDICATION:Female, 70 years old with history of Altered mental status, TECHNIQUE: Brain: Multiple axial CT images of the brain were obtained without IV contrast. FINDINGS: Brain: Extra-axial spaces: No abnormal extra-axial fluid collections. Ventricular system: Post ventriculostomy tubing changes. Resolution of prior high density blood produ cts seen layering dependently in the posterior horns of the lateral ventricles. The transverse dimens ion through the lateral ventricles are slightly smaller on today's exam compared to prior on 10/27/2021 previously 58 mm now measuring 51 mm in transverse dimension. Fourth ventricle also demonstrates dec rease in transverse dimension compared to prior previously 17 mm currently 15 mm. Cerebral parenchyma: No acute intraparenchymal hemorrhage or mass effect. The garcias-white junction is well differentiated. Cerebellum: Unremarkable. Mass effect: No evidence of midline shift. Intracranial vasculature: Atherosclerotic calcifications of the intracranial vessels. Soft tissues: Normal. Calvarium/osseous structures: No depressed skull fracture. Persistent right frontal maddison hole from pr ior ventriculoperitoneal shunt tubing. Paranasal sinuses and mastoid air cells: Clear, similar trace fluid within the right mastoid air cell s. Visualized orbits: Orbital contents are intact. IMPRESSION: 1. Interval resolution of prior intraventricular hemorrhage seen in the posterior horns on prior. 2. Minimally decreased size of the lateral and fourth ventricles when compared to prior. 3. Redemonstration of right frontal maddison hole and track related to previous ventriculoperitoneal william nt catheter.
[2021-11-26 18:22] VITALS: BP 121/78; PULSE 88
[2021-11-26 18:25] LABS: Appearance,Urine Clear (Clear); Bacteria,Urine Few /hpf; Bilirubin,Urine Negative (Negative); Blood,Urine Negative (Negative); Color,Urine Yellow; Glucose,Urine (UA) Negative (Negative); Ketones,Urine Negative (Negative); Leukocyte Esterase,Urine Large (Negative); Mucus,Urine Rare /hpf; Nitrite,Urine Negative (Negative); PH, Urine 6.5 (5.0-8.0); Protein,Urine Negative (Negative); RBC,Urine 2 /hpf (0-5); Specific Gravity,Urine 1.023 (1.001-1.035); Squamous Epithelial Cell,Urine 1 /hpf (0-4); WBC,Urine 36 /hpf (0-5)
[2021-11-26 18:31] LABS: Anion Gap 7 mmol/L; Chloride 108 mmol/L (98-107)
--- NOTE | 2021-11-26 19:13 | ED ---
General Adult HPI - General Chief complaint: Altered Mental Status Stated complaint: AMS Time Seen by Provider: 11/26/21 17:05 Source: patient, EMS, RN notes reviewed, old records reviewed Mode of arrival: EMS Limitations: altered mental status - History of Present Illness Initial comments: 70-year-old female from [facility] for evaluation. History is obtained from the paramedics and nursing staff. Patient has baseline history of be alert and oriented to person only. She was recently admitted for confusion within the past one month. According to the [facility] staff the patient is at baseline without any acute changes. There's been no fever. No vomiting. She does have a RN RENAL shunt for history of normal pressure hydrocephalus. pt is unable to verbalize any complaints. - Related Data Home Medications Medication Instructions Recorded Confirmed Clopidogrel [Plavix] 75 mg PO DAILY 09/15/21 11/26/21 Acetaminophen [Tylenol] 650 mg PO Q4H PRN 10/23/21 11/26/21 Ascorbic Acid [Vitamin C] 500 mg PO DAILY 10/23/21 11/26/21 Lactose-Reduced Food [Ensure Plus] 237 ml PO BID 10/23/21 11/26/21 Metoprolol Succinate (ER) [Toprol 25 mg PO DAILY 10/23/21 11/26/21 XL] Multivitamins, Thera [Multivitamin 1 tab PO DAILY 10/23/21 11/26/21 (formulary)] Nitroglycerin Sl Tabs [Nitrostat] 0.4 mg SL Q5M PRN 10/23/21 11/26/21 Sertraline [Zoloft] 25 mg PO BID 10/23/21 11/26/21 Zinc 50 mg PO DAILY 10/23/21 11/26/21 clonazePAM [KlonoPIN] 0.5 mg PO BID 11/26/21 11/26/21 Previous Rx's Medication Instructions Recorded Atorvastatin [Lipitor] 80 mg PO HS #90 tab 06/07/21 Cholecalciferol [Vitamin D3 (125 125 mcg PO DAILY tablet 09/17/21 Mcg = 5000 Iu)] Famotidine [Pepcid] 20 mg PO HS tab 10/28/21 Folic Acid 1 mg PO DAILY tab 10/28/21 Lacosamide [Vimpat] 50 mg PO BID #6 tablet 10/28/21 Allergies Allergy/AdvReac Type Severity Reaction Status Date / Time No Known Allergies Allergy Verified 11/26/21 17:55 Review of Systems ROS Statement: Those systems with pertinent positive or pertinent negative responses have been documented in the HPI. ROS Other: All systems not noted in ROS Statement are negative. 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 SOB with exertion. Hand tremors. Last Myocardial Infarction Date:: unknown History of Any Multi-Drug Resistant Organisms: None Reported Past Surgical History: Section, Hysterectomy, Orthopedic Surgery Additional Past Surgical History / Comment(s): R wrist surgery, Rectocele, Cystocele Past Anesthesia/Blood Transfusion Reactions: No Reported Reaction Past Psychological History: Unable to Obtain Smoking Status: Unknown if ever smoked Past Alcohol Use History: None Reported Past Drug Use History: None Reported - Past Family History Brother(s) Family Medical History: Deep Vein Thrombosis (DVT) General Exam Limitations: altered mental status General appearance: alert, in no apparent distress Head exam: Present: atraumatic, normocephalic Course Vital Signs 11/26/21 11/26/21 16:17 18:21 Temperature 97.1 F L Pulse Rate 84 88 Respiratory 18 18 Rate Blood Pressure 136/62 121/78 O2 Sat by Pulse 99 97 Oximetry EKG Findings - EKG Comments: EKG Findings:: EKG: Sinus rhythm with first-degree AV block no ST segment elevation, rate of 79, [place] interval 214, QRS duration 86, QTC 417 T-wave inversion in precordial leads. Medical Decision Making - Medical Decision Making 70-year-old female with concern for increased confusion. Patient does appear to be at her baseline according to review the medical record and previous urology notes as well as discharge summary. She is afebrile with stable vitals. Head CT is performed which shows improvement in previous skill hemorrhage, no acute findings. She has mild anemia which is baseline. She has normal CMP. She has 36 white cells in the urine. This is treated with ceftriaxone in the emergency department. At this point I feel that this patient is stable for discharge back to the [facility]. - Lab Data Result diagrams: 11/26/21 17:17 11/26/21 17:17 Lab Results 11/26/21 11/26/21 11/26/21 Range/Units 17:17 17:17 17:17 WBC 6.4 (3.8-10.6) k/uL RBC 3.96 (3.80-5.40) m/uL Hgb 10.3 L (11.4-16.0) gm/dL Hct 32.8 L (34.0-46.0) % MCV 82.7 (80.0-100.0) fL MCH 25.9 (25.0-35.0) pg MCHC 31.3 (31.0-37.0) g/dL RDW 15.3 (11.5-15.5) % Plt Count 224 (150-450) k/uL MPV 8.4 Neutrophils % 60 % Lymphocytes % 29 % Monocytes % 6 % Eosinophils % 2 % Basophils % 0 % Neutrophils # 3.9 (1.3-7.7) k/uL Lymphocytes # 1.9 (1.0-4.8) k/uL Monocytes # 0.4 (0-1.0) k/uL Eosinophils # 0.2 (0-0.7) k/uL Basophils # 0.0 (0-0.2) k/uL Hypochromasia Marked Poikilocytosis Slight PT 11.2 (9.0-12.0) sec INR 1.0 (<1.2) APTT 22.4 (22.0-30.0) sec Sodium 141 (137-145) mmol/L Potassium 3.9 (3.5-5.1) mmol/L Chloride 108 H (98-107) mmol/L Carbon Dioxide 26 (22-30) mmol/L Anion Gap 7 mmol/L BUN 22 H (7-17) mg/dL Creatinine 0.76 (0.52-1.04) mg/dL Est GFR (CKD-EPI)AfAm >90 (>60 ml/min/1.73 sqM) Est GFR (CKD-EPI)NonAf 81 (>60 ml/min/1.73 sqM) Glucose 99 (74-99) mg/dL Calcium 9.1 (8.4-10.2) mg/dL Total Bilirubin 0.6 (0.2-1.3) mg/dL AST 33 (14-36) U/L ALT 22 (4-34) U/L Alkaline Phosphatase 103 (38-126) U/L Total Protein 6.9 (6.3-8.2) g/dL Albumin 3.8 (3.5-5.0) g/dL Urine Color Urine Appearance (Clear) Urine pH (5.0-8.0) Ur Specific [place] (1.001-1.035) Urine Protein (Negative) Urine Glucose (UA) (Negative) Urine Ketones (Negative) Urine Blood (Negative) Urine Nitrite (Negative) Urine Bilirubin (Negative) Urine Urobilinogen (<2.0) mg/dL Ur Leukocyte Esterase (Negative) Urine RBC (0-5) /hpf Urine WBC (0-5) /hpf Ur Squamous Epith Cells (0-4) /hpf Urine Bacteria (None) /hpf Urine Mucus (None) /hpf 11/26/21 Range/Units 18:06 WBC (3.8-10.6) k/uL RBC (3.80-5.40) m/uL Hgb (11.4-16.0) gm/dL Hct (34.0-46.0) % MCV (80.0-100.0) fL MCH (25.0-35.0) pg MCHC (31.0-37.0) g/dL RDW (11.5-15.5) % Plt Count (150-450) k/uL MPV Neutrophils % % Lymphocytes % % Monocytes % % Eosinophils % % Basophils % % Neutrophils # (1.3-7.7) k/uL Lymphocytes # (1.0-4.8) k/uL Monocytes # (0-1.0) k/uL Eosinophils # (0-0.7) k/uL Basophils # (0-0.2) k/uL Hypochromasia Poikilocytosis PT (9.0-12.0) sec INR (<1.2) APTT (22.0-30.0) sec Sodium (137-145) mmol/L Potassium (3.5-5.1) mmol/L Chloride (98-107) mmol/L Carbon Dioxide (22-30) mmol/L Anion Gap mmol/L BUN (7-17) mg/dL Creatinine (0.52-1.04) mg/dL Est GFR (CKD-EPI)AfAm (>60 ml/min/1.73 sqM) Est GFR (CKD-EPI)NonAf (>60 ml/min/1.73 sqM) Glucose (74-99) mg/dL Calcium (8.4-10.2) mg/dL Total Bilirubin (0.2-1.3) mg/dL AST (14-36) U/L ALT (4-34) U/L Alkaline Phosphatase (38-126) U/L Total Protein (6.3-8.2) g/dL Albumin (3.5-5.0) g/dL Urine Color Yellow Urine Appearance Clear (Clear) Urine pH 6.5 (5.0-8.0) Ur Specific [place] 1.023 (1.001-1.035) Urine Protein Negative (Negative) Urine Glucose (UA) Negative (Negative) Urine Ketones Negative (Negative) Urine Blood Negative (Negative) Urine Nitrite Negative (Negative) Urine Bilirubin Negative (Negative) Urine Urobilinogen 2.0 (<2.0) mg/dL Ur Leukocyte Esterase Large H (Negative) Urine RBC 2 (0-5) /hpf Urine WBC 36 H (0-5) /hpf Ur Squamous Epith Cells 1 (0-4) /hpf Urine Bacteria Few H (None) /hpf Urine Mucus Rare H (None) /hpf Disposition Clinical Impression: UTI (urinary tract infection) Disposition: HOME SELF-CARE Condition: Fair Instructions (If sedation given, give patient instructions): Urinary Tract Infection in Women (DC) Is patient prescribed a controlled substance at d/c from ED?: No Referrals: Eleazar Elaine MD [Primary Care Provider] - 1-2 days Decision to Admit Reason: Admit from EC Decision Date: 11/26/21 Decision Time: 19:35
[2021-11-26] MEDS ORDERED: cefTRIAXone IN SWFI 1,000 MG/10 ML SYRINGE IVP STA (19:32)
== END 2021-11-26 21:57 | disposition home or self-care (01) ==
LOC: EC 16:00
DX: R41.82 Altered mental status, unspecified (principal); Z86.73 Personal history of transient ischemic attack (TIA), and cerebral infarction without residual deficits
CPT/HCPCS: 36415; 93005; 80053; 85025; 85610; 85730; 81001; 87086; 71045; 70450; 99285; 96374; J0696; 87077; 87186

== ENCOUNTER 2021-12-19 16:26 | Emergency (ER) | payer MEDICARE ==
[2021-12-19 16:43] VITALS: TEMP 98
--- NOTE | 2021-12-19 17:22 | ED ---
General Adult HPI - General Chief complaint: Weakness Stated complaint: Altered LOC Time Seen by Provider: 12/19/21 16:47 Source: EMS, RN notes reviewed Mode of arrival: EMS Limitations: physical limitation - History of Present Illness Initial comments: 71-year-old female presents to the emergency department via EMS from [facility] for evaluation of altered mental status and difficulty to arouse. Patient has a history of hydrocephalus with a recent shunt placement at [facility]. Also has a history of recurrent UTIs. Patient is currently awake. She follows some commands and is oriented to self. Patient does not verbalize any pain and is moving all 4 extremities. Will contact [facility] for additional information. No family present at bedside at this time. - Related Data Home Medications Medication Instructions Recorded Confirmed Clopidogrel [Plavix] 75 mg PO DAILY 09/15/21 11/26/21 Acetaminophen [Tylenol] 650 mg PO Q4H PRN 10/23/21 11/26/21 Ascorbic Acid [Vitamin C] 500 mg PO DAILY 10/23/21 11/26/21 Lactose-Reduced Food [Ensure Plus] 237 ml PO BID 10/23/21 11/26/21 Metoprolol Succinate (ER) [Toprol 25 mg PO DAILY 10/23/21 11/26/21 XL] Multivitamins, Thera [Multivitamin 1 tab PO DAILY 10/23/21 11/26/21 (formulary)] Nitroglycerin Sl Tabs [Nitrostat] 0.4 mg SL Q5M PRN 10/23/21 11/26/21 Sertraline [Zoloft] 25 mg PO BID 10/23/21 11/26/21 Zinc 50 mg PO DAILY 10/23/21 11/26/21 clonazePAM [KlonoPIN] 0.5 mg PO BID 11/26/21 11/26/21 Previous Rx's Medication Instructions Recorded Atorvastatin [Lipitor] 80 mg PO HS #90 tab 06/07/21 Cholecalciferol [Vitamin D3 (125 125 mcg PO DAILY tablet 09/17/21 Mcg = 5000 Iu)] Famotidine [Pepcid] 20 mg PO HS tab 10/28/21 Folic Acid 1 mg PO DAILY tab 10/28/21 Lacosamide [Vimpat] 50 mg PO BID #6 tablet 10/28/21 Allergies Allergy/AdvReac Type Severity Reaction Status Date / Time No Known Allergies Allergy Verified 11/26/21 17:55 Review of Systems ROS Statement: Those systems with pertinent positive or pertinent negative responses have been documented in the HPI. ROS Other: All systems not noted in ROS Statement are negative. 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 SOB with exertion. Hand tremors. Last Myocardial Infarction Date:: unknown History of Any Multi-Drug Resistant Organisms: None Reported Past Surgical History: Section, Hysterectomy, Orthopedic Surgery Additional Past Surgical History / Comment(s): R wrist surgery, Rectocele, Cystocele Past Anesthesia/Blood Transfusion Reactions: No Reported Reaction Past Psychological History: Unable to Obtain Smoking Status: Unknown if ever smoked Past Alcohol Use History: None Reported Past Drug Use History: None Reported - Past Family History Brother(s) Family Medical History: Deep Vein Thrombosis (DVT) General Exam Limitations: altered mental status (patient is awake, but does not answer questions. She is able to follow some commands. She moans when asked about pain but does not identify or gesture to a source.), physical limitation General appearance: alert Head exam: Present: other (shunt location right parietal area) Eye exam: Present: normal appearance, PERRL, EOMI. Absent: scleral icterus, conjunctival injection ENT exam: Present: mucous membranes dry Neck exam: Present: normal inspection, full ROM. Absent: tenderness, meningismus, lymphadenopathy Respiratory exam: Present: normal lung sounds bilaterally. Absent: respiratory distress, wheezes, rales, rhonchi, stridor, chest wall tenderness Cardiovascular Exam: Present: regular rate, normal rhythm, normal heart sounds GI/Abdominal exam: Present: soft, normal bowel sounds. Absent: distended, tenderness, guarding, rebound, rigid Extremities exam: Present: full ROM (moving all four extremities ), normal capillary refill, other (left lower extremity with nonpittind dependent edema > right side (no edema)). Absent: calf tenderness Neurological exam: Present: alert, other (oriented to self only; follows commands to squeeze hands but unable to assess any further as patient does not respond despite appearance of attention) Psychiatric exam: Present: normal affect Skin exam: Present: warm, dry, intact, pallor Course Vital Signs 0412/19/21 12/19/21 16:27 19:22 20:30 Temperature 98.0 F Pulse Rate 90 83 84 Respiratory 18 18 18 Rate Blood Pressure 127/66 112/69 110/70 O2 Sat by Pulse 96 97 98 Oximetry 12/19/21 21:30 Temperature Pulse Rate 88 Respiratory 16 Rate Blood Pressure 109/66 O2 Sat by Pulse 97 Oximetry - Reevaluation(s) Reevaluation #1: 12/19/21 17:26 Spoke with caregiver at [facility] who reports that since patient's arrival back to their facility after the shunt revision at [facility] in November, patient has not been herself. She is far less active and not nearly as vocal. Staff states she eats very little and just lays in bed all day. 12/19/21 18:00 Patient appears to be resting comfortably at this time. She is not restless nor attempting to climb out of bed. 12/19/21 19:45 Upon reevaluation, patient appears to be resting comfortably and in no acute distress. She is easily arousable to verbal stimulation and follows some commands though only responds with minimal verbal dialogue. Medical Decision Making - Medical Decision Making 71-year-old female with a past medical history of hydrocephalus and recent shunt revision presents to the emergency department from [facility] for evaluation of altered mental status. Upon exam, patient is asleep but is easily arousable to verbal stimulation. Patient is oriented to self only and is able to follow some simple commands. Physical exam findings are unremarkable. Patient is afebrile with stable vital signs. Laboratory studies are unremarkable. Imaging shows no acute changes; shunt series is negative. I did speak with [facility] staff who feel that patient is baseline since returning to them from surgery in November. Patient will be discharged back to longterm for continued care. Instructed to follow up as per facility guidelines. Return parameters noted on paperwork. Attending: Jonathon. - Lab Data Result diagrams: 12/19/21 17:29 12/19/21 17:29 Lab Results 12/19/21 12/19/21 12/19/21 Range/Units 17:29 17:29 17:29 WBC 9.5 (3.8-10.6) k/uL RBC 5.06 (3.80-5.40) m/uL Hgb 12.1 (11.4-16.0) gm/dL Hct 40.6 (34.0-46.0) % MCV 80.2 (80.0-100.0) fL MCH 23.9 L (25.0-35.0) pg MCHC 29.8 L (31.0-37.0) g/dL RDW 15.1 (11.5-15.5) % Plt Count 231 (150-450) k/uL MPV 8.7 Neutrophils % 76 % Lymphocytes % 17 % Monocytes % 4 % Eosinophils % 1 % Basophils % 0 % Neutrophils # 7.2 (1.3-7.7) k/uL Lymphocytes # 1.6 (1.0-4.8) k/uL Monocytes # 0.4 (0-1.0) k/uL Eosinophils # 0.1 (0-0.7) k/uL Basophils # 0.0 (0-0.2) k/uL Hypochromasia Marked PT 12.5 H (9.0-12.0) sec INR 1.2 H (<1.2) APTT 25.9 (22.0-30.0) sec Sodium (137-145) mmol/L Potassium (3.5-5.1) mmol/L Chloride (98-107) mmol/L Carbon Dioxide (22-30) mmol/L Anion Gap mmol/L BUN (7-17) mg/dL Creatinine (0.52-1.04) mg/dL Est GFR (CKD-EPI)AfAm (>60 ml/min/1.73 sqM) Est GFR (CKD-EPI)NonAf (>60 ml/min/1.73 sqM) Glucose (74-99) mg/dL Plasma Lactic Acid Aristides (0.7-2.0) mmol/L Calcium (8.4-10.2) mg/dL Total Bilirubin (0.2-1.3) mg/dL AST (14-36) U/L ALT (4-34) U/L Alkaline Phosphatase (38-126) U/L Troponin I (0.000-0.034) ng/mL Total Protein (6.3-8.2) g/dL Albumin (3.5-5.0) g/dL Urine Color Yellow Urine Appearance Clear (Clear) Urine pH 6.0 (5.0-8.0) Ur Specific [place] 1.031 (1.001-1.035) Urine Protein Trace H (Negative) Urine Glucose (UA) Negative (Negative) Urine Ketones Trace H (Negative) Urine Blood Negative (Negative) Urine Nitrite Negative (Negative) Urine Bilirubin Negative (Negative) Urine Urobilinogen 6.0 (<2.0) mg/dL Ur Leukocyte Esterase Small H (Negative) Urine RBC 3 (0-5) /hpf Urine WBC 4 (0-5) /hpf Ur Squamous Epith Cells 4 (0-4) /hpf Calcium Oxalate Crystal Occasional H (None) /hpf Urine Bacteria Rare H (None) /hpf Urine Mucus Rare H (None) /hpf 12/19/21 12/19/21 12/19/21 Range/Units 17:29 17:29 17:29 WBC (3.8-10.6) k/uL RBC (3.80-5.40) m/uL Hgb (11.4-16.0) gm/dL Hct (34.0-46.0) % MCV (80.0-100.0) fL MCH (25.0-35.0) pg MCHC (31.0-37.0) g/dL RDW (11.5-15.5) % Plt Count (150-450) k/uL MPV Neutrophils % % Lymphocytes % % Monocytes % % Eosinophils % % Basophils % % Neutrophils # (1.3-7.7) k/uL Lymphocytes # (1.0-4.8) k/uL Monocytes # (0-1.0) k/uL Eosinophils # (0-0.7) k/uL Basophils # (0-0.2) k/uL Hypochromasia PT (9.0-12.0) sec INR (<1.2) APTT (22.0-30.0) sec Sodium 148 H (137-145) mmol/L Potassium 3.9 (3.5-5.1) mmol/L Chloride 112 H (98-107) mmol/L Carbon Dioxide 22 (22-30) mmol/L Anion Gap 14 mmol/L BUN 23 H (7-17) mg/dL Creatinine 0.91 (0.52-1.04) mg/dL Est GFR (CKD-EPI)AfAm 74 (>60 ml/min/1.73 sqM) Est GFR (CKD-EPI)NonAf 65 (>60 ml/min/1.73 sqM) Glucose 114 H (74-99) mg/dL Plasma Lactic Acid Aristides 1.1 (0.7-2.0) mmol/L Calcium 9.6 (8.4-10.2) mg/dL Total Bilirubin 0.9 (0.2-1.3) mg/dL AST 35 (14-36) U/L ALT 19 (4-34) U/L Alkaline Phosphatase 92 (38-126) U/L Troponin I <0.012 (0.000-0.034) ng/mL Total Protein 7.5 (6.3-8.2) g/dL Albumin 4.2 (3.5-5.0) g/dL Urine Color Urine Appearance (Clear) Urine pH (5.0-8.0) Ur Specific [place] (1.001-1.035) Urine Protein (Negative) Urine Glucose (UA) (Negative) Urine Ketones (Negative) Urine Blood (Negative) Urine Nitrite (Negative) Urine Bilirubin (Negative) Urine Urobilinogen (<2.0) mg/dL Ur Leukocyte Esterase (Negative) Urine RBC (0-5) /hpf Urine WBC (0-5) /hpf Ur Squamous Epith Cells (0-4) /hpf Calcium Oxalate Crystal (None) /hpf Urine Bacteria (None) /hpf Urine Mucus (None) /hpf - EKG Data EKG shows normal: sinus rhythm Rate: normal EKG Comments: EKG was obtained at 1632 showing sinus rhythm with a ventricular rate of 89, UT interval 194, QRS duration 81, QT/QTC 392/439. - Radiology Data Radiology results: report reviewed, image reviewed Shunt series was obtained. X-ray of the skull shows ventriculostomy catheter appears intact. Postsurgical changes to the neck with hardware in place. X-ray of the abdomen shows ventriculostomy catheter with tip terminating over the right iliac bone. Nonspecific bowel gas pattern without radiographic evidence for acute process. Fecaloma with tip in the rectum present. CT of the brain was obtained. Report was reviewed in its entirety. Impression per Dr. Correa #1. No acute intracranial process. #2. Interval placement of right frontal approach ventriculostomy catheter with tubing. Intact. Dilation of the ventricular system is similar to prior. #3. Remote left basal ganglia lacunar injury. Two-view chest x-ray was obtained. Report was reviewed in its entirety. Impression per Dr. Crouch is no acute cardiopulmonary process. Disposition Clinical Impression: Generalized weakness Disposition: OTHER INSTITUTION NOT DEFINED Condition: Stable Instructions (If sedation given, give patient instructions): Weakness (ED) Additional Instructions: There were no changes seen on the CT of the brain. Follow up with neurosurgeon at [facility] as scheduled for further evaluation and treatment. Return to the emergency department with any new, worsening, or concerning symptoms. Is patient prescribed a controlled substance at d/c from ED?: No Referrals: Eleazar Elaine MD [Primary Care Provider] - 1-2 days Time of Disposition: 20:20 - Out of Hospital Transfer - Req. Specs Out of Hospital Transfer - Requested Specifics: Other Non-Acute (Return to ECF)
[2021-12-19 17:48] LABS: Albumin 4.2 g/dL (3.5-5.0); INR 1.2 (<1.2); Partial Thromboplastin Time 25.9 sec (22.0-30.0); Prothrombin Time 12.5 sec (9.0-12.0); Total Bilirubin 0.9 mg/dL (0.2-1.3); Total Protein 7.5 g/dL (6.3-8.2)
[2021-12-19 17:49] LABS: Basophils % (A) 0 %; Eosinophils # (A) 0.1 k/uL (0-0.7); Eosinophils % (A) 1 %; HCT 40.6 % (34.0-46.0); HGB 12.1 gm/dL (11.4-16.0); Hypochromasia Marked; Lymphocytes # (A) 1.6 k/uL (1.0-4.8); Lymphocytes % (A) 17 %; MCH 23.9 pg (25.0-35.0); MCHC 29.8 g/dL (31.0-37.0); MCV 80.2 fL (80.0-100.0); Mean Platelet Volume 8.7; Monocytes # (A) 0.4 k/uL (0-1.0); Monocytes % (A) 4 %; Neutrophils # (A) 7.2 k/uL (1.3-7.7); Neutrophils % (A) 76 %; Platelet Count 231 k/uL (150-450); RBC 5.06 m/uL (3.80-5.40); RDW 15.1 % (11.5-15.5); WBC 9.5 k/uL (3.8-10.6)
[2021-12-19 17:51] LABS: Appearance,Urine Clear (Clear); Bacteria,Urine Rare /hpf; Bilirubin,Urine Negative (Negative); Blood,Urine Negative (Negative); Calcium 9.6 mg/dL (8.4-10.2); Calcium Oxalate Crystals,Urine Occasional /hpf; Color,Urine Yellow; Glucose,Urine (UA) Negative (Negative); Ketones,Urine Trace (Negative); Leukocyte Esterase,Urine Small (Negative); Mucus,Urine Rare /hpf; Nitrite,Urine Negative (Negative); Potassium 3.9 mmol/L (3.5-5.1); Protein,Urine Trace (Negative); RBC,Urine 3 /hpf (0-5); Specific Gravity,Urine 1.031 (1.001-1.035); Squamous Epithelial Cell,Urine 4 /hpf (0-4); WBC,Urine 4 /hpf (0-5)
--- NOTE | 2021-12-19 18:04 | XR ---
EXAMINATION TYPE: XR chest 2V DATE OF EXAM: 12/19/2021 COMPARISON: Chest radiograph 11/26/2021 HISTORY: Altered level of consciousness, weakness TECHNIQUE: Frontal and lateral views of the chest are obtained. FINDINGS: There is no focal air space opacity, pleural effusion, or pneumothorax seen. The cardiac silhouette size is within normal limits. The osseous structures are intact. IMPRESSION: No acute cardiopulmonary process.
--- NOTE | 2021-12-19 19:22 | CT ---
EXAMINATION TYPE: CT brain wo con CT DLP: 1099.4 mGycm, Automated exposure control for dose reduction was used. DATE OF EXAM: 12/19/2021 7:05 PM COMPARISON: Prior CT Brain from 01/26/2022. CLINICAL INDICATION:Female, 71 years old with history of altered mental status, CLINICAL NURSING COORDINATOR shunt and hydrocep halus, AMS, CLINICAL NURSING COORDINATOR shunt TECHNIQUE: Brain: Multiple axial CT images of the brain were obtained without IV contrast. FINDINGS: Brain: Extra-axial spaces: No abnormal extra-axial fluid collections. Ventricular system: Interval placement of a right frontal approach ventriculostomy catheter with tip terminating in the right lateral ventricle near the right Foramen of Benavides. Similar dilation of the ventricular system. Cerebral parenchyma: Remote left basal ganglia lacunar injury No acute intraparenchymal hemorrhage or mass effect. The garcias-white junction is well differentiated. Cerebellum: Unremarkable. Mass effect: No evidence of midline shift. Intracranial vasculature: Atherosclerotic calcifications of the intracranial vessels. Soft tissues: Ventriculostomy catheter tubing appears intact. Calvarium/osseous structures: No depressed skull fracture. Ventriculostomy catheter changes. Paranasal sinuses and mastoid air cells: Mild scattered paranasal sinus disease. Visualized orbits: Bilateral aphakia IMPRESSION: 1. No acute intracranial process. 2. Interval placement of right frontal approach ventriculostomy catheter with tubing appearing intac t. Dilation of the ventricular system is similar to prior. 3. Remote left basal ganglia lacunar injury.
--- NOTE | 2021-12-19 19:24 | XR ---
EXAMINATION TYPE: XR abdomen 1V DATE OF EXAM: 12/19/2021 7:10 PM INDICATION: Patient age:Female; 71 years old; Reason for study: shunt series; COMPARISON: None. TECHNIQUE: One radiographic view of the abdomen was obtained. FINDINGS: Ventriculostomy tubing tracks along the right lower thorax and into the abdomen pelvis with distal tip projecting over the right iliac bone. Right upper quadrant cholecystectomy clips are pres ent. There is fecaloma within the rectum measuring up to 81 mm. Pelvic phlebolith are present. Bowel gas pattern is nonspecific without dilated loops of small or large bowel. There is no evidence for or ganomegaly or pneumoperitoneum. The osseous structures are intact. Multilevel disc degeneration jimenez ges are seen throughout the spine IMPRESSION: 1. Ventriculostomy catheter with tip terminating over the right iliac bone. 2. Nonspecific bowel gas pattern without radiographic evidence for acute process. 3. Fecaloma within the rectum measuring up to 81 mm.
--- NOTE | 2021-12-19 19:26 | XR ---
EXAMINATION TYPE: XR skull limited DATE OF EXAM: 12/19/2021 7:10 PM INDICATION: Patient age:Female; 71 years old; Reason for study: shunt series; COMPARISON: CT brain same day. TECHNIQUE: 2 view of the skull. FINDINGS: Ventriculostomy catheter appears intact. Multilevel surgical changes to the spine are present with barrera rdware in place. Soft tissues and osseous structures are within normal limits. IMPRESSION: 1. Ventriculostomy catheter appears intact. 2. Postsurgical changes to the neck with hardware in place.
[2021-12-19 21:40] VITALS: BP 109/66; PULSE 88; RESP 16
== END 2021-12-19 22:27 | disposition other institution (70) ==
LOC: EC 16:26
DX: R53.1 Weakness (principal); Z86.73 Personal history of transient ischemic attack (TIA), and cerebral infarction without residual deficits
CPT/HCPCS: 36415; 70250; 70450; 71046; 74018; 80053; 81001; 83605; 84484; 85025; 85610; 85730; 93005; 99285

== ENCOUNTER 2022-01-20 00:41 | Inpatient (IN) | payer OTHER, MEDICARE ==
--- NOTE | 2022-01-20 01:01 | ED ---
GI Bleed HPI - General Chief complaint: GI Bleed Stated complaint: GI bleed Time Seen by Provider: 01/20/22 00:43 Source: patient, EMS, RN notes reviewed Mode of arrival: EMS Limitations: altered mental status - History of Present Illness Initial comments: This is a 71-year-old female who has cognitive impairment which is secondary from a previous stroke. Patient arrives from local nursing facility after having a hemoglobin of 5.8. Patient had a positive Hemoccult at that facility as well. Patient is really unable to give an adequate history due to her chronic dementia. Patient is able to respond but with only one word responses. - Related Data Home Medications Medication Instructions Recorded Confirmed Clopidogrel [Plavix] 75 mg PO DAILY 09/15/21 11/26/21 Acetaminophen [Tylenol] 650 mg PO Q4H PRN 10/23/21 11/26/21 Ascorbic Acid [Vitamin C] 500 mg PO DAILY 10/23/21 11/26/21 Lactose-Reduced Food [Ensure Plus] 237 ml PO BID 10/23/21 11/26/21 Metoprolol Succinate (ER) [Toprol 25 mg PO DAILY 10/23/21 11/26/21 XL] Multivitamins, Thera [Multivitamin 1 tab PO DAILY 10/23/21 11/26/21 (formulary)] Nitroglycerin Sl Tabs [Nitrostat] 0.4 mg SL Q5M PRN 10/23/21 11/26/21 Sertraline [Zoloft] 25 mg PO BID 10/23/21 11/26/21 Zinc 50 mg PO DAILY 10/23/21 11/26/21 clonazePAM [KlonoPIN] 0.5 mg PO BID 11/26/21 11/26/21 Previous Rx's Medication Instructions Recorded Atorvastatin [Lipitor] 80 mg PO HS #90 tab 06/07/21 Cholecalciferol [Vitamin D3 (125 125 mcg PO DAILY tablet 09/17/21 Mcg = 5000 Iu)] Famotidine [Pepcid] 20 mg PO HS tab 10/28/21 Folic Acid 1 mg PO DAILY tab 10/28/21 Lacosamide [Vimpat] 50 mg PO BID #6 tablet 10/28/21 Allergies Allergy/AdvReac Type Severity Reaction Status Date / Time No Known Allergies Allergy Verified 01/20/22 00:56 Review of Systems ROS Statement: Those systems with pertinent positive or pertinent negative responses have been documented in the HPI. Review of systems limited by patient's dementia. Unable to provide review of symptoms. ROS Other: All systems not noted in ROS Statement are negative. 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 SOB with exertion. Hand tremors. Last Myocardial Infarction Date:: unknown History of Any Multi-Drug Resistant Organisms: None Reported Past Surgical History: Section, Hysterectomy, Orthopedic Surgery Additional Past Surgical History / Comment(s): R wrist surgery, Rectocele, Cystocele Past Anesthesia/Blood Transfusion Reactions: No Reported Reaction Past Psychological History: Unable to Obtain Smoking Status: Unknown if ever smoked Past Alcohol Use History: None Reported Past Drug Use History: None Reported - Past Family History Brother(s) Family Medical History: Deep Vein Thrombosis (DVT) General Exam Limitations: altered mental status General appearance: alert, in no apparent distress Head exam: Present: atraumatic, normocephalic, normal inspection Eye exam: Present: normal appearance, PERRL, EOMI. Absent: scleral icterus, conjunctival injection, periorbital swelling ENT exam: Present: normal exam, mucous membranes moist Neck exam: Present: normal inspection. Absent: tenderness, meningismus, lymphadenopathy Respiratory exam: Present: normal lung sounds bilaterally. Absent: respiratory distress, wheezes, rales, rhonchi, stridor Cardiovascular Exam: Present: regular rate, normal rhythm, normal heart sounds. Absent: systolic murmur, diastolic murmur, rubs, gallop, clicks GI/Abdominal exam: Present: soft, normal bowel sounds. Absent: distended, tenderness, guarding, rebound, rigid Rectal exam: Present: heme (+) stool, black stool Extremities exam: Present: normal inspection, full ROM, normal capillary refill. Absent: tenderness, pedal edema, joint swelling, calf tenderness Back exam: Present: normal inspection Neurological exam: Present: alert, CN II-XII intact. Absent: motor sensory deficit Psychiatric exam: Present: normal affect, normal mood Skin exam: Present: warm, dry, intact, normal color. Absent: rash Course Vital Signs 01/20/22 01/20/22 01/20/22 00:47 01:28 02:00 Temperature 97.4 F L Pulse Rate 92 91 90 Respiratory 20 20 20 Rate Blood Pressure 104/50 108/50 105/50 O2 Sat by Pulse 99 97 98 Oximetry - Reevaluation(s) Reevaluation #1: 01/20/22 01:00 I did contact the patient's who is on the road as a note taker. He states that the patient is not a practicing [employer]. I did ask him if she was to receive a blood transfusion his answer was "yes." Although, he told me to call her son. I did make 2 attempts to call the son and I'm still waiting for a call back at 1:37 AM. Patient's Hemoccult is positive. Still awaiting confirmation hemoglobin testing. Suspect this patient will need a blood transfusion. Reevaluation #2: 01/20/22 02:03 Medical record is reviewed Symptoms are unchanged. Hemoglobin is 7.5. Hemoccult was positive. Still awaiting callback from the patient's son to see if blood transfusion is feasible at this patient who is a [employer]. Reevaluation #3: 01/20/22 02:51 Patient hemodynamically stable - Consultations Consultation #1: Case was discussed with the EPC from [facility]. Patient a dmitted to their group with consultation for gastroenterology. Medical Decision Making - Medical Decision Making Patient presents from a local nursing facility for low hemoglobin. Found to have melanotic stool with hemoglobin 7.5 here. This is a significant drop in hemoglobin from early December. [facility] Patient be kept nothing by mouth. Repeat CBC ordered for the morning. Anticoagulants and antiplatelet medications will be held. The case was discussed in detail with ED attending physician. Presentation, findings, treatment plan discussed in detail. Dr. Frye Again, patient unable to give an adequate history of self secondary to dementia and sequlae of stroke. I did speak to the patient's who instructed me to call her son for guidance on whether or not she should receive a blood transfusion as she is a [employer]. Note that the patient is full code - Lab Data Result diagrams: 01/20/22 00:57 01/20/22 00:57 Lab Results 01/20/22 01/20/22 01/20/22 Range/Units 00:57 00:57 00:57 WBC 5.4 (3.8-10.6) k/uL RBC 3.36 L (3.80-5.40) m/uL Hgb 7.5 L D (11.4-16.0) gm/dL Hct 26.8 L (34.0-46.0) % MCV 79.8 L (80.0-100.0) fL MCH 22.2 L (25.0-35.0) pg MCHC 27.8 L (31.0-37.0) g/dL RDW 16.0 H (11.5-15.5) % Plt Count 165 (150-450) k/uL MPV 9.8 Neutrophils % 74 % Lymphocytes % 18 % Monocytes % 5 % Eosinophils % 1 % Basophils % 0 % Neutrophils # 4.0 (1.3-7.7) k/uL Lymphocytes # 1.0 (1.0-4.8) k/uL Monocytes # 0.3 (0-1.0) k/uL Eosinophils # 0.1 (0-0.7) k/uL Basophils # 0.0 (0-0.2) k/uL Hypochromasia Marked Poikilocytosis Moderate PT 12.2 H (9.0-12.0) sec INR 1.1 (<1.2) APTT 23.4 (22.0-30.0) sec Sodium 143 (137-145) mmol/L Potassium 3.6 (3.5-5.1) mmol/L Chloride 112 H (98-107) mmol/L Carbon Dioxide 23 (22-30) mmol/L Anion Gap 8 mmol/L BUN 17 (7-17) mg/dL Creatinine 0.91 (0.52-1.04) mg/dL Est GFR (CKD-EPI)AfAm 74 (>60 ml/min/1.73 sqM) Est GFR (CKD-EPI)NonAf 65 (>60 ml/min/1.73 sqM) Glucose 124 H (74-99) mg/dL Calcium 8.5 (8.4-10.2) mg/dL Total Bilirubin 1.0 (0.2-1.3) mg/dL AST 30 (14-36) U/L ALT 19 (4-34) U/L Alkaline Phosphatase 93 (38-126) U/L Troponin I (0.000-0.034) ng/mL Total Protein 6.3 (6.3-8.2) g/dL Albumin 3.4 L (3.5-5.0) g/dL Amylase 41 (30-110) U/L Lipase 136 (23-300) U/L Stool Occult Blood (Negative) Blood Type Blood Type Recheck Bld Type Recheck Status Antibody Screen Spec Expiration Date 01/20/22 01/20/22 01/20/22 Range/Units 00:57 00:57 01:00 WBC (3.8-10.6) k/uL RBC (3.80-5.40) m/uL Hgb (11.4-16.0) gm/dL Hct (34.0-46.0) % MCV (80.0-100.0) fL MCH (25.0-35.0) pg MCHC (31.0-37.0) g/dL RDW (11.5-15.5) % Plt Count (150-450) k/uL MPV Neutrophils % % Lymphocytes % % Monocytes % % Eosinophils % % Basophils % % Neutrophils # (1.3-7.7) k/uL Lymphocytes # (1.0-4.8) k/uL Monocytes # (0-1.0) k/uL Eosinophils # (0-0.7) k/uL Basophils # (0-0.2) k/uL Hypochromasia Poikilocytosis PT (9.0-12.0) sec INR (<1.2) APTT (22.0-30.0) sec Sodium (137-145) mmol/L Potassium (3.5-5.1) mmol/L Chloride (98-107) mmol/L Carbon Dioxide (22-30) mmol/L Anion Gap mmol/L BUN (7-17) mg/dL Creatinine (0.52-1.04) mg/dL Est GFR (CKD-EPI)AfAm (>60 ml/min/1.73 sqM) Est GFR (CKD-EPI)NonAf (>60 ml/min/1.73 sqM) Glucose (74-99) mg/dL Calcium (8.4-10.2) mg/dL Total Bilirubin (0.2-1.3) mg/dL AST (14-36) U/L ALT (4-34) U/L Alkaline Phosphatase (38-126) U/L Troponin I <0.012 (0.000-0.034) ng/mL Total Protein (6.3-8.2) g/dL Albumin (3.5-5.0) g/dL Amylase (30-110) U/L Lipase (23-300) U/L Stool Occult Blood Positive H (Negative) Blood Type O Negative Blood Type Recheck O Neg Bld Type Recheck Status No Antibody Screen NEGATIVE Spec Expiration Date 01/23/2022 8045 - EKG Data EKG Comments: EKG done at 1:13 AM and agreed gravity ED attending physician reveals sinus rhythm with baseline artifact. Patient does have a first-degree AV block by my calculation with a FL interval of 220 ms. Remainder of the intervals are normal. Normal axis. No evidence of acute ST or T-wave changes. When compared to the previous study from 12/19/2021 there is no significant change. Disposition Clinical Impression: Gastrointestinal bleeding, Dementia, Microcytic hypochromic anemia Disposition: ADMITTED IP TO THIS [facility] Condition: Stable Referrals: Eleazar Elaine MD [Primary Care Provider] - 1-2 days Time of Disposition: 02:02 Decision to Admit Reason: Admit from EC Decision Time: 02:02
[2022-01-20 01:19] LABS: Basophils % (A) 0 %; Eosinophils # (A) 0.1 k/uL (0-0.7); Eosinophils % (A) 1 %; HCT 26.8 % (34.0-46.0); Hypochromasia Marked; Lymphocytes % (A) 18 %; MCH 22.2 pg (25.0-35.0); MCHC 27.8 g/dL (31.0-37.0); MCV 79.8 fL (80.0-100.0); Mean Platelet Volume 9.8; Monocytes # (A) 0.3 k/uL (0-1.0); Monocytes % (A) 5 %; Neutrophils % (A) 74 %; Platelet Count 165 k/uL (150-450); Poikilocytosis Moderate; RBC 3.36 m/uL (3.80-5.40); WBC 5.4 k/uL (3.8-10.6)
[2022-01-20 01:37] LABS: INR 1.1 (<1.2); Partial Thromboplastin Time 23.4 sec (22.0-30.0); Prothrombin Time 12.2 sec (9.0-12.0)
[2022-01-20 01:38] LABS: HGB 7.5 gm/dL (11.4-16.0)
[2022-01-20] MEDS ORDERED: PANTOPRAZOLE 40 MG/10 ML VIAL IVP STA (01:38)
[2022-01-20 01:55] LABS: Albumin 3.4 g/dL (3.5-5.0); Calcium 8.5 mg/dL (8.4-10.2); Potassium 3.6 mmol/L (3.5-5.1); Total Protein 6.3 g/dL (6.3-8.2)
[2022-01-20] MEDS: SODIUM CHLORIDE 0.9% 1,000 ML IV SCH ×2 (02:39→18:54)
[2022-01-20] MEDS ORDERED: ONDANSETRON 4 MG/2 ML VIAL IVP PRN (02:47)
[2022-01-20] MEDS ORDERED: NALOXONE 0.4 MG/ML 1 ML VIAL IV PRN (02:47)
[2022-01-20] MEDS ORDERED: PANTOPRAZOLE 40 MG/10 ML VIAL IV SCH (09:00)
[2022-01-20 09:26] LABS: Anisocytosis Slight; HCT 21.8 % (34.0-46.0); Hypochromasia Marked; MCH 22.2 pg (25.0-35.0); MCV 82.4 fL (80.0-100.0); Mean Platelet Volume 9.3; Platelet Count 140 k/uL (150-450); Poikilocytosis Slight; RBC 2.65 m/uL (3.80-5.40); RDW 16.1 % (11.5-15.5); WBC 3.7 k/uL (3.8-10.6)
[2022-01-20 09:34] LABS: HGB 5.9 gm/dL (11.4-16.0)
--- NOTE | 2022-01-20 10:29 | P.HPIM ---
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 SOB with exertion. Hand tremors. Patient is poor historian so it was obtained from staff and medical records. Patient was sent from [facility] for low hemoglobin. Possible GI bleed. She had a positive Hemoccult at [facility]. Patient is alert awake oriented 1 at baseline per documents 1 the patient and emergency room she was lying bed comfortable, shows more sleepy. Confused and she could not provide information. However patient looks calm does not look in distress. Does not look in pain. Patient is hemodynamically stable. Labs reviewed. Hemoglobin 7.5. Previous reading was 12.1 on 12/19/2021. INR 1.1. BMP and liver enzymes are unremarkable. Occult blood in stool is positive. EKG showing atrial fibrillation with a heart rate of 92 QTC 427, no significant ST-T changes. And emergency room she received Protonix and normal saline at 75 mL/h with GI consult Repeat hemoglobin is 5.9 and she received 1 unit of blood transfusion. Also her delivery she went down to 3.7 and platelet count 140. 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 SOB with exertion. Hand tremors. Last Myocardial Infarction Date:: unknown History of Any Multi-Drug Resistant Organisms: None Reported Past Surgical History: Section, Hysterectomy, Orthopedic Surgery Additional Past Surgical History / Comment(s): R wrist surgery, Rectocele, Cystocele Past Anesthesia/Blood Transfusion Reactions: No Reported Reaction Past Psychological History: Unable to Obtain Smoking Status: Unknown if ever smoked Past Alcohol Use History: None Reported Past Drug Use History: None Reported - Past Family History Brother(s) Family Medical History: Deep Vein Thrombosis (DVT) Medications and Allergies Home Medications Medication Instructions Recorded Confirmed Type Atorvastatin [Lipitor] 80 mg PO HS #90 tab 06/07/21 01/20/22 Rx Clopidogrel [Plavix] 75 mg PO DAILY 09/15/21 01/20/22 History Cholecalciferol [Vitamin D3 (125 125 mcg PO DAILY tablet 09/17/21 01/20/22 Rx Mcg = 5000 Iu)] Acetaminophen [Tylenol] 650 mg PO Q4H PRN 10/23/21 01/20/22 History Lactose-Reduced Food [Ensure Plus] 237 ml PO TID 10/23/21 01/20/22 History Metoprolol Succinate (ER) [Toprol 25 mg PO DAILY 10/23/21 01/20/22 History XL] Multivitamins, Thera [Multivitamin 1 tab PO DAILY 10/23/21 01/20/22 History (formulary)] Nitroglycerin Sl Tabs [Nitrostat] 0.4 mg SL Q5M PRN 10/23/21 01/20/22 History Sertraline [Zoloft] 25 mg PO BID 10/23/21 01/20/22 History Famotidine [Pepcid] 20 mg PO HS tab 10/28/21 01/20/22 Rx Folic Acid 1 mg PO DAILY tab 10/28/21 01/20/22 Rx Lacosamide [Vimpat] 50 mg PO BID #6 tablet 10/28/21 01/20/22 Rx clonazePAM [KlonoPIN] 0.5 mg PO BID 11/26/21 01/20/22 History Apixaban [Eliquis] 5 mg PO BID 01/20/22 01/20/22 History HYDROcodone/APAP 5-325MG [[place] 1 tab PO Q4HR PRN 01/20/22 01/20/22 History 5-325] Triad 1 applic TOPICAL BID 01/20/22 01/20/22 History Allergies Allergy/AdvReac Type Severity Reaction Status Date / Time No Known Allergies Allergy Verified 01/20/22 08:06 Physical Exam Vitals: Vital Signs Temp Pulse Resp BP Pulse Ox 01/20/22 06:00 87 20 112/47 98 01/20/22 04:00 90 20 112/53 97 01/20/22 03:00 94 20 100/58 100 01/20/22 02:00 90 20 105/50 98 01/20/22 01:28 91 20 108/50 97 01/20/22 00:47 97.4 F L 92 20 104/50 99 Intake and Output 01/19/22 01/20/22 01/20/22 22:59 06:59 14:59 Other: Weight 80.286 kg GENERAL: The patient is confused and sleepy, not in any acute distress. Well developed, well nourished. HEENT: Pupils are round and equally reacting to light. EOMI. No scleral icterus. No conjunctival pallor. Normocephalic, atraumatic. No pharyngeal erythema. No thyromegaly. CARDIOVASCULAR: S1 and S2 present. No murmurs, rubs, or gallops. PULMONARY: Chest is clear to auscultation, no wheezing or crackles. ABDOMEN: Soft, nontender, nondistended, normoactive bowel sounds. No palpable organomegaly. MUSCULOSKELETAL: No joint swelling or deformity. EXTREMITIES: No cyanosis, clubbing, or pedal edema. NEUROLOGICAL: Gross neurological examination did not reveal any focal deficits. SKIN: No rashes. No petechiae Results CBC & Chem 7: 01/20/22 08:57 01/20/22 00:57 Labs: Abnormal Lab Results - Last 24 Hours (Table) 01/20/22 01/20/22 01/20/22 Range/Units 00:57 00:57 00:57 RBC 3.36 L (3.80-5.40) m/uL Hgb 7.5 L D (11.4-16.0) gm/dL Hct 26.8 L (34.0-46.0) % MCV 79.8 L (80.0-100.0) fL MCH 22.2 L (25.0-35.0) pg MCHC 27.8 L (31.0-37.0) g/dL RDW 16.0 H (11.5-15.5) % PT 12.2 H (9.0-12.0) sec Chloride 112 H (98-107) mmol/L Glucose 124 H (74-99) mg/dL Albumin 3.4 L (3.5-5.0) g/dL Stool Occult Blood (Negative) 01/20/22 Range/Units 00:57 RBC (3.80-5.40) m/uL Hgb (11.4-16.0) gm/dL Hct (34.0-46.0) % MCV (80.0-100.0) fL MCH (25.0-35.0) pg MCHC (31.0-37.0) g/dL RDW (11.5-15.5) % PT (9.0-12.0) sec Chloride (98-107) mmol/L Glucose (74-99) mg/dL Albumin (3.5-5.0) g/dL Stool Occult Blood Positive H (Negative) Assessment and Plan Assessment: Acute GI bleed Acute blood loss anemia Chronic atrial fibrillation. Rate control History of MTHFR (clotting disorder) History of CVA/TIA History of GERD History of headache and came indicating hydrocephalus History of exertional dyspnea, could be related to her anemia History of hand tremor Plan: This is a pleasant 71 years old female who presents with acute GI bleed. Status post one unit of blood transfusion Continue monitoring hemoglobin Continue with normal saline Continue with Protonix We'll do anemia workup, Start ferrous sulfate Hold the Plavix GI consult Labs and medication were reviewed.. Continue same treatment. Continue with symptomatic treatment. Resume home medication. Monitor lytes and vitals. DVT and GI prophylaxis. Further recommendations depends on the clinical course of the patient DVT prophylaxis: no Subcutaneous heparin, continue with mechanical GI Prophylaxis: Ppi Prognosis is guarded
--- NOTE | 2022-01-20 13:51 | P.CONS ---
History of Present Illness - Reason for Consult Consult date: 01/20/22 GI bleed Requesting physician: Fanny Graff - Chief Complaint anemia - History of Present Illness This a 71-year-old female with cognitive impairment secondary from previous stroke. Patient resides at [facility] and had blood work done with a reported hemoglobin of 5.8 and was sent to the emergency department for further evaluation. Apparently patient also had a positive Hemoccult stool at the facility as well. Patient is unable to give any kind of history. Most of the history is obtained from the chart and from the patient's daughter who is at the bedside. Patient's daughter states she is not aware of any black stool or blood in her stool. She currently on Plavix and Ahlquist, last taken 01/19/2022. She had a EGD colonoscopy with Dr. Kim in April 2015. At that time there was a nonbleeding AVM, and duodenitis. Colonoscopy revealed a cecal polyp status post polypectomy with clip placement and scattered sigmoid diverticulosis. Patient's daughter is at the bedside and states that patient is a Mu-ism and refusing any blood products. Patient does not seem in any distress. She is not moaning in pain. Hemoglobin initially on admission was 7.5 with a drop to 5.9. 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 SOB with exertion. Hand tremors. Last Myocardial Infarction Date:: unknown History of Any Multi-Drug Resistant Organisms: None Reported Past Surgical History: Section, Hysterectomy, Orthopedic Surgery Additional Past Surgical History / Comment(s): R wrist surgery, Rectocele, Cystocele Past Anesthesia/Blood Transfusion Reactions: No Reported Reaction Past Psychological History: Unable to Obtain Smoking Status: Unknown if ever smoked Past Alcohol Use History: None Reported Past Drug Use History: None Reported - Past Family History Brother(s) Family Medical History: Deep Vein Thrombosis (DVT) Medications and Allergies Home Medications Medication Instructions Recorded Confirmed Type Atorvastatin [Lipitor] 80 mg PO HS #90 tab 06/07/21 01/20/22 Rx Clopidogrel [Plavix] 75 mg PO DAILY 09/15/21 01/20/22 History Cholecalciferol [Vitamin D3 (125 125 mcg PO DAILY tablet 09/17/21 01/20/22 Rx Mcg = 5000 Iu)] Acetaminophen [Tylenol] 650 mg PO Q4H PRN 10/23/21 01/20/22 History Lactose-Reduced Food [Ensure Plus] 237 ml PO TID 10/23/21 01/20/22 History Metoprolol Succinate (ER) [Toprol 25 mg PO DAILY 10/23/21 01/20/22 History XL] Multivitamins, Thera [Multivitamin 1 tab PO DAILY 10/23/21 01/20/22 History (formulary)] Nitroglycerin Sl Tabs [Nitrostat] 0.4 mg SL Q5M PRN 10/23/21 01/20/22 History Sertraline [Zoloft] 25 mg PO BID 10/23/21 01/20/22 History Famotidine [Pepcid] 20 mg PO HS tab 10/28/21 01/20/22 Rx Folic Acid 1 mg PO DAILY tab 10/28/21 01/20/22 Rx Lacosamide [Vimpat] 50 mg PO BID #6 tablet 10/28/21 01/20/22 Rx clonazePAM [KlonoPIN] 0.5 mg PO BID 11/26/21 01/20/22 History Apixaban [Eliquis] 5 mg PO BID 01/20/22 01/20/22 History HYDROcodone/APAP 5-325MG [[place] 1 tab PO Q4HR PRN 01/20/22 01/20/22 History 5-325] Triad 1 applic TOPICAL BID 01/20/22 01/20/22 History Allergies Allergy/AdvReac Type Severity Reaction Status Date / Time No Known Allergies Allergy Verified 01/20/22 08:06 Physical Exam Vitals: Vital Signs Temp Pulse Pulse Resp BP BP Pulse Ox 01/20/22 08:00 98.1 F 89 14 117/47 97 01/20/22 06:00 87 20 112/47 98 01/20/22 04:00 90 20 112/53 97 01/20/22 03:00 94 20 100/58 100 01/20/22 02:00 90 20 105/50 98 01/20/22 01:28 91 20 108/50 97 01/20/22 00:47 97.4 F L 92 20 104/50 99 Intake and Output 01/19/22 01/20/22 01/20/22 22:59 06:59 14:59 Other: Weight 80.286 kg General appearance: The patient is alert, nonresponsive. HET: Head is normocephalic and atraumatic. Conjunctiva pink. Sclera anicteric. Neck: Supple without lymphadenopathy. Trachea midline. Heart: S1 S2. Regular rate and rhythm. Lungs: Clear to auscultation. Abdomen: Soft, nontender, nondistended with bowel sounds. No guarding or rigidity. Skin: No rashes. No jaundice. Extremities: Normal skin color and turgor. No pedal edema. Neurological: Patient is mostly nonresponsive. Opens her eyes. Residual weakness from stroke.. Results CBC & Chem 7: 01/20/22 08:57 01/20/22 00:57 Labs: Abnormal Lab Results - Last 24 Hours (Table) 01/20/22 01/20/22 01/20/22 Range/Units 00:57 00:57 00:57 WBC (3.8-10.6) k/uL RBC 3.36 L (3.80-5.40) m/uL Hgb 7.5 L D (11.4-16.0) gm/dL Hct 26.8 L (34.0-46.0) % MCV 79.8 L (80.0-100.0) fL MCH 22.2 L (25.0-35.0) pg MCHC 27.8 L (31.0-37.0) g/dL RDW 16.0 H (11.5-15.5) % Plt Count (150-450) k/uL PT 12.2 H (9.0-12.0) sec Chloride 112 H (98-107) mmol/L Glucose 124 H (74-99) mg/dL Albumin 3.4 L (3.5-5.0) g/dL Stool Occult Blood (Negative) 01/20/22 01/20/22 Range/Units 00:57 08:57 WBC 3.7 L (3.8-10.6) k/uL RBC 2.65 L (3.80-5.40) m/uL Hgb 5.9 L* D (11.4-16.0) gm/dL Hct 21.8 L (34.0-46.0) % MCV (80.0-100.0) fL MCH 22.2 L (25.0-35.0) pg MCHC 27.0 L (31.0-37.0) g/dL RDW 16.1 H (11.5-15.5) % Plt Count 140 L (150-450) k/uL PT (9.0-12.0) sec Chloride (98-107) mmol/L Glucose (74-99) mg/dL Albumin (3.5-5.0) g/dL Stool Occult Blood Positive H (Negative) Assessment and Plan (1) GI bleed Narrative/Plan: 71-year-old female with prior history of CVA who is on Plavix and Ahlquist presented to the emergency department from [facility] on the [place] with concerns for anemia. Patient had an outpatient blood work with a hemoglobin of 5.8. Patient was sent to the emergency department for concerns of GI bleed. She did have a positive occult stool done at the facility as well. On admission she was known to have a hemoglobin of 7.5. Repeat labs today WBC 3.7 hemoglobin 5.9 hematocrit 21.8 platelet count 140,000 INR 1.1 BUN 17 creatinine 0.9 total bilirubin 1.0 AST 30 ALT 19 alk phos 93. Patient is nonresponsive most of history obtained from chart and patient's daughter at the bedside as well as her . Patient is a Mu-ism. Blood was ordered however they are refusing blood transfusion to respect the patient's islam wishes. Patient's states that she does eat pured foods and does drink liquids at [facility]. No reported black stools or blood in her stool. No previous history of peptic ulcer disease. Most recent EGD colonoscopy done in April [address] Kim, again with findings of nonbleeding AVM, duodenitis. Colonoscopy findings of cecal polyp status post polypectomy with clip in 6 scattered sigmoid diverticulosis. At this time discussion was had with both daughter and . Patient and family do not wish to receive blood products. Unsure at this time if they want to proceed with EGD or colonoscopy due to patient's multiple comorbidities and declining health status. We'll again discuss tomorrow regarding proceeding with any endoscopic evaluation. Current Visit: Yes Status: Acute Code(s): K92.2 - GASTROINTESTINAL HEMORRHAGE, UNSPECIFIED SNOMED Code(s): 98737595 (2) Anemia Current Visit: Yes Status: Acute Code(s): D64.9 - ANEMIA, UNSPECIFIED SNOMED Code(s): 418295743 (3) History of CVA (cerebrovascular accident) Current Visit: Yes Status: Acute Code(s): Z86.73 - PRSNL HX OF TIA (TIA), AND CEREB INFRC W/O RESID DEFICITS SNOMED Code(s): 148989625 (4) Occult blood positive stool Current Visit: Yes Status: Acute Code(s): R19.5 - OTHER FECAL ABNORMALITIES SNOMED Code(s): 03262062 Plan: 1. Continue symptomatic and supportive care 2. 1 unit PRBC transfusion ordered, patient is a Jehovah witness and family is refusing any blood products at this time. 3. Consider possible EGD and colonoscopy, however at this time again family is going to discuss whether they want to proceed with any intervention/procedures 4. Hold Plavix and eloquent is 5. Patient may have clear liquid diet 6. Daily CBC Thank you for this consultation, we will continue to follow Dr. Nazia Kim I agree with the dictator's note, documented as a scribe by Eva Hall.
[2022-01-20] MEDS: PANTOPRAZOLE 40 MG/10 ML VIAL IV SCH ×2 (15:26→21:17)
[2022-01-20 17:10] LABS: % Iron Saturation 3.96 (12.00-45.00)
[2022-01-20] MEDS ORDERED: FERROUS SULFATE 325 MG TAB PO SCH (17:30)
[2022-01-20 18:09] LABS: Ferritin 12.2 ng/mL (10.0-291.0)
[2022-01-20] MEDS: FERROUS SULFATE 325 MG TAB PO SCH (18:54)
[2022-01-20 20:04] LABS: Glucose,Whole Blood 106 mg/dL (75-99)
[2022-01-21 02:40] LABS: Amorphous Sediment,Urine Rare /hpf; Appearance,Urine Cloudy (Clear); Bacteria,Urine Many /hpf; Bilirubin,Urine Negative (Negative); Blood,Urine Large (Negative); Color,Urine Yellow; Glucose,Urine (UA) Negative (Negative); Ketones,Urine 1+ (Negative); Leukocyte Esterase,Urine Large (Negative); Mucus,Urine Rare /hpf; Nitrite,Urine Positive (Negative); Protein,Urine Trace (Negative); RBC,Urine 15 /hpf (0-5); Specific Gravity,Urine 1.018 (1.001-1.035); Squamous Epithelial Cell,Urine 1 /hpf (0-4); WBC,Urine 22 /hpf (0-5)
[2022-01-21 06:11] LABS: Glucose,Whole Blood 97 mg/dL (75-99)
[2022-01-21] MEDS: FERROUS SULFATE 325 MG TAB PO SCH ×3 (06:40→18:01)
[2022-01-21 08:05] LABS: Anisocytosis Slight; Hypochromasia Marked; MCH 22.7 pg (25.0-35.0); MCHC 27.6 g/dL (31.0-37.0); MCV 82.3 fL (80.0-100.0); Platelet Count 128 k/uL (150-450); Poikilocytosis Moderate; RDW 16.2 % (11.5-15.5); WBC 2.8 k/uL (3.8-10.6)
[2022-01-21 08:29] LABS: HCT 19.8 % (34.0-46.0); HGB 5.5 gm/dL (11.4-16.0)
[2022-01-21 08:40] LABS: ALT 17 U/L (4-34); AST 31 U/L (14-36); African American GFR (CKD) >90 (>60 ml/min/1.73 sqM); Albumin 2.4 g/dL (3.5-5.0); Alkaline Phosphatase 57 U/L (38-126); Anion Gap 6 mmol/L; Blood Urea Nitrogen 14 mg/dL (7-17); Calcium 7.8 mg/dL (8.4-10.2); Carbon Dioxide 22 mmol/L (22-30); Chloride 116 mmol/L (98-107); Glucose 90 mg/dL (74-99); Non-African American GFR(CKD) 90 (>60 ml/min/1.73 sqM); Potassium 3.7 mmol/L (3.5-5.1); Sodium 144 mmol/L (137-145); Total Bilirubin 0.7 mg/dL (0.2-1.3)
[2022-01-21] MEDS: SODIUM CHLORIDE 0.9% 1,000 ML IV SCH ×2 (09:08→20:13)
[2022-01-21] MEDS: PANTOPRAZOLE 40 MG/10 ML VIAL IV SCH ×2 (09:08→20:15)
[2022-01-21 09:38] VITALS: BMI 29.4
[2022-01-21 11:37] LABS: Glucose,Whole Blood 100 mg/dL (75-99)
--- NOTE | 2022-01-21 13:22 | P.PN ---
Subjective Progress Note Date: 01/21/22 Principal diagnosis: Anemia, GI bleed Is a 71-year-old female with a history of CVA who presented with concerns for GI bleed with findings of low hemoglobin, at the intermediate where she resides. On admission she was noted to have a hemoglobin of 5.9. Labs are consistent with pancytopenia. Patient had been nonverbal yesterday as well as this morning. Patient was difficult to arouse. She did not answer any questions. Today hemoglobin results came back at 5.5. She is a Religious and at this time has been refusing any blood products. Patient was maintained and no CODE STATUS and family have been talking about possible hospice care yesterday. Spoke to patient's son today and he is awaiting his father's arrival to discuss further plan of care and decision making for patient. Objective - Vital Signs Vital signs: Vital Signs Temp 97.6 F 01/21/22 07:41 Pulse 90 01/21/22 07:41 Resp 10 L 01/21/22 07:41 BP 121/67 01/21/22 07:41 Pulse Ox 99 01/21/22 07:41 Intake & Output 01/20/22 01/21/22 01/21/22 18:59 06:59 18:59 Output Total 150 Balance -150 Weight 80.286 kg Output: Urine 150 Other: Voiding Method Diaper Diaper Incontinent External Catheter # Bowel Movements 1 - Exam General appearance: The patient is lethargic, nonverbal, appears in no acute distress. HET: Head is normocephalic and atraumatic. Conjunctiva pink. Sclera anicteric. Neck: Supple without lymphadenopathy. Abdomen: Soft, nontender, nondistended with bowel sounds. No guarding or rigidity. Extremities: Normal skin color and turgor. No pedal edema Skin: No rashes, no jaundice Neurological: Previous CVA, with residual weakness, and nonverbal. - Labs CBC & Chem 7: 01/21/22 07:36 01/21/22 07:36 Labs: Abnormal Lab Results - Last 24 Hours (Table) 01/20/22 01/20/22 01/20/22 Range/Units 00:57 08:57 08:57 WBC 3.7 L (3.8-10.6) k/uL RBC 2.65 L (3.80-5.40) m/uL Hgb 5.9 L* D (11.4-16.0) gm/dL Hct 21.8 L (34.0-46.0) % MCH 22.2 L (25.0-35.0) pg MCHC 27.0 L (31.0-37.0) g/dL RDW 16.1 H (11.5-15.5) % Plt Count 140 L (150-450) k/uL POC Glucose (mg/dL) (75-99) mg/dL Iron 13 L (50-170) ug/dL % Saturation 3.96 L (12.00-45.00) Urine Appearance (Clear) Urine Protein (Negative) Urine Ketones (Negative) Urine Blood (Negative) Urine Nitrite (Negative) Ur Leukocyte Esterase (Negative) Urine RBC (0-5) /hpf Urine WBC (0-5) /hpf Amorphous Sediment (None) /hpf Urine Bacteria (None) /hpf Urine Mucus (None) /hpf Crossmatch See Detail 01/20/22 01/21/22 Range/Units 20:02 01:50 WBC (3.8-10.6) k/uL RBC (3.80-5.40) m/uL Hgb (11.4-16.0) gm/dL Hct (34.0-46.0) % MCH (25.0-35.0) pg MCHC (31.0-37.0) g/dL RDW (11.5-15.5) % Plt Count (150-450) k/uL POC Glucose (mg/dL) 106 H (75-99) mg/dL Iron (50-170) ug/dL % Saturation (12.00-45.00) Urine Appearance Cloudy H (Clear) Urine Protein Trace H (Negative) Urine Ketones 1+ H (Negative) Urine Blood Large H (Negative) Urine Nitrite Positive H (Negative) Ur Leukocyte Esterase Large H (Negative) Urine RBC 15 H (0-5) /hpf Urine WBC 22 H (0-5) /hpf Amorphous Sediment Rare H (None) /hpf Urine Bacteria Many H (None) /hpf Urine Mucus Rare H (None) /hpf Crossmatch Assessment and Plan (1) GI bleed Narrative/Plan: 71-year-old female with prior history of CVA who is on Plavix and Ahlquist presented to the emergency department from [facility] on the [place] with concerns for anemia. Patient had an outpatient blood work with a hemoglobin of 5.8. Patient was sent to the emergency department for concerns of GI bleed. She did have a positive occult stool done at the facility as well. On admission she was known to have a hemoglobin of 7.5. Repeat labs today WBC 3.7 hemoglobin 5.9 hematocrit 21.8 platelet count 140,000 INR 1.1 BUN 17 creatinine 0.9 total bilirubin 1.0 AST 30 ALT 19 alk phos 93. Patient is nonresponsive most of history obtained from chart and patient's daughter at the bedside as well as her . Patient is a Religious. Blood was ordered however they are refusing blood transfusion to respect the patient's congregational wishes. Patient's states that she does eat pured foods and does drink liquids at [facility]. No reported black stools or blood in her stool. No previous history of peptic ulcer disease. Most recent EGD colonoscopy done in April [address] Kim, again with findings of nonbleeding AVM, duodenitis. Colonoscopy findings of cecal polyp status post polypectomy with clip in 6 scattered sigmoid diverticulosis. Repeat hemoglobin today 5.5. Patient was made a no code DO NOT RESUSCITATE. She is Religious and refusing blood products at this time. Awaiting further decision-making by patient's and son on how they want to proceed with plan of care and possible intervention. Current Visit: Yes Status: Acute Code(s): K92.2 - GASTROINTESTINAL HEMORRHAGE, UNSPECIFIED SNOMED Code(s): 81873540 (2) Anemia Narrative/Plan: Patient's family at bedside and stated that patient has changed her mind and will accept blood transfusion. 1 unit PRBC transfusion ordered. Gastroenterology will be signing off as there will be no further coverage. Recommend general surgery consult per primary care physician's choice as patient's family now have decided that they would like to proceed with possible EGD and colonoscopy. Current Visit: Yes Status: Acute Code(s): D64.9 - ANEMIA, UNSPECIFIED SNOMED Code(s): 593376333 (3) History of CVA (cerebrovascular accident) Current Visit: Yes Status: Acute Code(s): Z86.73 - PRSNL HX OF TIA (TIA), AND CEREB INFRC W/O RESID DEFICITS SNOMED Code(s): 268730362 (4) Occult blood positive stool Current Visit: Yes Status: Acute Code(s): R19.5 - OTHER FECAL ABNORMALITIES SNOMED Code(s): 20847688 Plan: 1. Continue symptomatic and supportive care 2. 1 unit PRBC transfusion ordered and recommended, patient is a Jehovah witness and family is refusing any blood products initially. Patient and family now stating they will accept blood products. 3. Consider possible EGD and colonoscopy, however at this time again family is going to discuss whether they want to proceed with any intervention/procedures 4. Hold Plavix and Eliquis 5. Patient may have clear liquid diet 6. Daily CBC 7. Recommend general surgery consultation as there will be no gastroenterology coverage. This can be at the discretion of primary care physician Thank you for allowing us to participate in the care of the patient, the GI service will sign off, gastroenterology will not be available at the hospital this weekend and through next week. If further evaluation by gastroenterology is required the patient will need transfer as per the primary team's discretion. Dr. Nazia Kim I agree with the dictator's note, documented as a scribe by Eva Hall.
[2022-01-21 16:48] LABS: Glucose,Whole Blood 170 mg/dL (75-99)
[2022-01-22] MEDS: FERROUS SULFATE 325 MG TAB PO SCH ×3 (06:05→19:11)
[2022-01-22] MEDS: SODIUM CHLORIDE 0.9% 1,000 ML IV SCH ×2 (06:05→19:52)
[2022-01-22] MEDS: PANTOPRAZOLE 40 MG/10 ML VIAL IV SCH ×2 (09:05→19:52)
[2022-01-22 09:30] LABS: African American GFR (CKD) >90 (>60 ml/min/1.73 sqM); Anion Gap 3 mmol/L; Blood Urea Nitrogen 11 mg/dL (7-17); Calcium 7.4 mg/dL (8.4-10.2); Carbon Dioxide 21 mmol/L (22-30); Chloride 115 mmol/L (98-107); Glucose 81 mg/dL (74-99); Non-African American GFR(CKD) 84 (>60 ml/min/1.73 sqM); Sodium 139 mmol/L (137-145)
[2022-01-22 09:32] LABS: Basophils % (A) 0 %; Eosinophils # (A) 0.1 k/uL (0-0.7); Eosinophils % (A) 3 %; HCT 24.4 % (34.0-46.0); Hypochromasia Marked; Lymphocytes # (A) 1.1 k/uL (1.0-4.8); Lymphocytes % (A) 32 %; MCH 23.8 pg (25.0-35.0); MCHC 29.5 g/dL (31.0-37.0); MCV 80.7 fL (80.0-100.0); Mean Platelet Volume 9.5; Monocytes # (A) 0.2 k/uL (0-1.0); Monocytes % (A) 5 %; Neutrophils % (A) 58 %; Platelet Count 144 k/uL (150-450); Poikilocytosis Marked; RBC 3.02 m/uL (3.80-5.40); WBC 3.5 k/uL (3.8-10.6)
--- NOTE | 2022-01-22 09:34 | P.GSCN ---
History of Present Illness Consult date: 01/22/22 Reason for Consult: GI bleed History of present illness: 71-year-old female with history of previous CVA. Patient found recently be anemic. She has heme positive stools as well. Patient is Gnosticist. No black red or maroon stools. Patient is on Plavix. Last EGD and colonoscopy 7 years ago. 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 SOB with exertion. Hand tremors. Last Myocardial Infarction Date:: unknown History of Any Multi-Drug Resistant Organisms: None Reported Past Surgical History: Section, Hysterectomy, Orthopedic Surgery Additional Past Surgical History / Comment(s): R wrist surgery, Rectocele, Cystocele Past Anesthesia/Blood Transfusion Reactions: No Reported Reaction Date of Last Stent Placement:: 2020 Past Psychological History: Unable to Obtain Smoking Status: Unknown if ever smoked Past Alcohol Use History: None Reported Past Drug Use History: None Reported - Past Family History Brother(s) Family Medical History: Deep Vein Thrombosis (DVT) Medications and Allergies Home Medications Medication Instructions Recorded Confirmed Type Atorvastatin [Lipitor] 80 mg PO HS #90 tab 06/07/21 01/20/22 Rx Clopidogrel [Plavix] 75 mg PO DAILY 09/15/21 01/20/22 History Cholecalciferol [Vitamin D3 (125 125 mcg PO DAILY tablet 09/17/21 01/20/22 Rx Mcg = 5000 Iu)] Acetaminophen [Tylenol] 650 mg PO Q4H PRN 10/23/21 01/20/22 History Lactose-Reduced Food [Ensure Plus] 237 ml PO TID 10/23/21 01/20/22 History Metoprolol Succinate (ER) [Toprol 25 mg PO DAILY 10/23/21 01/20/22 History XL] Multivitamins, Thera [Multivitamin 1 tab PO DAILY 10/23/21 01/20/22 History (formulary)] Nitroglycerin Sl Tabs [Nitrostat] 0.4 mg SL Q5M PRN 10/23/21 01/20/22 History Sertraline [Zoloft] 25 mg PO BID 10/23/21 01/20/22 History Famotidine [Pepcid] 20 mg PO HS tab 10/28/21 01/20/22 Rx Folic Acid 1 mg PO DAILY tab 10/28/21 01/20/22 Rx Lacosamide [Vimpat] 50 mg PO BID #6 tablet 10/28/21 01/20/22 Rx clonazePAM [KlonoPIN] 0.5 mg PO BID 11/26/21 01/20/22 History Apixaban [Eliquis] 5 mg PO BID 01/20/22 01/20/22 History HYDROcodone/APAP 5-325MG [[place] 1 tab PO Q4HR PRN 01/20/22 01/20/22 History 5-325] Triad 1 applic TOPICAL BID 01/20/22 01/20/22 History Allergies Allergy/AdvReac Type Severity Reaction Status Date / Time No Known Allergies Allergy Verified 01/20/22 08:06 Surgical - Exam Vital Signs Temp Pulse Resp BP Pulse Ox 97.4 F L 92 20 104/50 99 01/20/22 00:47 01/20/22 00:47 01/20/22 00:47 01/20/22 00:47 01/20/22 00:47 Physical exam: General: Well-developed, well-nourished, somewhat pale-appearing HEENT: Normocephalic, sclerae nonicteric Abdomen: Nontender, nondistended Extremities: No edema Neuro: Alert and oriented Results - Labs 01/21/22 07:36 01/22/22 08:30 Abnormal Lab Results - Last 24 Hours (Table) 01/20/22 01/21/22 01/21/22 Range/Units 00:57 11:35 16:45 Potassium (3.5-5.1) mmol/L Chloride (98-107) mmol/L Carbon Dioxide (22-30) mmol/L POC Glucose (mg/dL) 100 H 170 H (75-99) mg/dL Calcium (8.4-10.2) mg/dL Crossmatch See Detail 01/22/22 Range/Units 08:30 Potassium 3.0 L (3.5-5.1) mmol/L Chloride 115 H (98-107) mmol/L Carbon Dioxide 21 L (22-30) mmol/L POC Glucose (mg/dL) (75-99) mg/dL Calcium 7.4 L (8.4-10.2) mg/dL Crossmatch Microbiology - Last 24 Hours (Table) 01/21/22 01:50 Urine Culture - Preliminary Urine,Voided Gram Neg Bacilli Diabetes panel 01/22/22 Range/Units 08:30 Sodium 139 (137-145) mmol/L Potassium 3.0 L (3.5-5.1) mmol/L Chloride 115 H (98-107) mmol/L Carbon Dioxide 21 L (22-30) mmol/L BUN 11 (7-17) mg/dL Creatinine 0.74 (0.52-1.04) mg/dL Glucose 81 (74-99) mg/dL Calcium 7.4 L (8.4-10.2) mg/dL Calcium panel 01/22/22 Range/Units 08:30 Calcium 7.4 L (8.4-10.2) mg/dL Pituitary panel 01/22/22 Range/Units 08:30 Sodium 139 (137-145) mmol/L Potassium 3.0 L (3.5-5.1) mmol/L Chloride 115 H (98-107) mmol/L Carbon Dioxide 21 L (22-30) mmol/L BUN 11 (7-17) mg/dL Creatinine 0.74 (0.52-1.04) mg/dL Glucose 81 (74-99) mg/dL Calcium 7.4 L (8.4-10.2) mg/dL Adrenal panel 01/22/22 Range/Units 08:30 Sodium 139 (137-145) mmol/L Potassium 3.0 L (3.5-5.1) mmol/L Chloride 115 H (98-107) mmol/L Carbon Dioxide 21 L (22-30) mmol/L BUN 11 (7-17) mg/dL Creatinine 0.74 (0.52-1.04) mg/dL Glucose 81 (74-99) mg/dL Calcium 7.4 L (8.4-10.2) mg/dL Assessment and Plan (1) GI bleed Narrative/Plan: 71-year-old female with GI bleed and anemia. Plan upper and lower endoscopy on Monday. Hold anticoagulation. Current Visit: Yes Status: Acute Code(s): K92.2 - GASTROINTESTINAL HEMORRHAGE, UNSPECIFIED SNOMED Code(s): 51010794
[2022-01-22 09:38] LABS: HGB 7.2 gm/dL (11.4-16.0)
[2022-01-22] MEDS ORDERED: POTASSIUM CHLORIDE 20 MEQ in WATER FOR INJECTION 1 100ML.BAG IVPB ONE (14:00)
--- NOTE | 2022-01-22 18:29 | P.PN ---
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 SOB with exertion. Hand tremors. Patient is poor historian so it was obtained from staff and medical records. Patient was sent from [facility] for low hemoglobin. Possible GI bleed. She had a positive Hemoccult at [facility]. Patient is alert awake oriented 1 at baseline p er documents 1 the patient and emergency room she was lying bed comfortable, shows more sleepy. Confused and she could not provide information. However patient looks calm does not look in distress. Does not look in pain. Patient is hemodynamically stable. Labs reviewed. Hemoglobin 7.5. Previous reading was 12.1 on 12/19/2021. INR 1.1. BMP and liver enzymes are unremarkable. Occult blood in stool is positive. EKG showing atrial fibrillation with a heart rate of 92 QTC 427, no significant ST-T changes. And emergency room she received Protonix and normal saline at 75 mL/h with GI consult Repeat hemoglobin is 5.9 and she received 1 unit of blood transfusion. Also her delivery she went down to 3.7 and platelet count 140. Objective - Vital Signs Vital signs: Vital Signs Temp 97.6 F 01/21/22 07:41 Pulse 90 01/21/22 07:41 Resp 10 L 01/21/22 07:41 BP 121/67 01/21/22 07:41 Pulse Ox 99 01/21/22 07:41 Intake & Output 01/20/22 01/21/22 01/21/22 18:59 06:59 18:59 Output Total 150 Balance -150 Weight 80.286 kg 80.286 kg Output: Urine 150 Other: Voiding Method Diaper Diaper Diaper Incontinent External Catheter External Catheter # Bowel Movements 1 - Exam GENERAL: The patient is confused and sleepy, not in any acute distress. Well developed, well nourished. HEENT: Pupils are round and equally reacting to light. EOMI. No scleral icterus. No conjunctival pallor. Normocephalic, atraumatic. No pharyngeal erythema. No thyromegaly. CARDIOVASCULAR: S1 and S2 present. No murmurs, rubs, or gallops. PULMONARY: Chest is clear to auscultation, no wheezing or crackles. ABDOMEN: Soft, nontender, nondistended, normoactive bowel sounds. No palpable organomegaly. MUSCULOSKELETAL: No joint swelling or deformity. EXTREMITIES: No cyanosis, clubbing, or pedal edema. NEUROLOGICAL: Gross neurological examination did not reveal any focal deficits. SKIN: No rashes. No petechiae - Labs CBC & Chem 7: 01/22/22 08:30 01/22/22 08:30 Labs: Abnormal Lab Results - Last 24 Hours (Table) 01/20/22 01/20/22 01/20/22 Range/Units 00:57 08:57 20:02 WBC (3.8-10.6) k/uL RBC (3.80-5.40) m/uL Hgb (11.4-16.0) gm/dL Hct (34.0-46.0) % MCH (25.0-35.0) pg MCHC (31.0-37.0) g/dL RDW (11.5-15.5) % Plt Count (150-450) k/uL Chloride (98-107) mmol/L POC Glucose (mg/dL) 106 H (75-99) mg/dL Calcium (8.4-10.2) mg/dL Iron 13 L (50-170) ug/dL % Saturation 3.96 L (12.00-45.00) Total Protein (6.3-8.2) g/dL Albumin (3.5-5.0) g/dL Urine Appearance (Clear) Urine Protein (Negative) Urine Ketones (Negative) Urine Blood (Negative) Urine Nitrite (Negative) Ur Leukocyte Esterase (Negative) Urine RBC (0-5) /hpf Urine WBC (0-5) /hpf Amorphous Sediment (None) /hpf Urine Bacteria (None) /hpf Urine Mucus (None) /hpf Crossmatch See Detail 01/21/22 01/21/22 01/21/22 Range/Units 01:50 07:36 07:36 WBC 2.8 L (3.8-10.6) k/uL RBC 2.40 L (3.80-5.40) m/uL Hgb 5.5 L* (11.4-16.0) gm/dL Hct 19.8 L* (34.0-46.0) % MCH 22.7 L (25.0-35.0) pg MCHC 27.6 L (31.0-37.0) g/dL RDW 16.2 H (11.5-15.5) % Plt Count 128 L (150-450) k/uL Chloride 116 H (98-107) mmol/L POC Glucose (mg/dL) (75-99) mg/dL Calcium 7.8 L (8.4-10.2) mg/dL Iron (50-170) ug/dL % Saturation (12.00-45.00) Total Protein 5.0 L (6.3-8.2) g/dL Albumin 2.4 L (3.5-5.0) g/dL Urine Appearance Cloudy H (Clear) Urine Protein Trace H (Negative) Urine Ketones 1+ H (Negative) Urine Blood Large H (Negative) Urine Nitrite Positive H (Negative) Ur Leukocyte Esterase Large H (Negative) Urine RBC 15 H (0-5) /hpf Urine WBC 22 H (0-5) /hpf Amorphous Sediment Rare H (None) /hpf Urine Bacteria Many H (None) /hpf Urine Mucus Rare H (None) /hpf Crossmatch Assessment and Plan Assessment: Acute GI bleed Acute blood loss anemia Chronic atrial fibrillation. Rate control History of MTHFR (clotting disorder) History of CVA/TIA History of GERD History of headache and came indicating hydrocephalus History of exertional dyspnea, could be related to her anemia History of hand tremor Plan: This is a pleasant 71 years old female who presents with acute GI bleed. Status post one unit of blood transfusion Continue monitoring hemoglobin Continue with normal saline Continue with Protonix We'll do anemia workup, Start ferrous sulfate Hold the Plavix GI consult Labs and medication were reviewed.. Continue same treatment. Continue with symptomatic treatment. Resume home medication. Monitor lytes and vitals. DVT and GI prophylaxis. Further recommendations depends on the clinical course of the patient DVT prophylaxis: no Subcutaneous heparin, continue with mechanical GI Prophylaxis: Ppi Prognosis is guarded
--- NOTE | 2022-01-22 18:31 | P.PN ---
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 SOB with exertion. Hand tremors. Patient is poor historian so it was obtained from staff and medical records. Patient was sent from [facility] for low hemoglobin. Possible GI bleed. She had a positive Hemoccult at [facility]. Patient is alert awake oriented 1 at baseline p er documents 1 the patient and emergency room she was lying bed comfortable, shows more sleepy. Confused and she could not provide information. However patient looks calm does not look in distress. Does not look in pain. Patient is hemodynamically stable. Labs reviewed. Hemoglobin 7.5. Previous reading was 12.1 on 12/19/2021. INR 1.1. BMP and liver enzymes are unremarkable. Occult blood in stool is positive. EKG showing atrial fibrillation with a heart rate of 92 QTC 427, no significant ST-T changes. And emergency room she received Protonix and normal saline at 75 mL/h with GI consult Repeat hemoglobin is 5.9 and she received 1 unit of blood transfusion. Also her delivery she went down to 3.7 and platelet count 140. 01/22/2022 Patient is seen and evaluated in room at bedside; more awake and alert Vital signs are reviewed and remained stable Labs are reviewed; hemoglobin 5.5 yesterday; had detailed discussion with risks and prognosis given severe anemia yesterday with patient's and 3 children at bedside; patient continues to refuse but later in the evening agreed for transfusion; hemoglobin at 7.2 this morning Chemical profile reveals potassium of 3.0; we will supplement with 20 mEq of KCl IV 1; continue to monitor electrolytes Gen. surgery is consulted with plans for EGD and colonoscopy possibly Monday Objective - Vital Signs Vital signs: Vital Signs Temp 97.7 F 01/22/22 08:30 Pulse 78 01/22/22 08:30 Resp 16 01/22/22 08:30 BP 111/50 01/22/22 08:30 Pulse Ox 96 01/22/22 08:30 Intake & Output 01/21/22 01/22/22 01/22/22 18:59 06:59 18:59 Intake Total 2140 1245 Output Total 550 300 Balance 1590 945 Weight 80.286 kg Intake: IV 900 1125 Sodium Chloride 0.9% 1, 900 1125 000 ml @ 75 mls/hr IV . [id number] [facility] Rx#:[id number] Oral 620 120 Blood Product 620 Rc As-1 Unit 310 [id number] Output: Urine 550 300 Other: Voiding Method Diaper Diaper External Catheter External Catheter # Bowel Movements 2 - Exam GENERAL: The patient is confused and sleepy, not in any acute distress. Well developed, well nourished. HEENT: Pupils are round and equally reacting to light. EOMI. No scleral icterus. No conjunctival pallor. Normocephalic, atraumatic. No pharyngeal erythema. No thyromegaly. CARDIOVASCULAR: S1 and S2 present. No murmurs, rubs, or gallops. PULMONARY: Chest is clear to auscultation, no wheezing or crackles. ABDOMEN: Soft, nontender, nondistended, normoactive bowel sounds. No palpable organomegaly. MUSCULOSKELETAL: No joint swelling or deformity. EXTREMITIES: No cyanosis, clubbing, or pedal edema. NEUROLOGICAL: Gross neurological examination did not reveal any focal deficits. SKIN: No rashes. No petechiae - Labs CBC & Chem 7: 01/22/22 08:30 01/22/22 08:30 Labs: Abnormal Lab Results - Last 24 Hours (Table) 01/20/22 01/21/22 01/22/22 Range/Units 00:57 16:45 08:30 WBC 3.5 L (3.8-10.6) k/uL RBC 3.02 L (3.80-5.40) m/uL Hgb 7.2 L D (11.4-16.0) gm/dL Hct 24.4 L (34.0-46.0) % MCH 23.8 L (25.0-35.0) pg MCHC 29.5 L (31.0-37.0) g/dL RDW 16.0 H (11.5-15.5) % Plt Count 144 L (150-450) k/uL Potassium (3.5-5.1) mmol/L Chloride (98-107) mmol/L Carbon Dioxide (22-30) mmol/L POC Glucose (mg/dL) 170 H (75-99) mg/dL Calcium (8.4-10.2) mg/dL Crossmatch See Detail 01/22/22 Range/Units 08:30 WBC (3.8-10.6) k/uL RBC (3.80-5.40) m/uL Hgb (11.4-16.0) gm/dL Hct (34.0-46.0) % MCH (25.0-35.0) pg MCHC (31.0-37.0) g/dL RDW (11.5-15.5) % Plt Count (150-450) k/uL Potassium 3.0 L (3.5-5.1) mmol/L Chloride 115 H (98-107) mmol/L Carbon Dioxide 21 L (22-30) mmol/L POC Glucose (mg/dL) (75-99) mg/dL Calcium 7.4 L (8.4-10.2) mg/dL Crossmatch Microbiology - Last 24 Hours (Table) 01/21/22 01:50 Urine Culture - Preliminary Urine,Voided Gram Neg Bacilli Assessment and Plan Assessment: Acute GI bleed Acute blood loss anemia Chronic atrial fibrillation. Rate control History of MTHFR (clotting disorder) History of CVA/TIA History of GERD History of headache and came indicating hydrocephalus History of exertional dyspnea, could be related to her anemia History of hand tremor Plan: This is a pleasant 71 years old female who presents with acute GI bleed. Status post one unit of blood transfusion Continue monitoring hemoglobin Continue with normal saline Continue with Protonix We'll do anemia workup, Start ferrous sulfate Hold the Plavix GI consult Labs and medication were reviewed.. Continue same treatment. Continue with s ymptomatic treatment. Resume home medication. Monitor lytes and vitals. DVT and GI prophylaxis. Further recommendations depends on the clinical course of the patient DVT prophylaxis: no Subcutaneous heparin, continue with mechanical GI Prophylaxis: Ppi Prognosis is guarded
[2022-01-22 22:32] LABS: HCT 28.1 % (34.0-46.0); HGB 8.4 gm/dL (11.4-16.0); Hypochromasia Marked; MCHC 29.8 g/dL (31.0-37.0); MCV 80.4 fL (80.0-100.0); Mean Platelet Volume 7.5; Platelet Count 143 k/uL (150-450); Poikilocytosis Marked; WBC 6.4 k/uL (3.8-10.6)
[2022-01-23] MEDS: FERROUS SULFATE 325 MG TAB PO SCH ×3 (06:08→16:55)
[2022-01-23 07:22] LABS: African American GFR (CKD) >90 (>60 ml/min/1.73 sqM); Anion Gap 11 mmol/L; Blood Urea Nitrogen 6 mg/dL (7-17); Calcium 7.3 mg/dL (8.4-10.2); Carbon Dioxide 16 mmol/L (22-30); Chloride 112 mmol/L (98-107); Glucose 88 mg/dL (74-99); Non-African American GFR(CKD) >90 (>60 ml/min/1.73 sqM); Potassium 3.1 mmol/L (3.5-5.1); Sodium 139 mmol/L (137-145)
[2022-01-23] MEDS: PANTOPRAZOLE 40 MG/10 ML VIAL IV SCH ×2 (07:59→22:03)
--- NOTE | 2022-01-23 10:25 | P.PN ---
Subjective Progress Note Date: 01/23/22 Principal diagnosis: GI bleeding Patient without new complaints. Morning labs are pending. No active bleeding overnight. No pain. Objective - Vital Signs Vital signs: Vital Signs Temp 97.3 F L 01/23/22 07:50 Pulse 77 01/23/22 07:50 Resp 17 01/23/22 07:50 BP 119/55 01/23/22 07:50 Pulse Ox 99 01/23/22 07:50 Intake & Output 01/22/22 01/23/22 01/23/22 18:59 06:59 18:59 Intake Total 1245 Output Total 300 Balance 945 Intake: IV 1125 Sodium Chloride 0.9% 1, 1125 000 ml @ 75 mls/hr IV . [id number] [facility] Rx#:[id number] Oral 120 Output: Urine 300 Other: Voiding Method Diaper Diaper Incontinent External Catheter External Catheter # Voids 1 # Bowel Movements 1 1 - Exam Abdomen: Soft, nontender, nondistended - Labs CBC & Chem 7: 01/22/22 22:09 01/23/22 06:38 Labs: Abnormal Lab Results - Last 24 Hours (Table) 01/22/22 01/23/22 Range/Units 22:09 06:38 RBC 3.50 L (3.80-5.40) m/uL Hgb 8.4 L (11.4-16.0) gm/dL Hct 28.1 L (34.0-46.0) % MCH 24.0 L (25.0-35.0) pg MCHC 29.8 L (31.0-37.0) g/dL RDW 16.0 H (11.5-15.5) % Plt Count 143 L (150-450) k/uL Potassium 3.1 L (3.5-5.1) mmol/L Chloride 112 H (98-107) mmol/L Carbon Dioxide 16 L (22-30) mmol/L BUN 6 L (7-17) mg/dL Calcium 7.3 L (8.4-10.2) mg/dL Microbiology - Last 24 Hours (Table) 01/21/22 01:50 Urine Culture - Preliminary Urine,Voided Gram Neg Bacilli Assessment and Plan (1) GI bleed Narrative/Plan: Patient doing well today. Will prep for upper and lower endoscopy tomorrow. Follow hemoglobin. Current Visit: Yes Status: Acute Code(s): K92.2 - GASTROINTESTINAL HEMORRHAGE, UNSPECIFIED SNOMED Code(s): 32701727
[2022-01-23] MEDS ORDERED: PEG 3350-NA SULF,BICARB,CL/KCL 4,000 ML BOTTLE PO ONE (12:00)
[2022-01-23] MEDS ORDERED: POTASSIUM CHLORIDE 20 MEQ in WATER FOR INJECTION 1 100ML.BAG IVPB ONE (13:00)
[2022-01-23] MEDS: SODIUM CHLORIDE 0.9% 1,000 ML IV SCH (13:36)
--- NOTE | 2022-01-23 16:44 | P.PN ---
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 SOB with exertion. Hand tremors. Patient is poor historian so it was obtained from staff and medical records. Patient was sent from [facility] for low hemoglobin. Possible GI bleed. She had a positive Hemoccult at [facility]. Patient is alert awake oriented 1 at baseline p er documents 1 the patient and emergency room she was lying bed comfortable, shows more sleepy. Confused and she could not provide information. However patient looks calm does not look in distress. Does not look in pain. Patient is hemodynamically stable. Labs reviewed. Hemoglobin 7.5. Previous reading was 12.1 on 12/19/2021. INR 1.1. BMP and liver enzymes are unremarkable. Occult blood in stool is positive. EKG showing atrial fibrillation with a heart rate of 92 QTC 427, no significant ST-T changes. And emergency room she received Protonix and normal saline at 75 mL/h with GI consult Repeat hemoglobin is 5.9 and she received 1 unit of blood transfusion. Also her delivery she went down to 3.7 and platelet count 140. 01/22/2022 Patient is seen and evaluated in room at bedside; more awake and alert Vital signs are reviewed and remained stable Labs are reviewed; hemoglobin 5.5 yesterday; had detailed discussion with risks and prognosis given severe anemia yesterday with patient's and 3 children at bedside; patient continues to refuse but later in the evening agreed for transfusion; hemoglobin at 7.2 this morning Chemical profile reveals potassium of 3.0; we will supplement with 20 mEq of KCl IV 1; continue to monitor electrolytes Gen. surgery is consulted with plans for EGD and colonoscopy possibly Monday01/23/2022 Patient is seen and evaluated sitting up in bedside chair/recliner; family members are at bedside; discussed with nursing staff; no significant events; patient is more awake and alert Lab review reveals hemoglobin of 8.4 posttransfusion; no further episodes of bleeding; potassium at 3.1; we will supplement with 20 mg of KCl IV 1 Patient is being followed by general surgery and plan is to proceed with EGD/colonoscopy tomorrow morning; we will continue to monitor hemoglobin closely and transfuse as needed Objective - Vital Signs Vital signs: Vital Signs Temp 97.3 F L 01/23/22 07:50 Pulse 77 01/23/22 07:50 Resp 17 01/23/22 07:50 BP 119/55 01/23/22 07:50 Pulse Ox 99 01/23/22 07:50 Intake & Output 01/22/22 01/23/22 01/23/22 18:59 06:59 18:59 Intake Total 1245 Output Total 300 Balance 945 Intake: IV 1125 Sodium Chloride 0.9% 1, 1125 000 ml @ 75 mls/hr IV . [id number] [facility] Rx#:[id number] Oral 120 Output: Urine 300 Other: Voiding Method Diaper Diaper Incontinent External Catheter External Catheter # Voids 1 # Bowel Movements 1 1 1 - Exam GENERAL: The patient is confused and sleepy, not in any acute distress. Well developed, well nourished. HEENT: Pupils are round and equally reacting to light. EOMI. No scleral icterus. No conjunctival pallor. Normocephalic, atraumatic. No pharyngeal erythema. No thyromegaly. CARDIOVASCULAR: S1 and S2 present. No murmurs, rubs, or gallops. PULMONARY: Chest is clear to auscultation, no wheezing or crackles. ABDOMEN: Soft, nontender, nondistended, normoactive bowel sounds. No palpable organomegaly. MUSCULOSKELETAL: No joint swelling or deformity. EXTREMITIES: No cyanosis, clubbing, or pedal edema. NEUROLOGICAL: Gross neurological examination did not reveal any focal deficits. SKIN: No rashes. No petechiae - Labs CBC & Chem 7: 01/22/22 22:09 01/23/22 06:38 Labs: Abnormal Lab Results - Last 24 Hours (Table) 01/22/22 01/23/22 Range/Units 22:09 06:38 RBC 3.50 L (3.80-5.40) m/uL Hgb 8.4 L (11.4-16.0) gm/dL Hct 28.1 L (34.0-46.0) % MCH 24.0 L (25.0-35.0) pg MCHC 29.8 L (31.0-37.0) g/dL RDW 16.0 H (11.5-15.5) % Plt Count 143 L (150-450) k/uL Potassium 3.1 L (3.5-5.1) mmol/L Chloride 112 H (98-107) mmol/L Carbon Dioxide 16 L (22-30) mmol/L BUN 6 L (7-17) mg/dL Calcium 7.3 L (8.4-10.2) mg/dL Microbiology - Last 24 Hours (Table) 01/21/22 01:50 Urine Culture - Final Urine,Voided Escherichia coli Assessment and Plan Assessment: Acute GI bleed Acute blood loss anemia Chronic atrial fibrillation. Rate control History of MTHFR (clotting disorder) History of CVA/TIA History of GERD History of headache and came indicating hydrocephalus History of exertional dyspnea, could be related to her anemia History of hand tremor Plan: This is a pleasant 71 years old female who presents with acute GI bleed. Status post one unit of blood transfusion Continue monitoring hemoglobin Continue with normal saline Continue with Protonix We'll do anemia workup, Start ferrous sulfate Hold the Plavix GI consult Labs and medication were reviewed.. Continue same treatment. Continue with symptomatic treatment. Resume home medication. Monitor lytes and vitals. DVT and GI prophylaxis. Further recommendations depends on the clinical course of the patient DVT prophylaxis: no Subcutaneous heparin, continue with mechanical GI Prophylaxis: Ppi Prognosis is guarded
[2022-01-24] MEDS: SODIUM CHLORIDE 0.9% 1,000 ML IV SCH ×2 (00:30→16:57)
[2022-01-24] MEDS: FERROUS SULFATE 325 MG TAB PO SCH ×3 (06:32→17:00)
[2022-01-24 08:42] LABS: Anisocytosis Slight; Basophils % (A) 1 %; Eosinophils # (A) 0.1 k/uL (0-0.7); Eosinophils % (A) 2 %; HCT 27.8 % (34.0-46.0); HGB 8.4 gm/dL (11.4-16.0); Hypochromasia Marked; Lymphocytes # (A) 1.4 k/uL (1.0-4.8); Lymphocytes % (A) 30 %; MCH 23.9 pg (25.0-35.0); MCHC 30.4 g/dL (31.0-37.0); MCV 78.6 fL (80.0-100.0); Mean Platelet Volume 9.6; Microcytosis Slight; Monocytes # (A) 0.4 k/uL (0-1.0); Monocytes % (A) 7 %; Neutrophils # (A) 2.7 k/uL (1.3-7.7); Neutrophils % (A) 56 %; Platelet Count 136 k/uL (150-450); Poikilocytosis Marked; RBC 3.53 m/uL (3.80-5.40); RDW 17.2 % (11.5-15.5); WBC 4.7 k/uL (3.8-10.6)
[2022-01-24 09:45] LABS: African American GFR (CKD) >90 (>60 ml/min/1.73 sqM); Anion Gap 10 mmol/L; Blood Urea Nitrogen 5 mg/dL (7-17); Carbon Dioxide 16 mmol/L (22-30); Chloride 119 mmol/L (98-107); Glucose 86 mg/dL (74-99); Non-African American GFR(CKD) >90 (>60 ml/min/1.73 sqM); Sodium 145 mmol/L (137-145)
[2022-01-24] MEDS: PANTOPRAZOLE 40 MG/10 ML VIAL IV SCH ×2 (09:46→21:45)
[2022-01-24 10:03] LABS: Calcium 6.3 mg/dL (8.4-10.2); Potassium 4.8 mmol/L (3.5-5.1)
[2022-01-24] MEDS ORDERED: PROPOFOL 10 MG/ML 20 ML VIAL IV ONE (14:05)
[2022-01-24] MEDS ORDERED: LIDOCAINE 2% INJ 20 MG/ML (2 ML VIAL) ONE (14:05)
[2022-01-24] MEDS ORDERED: IV FLUID CONTINUATION 1,000 ML IV ONE ×2 (14:06)
--- NOTE | 2022-01-24 14:30 | P.OP ---
Date of Procedure: 01/24/22 Preoperative Diagnosis: GI bleed Postoperative Diagnosis: Mild antral gastritis Diverticulosis Procedure(s) Performed: EGD Colonoscopy Anesthesia: MAC Surgeon: Marciano Anderson Pathology: other (Antrum) Condition: stable Disposition: PACU Description of Procedure: Patient's placed on the endoscopy table in the lateral position. She received IV sedation. The gastro-/oropharynx passed in the esophagus into the stomach. Scope was placed through the pylorus. The first and second portion of the duodenum appeared normal. Scope was then brought back the antrum this. Mildly inflamed. A biopsies performed. The scope was then retroflexed and remainder stomach appeared normal. The GE junction was at 40 cm the distal esophagus appeared normal. The proximal esophagus appeared normal. Scope withdrawn for patient. Next digital rectal exam is performed. There was a few minimal external hemorrhoids. The flexible colonoscope was then placed patient anus passed rotator entire colon. The ileocecal valve was visualized. Cecum, ascending and transverse colon appeared all. In the descending; there is mild diverticulosis. Scope was then brought back the rectum this appeared normal. Scope withdrawn for patient. There was no evidence of any active upper or lower GI bleed. His presumed lillie ent may have bleeding from hemorrhoids or diverticular changes.
[2022-01-24] MEDS ORDERED: CALCIUM GLUCONATE IN NACL 1 GM in SALINE 1 100ML.BAG IVPB ONE (17:05)
--- NOTE | 2022-01-24 17:15 | P.PN ---
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 SOB with exertion. Hand tremors. Patient is poor historian so it was obtained from staff and medical records. Patient was sent from [facility] for low hemoglobin. Possible GI bleed. She had a positive Hemoccult at [facility]. Patient is alert awake oriented 1 at baseline per documents 1 the patient and emergency room she was lying bed comfortable, shows more sleepy. Confused and she could not provide information. However patient looks calm does not look in distress. Does not look in pain. Patient is hemodynamically stable. Labs reviewed. Hemoglobin 7.5. Previous reading was 12.1 on 12/19/2021. INR 1.1. BMP and liver enzymes are unremarkable. Occult blood in stool is positive. EKG showing atrial fibrillation with a heart rate of 92 QTC 427, no significant ST-T changes. And emergency room she received Protonix and normal saline at 75 mL/h with GI consult Repeat hemoglobin is 5.9 and she received 1 unit of blood transfusion. Also her delivery she went down to 3.7 and platelet count 140. 01/22/2022 Patient is seen and evaluated in room at bedside; more awake and alert Vital signs are reviewed and remained stable Labs are reviewed; hemoglobin 5.5 yesterday; had detailed discussion with risks and prognosis given severe anemia yesterday with patient's and 3 children at bedside; patient continues to refuse but later in the evening agreed for transfusion; hemoglobin at 7.2 this morning Chemical profile reveals potassium of 3.0; we will supplement with 20 mEq of KCl IV 1; continue to monitor electrolytes Gen. surgery is consulted with plans for EGD and colonoscopy possibly Monday01/23/2022 Patient is seen and evaluated sitting up in bedside chair/recliner; family members are at bedside; discussed with nursing staff; no significant events; patient is more awake and alert Lab review reveals hemoglobin of 8.4 posttransfusion; no further episodes of bleeding; potassium at 3.1; we will supplement with 20 mg of KCl IV 1 Patient is being followed by general surgery and plan is to proceed with EGD/colonoscopy tomorrow morning; we will continue to monitor hemoglobin closely and transfuse as needed 01/24/2022, resuming the care of the patient today from Dr. aquino Patient this morning was still confused, does not follow commands. However she does not look in distress. She is hemodynamically stable. Also hemoglobin is stable at 8.4. Platelet 136. Patient kept on ceftriaxone for UTI with E. coli which is sensitive. Also normal saline 75 mg on Protonix IV twice daily. Underwent EGD and colonoscopy today which were negative for significant abnormality to explain patient suspected GI bleed. Patient has mild external hemorrhoids. Patient continued on Protonix and Carafate. Patient started on CHOP diet by surgery after the procedure. Plavix and Eliquis remain on hold until cleared by surgery team Objective - Vital Signs Vital signs: Vital Signs Temp 98.1 F 01/24/22 04:00 Pulse 79 01/24/22 11:20 Resp 16 01/24/22 11:20 BP 125/59 01/24/22 11:20 Pulse Ox 100 01/24/22 11:20 Intake & Output 01/23/22 01/24/22 01/24/22 18:59 06:59 18:59 Intake Total 2600 0 Balance 2600 0 Intake: IV 1000 Potassium Chloride 20 meq 100 In Water For Injection 1 100ml.bag @ 50 mls/hr IVPB ONCE ONE Rx#: [id number] Sodium Chloride 0.9% 1, 900 000 ml @ 75 mls/hr IV . [id number] [facility] Rx#:[id number] Oral 1600 0 Other: Voiding Method Incontinent Incontinent Incontinent # Voids 1 1 # Bowel Movements 1 1 - Exam -GENERAL: The patient is confused, not in any acute distress. Well developed, well nourished. HEENT: Pupils are round and equally reacting to light. EOMI. No scleral icterus. No conjunctival pallor. Normocephalic, atraumatic. No pharyngeal erythema. No thyromegaly. CARDIOVASCULAR: S1 and S2 present. No murmurs, rubs, or gallops. PULMONARY: Chest is clear to auscultation, no wheezing or crackles. ABDOMEN: Soft, nontender, nondistended, normoactive bowel sounds. No palpable organomegaly. MUSCULOSKELETAL: No joint swelling or deformity. EXTREMITIES: No cyanosis, clubbing, or pedal edema. NEUROLOGICAL: Gross neurological examination did not reveal any focal deficits. SKIN: No rashes. no petechiae. - Labs CBC & Chem 7: 01/24/22 08:07 01/24/22 08:07 Labs: Abnormal Lab Results - Last 24 Hours (Table) 01/24/22 01/24/22 Range/Units 08:07 08:07 RBC 3.53 L (3.80-5.40) m/uL Hgb 8.4 L (11.4-16.0) gm/dL Hct 27.8 L (34.0-46.0) % MCV 78.6 L (80.0-100.0) fL MCH 23.9 L (25.0-35.0) pg MCHC 30.4 L (31.0-37.0) g/dL RDW 17.2 H (11.5-15.5) % Plt Count 136 L (150-450) k/uL Chloride 119 H (98-107) mmol/L Carbon Dioxide 16 L (22-30) mmol/L BUN 5 L (7-17) mg/dL Calcium 6.3 L* (8.4-10.2) mg/dL Microbiology - Last 24 Hours (Table) 01/21/22 01:50 Urine Culture - Final Urine,Voided Escherichia coli Assessment and Plan Assessment: Acute GI bleed. EGD showed mild gastritis, colonoscopy showing mild external hemorrhoids, no other significant abnormality Acute blood loss anemia Chronic atrial fibrillation. Rate control History of MTHFR (clotting disorder) History of CVA/TIA History of GERD History of headache and came indicating hydrocephalus History of exertional dyspnea, could be related to her anemia History of hand tremor Plan: This is a pleasant 71 years old female who presents with acute GI bleed. Status post one unit of blood transfusion Continue monitoring hemoglobin Continue with normal saline Continue with Protonix Start ferrous sulfate Hold the Plavix and Eliquis Surgery team consult Labs and medication were reviewed.. Continue same treatment. Continue with symptomatic treatment. Resume home medication. Monitor lytes and vitals. DVT and GI prophylaxis. Further recommendations depends on the clinical course of the patient DVT prophylaxis: no Subcutaneous heparin, continue with mechanical GI Prophylaxis: Ppi Prognosis is guarded
[2022-01-25] MEDS: SODIUM CHLORIDE 0.9% 1,000 ML IV SCH ×2 (04:44→11:59)
[2022-01-25] MEDS: FERROUS SULFATE 325 MG TAB PO SCH ×3 (06:31→17:31)
[2022-01-25 09:42] LABS: Anisocytosis Slight; Basophils % (A) 0 %; Eosinophils # (A) 0.1 k/uL (0-0.7); Eosinophils % (A) 3 %; HCT 26.2 % (34.0-46.0); HGB 7.8 gm/dL (11.4-16.0); Hypochromasia Marked; Lymphocytes # (A) 0.9 k/uL (1.0-4.8); Lymphocytes % (A) 30 %; MCHC 29.5 g/dL (31.0-37.0); MCV 81.4 fL (80.0-100.0); Mean Platelet Volume 8.7; Monocytes # (A) 0.1 k/uL (0-1.0); Monocytes % (A) 5 %; Neutrophils # (A) 1.8 k/uL (1.3-7.7); Neutrophils % (A) 61 %; Platelet Count 144 k/uL (150-450); Poikilocytosis Marked; RBC 3.22 m/uL (3.80-5.40); RDW 17.5 % (11.5-15.5)
[2022-01-25 09:45] LABS: African American GFR (CKD) >90 (>60 ml/min/1.73 sqM); Anion Gap 7 mmol/L; Blood Urea Nitrogen 3 mg/dL (7-17); Calcium 7.9 mg/dL (8.4-10.2); Carbon Dioxide 18 mmol/L (22-30); Chloride 113 mmol/L (98-107); Glucose 96 mg/dL (74-99); Magnesium 1.7 mg/dL (1.6-2.3); Non-African American GFR(CKD) >90 (>60 ml/min/1.73 sqM); Potassium 2.8 mmol/L (3.5-5.1); Sodium 138 mmol/L (137-145)
[2022-01-25] MEDS: PANTOPRAZOLE 40 MG/10 ML VIAL IV SCH ×2 (10:05→20:55)
[2022-01-25] MEDS ORDERED: MAGNESIUM SULFATE-D5W PMX 1 GM in DEXTROSE/WATER 1 100ML.BAG IVPB ONE (13:23)
--- NOTE | 2022-01-25 13:24 | P.PN ---
Subjective Progress Note Date: 01/25/22 CHIEF COMPLAINT: GI bleed HISTORY OF PRESENT ILLNESS: Patient is status post EGD and colonoscopy revealing mild antral gastritis and diverticulosis. There is no evidence of active bleed. It's presumed patient may have had bleeding from hemorrhoids or diverticular changes. Hemoglobin has From 8.4-7.8. No active bleeding reported per nursing staff. Potassium is 2.8 and magnesium 1.7 PHYSICAL EXAM: VITAL SIGNS: Reviewed. GENERAL: Well-developed in no acute distress. HEENT: No sclera icterus. Extraocular movements grossly intact. Moist buccal mucosa. Head is atraumatic, normocephalic. ABDOMEN: Soft. Nondistended. Nontender. ASSESSMENT: 1. Acute GI bleed status post EGD and colonoscopy revealing mild antral gastritis, diverticulosis, hemorrhoids. No evidence of active bleeding 2. Acute blood loss anemia 3. Hypokalemia and hypomagnesemia PLAN: -Continue to hold Plavix and Eliquis -Continue to monitor hemoglobin -Continue monitoring for any signs or symptoms of bleeding -Continue PPI -Continue dysphagia chopped diet -Replace magnesium and potassium Physician Headwaitress note has been reviewed by physician. Signing provider agrees with the documented findings, assessment, and plan of care. Objective - Vital Signs Vital signs: Vital Signs Temp 98.1 F 01/25/22 12:01 Pulse 73 01/25/22 12:03 Resp 18 01/25/22 12:03 BP 122/68 01/25/22 12:01 Pulse Ox 99 01/25/22 12:01 Intake & Output 01/24/22 01/25/22 01/25/22 18:59 06:59 18:59 Intake Total 200 600 950 Balance 200 600 950 Weight 80.286 kg Intake: IV 200 600 Sodium Chloride 0.9% 1, 600 000 ml @ 75 mls/hr IV . [id number] [facility] Rx#:[id number] Intake, IV Titration 950 Amount Sodium Chloride 0.9% 1, 900 000 ml @ 75 mls/hr IV . [id number] [facility] Rx#:[id number] cefTRIAXone 1 gm In 50 Sodium Chloride 0.9% 50 ml @ 100 mls/hr IVPB Q24HR [facility] Rx#:[id number] Oral 0 Other: Voiding Method Incontinent Incontinent Incontinent # Voids 1 1 - Labs CBC & Chem 7: 01/25/22 08:31 01/25/22 08:31 Labs: Abnormal Lab Results - Last 24 Hours (Table) 01/25/22 01/25/22 Range/Units 08:31 08:31 WBC 3.0 L (3.8-10.6) k/uL RBC 3.22 L (3.80-5.40) m/uL Hgb 7.8 L (11.4-16.0) gm/dL Hct 26.2 L (34.0-46.0) % MCH 24.0 L (25.0-35.0) pg MCHC 29.5 L (31.0-37.0) g/dL RDW 17.5 H (11.5-15.5) % Plt Count 144 L (150-450) k/uL Lymphocytes # 0.9 L (1.0-4.8) k/uL Potassium 2.8 L (3.5-5.1) mmol/L Chloride 113 H (98-107) mmol/L Carbon Dioxide 18 L (22-30) mmol/L BUN 3 L (7-17) mg/dL Calcium 7.9 L (8.4-10.2) mg/dL
[2022-01-25] MEDS: POTASSIUM CHLORIDE ER 20 MEQ TAB.ER PO SCH ×3 (13:27→17:29)
[2022-01-25] MEDS ORDERED: Potassium Replacement Protocol 1 EACH MISC MISCELLANE PRN (18:27)
[2022-01-25] MEDS ORDERED: Magnesium Replacement Protocol 1 EACH MISC MISCELLANE PRN (18:27)
[2022-01-25] MEDS ORDERED: POTASSIUM CHLORIDE ER 20 MEQ TAB.ER PO STA (18:27)
[2022-01-25] MEDS ORDERED: POTASSIUM CHLORIDE 10 MEQ in WATER FOR INJECTION 1 100ML.BAG IVPB STA (18:28)
--- NOTE | 2022-01-25 18:36 | P.PN ---
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 SOB with exertion. Hand tremors. Patient is poor historian so it was obtained from staff and medical records. Patient was sent from [facility] for low hemoglobin. Possible GI bleed. She had a positive Hemoccult at [facility]. Patient is alert awake oriented 1 at baseline per documents 1 the patient and emergency room she was lying bed comfortable, shows more sleepy. Confused and she could not provide information. However patient looks calm does not look in distress. Does not look in pain. Patient is hemodynamically stable. Labs reviewed. Hemoglobin 7.5. Previous reading was 12.1 on 12/19/2021. INR 1.1. BMP and liver enzymes are unremarkable. Occult blood in stool is positive. EKG showing atrial fibrillation with a heart rate of 92 QTC 427, no significant ST-T changes. And emergency room she received Protonix and normal saline at 75 mL/h with GI consult Repeat hemoglobin is 5.9 and she received 1 unit of blood transfusion. Also her delivery she went down to 3.7 and platelet count 140. 01/22/2022 Patient is seen and evaluated in room at bedside; more awake and alert Vital signs are reviewed and remained stable Labs are reviewed; hemoglobin 5.5 yesterday; had detailed discussion with risks and prognosis given severe anemia yesterday with patient's and 3 children at bedside; patient continues to refuse but later in the evening agreed for transfusion; hemoglobin at 7.2 this morning Chemical profile reveals potassium of 3.0; we will supplement with 20 mEq of KCl IV 1; continue to monitor electrolytes Gen. surgery is consulted with plans for EGD and colonoscopy possibly Monday01/23/2022 Patient is seen and evaluated sitting up in bedside chair/recliner; family members are at bedside; discussed with nursing staff; no significant events; patient is more awake and alert Lab review reveals hemoglobin of 8.4 posttransfusion; no further episodes of bleeding; potassium at 3.1; we will supplement with 20 mg of KCl IV 1 Patient is being followed by general surgery and plan is to proceed with EGD/colonoscopy tomorrow morning; we will continue to monitor hemoglobin closely and transfuse as needed 01/24/2022, resuming the care of the patient today from Dr. aquino Patient this morning was still confused, does not follow commands. However she does not look in distress. She is hemodynamically stable. Also hemoglobin is stable at 8.4. Platelet 136. Patient kept on ceftriaxone for UTI with E. coli which is sensitive. Also normal saline 75 mg on Protonix IV twice daily. Underwent EGD and colonoscopy today which were negative for significant abnormality to explain patient suspected GI bleed. Patient has mild external hemorrhoids. Patient continued on Protonix and Carafate. Patient started on CHOP diet by surgery after the procedure. Plavix and Eliquis remain on hold until cleared by surgery team 01/25/2022 patient still confused more than her baseline, she does not follow command, she is agitated at time, as per staff her mentation is fluctuating. She is hemodynamically stable She still on antibiotics ceftriaxone. Urine culture showing E. coli. I discussed the case with surgery team distal prefer to hold Plavix and Eliquis for now. Hemoglobin slightly dropped today at 7.8. Continue with Protonix,and ferrous sulfate Objective - Vital Signs Vital signs: Vital Signs Temp 98.1 F 01/25/22 12:01 Pulse 73 01/25/22 12:03 Resp 18 01/25/22 12:03 BP 122/68 01/25/22 12:01 Pulse Ox 99 01/25/22 12:01 Intake & Output 01/24/22 01/25/22 01/25/22 18:59 06:59 18:59 Intake Total 200 600 950 Balance 200 600 950 Weight 80.286 kg Intake: IV 200 600 Sodium Chloride 0.9% 1, 600 000 ml @ 75 mls/hr IV . [id number] [facility] Rx#:[id number] Intake, IV Titration 950 Amount Sodium Chloride 0.9% 1, 900 000 ml @ 75 mls/hr IV . [id number] [facility] Rx#:[id number] cefTRIAXone 1 gm In 50 Sodium Chloride 0.9% 50 ml @ 100 mls/hr IVPB Q24HR [facility] Rx#:[id number] Oral 0 Other: Voiding Method Incontinent Incontinent Incontinent # Voids 1 1 - Exam -GENERAL: The patient is confused, not in any acute distress. Well developed, well nourished. HEENT: Pupils are round and equally reacting to light. EOMI. No scleral icterus. No conjunctival pallor. Normocephalic, atraumatic. No pharyngeal erythema. No thyromegaly. CARDIOVASCULAR: S1 and S2 present. No murmurs, rubs, or gallops. PULMONARY: Chest is clear to auscultation, no wheezing or crackles. ABDOMEN: Soft, nontender, nondistended, normoactive bowel sounds. No palpable organomegaly. MUSCULOSKELETAL: No joint swelling or deformity. EXTREMITIES: No cyanosis, clubbing, or pedal edema. NEUROLOGICAL: Gross neurological examination did not reveal any focal deficits. SKIN: No rashes. no petechiae. - Labs CBC & Chem 7: 01/25/22 08:31 01/25/22 08:31 Labs: Abnormal Lab Results - Last 24 Hours (Table) 01/25/22 01/25/22 Range/Units 08:31 08:31 WBC 3.0 L (3.8-10.6) k/uL RBC 3.22 L (3.80-5.40) m/uL Hgb 7.8 L (11.4-16.0) gm/dL Hct 26.2 L (34.0-46.0) % MCH 24.0 L (25.0-35.0) pg MCHC 29.5 L (31.0-37.0) g/dL RDW 17.5 H (11.5-15.5) % Plt Count 144 L (150-450) k/uL Lymphocytes # 0.9 L (1.0-4.8) k/uL Potassium 2.8 L (3.5-5.1) mmol/L Chloride 113 H (98-107) mmol/L Carbon Dioxide 18 L (22-30) mmol/L BUN 3 L (7-17) mg/dL Calcium 7.9 L (8.4-10.2) mg/dL Assessment and Plan Assessment: Acute urinary tract infection secondary to UTI Altered mental status secondary to metabolic encephalopathy on the top of dementia, secondary to above.Delirium pancytopenia Acute GI bleed. EGD showed mild gastritis, colonoscopy showing mild external hemorrhoids, no other significant abnormality Acute blood loss anemia Chronic atrial fibrillation. Rate control History of MTHFR (clotting disorder) History of CVA/TIA History of GERD History of headache and came indicating hydrocephalus History of exertional dyspnea, could be related to her anemia History of hand tremor Plan: This is a pleasant 71 years old female who presents with acute GI bleed. Status post one unit of blood transfusion Continue monitoring hemoglobin Continue with normal saline Continue with Protonix Start ferrous sulfate Hold the Plavix and Eliquis. Resume prior surgery, dictation Surgery team consult check vitamin B12 and folate Labs and medication were reviewed.. Continue same treatment. Continue with symptomatic treatment. Resume home medication. Monitor lytes and vitals. DVT and GI prophylaxis. Further recommendations depends on the clinical course of the patient DVT prophylaxis: no Subcutaneous heparin, continue with mechanical GI Prophylaxis: Ppi Prognosis is guarded
[2022-01-25 21:32] LABS: Potassium 3.4 mmol/L (3.5-5.1)
[2022-01-26] MEDS: SODIUM CHLORIDE 0.9% 1,000 ML IV SCH (06:12)
[2022-01-26] MEDS: POTASSIUM CHLORIDE ER 20 MEQ TAB.ER PO SCH ×3 (06:45→07:24)
[2022-01-26] MEDS: FERROUS SULFATE 325 MG TAB PO SCH ×3 (06:52→17:11)
[2022-01-26 07:55] LABS: Anisocytosis Slight; HCT 27.5 % (34.0-46.0); HGB 7.8 gm/dL (11.4-16.0); Hypochromasia Marked; MCH 23.5 pg (25.0-35.0); MCHC 28.3 g/dL (31.0-37.0); MCV 83.2 fL (80.0-100.0); Mean Platelet Volume 7.8; Platelet Count 131 k/uL (150-450); Poikilocytosis Marked; RBC 3.31 m/uL (3.80-5.40); RDW 17.4 % (11.5-15.5); WBC 2.9 k/uL (3.8-10.6)
[2022-01-26 08:21] LABS: African American GFR (CKD) >90 (>60 ml/min/1.73 sqM); Anion Gap 4 mmol/L; Blood Urea Nitrogen <2 mg/dL (7-17); Calcium 7.8 mg/dL (8.4-10.2); Carbon Dioxide 22 mmol/L (22-30); Chloride 116 mmol/L (98-107); Glucose 108 mg/dL (74-99); Non-African American GFR(CKD) >90 (>60 ml/min/1.73 sqM); Potassium 3.4 mmol/L (3.5-5.1); Sodium 142 mmol/L (137-145)
[2022-01-26] MEDS: PANTOPRAZOLE 40 MG/10 ML VIAL IV SCH ×2 (09:15→20:10)
[2022-01-26] MEDS ORDERED: CYANOCOBALAMIN 1,000 MCG/ML 1 ML VIAL IM ONE (10:11)
--- NOTE | 2022-01-26 10:16 | P.PN ---
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 SOB with exertion. Hand tremors. Patient is poor historian so it was obtained from staff and medical records. Patient was sent from [facility] for low hemoglobin. Possible GI bleed. She had a positive Hemoccult at [facility]. Patient is alert awake oriented 1 at baseline per documents 1 the patient and emergency room she was lying bed comfortable, shows more sleepy. Confused and she could not provide information. However patient looks calm does not look in distress. Does not look in pain. Patient is hemodynamically stable. Labs reviewed. Hemoglobin 7.5. Previous reading was 12.1 on 12/19/2021. INR 1.1. BMP and liver enzymes are unremarkable. Occult blood in stool is positive. EKG showing atrial fibrillation with a heart rate of 92 QTC 427, no significant ST-T changes. And emergency room she received Protonix and normal saline at 75 mL/h with GI consult Repeat hemoglobin is 5.9 and she received 1 unit of blood transfusion. Also her delivery she went down to 3.7 and platelet count 140. 01/22/2022 Patient is seen and evaluated in room at bedside; more awake and alert Vital signs are reviewed and remained stable Labs are reviewed; hemoglobin 5.5 yesterday; had detailed discussion with risks and prognosis given severe anemia yesterday with patient's and 3 children at bedside; patient continues to refuse but later in the evening agreed for transfusion; hemoglobin at 7.2 this morning Chemical profile reveals potassium of 3.0; we will supplement with 20 mEq of KCl IV 1; continue to monitor electrolytes Gen. surgery is consulted with plans for EGD and colonoscopy possibly Monday01/23/2022 Patient is seen and evaluated sitting up in bedside chair/recliner; family members are at bedside; discussed with nursing staff; no significant events; patient is more awake and alert Lab review reveals hemoglobin of 8.4 posttransfusion; no further episodes of bleeding; potassium at 3.1; we will supplement with 20 mg of KCl IV 1 Patient is being followed by general surgery and plan is to proceed with EGD/colonoscopy tomorrow morning; we will continue to monitor hemoglobin closely and transfuse as needed 01/24/2022, resuming the care of the patient today from Dr. aquino Patient this morning was still confused, does not follow commands. However she does not look in distress. She is hemodynamically stable. Also hemoglobin is stable at 8.4. Platelet 136. Patient kept on ceftriaxone for UTI with E. coli which is sensitive. Also normal saline 75 mg on Protonix IV twice daily. Underwent EGD and colonoscopy today which were negative for significant abnormality to explain patient suspected GI bleed. Patient has mild external hemorrhoids. Patient continued on Protonix and Carafate. Patient started on CHOP diet by surgery after the procedure. Plavix and Eliquis remain on hold until cleared by surgery team 01/25/2022 patient still confused more than her baseline, she does not follow command, she is agitated at time, as per staff her mentation is fluctuating. She is hemodynamically stable She still on antibiotics ceftriaxone. Urine culture showing E. coli. I discussed the case with surgery team distal prefer to hold Plavix and Eliquis for now. Hemoglobin slightly dropped today at 7.8. Continue with Protonix,and ferrous sulfate 01/26/2022 Patient still more confused. She is slightly better today with the following only a few simple commands. She could tell she is in the hospital but she does not know what the hospital or the time or person. She still complaining of from some urinary symptoms. She still on antibiotics ceftriaxone and gentle hydration. Also she is on Protonix We will discuss the plan with surgery team as well. Her Eliquis and Plavix are on hold. Hemoglobin 7.8 which is stable. She has pancytopenia. B12 is on the low normal side 330. Vitamin B12 replacement started. Folate more than 20. Objective - Vital Signs Vital signs: Vital Signs Temp 98.1 F 01/26/22 04:00 Pulse 83 01/26/22 04:00 Resp 17 01/26/22 04:00 BP 127/72 01/26/22 04:00 Pulse Ox 100 01/26/22 04:00 Intake & Output 01/25/22 01/26/22 01/26/22 18:59 06:59 18:59 Intake Total 1894 680 590 Balance 1894 680 590 Intake: IV 280 Sodium Chloride 0.9% 1, 280 000 ml @ 40 mls/hr IV . Q24H [facility] Rx#:[id number] Intake, IV Titration 950 Amount Sodium Chloride 0.9% 1, 900 000 ml @ 40 mls/hr IV . Q24H [facility] Rx#:[id number] cefTRIAXone 1 gm In 50 Sodium Chloride 0.9% 50 ml @ 100 mls/hr IVPB Q24HR [facility] Rx#:[id number] Oral 944 400 590 Other: Voiding Method Incontinent Incontinent # Voids 1 4 - Exam -GENERAL: The patient is confused, not in any acute distress. Well developed, well nourished. HEENT: Pupils are round and equally reacting to light. EOMI. No scleral icterus. No conjunctival pallor. Normocephalic, atraumatic. No pharyngeal erythema. No thyromegaly. CARDIOVASCULAR: S1 and S2 present. No murmurs, rubs, or gallops. PULMONARY: Chest is clear to auscultation, no wheezing or crackles. ABDOMEN: Soft, nontender, nondistended, normoactive bowel sounds. No palpable organomegaly. MUSCULOSKELETAL: No joint swelling or deformity. EXTREMITIES: No cyanosis, clubbing, or pedal edema. NEUROLOGICAL: Gross neurological examination did not reveal any focal deficits. SKIN: No rashes. no petechiae. - Labs CBC & Chem 7: 01/26/22 07:09 01/26/22 07:09 Labs: Abnormal Lab Results - Last 24 Hours (Table) 01/25/22 01/25/22 01/25/22 Range/Units 08:31 08:31 21:06 WBC 3.0 L (3.8-10.6) k/uL RBC 3.22 L (3.80-5.40) m/uL Hgb 7.8 L (11.4-16.0) gm/dL Hct 26.2 L (34.0-46.0) % MCH 24.0 L (25.0-35.0) pg MCHC 29.5 L (31.0-37.0) g/dL RDW 17.5 H (11.5-15.5) % Plt Count 144 L (150-450) k/uL Lymphocytes # 0.9 L (1.0-4.8) k/uL Potassium 2.8 L 3.4 L (3.5-5.1) mmol/L Chloride 113 H (98-107) mmol/L Carbon Dioxide 18 L (22-30) mmol/L BUN 3 L (7-17) mg/dL Glucose (74-99) mg/dL Calcium 7.9 L (8.4-10.2) mg/dL 01/26/22 01/26/22 Range/Units 07:09 07:09 WBC 2.9 L (3.8-10.6) k/uL RBC 3.31 L (3.80-5.40) m/uL Hgb 7.8 L (11.4-16.0) gm/dL Hct 27.5 L (34.0-46.0) % MCH 23.5 L (25.0-35.0) pg MCHC 28.3 L (31.0-37.0) g/dL RDW 17.4 H (11.5-15.5) % Plt Count 131 L (150-450) k/uL Lymphocytes # (1.0-4.8) k/uL Potassium 3.4 L (3.5-5.1) mmol/L Chloride 116 H (98-107) mmol/L Carbon Dioxide (22-30) mmol/L BUN <2 L (7-17) mg/dL Glucose 108 H (74-99) mg/dL Calcium 7.8 L (8.4-10.2) mg/dL Assessment and Plan Assessment: Acute urinary tract infection secondary to UTI Altered mental status secondary to metabolic encephalopathy on the top of demen tia, secondary to above.Delirium pancytopenia, could be related to low borderline vitamin B12 level, as well as infection Acute GI bleed. EGD showed mild gastritis, colonoscopy showing mild external hemorrhoids, no other significant abnormality Acute blood loss anemia Chronic atrial fibrillation. Rate control History of MTHFR (clotting disorder) History of CVA/TIA History of GERD History of headache and came indicating hydrocephalus History of exertional dyspnea, could be related to her anemia History of hand tremor Plan: This is a pleasant 71 years old female who presents with acute GI bleed. Status post one unit of blood transfusion Continue monitoring hemoglobin Continue with normal saline Continue with Protonix Continue ferrous sulfate Start vitamin B12 replacement therapy Hold the Plavix and Eliquis. Resume prior surgery, dictation Surgery team consult Labs and medication were reviewed.. Continue same treatment. Continue with symptomatic treatment. Resume home medication. Monitor lytes and vitals. DVT and GI prophylaxis. Further recommendations depends on the clinical course of the patient DVT prophylaxis: no Subcutaneous heparin, continue with mechanical GI Prophylaxis: Ppi Prognosis is guarded
--- NOTE | 2022-01-26 13:16 | P.PN ---
Subjective Progress Note Date: 01/26/22 CHIEF COMPLAINT: GI bleed HISTORY OF PRESENT ILLNESS: Patient is status post EGD and colonoscopy revealing mild antral gastritis and diverticulosis. There is no evidence of active bleed. It's presumed patient may have had bleeding from hemorrhoids or diverticular changes. Hemoglobin has stayed the same at 7.8. No active bleeding reported per nursing staff. MG 2 K 3.3. Medicine is replacing potassium PHYSICAL EXAM: VITAL SIGNS: Reviewed. GENERAL: Well-developed in no acute distress. HEENT: No sclera icterus. Extraocular movements grossly intact. Moist buccal mucosa. Head is atraumatic, normocephalic. ABDOMEN: Soft. Nondistended. Nontender. ASSESSMENT: 1. Acute GI bleed status post EGD and colonoscopy revealing mild antral gastritis, diverticulosis, hemorrhoids. No evidence of active bleeding 2. Acute blood loss anemia 3. Hypokalemia and hypomagnesemia PLAN: -Continue to hold Plavix and Eliquis for 1 week -Patient can be discharge from surgical standpoint when medically cleared -Continue PPI -Recommend repeat CBC outpatient -Continue dysphagia chopped diet Physician [employer] note has been reviewed by physician. Signing provider agrees with the documented findings, assessment, and plan of care. Objective - Vital Signs Vital signs: Vital Signs Temp 97.4 F L 01/26/22 08:00 Pulse 79 01/26/22 08:00 Resp 16 01/26/22 08:00 BP 124/70 01/26/22 08:00 Pulse Ox 99 01/26/22 08:00 Intake & Output 01/25/22 01/26/22 01/26/22 18:59 06:59 18:59 Intake Total 1894 680 590 Balance 1894 680 590 Intake: IV 280 Sodium Chloride 0.9% 1, 280 000 ml @ 40 mls/hr IV . Q24H CORNEL[facility] Rx#:[id number] Intake, IV Titration 950 Amount Sodium Chloride 0.9% 1, 900 000 ml @ 40 mls/hr IV . Q24H [facility]NEL[facility] Rx#:[id number] cefTRIAXone 1 gm In 50 Sodium Chloride 0.9% 50 ml @ 100 mls/hr IVPB Q24HR [facility] Rx#:[id number] Oral 944 400 590 Other: Voiding Method Incontinent Incontinent Incontinent # Voids 1 4 - Labs CBC & Chem 7: 01/26/22 07:09 01/26/22 10:28 Labs: Abnormal Lab Results - Last 24 Hours (Table) 01/25/22 01/26/22 01/26/22 Range/Units 21:06 07:09 07:09 WBC 2.9 L (3.8-10.6) k/uL RBC 3.31 L (3.80-5.40) m/uL Hgb 7.8 L (11.4-16.0) gm/dL Hct 27.5 L (34.0-46.0) % MCH 23.5 L (25.0-35.0) pg MCHC 28.3 L (31.0-37.0) g/dL RDW 17.4 H (11.5-15.5) % Plt Count 131 L (150-450) k/uL Potassium 3.4 L 3.4 L (3.5-5.1) mmol/L Chloride 116 H (98-107) mmol/L BUN <2 L (7-17) mg/dL Glucose 108 H (74-99) mg/dL Calcium 7.8 L (8.4-10.2) mg/dL 01/26/22 Range/Units 10:28 WBC (3.8-10.6) k/uL RBC (3.80-5.40) m/uL Hgb (11.4-16.0) gm/dL Hct (34.0-46.0) % MCH (25.0-35.0) pg MCHC (31.0-37.0) g/dL RDW (11.5-15.5) % Plt Count (150-450) k/uL Potassium 3.3 L (3.5-5.1) mmol/L Chloride (98-107) mmol/L BUN (7-17) mg/dL Glucose (74-99) mg/dL Calcium (8.4-10.2) mg/dL
[2022-01-27 05:03] VITALS: RESP 18
[2022-01-27] MEDS: SODIUM CHLORIDE 0.9% 1,000 ML IV SCH (06:45)
[2022-01-27 08:45] LABS: African American GFR (CKD) >90 (>60 ml/min/1.73 sqM); Anion Gap 6 mmol/L; Blood Urea Nitrogen <2 mg/dL (7-17); Carbon Dioxide 22 mmol/L (22-30); Chloride 113 mmol/L (98-107); Glucose 95 mg/dL (74-99); Non-African American GFR(CKD) >90 (>60 ml/min/1.73 sqM); Potassium 3.6 mmol/L (3.5-5.1); Sodium 141 mmol/L (137-145)
[2022-01-27] MEDS: PANTOPRAZOLE 40 MG/10 ML VIAL IV SCH (08:51)
[2022-01-27] MEDS: FERROUS SULFATE 325 MG TAB PO SCH ×3 (08:51→12:33)
[2022-01-27 08:56] LABS: Anisocytosis Slight; Basophils % (A) 1 %; Eosinophils # (A) 0.1 k/uL (0-0.7); Eosinophils % (A) 2 %; HCT 28.6 % (34.0-46.0); HGB 8.2 gm/dL (11.4-16.0); Hypochromasia Marked; Lymphocytes # (A) 0.9 k/uL (1.0-4.8); Lymphocytes % (A) 32 %; MCH 23.7 pg (25.0-35.0); MCHC 28.5 g/dL (31.0-37.0); MCV 83.2 fL (80.0-100.0); Mean Platelet Volume 10.1; Monocytes # (A) 0.2 k/uL (0-1.0); Monocytes % (A) 9 %; Neutrophils # (A) 1.5 k/uL (1.3-7.7); Neutrophils % (A) 54 %; Platelet Count 133 k/uL (150-450); Poikilocytosis Marked; RBC 3.44 m/uL (3.80-5.40); RDW 17.9 % (11.5-15.5); WBC 2.7 k/uL (3.8-10.6)
[2022-01-27] MEDS ORDERED: POTASSIUM CHLORIDE ER 20 MEQ TAB.ER PO STA (09:00)
[2022-01-27] MEDS ORDERED: CYANOCOBALAMIN 500 MCG TAB PO SCH (09:00)
[2022-01-27] MEDS ORDERED: LACOSAMIDE 50 MG TABLET PO SCH (10:15)
[2022-01-27] MEDS ORDERED: clonazePAM 0.5 MG TAB PO SCH (10:15)
--- NOTE | 2022-01-27 10:18 | P.DS ---
Providers Date of admission: 01/20/22 02:48 Attending physician: Fanny Graff Consults: 01/20/22 02:47 Consult Physician Urgent Consulting Provider: Sarah Kim Consult Reason/Comments: Gastrointestinal bleeding Do you want consulting provider notified?: Yes, Notify in am 01/21/22 15:23 Consult Physician Urgent Consulting Provider: Marciano Anderson Consult Reason/Comments: GI BLEED Do you want consulting provider notified?: Yes Primary care physician: Eleazar Elaine Hospital Course: Diagnoses: Acute GI bleed. EGD showed mild gastritis, colonoscopy showing mild external hemorrhoids, no other significant abnormality Acute blood loss anemia Acute urinary tract infection secondary to UTI, secondary to sensitive E. coli Altered mental status secondary to metabolic encephalopathy on the top of dementia, secondary to above.Delirium pancytopenia, could be related to low borderline vitamin B12 level, as well as infection Possible Alzheimer dementia Chronic atrial fibrillation. 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 SOB with exertion. Hand tremors. Possible history of seizure, she is on seizure medication Patient is poor historian so it was obtained from staff and medical records. Patient was sent from [facility] for low hemoglobin. Possible GI bleed. She had a positive Hemoccult at [facility]. Patient is alert awake oriented 1 at baseline per documents. Patient admitted with altered mental status secondary to UTI with E. coli which is sensitive to antibiotics. She was treated with ceftriaxone and showed interval improvement and can be discharged on short course of oral Ceftin. Also on admission she had anemia with hemoglobin dropped to 5.5 while she is on liquids and Plavix which were held. EGD and colonoscopy done by surgery team showing mild gastritis, colonoscopy showing mild external hemorrhoids, no other significant abnormality. I discussed the case with surgery team and they confirmed to me to hold Eliquis and Plavix per their recommendation for about one week, also patient will need to follow up with Dr. Anderson in one week as well. Patient will be at risk of thrombosis and clotting however it felt that risks more than benefits at this point Also patient will be discharged on Protonix, vitamin B12 replacement and iron pills. She has mild pancytopenia which is improving with treatment. Patient back to baseline, she is awake and alert but confused Patient was cleared for discharge by surgery team Problems and management plan were discussed with the patient and he verbalized understanding and acceptance Patient was found stable and can be discharged to ECF in regards prognosis however he needs follow-up as an outpatient. Patient was instructed to follow up with PCP Dr. Elaine within one week and patient agrees Also patient will need to follow-up with Dr. Anderson on 02/03, and to decide about aspirin and Plavix. Physical exam -Gen: patient is a AAOx1, no distress CVS: S1-S2, RRR, no murmur Lungs: B/L CTA, no wheezing Abdomen: soft, no distention, no tenderness, positive bowel sounds Extremity: no leg edema or induration Time spent more than 35 minutes Patient Condition at Discharge: Stable Plan - Discharge Summary Discharge Rx Participant: No New Discharge Prescriptions: New Cefuroxime Axetil [Ceftin] 500 mg PO BID 3 Days #6 tab Ferrous Sulfate [Iron (65 MG Elemental)] 325 mg PO TID-W/MEALS tab Cyanocobalamin [Vitamin B-12] 1,000 mcg PO DAILY tab Pantoprazole [Protonix] 40 mg PO BID #60 tab Continue Cholecalciferol [Vitamin D3 (125 Mcg = 5000 Iu)] 125 mcg PO DAILY tablet Nitroglycerin Sl Tabs [Nitrostat] 0.4 mg SL Q5M PRN PRN Reason: Chest Pain Lactose-Reduced Food [Ensure Plus] 237 ml PO TID Triad 1 applic TOPICAL BID Atorvastatin [Lipitor] 80 mg PO HS #90 tab Acetaminophen [Tylenol] 650 mg PO Q4H PRN PRN Reason: Fever And/ Or Pain Sertraline [Zoloft] 25 mg PO BID Folic Acid 1 mg PO DAILY tab Lacosamide [Vimpat] 50 mg PO BID #6 tablet clonazePAM [KlonoPIN] 0.5 mg PO BID Changed Metoprolol Succinate (ER) [Toprol XL] 12.5 mg PO DAILY #0 Discontinued Clopidogrel [Plavix] 75 mg PO DAILY Multivitamins, Thera [Multivitamin (formulary)] 1 tab PO DAILY Famotidine [Pepcid] 20 mg PO HS tab HYDROcodone/APAP 5-325MG [[place] 5-325] 1 tab PO Q4HR PRN PRN Reason: Pain Apixaban [Eliquis] 5 mg PO BID Discharge Medication List Atorvastatin [Lipitor] 80 mg PO HS #90 tab 06/07/21 [Rx] Cholecalciferol [Vitamin D3 (125 Mcg = 5000 Iu)] 125 mcg PO DAILY tablet 09/17/21 [Rx] Acetaminophen [Tylenol] 650 mg PO Q4H PRN 10/23/21 [History] Lactose-Reduced Food [Ensure Plus] 237 ml PO TID 10/23/21 [History] Nitroglycerin Sl Tabs [Nitrostat] 0.4 mg SL Q5M PRN 10/23/21 [History] Sertraline [Zoloft] 25 mg PO BID 10/23/21 [History] Folic Acid 1 mg PO DAILY tab 10/28/21 [Rx] Lacosamide [Vimpat] 50 mg PO BID #6 tablet 10/28/21 [Rx] clonazePAM [KlonoPIN] 0.5 mg PO BID 11/26/21 [History] Triad 1 applic TOPICAL BID 01/20/22 [History] Cefuroxime Axetil [Ceftin] 500 mg PO BID 3 Days #6 tab 01/27/22 [Rx] Cyanocobalamin [Vitamin B-12] 1,000 mcg PO DAILY tab 01/27/22 [Rx] Ferrous Sulfate [Iron (65 MG Elemental)] 325 mg PO TID-W/MEALS tab 01/27/22 [Rx] Metoprolol Succinate (ER) [Toprol XL] 12.5 mg PO DAILY #0 01/27/22 [Rx] Pantoprazole [Protonix] 40 mg PO BID #60 tab 01/27/22 [Rx] Follow up Appointment(s)/Referral(s): Eleazar Elaine MD [Primary Care Provider] - 1-2 days Sarah Kim MD [STAFF PHYSICIAN] - 1 Week Marciano Anderson MD [STAFF PHYSICIAN] - 02/03/22 2:00 pm (surgeon) Activity/Diet/Wound Care/Special Instructions: Heart healthy diet Activity as tolerated We recommend to hold Plavix and Eliquis 1 week, follow up with surgeon Dr. Anderson in 1 week for this purpose as well please Discharge Disposition: TRANSFER TO [facility]/ECF
[2022-01-27] MEDS ORDERED: ALPRAZolam 0.5 MG TAB PO PRN (12:11)
--- NOTE | 2022-01-27 14:08 | P.PN ---
Subjective Progress Note Date: 01/27/22 CHIEF COMPLAINT: GI bleed HISTORY OF PRESENT ILLNESS: Patient is status post EGD and colonoscopy revealing mild antral gastritis and diverticulosis. There is no evidence of active bleed. It's presumed patient may have had bleeding from hemorrhoids or diverticular changes. HGB is up from 7.8-8.2. Potassium improved to 3.6 magnesium 2.0 PHYSICAL EXAM: VITAL SIGNS: Reviewed. GENERAL: Well-developed in no acute distress. HEENT: No sclera icterus. Extraocular movements grossly intact. Moist buccal mucosa. Head is atraumatic, normocephalic. ABDOMEN: Soft. Nondistended. Nontender. ASSESSMENT: 1. Acute GI bleed status post EGD and colonoscopy revealing mild antral gastritis, diverticulosis, hemorrhoids. No evidence of active bleeding 2. Acute blood loss anemia 3. Hypokalemia and hypomagnesemia resolved PLAN: -Continue to hold Plavix and Eliquis for 1 week -Patient can be discharge from surgical standpoint when medically cleared -Continue PPI Physician [employer] note has been reviewed by physician. Signing provider agrees with the documented findings, assessment, and plan of care. Objective - Vital Signs Vital signs: Vital Signs Temp 98.0 F 01/27/22 08:00 Pulse 68 01/27/22 12:00 Resp 18 01/27/22 12:00 BP 110/53 01/27/22 12:00 Pulse Ox 100 01/27/22 12:00 Intake & Output 01/26/22 01/27/22 01/27/22 18:59 06:59 18:59 Intake Total 1152 360 Output Total 300 2400 Balance 852 -2400 360 Weight 80.286 kg Intake: Oral 1152 360 Output: Urine 300 2400 Other: Voiding Method Incontinent Incontinent Incontinent # Voids 4 - Labs CBC & Chem 7: 01/27/22 07:37 01/27/22 07:37 Labs: Abnormal Lab Results - Last 24 Hours (Table) 01/27/22 01/27/22 Range/Units 07:37 07:37 WBC 2.7 L (3.8-10.6) k/uL RBC 3.44 L (3.80-5.40) m/uL Hgb 8.2 L (11.4-16.0) gm/dL Hct 28.6 L (34.0-46.0) % MCH 23.7 L (25.0-35.0) pg MCHC 28.5 L (31.0-37.0) g/dL RDW 17.9 H (11.5-15.5) % Plt Count 133 L (150-450) k/uL Lymphocytes # 0.9 L (1.0-4.8) k/uL Chloride 113 H (98-107) mmol/L BUN <2 L (7-17) mg/dL Calcium 8.0 L (8.4-10.2) mg/dL
[2022-01-27 17:28] VITALS: BP 124/59; PULSE 84; TEMP 97.8
== END 2022-01-27 18:18 | DRG 393 ==
LOC: EC 00:41 → 5NMEDONC 02:48 → 3SCARD 03:00
PROVIDERS: ADMIT Hospitalist; ATTEND Hospitalist
PROC: 30233N1 Transfusion of Nonautologous Red Blood Cells into Peripheral Vein, Percutaneous Approach (ICD-10-PCS; principal; 2022-01-21)
PROC: 0DJD8ZZ Inspection of Lower Intestinal Tract, Via Natural or Artificial Opening Endoscopic (ICD-10-PCS; 2022-01-24)
PROC: 0DB68ZX Excision of Stomach, Via Natural or Artificial Opening Endoscopic, Diagnostic (ICD-10-PCS; 2022-01-24 08:05)
DX: K64.4 Residual hemorrhoidal skin tags (principal); G93.41 Metabolic encephalopathy; K57.31 Diverticulosis of large intestine without perforation or abscess with bleeding; D61.818 Other pancytopenia; D62 Acute posthemorrhagic anemia; I48.20 Chronic atrial fibrillation, unspecified; N39.0 Urinary tract infection, site not specified; D68.9 Coagulation defect, unspecified; G91.0 Communicating hydrocephalus; E72.12 Methylenetetrahydrofolate reductase deficiency; F05 Delirium due to known physiological condition; B96.20 Unspecified Escherichia coli [E. coli] as the cause of diseases classified elsewhere; Z66 Do not resuscitate; E83.42 Hypomagnesemia; R19.5 Other fecal abnormalities; D50.9 Iron deficiency anemia, unspecified; K21.9 Gastro-esophageal reflux disease without esophagitis; R06.09 Other forms of dyspnea; E87.6 Hypokalemia; R25.1 Tremor, unspecified; F03.90 Unspecified dementia, unspecified severity, without behavioral disturbance, psychotic disturbance, mood disturbance, and anxiety; K29.70 Gastritis, unspecified, without bleeding; K29.80 Duodenitis without bleeding; K63.5 Polyp of colon; Z53.1 Procedure and treatment not carried out because of patient's decision for reasons of belief and group pressure; Z79.01 Long term (current) use of anticoagulants; Z79.02 Long term (current) use of antithrombotics/antiplatelets; Z79.899 Other long term (current) drug therapy; Z86.73 Personal history of transient ischemic attack (TIA), and cerebral infarction without residual deficits; Z90.710 Acquired absence of both cervix and uterus; Z87.19 Personal history of other diseases of the digestive system
CPT/HCPCS: 36415; 43239; 45378; 80048; 80053; 81001; 82150; 82272; 82607; 82728; 82746; 83540; 83550; 83690; 83735; 84132; 84484; 85025; 85027; 85610; 85730; 86850; 86900; 86901; 86920; 87077; 87086; 87186; 88305; 93005; 96374; 99285